=== PATIENT | female | born 1960 | race African-American/Black ===

== ENCOUNTER 2017-07-27 12:02 | Inpatient (IN) | payer MEDICAID ==
[~2017-07-27] VITALS: Ht 165.1 cm; Wt 48.1 kg
[2017-07-27] VITALS (29 sets, daily range): BP systolic 120–173; BP diastolic 67–125
[~2017-07-27 12:02] MED LIST: AMLO10TA80 PO; ASPI-1159 PO; BACL20TA PO; CLON0.2T PO; DIME240C2 PO; NITR100C11 PO; SERT25TA74 PO
[2017-07-27] MEDS ORDERED: SODIUM CHLORIDE 0.9% IV SCH (12:45)
[2017-07-27] MEDS ORDERED: SODIUM CHLORIDE 0.9% 1000ML BAG (SEPSIS BOLUS) IV ONE (12:45)
[2017-07-27 13:33] LABS: HEMATOCRIT. 50.5 % (36.0-48.0); HEMOGLOBIN. 16.2 g/dL (12.0-16.0); MEAN CORPUSCULAR HEMOGLOBIN 26.5 pg (28.0-32.0); MEAN CORPUSCULAR VOLUME 82.9 fL (81.0-99.0); PLATELET 229 x1000/uL (130-400); RED BLOOD CELL COUNT 6.09 mill/uL (4.2-5.4); RED CELL DISTRIBUTION WIDTH 15.5 % (11.6-14.6)
[2017-07-27 13:39] LABS: INR 1.1; PROTHROMBIN TIME 11.9 sec (9.4-11.6)
[2017-07-27 13:40] LABS: CHLORIDE 101 mEq/L (98-107)
[2017-07-27] MEDS ORDERED: CEFEPIME 1,000 MG in DEXTROSE 5% WATER 50 ML IV STA (13:51)
[2017-07-27] MEDS ORDERED: VANCOMYCIN 1 G PREMIX 200 ML IV STA (13:51)
[2017-07-27 13:57] LABS: NUCLEATED RED BLOOD CELLS 1 /100 WBC
[2017-07-27 13:58] LABS: PLATELET ESTIMATE NORMAL
[2017-07-27 14:13] LABS: CLARITY URINE CLOUDY (CLEAR); COLOR URINE YELLOW (YELLOW); KETONES URINE NEGATIVE (NEGATIVE); LEUKOCYTE ESTERASE URINE 1+ (NEGATIVE); NITRITE URINE NEGATIVE (NEGATIVE); OCCULT BLOOD URINE 2+ (NEGATIVE); PH URINE 6.5 (4.5-8.0); PROTEIN URINE 4+ (NEGATIVE); SPECIFIC GRAVITY URINE 1.031 (1.005-1.030); UROBILINOGEN URINE 0.2 E.U./dL (0.2-1.0)
[2017-07-27] MEDS ORDERED: AZTREONAM 2 GM in DEXT 5% WATER 100 ML IV STA (14:16)
[2017-07-27] MEDS ORDERED: ACETAMINOPHEN 325MG SUPP PR ONE (15:00)
[2017-07-27 16:18] LABS: BG BASE EXCESS -0.8 mmol/L (-2.0-2.0); BG CARBOXYHEMOGLOBIN 1.3 % (0.5-1.5); BG DEOXYHEMOGLOBIN 8.3 % (0.0-5.0); BG HCO3 ACT 22.5 mmol/L (22.0-26.0); BG METHEMOGLOBIN 0.3 % (0.0-1.5); BG OXYGEN SATURATION 91.6 % (92.0-98.5); BG OXYHEMOGLOBIN 90.1 % (94.0-97.0); BG PCO2 33.5 mmHg (35.0-45.0); BG PH 7.445 (7.350-7.450); BG SAMPLE SITE RIGHT RADIAL; BG TOTAL HEMOGLOBIN 15.1 g/dL (12.0-18.0); BG VENT MODE NASAL CANNULA
[2017-07-27] MEDS ORDERED: CLONIDINE 0.1MG TABLET PO PRN (17:00)
[2017-07-27] MEDS ORDERED: VANCOMYCIN 1 G PREMIX 200 ML IV SCH (17:00)
[2017-07-27] MEDS ORDERED: IPRATROPIUM/ALBUTEROL 0.5-3(2.5)MG/3ML NEB HHN PRN ×2 (17:00→17:30)
[2017-07-27] MEDS ORDERED: MAGNESIUM/ALUMINUM HYDROXIDE/SIMETHICONE 30ML UDC PO PRN (17:00)
[2017-07-27] MEDS ORDERED: GUAIFENESIN 200MG/10ML SUGAR FREE UDC PO PRN (17:00)
[2017-07-27] MEDS ORDERED: DIPHENHYDRAMINE 50MG/ML VIAL IV PRN (17:00)
[2017-07-27] MEDS ORDERED: ONDANSETRON HCL 4MG/2ML VIAL IV PRN (17:00)
[2017-07-27] MEDS ORDERED: LORAZEPAM 0.5MG TABLET PO PRN (17:00)
[2017-07-27] MEDS ORDERED: ACETAMINOPHEN 325MG TABLET PO PRN (17:00)
[2017-07-27] MEDS ORDERED: DOCUSATE SODIUM 100MG CAPSULE PO PRN (17:00)
[2017-07-27 17:44] LABS: BG BASE EXCESS 0.4 mmol/L (-2.0-2.0); BG DEOXYHEMOGLOBIN 6.4 % (0.0-5.0); BG HCO3 ACT 23.5 mmol/L (22.0-26.0); BG OXYGEN SATURATION 93.5 % (92.0-98.5); BG OXYHEMOGLOBIN 92.6 % (94.0-97.0); BG PCO2 33.6 mmHg (35.0-45.0); BG PH 7.462 (7.350-7.450); BG SAMPLE SITE RIGHT RADIAL; BG TOTAL HEMOGLOBIN 15.2 g/dL (12.0-18.0); BG VENT MODE NASAL CANNULA
[2017-07-27] MEDS ORDERED: MEROPENEM 500 MG in SODIUM CHLORIDE 0.9% 50 ML IV SCH (18:00)
[2017-07-27] MEDS: SODIUM CHLORIDE 0.9% 1,000 ML IV SCH (18:25)
[2017-07-27] MEDS: HYDRALAZINE 20MG/ML VIAL IV SCH (18:29)
[2017-07-27] MEDS ORDERED: DEXTROSE 50% WATER 50ML SYRINGE IV PRN (20:00)
[2017-07-27] MEDS ORDERED: IOHEXOL-350 100 ML BOTTLE ONE (20:59)
[2017-07-27] MEDS: INSULIN LISPRO 100 UNITS/ML SUBCUT SCH (21:00)
[2017-07-27] MEDS ORDERED: DIMETHYL FUMARATE 240 MG PO SCH (21:15)
[2017-07-27] MEDS: AZTREONAM 2GM in DEXTROSE 5% WATER 100ML IV SCH (21:35)
[2017-07-27] MEDS: METRONIDAZOLE 500 MG PREMIX 100 ML IV SCH (21:36)
[2017-07-27] MEDS: BLOOD SUGAR DIAGNOSTIC STRIP TEST SCH (21:40)
[2017-07-27] MEDS: ENALAPRIL 2.5MG/2ML VIAL 2ML IV SCH (21:44)
[2017-07-27] MEDS: ENOXAPARIN 40MG/0.4ML SYR SUBCUT SCH (21:45)
[2017-07-27] MEDS: IPRATROPIUM/ALBUTEROL 0.5-3(2.5)MG/3ML NEB INH SCH (21:48)
[2017-07-27] MEDS ORDERED: VERAPAMIL HCL 2.5 MG/1 ML 2ML VIAL IV NR (23:00)
[2017-07-28] VITALS (61 sets, daily range): BP systolic 95–138; BP diastolic 58–99
[2017-07-28] MEDS: ACETYLCYSTEINE 100MG/ML 10% VIAL 4ML INH SCH ×4 (00:26→21:02)
[2017-07-28] MEDS: IPRATROPIUM/ALBUTEROL 0.5-3(2.5)MG/3ML NEB INH SCH ×8 (00:26→21:02)
[2017-07-28 00:45] LABS: CREATINE KINASE MB FRACTION 1.3 ng/mL (0.5-3.6)
[2017-07-28] MEDS: HYDRALAZINE 20MG/ML VIAL IV SCH ×4 (01:04→17:27)
[2017-07-28] MEDS: ENALAPRIL 2.5MG/2ML VIAL 2ML IV SCH ×4 (02:00→20:00)
[2017-07-28] MEDS: METRONIDAZOLE 500 MG PREMIX 100 ML IV SCH ×3 (03:52→20:53)
[2017-07-28] MEDS: VANCOMYCIN 750 MG PREMIX 150 ML IV SCH ×2 (03:52→16:52)
[2017-07-28 05:30] LABS: BASOPHILS % 0.2 % (0.0-2.0); HEMATOCRIT. 42.4 % (36.0-48.0); HEMOGLOBIN. 13.7 g/dL (12.0-16.0); LYMPHOCYTES % 7.6 % (20.0-50.0); MEAN CORPUSCULAR HEMOGLOBIN 26.4 pg (28.0-32.0); MEAN CORPUSCULAR VOLUME 81.7 fL (81.0-99.0); MEAN PLATELET VOLUME 9.3 fl (7.4-10.4); MONOCYTES % 10.7 % (2.0-8.0); NEUTROPHILS % 81.5 % (40.0-76.0); PLATELET 191 x1000/uL (130-400); RED BLOOD CELL COUNT 5.19 mill/uL (4.2-5.4); RED CELL DISTRIBUTION WIDTH 15.4 % (11.6-14.6)
[2017-07-28] MEDS: SODIUM CHLORIDE 0.9% 1,000 ML IV SCH ×2 (05:49→22:48)
[2017-07-28] MEDS: BLOOD SUGAR DIAGNOSTIC STRIP TEST SCH ×4 (05:55→21:19)
[2017-07-28] MEDS: INSULIN LISPRO 100 UNITS/ML SUBCUT SCH ×4 (05:58→21:00)
[2017-07-28 06:09] LABS: CHLORIDE 110 mEq/L (98-107)
[2017-07-28 06:23] LABS: CREATINE KINASE 36 IU/L (26-192)
[2017-07-28] MEDS: AZTREONAM 2GM in DEXTROSE 5% WATER 100ML IV SCH ×2 (07:59→21:19)
[2017-07-28] MEDS ORDERED: KCL 20MEQ/100ML PREMIX 100 ML IV SCH (08:00)
[2017-07-28] MEDS ORDERED: DEXT 5%/0.45% NACL KCL 40MEQ/L 1,000 ML IV SCH (08:00)
[2017-07-28 08:38] LABS: BG BASE EXCESS -4.4 mmol/L (-2.0-2.0); BG CARBOXYHEMOGLOBIN 0.6 % (0.5-1.5); BG DEOXYHEMOGLOBIN 3.1 % (0.0-5.0); BG FRACTION INSPIRED OXYGEN 50; BG HCO3 ACT 17.9 mmol/L (22.0-26.0); BG METHEMOGLOBIN 0.3 % (0.0-1.5); BG OXYGEN SATURATION 96.9 % (92.0-98.5); BG PCO2 25.6 mmHg (35.0-45.0); BG PH 7.463 (7.350-7.450); BG PO2 84.5 mmHg (75.0-100.0); BG SAMPLE SITE RIGHT RADIAL; BG TOTAL HEMOGLOBIN 12.4 g/dL (12.0-18.0); BG VENT MODE MASK - VENTI
[2017-07-28] MEDS ORDERED: POTASSIUM CHLORIDE 20MEQ/PACKET PEG NR (08:45)
[2017-07-28] MEDS ORDERED: CLONIDINE 0.2MG TABLET PO SCH (09:00)
[2017-07-28] MEDS ORDERED: AMLODIPINE 10MG TABLET PO SCH (09:00)
[2017-07-28] MEDS: SERTRALINE HCL 50MG TABLET PO SCH (09:10)
[2017-07-28] MEDS: BACLOFEN 20MG TABLET PO SCH ×3 (09:10→17:39)
[2017-07-28] MEDS ORDERED: DILTIAZEM HCL 5MG/ML 5ML VIAL IV NR (10:17)
[2017-07-28] MEDS: ENOXAPARIN 40MG/0.4ML SYR SUBCUT SCH (20:55)
[2017-07-28] MEDS ORDERED: ASPIRIN 81MG EC TABLET PO SCH (21:00)
[2017-07-29] VITALS (43 sets, daily range): BP systolic 105–151; BP diastolic 69–102
[2017-07-29] MEDS: IPRATROPIUM/ALBUTEROL 0.5-3(2.5)MG/3ML NEB INH SCH ×4 (00:37→12:40)
[2017-07-29] MEDS: HYDRALAZINE 20MG/ML VIAL IV SCH ×3 (00:45→11:13)
[2017-07-29] MEDS: ENALAPRIL 2.5MG/2ML VIAL 2ML IV SCH ×3 (02:50→13:48)
[2017-07-29] MEDS: VANCOMYCIN 750 MG PREMIX 150 ML IV SCH (04:02)
[2017-07-29] MEDS: METRONIDAZOLE 500 MG PREMIX 100 ML IV SCH ×2 (04:02→11:14)
[2017-07-29 05:23] LABS: BASOPHILS % 0.3 % (0.0-2.0); EOSINOPHILS % 0.1 % (0.0-5.0); HEMATOCRIT. 36.1 % (36.0-48.0); HEMOGLOBIN. 11.7 g/dL (12.0-16.0); LYMPHOCYTES % 9.9 % (20.0-50.0); MEAN CORPUSCULAR HEMOGLOBIN 26.5 pg (28.0-32.0); MEAN CORPUSCULAR VOLUME 82.3 fL (81.0-99.0); MONOCYTES % 10.8 % (2.0-8.0); NEUTROPHILS % 78.9 % (40.0-76.0); PLATELET 185 x1000/uL (130-400); RED BLOOD CELL COUNT 4.39 mill/uL (4.2-5.4); RED CELL DISTRIBUTION WIDTH 14.9 % (11.6-14.6)
[2017-07-29 05:36] LABS: CHLORIDE 110 mEq/L (98-107)
[2017-07-29] MEDS: BLOOD SUGAR DIAGNOSTIC STRIP TEST SCH ×2 (06:58→11:07)
[2017-07-29] MEDS: INSULIN LISPRO 100 UNITS/ML SUBCUT SCH ×2 (06:58→11:14)
[2017-07-29] MEDS: SERTRALINE HCL 50MG TABLET PO SCH (08:32)
[2017-07-29] MEDS: BACLOFEN 20MG TABLET PO SCH ×2 (08:32→12:18)
[2017-07-29] MEDS: SODIUM CHLORIDE 0.9% 1,000 ML IV SCH (08:33)
[2017-07-29] MEDS ORDERED: POTASSIUM CHLORIDE 20MEQ TABLET SR PO NR (09:00)
[2017-07-29] MEDS: ACETYLCYSTEINE 100MG/ML 10% VIAL 4ML INH SCH (09:01)
[2017-07-29] MEDS: AZTREONAM 2GM in DEXTROSE 5% WATER 100ML IV SCH (09:02)
== END 2017-07-29 14:45 | disposition left against medical advice (07) | DRG 720 ==
LOC: ER 12:28 → 3WST 14:18 → EDBEDREQ 14:23 → CANRESERV 14:26 → ENRESERV 14:26 → CANRESERV 15:35 → ENRESERV 15:38 → MICUSO 20:51
PROVIDERS: ADMIT Internal Medicine; ATTEND Internal Medicine
DX: A41.9 Sepsis, unspecified organism (principal); J96.01 Acute respiratory failure with hypoxia; E43 Unspecified severe protein-calorie malnutrition; E87.4 Mixed disorder of acid-base balance; J18.9 Pneumonia, unspecified organism; R13.10 Dysphagia, unspecified; E44.0 Moderate protein-calorie malnutrition; E11.65 Type 2 diabetes mellitus with hyperglycemia; E87.6 Hypokalemia; F32.9 Major depressive disorder, single episode, unspecified; G35 Multiple sclerosis; I10 Essential (primary) hypertension; J45.909 Unspecified asthma, uncomplicated; N39.0 Urinary tract infection, site not specified; R65.20 Severe sepsis without septic shock; Z83.3 Family history of diabetes mellitus; Z86.718 Personal history of other venous thrombosis and embolism; Z87.01 Personal history of pneumonia (recurrent); Z91.19 Patient's noncompliance with other medical treatment and regimen; Z93.1 Gastrostomy status; M19.90 Unspecified osteoarthritis, unspecified site; Z68.1 Body mass index [BMI] 19.9 or less, adult
CPT/HCPCS: 36415; 36600; 71045; 71275; 80048; 80053; 81003; 82375; 82550; 82553; 82805; 82962; 83036; 83605; 83880; 84145; 84484; 85025; 85379; 85610; 87040; 87086; 87106; 92610; 93005; 93306; 93970; 94640; 94667; 96361; 96365; 96366; 97163; 99291; J0360; J1650; J1815; J3370; J3480; J3490; J7030; J7040; J7060; J7608; J7620; Q9967; A4315

== ENCOUNTER 2017-09-12 13:09 | Emergency (ER) | payer MEDICAID ==
[~2017-09-12] VITALS: Ht 165.1 cm; Wt 50.0 kg
[2017-09-12 15:30] VITALS: BP 148/105
== END 2017-09-12 17:57 | disposition home or self-care (01) ==
LOC: ER 13:09
DX: Z43.4 Encounter for attention to other artificial openings of digestive tract (principal); G35 Multiple sclerosis; I10 Essential (primary) hypertension; E11.9 Type 2 diabetes mellitus without complications; J45.909 Unspecified asthma, uncomplicated; Z88.0 Allergy status to penicillin
CPT/HCPCS: 43760; 99283; 99284

== ENCOUNTER 2018-02-21 16:13 | Inpatient (IN) | payer MEDICAID ==
[~2018-02-21] VITALS: Ht 167.6 cm; Wt 49.2 kg
[2018-02-21] MEDS ORDERED: SODIUM CHLORIDE 0.9% 1,000 ML IV ONE (16:19)
[2018-02-21 17:13] LABS: HEMATOCRIT. 46.9 % (36.0-48.0); HEMOGLOBIN. 15.3 g/dL (12.0-16.0); MEAN CORPUSCULAR HEMOGLOBIN 27.9 pg (28.0-32.0); MEAN CORPUSCULAR VOLUME 85.5 fL (81.0-99.0); MEAN PLATELET VOLUME 9.7 fl (7.4-10.4); PLATELET 252 x1000/uL (130-400); RED BLOOD CELL COUNT 5.49 mill/uL (4.2-5.4); RED CELL DISTRIBUTION WIDTH 14.3 % (11.6-14.6)
[2018-02-21 17:16] LABS: CLARITY URINE CLOUDY (CLEAR); COLOR URINE YELLOW (YELLOW); KETONES URINE NEGATIVE (NEGATIVE); LEUKOCYTE ESTERASE URINE TRACE (NEGATIVE); NITRITE URINE NEGATIVE (NEGATIVE); OCCULT BLOOD URINE 3+ (NEGATIVE); PH URINE 5.5 (4.5-8.0); PROTEIN URINE 4+ (NEGATIVE); SPECIFIC GRAVITY URINE 1.029 (1.005-1.030); UROBILINOGEN URINE 0.2 E.U./dL (0.2-1.0)
[2018-02-21 17:20] LABS: CHLORIDE 107 mEq/L (98-107)
[2018-02-21] MEDS ORDERED: ACETAMINOPHEN 650MG SUPP PR STA (17:28)
[2018-02-21] MEDS ORDERED: SODIUM CHLORIDE 0.9% 1000ML BAG (SEPSIS BOLUS) IV ONE (17:30)
[2018-02-21] MEDS ORDERED: MEROPENEM 1,000 MG in SODIUM CHLORIDE 0.9% 100 ML IV ONE (17:30)
[2018-02-21] MEDS ORDERED: VANCOMYCIN 1 G PREMIX 200 ML IV ONE (17:30)
[2018-02-21 17:40] LABS: PLATELET ESTIMATE NORMAL
[2018-02-21 19:44] LABS: BG CARBOXYHEMOGLOBIN 2.6 % (0.5-1.5); BG DEOXYHEMOGLOBIN 4.9 % (0.0-5.0); BG FRACTION INSPIRED OXYGEN 36; BG HCO3 ACT 24.4 mmol/L (22.0-26.0); BG METHEMOGLOBIN 0.1 % (0.0-1.5); BG OXYHEMOGLOBIN 92.4 % (94.0-97.0); BG PCO2 35.3 mmHg (35.0-45.0); BG PH 7.458 (7.350-7.450); BG PO2 74.3 mmHg (75.0-100.0); BG SAMPLE SITE RIGHT RADIAL; BG TOTAL HEMOGLOBIN 13.3 g/dL (12.0-18.0); BG VENT MODE NASAL CANNULA
[2018-02-21 22:00] VITALS: BP 99/54
[2018-02-22] VITALS (49 sets, daily range): BP systolic 83–182; BP diastolic 47–137
[2018-02-22] MEDS ORDERED: SODIUM CHLORIDE 0.9% 1,000 ML IV SCH ×2 (02:45→05:27)
[2018-02-22] MEDS ORDERED: CLONIDINE 0.1MG TABLET PO PRN (05:30)
[2018-02-22] MEDS ORDERED: IPRATROPIUM/ALBUTEROL 0.5-3(2.5)MG/3ML NEB INH PRN (05:30)
[2018-02-22] MEDS ORDERED: LEVOFLOXACIN 500MG PREMIX 100 ML IV SCH ×2 (06:00)
[2018-02-22] MEDS ORDERED: VANCOMYCIN 750 MG PREMIX 150 ML IV SCH ×2 (07:00→21:00)
[2018-02-22 08:21] LABS: BG BASE EXCESS 4.1 mmol/L (-2.0-2.0); BG CARBOXYHEMOGLOBIN 2.9 % (0.5-1.5); BG DEOXYHEMOGLOBIN 7.6 % (0.0-5.0); BG FRACTION INSPIRED OXYGEN 21; BG HCO3 ACT 27.2 mmol/L (22.0-26.0); BG METHEMOGLOBIN 0.1 % (0.0-1.5); BG OXYGEN SATURATION 92.2 % (92.0-98.5); BG OXYHEMOGLOBIN 89.4 % (94.0-97.0); BG PCO2 35.9 mmHg (35.0-45.0); BG PH 7.498 (7.350-7.450); BG PO2 58.4 mmHg (75.0-100.0); BG SAMPLE SITE RIGHT BRACHIAL; BG TOTAL HEMOGLOBIN 12.9 g/dL (12.0-18.0); BG VENT MODE ROOM AIR
[2018-02-22] MEDS ORDERED: SERTRALINE HCL 50MG TABLET PO SCH (09:00)
[2018-02-22] MEDS ORDERED: ENOXAPARIN 40MG/0.4ML SYR SUBCUT SCH (09:00)
[2018-02-22] MEDS ORDERED: CLONIDINE 0.2MG TABLET PO SCH (09:15)
[2018-02-22] MEDS ORDERED: AMLODIPINE 10MG TABLET PO SCH ×2 (09:15→11:15)
[2018-02-22 09:40] LABS: HEMATOCRIT. 39.5 % (36.0-48.0); MEAN CORPUSCULAR HEMOGLOBIN 28.5 pg (28.0-32.0); MEAN CORPUSCULAR VOLUME 86.6 fL (81.0-99.0); MEAN PLATELET VOLUME 9.6 fl (7.4-10.4); PLATELET 193 x1000/uL (130-400); RED BLOOD CELL COUNT 4.56 mill/uL (4.2-5.4); RED CELL DISTRIBUTION WIDTH 13.9 % (11.6-14.6)
[2018-02-22] MEDS: ASPIRIN 81MG TABLET PO SCH (10:05)
[2018-02-22 10:06] LABS: CHLORIDE 112 mEq/L (98-107)
[2018-02-22 10:09] LABS: *AMPHETAMINES SCREEN URINE NEGATIVE (NEGATIVE); *BARBITURATES SCREEN URINE NEGATIVE (NEGATIVE); *BENZODIAZEPINES SCREEN URINE NEGATIVE (NEGATIVE); *COCAINE SCREEN URINE NEGATIVE (NEGATIVE); METHADONE URINE SCREEN NEGATIVE (NEGATIVE); OPIATES URINE SCREEN NEGATIVE (NEGATIVE)
[2018-02-22 10:10] LABS: CANNABINOID URINE SCREEN NEGATIVE (NEGATIVE); PHENCYCLIDINE URINE SCREEN NEGATIVE (NEGATIVE)
[2018-02-22 10:19] LABS: CREATINE KINASE 17 IU/L (26-192)
[2018-02-22 10:20] LABS: CREATINE KINASE MB FRACTION < 1.0 ng/mL (0.5-3.6)
[2018-02-22] MEDS ORDERED: METOPROLOL TARTRATE 50MG TABLET PO SCH (11:15)
[2018-02-22] MEDS ORDERED: PHENYLEPHRINE 10 MG in DEXT 5% WATER 249 ML IV PRN (12:45)
[2018-02-22] MEDS ORDERED: METHYLPREDNISOLONE SOD SUCC 40 MG/ML VIAL IV ONE (12:45)
[2018-02-22 12:50] LABS: BG CARBOXYHEMOGLOBIN 3.1 % (0.5-1.5); BG DEOXYHEMOGLOBIN 8.9 % (0.0-5.0); BG HCO3 ACT 24.3 mmol/L (22.0-26.0); BG OXYGEN SATURATION 90.8 % (92.0-98.5); BG PCO2 27.8 mmHg (35.0-45.0); BG PH 7.559 (7.350-7.450); BG PO2 52.4 mmHg (75.0-100.0); BG SAMPLE SITE RIGHT BRACHIAL; BG TIDAL VOLUME(mL) 450 mL; BG TOTAL HEMOGLOBIN 13.1 g/dL (12.0-18.0); BG VENT MODE VENT - A/C; BG VENT RATE 16 set
[2018-02-22] MEDS: PANTOPRAZOLE SODIUM 40 MG/VIAL IV SCH (13:56)
[2018-02-22] MEDS ORDERED: METHYLPREDNISOLONE SOD SUCC 500 MG in SODIUM CHLORIDE 0.9% 50 ML IV SCH (14:00)
[2018-02-22] MEDS ORDERED: AMLODIPINE 2.5MG TABLET PO SCH (14:43)
[2018-02-22 14:45] LABS: PLATELET ESTIMATE NORMAL
[2018-02-22 15:16] LABS: BG BASE EXCESS 1.2 mmol/L (-2.0-2.0); BG CARBOXYHEMOGLOBIN 1.8 % (0.5-1.5); BG DEOXYHEMOGLOBIN 0.8 % (0.0-5.0); BG FRACTION INSPIRED OXYGEN 100; BG HCO3 ACT 24.5 mmol/L (22.0-26.0); BG METHEMOGLOBIN 0.1 % (0.0-1.5); BG OXYGEN SATURATION 99.2 % (92.0-98.5); BG OXYHEMOGLOBIN 97.3 % (94.0-97.0); BG PCO2 34.9 mmHg (35.0-45.0); BG PH 7.465 (7.350-7.450); BG PO2 271.8 mmHg (75.0-100.0); BG SAMPLE SITE RIGHT BRACHIAL; BG TIDAL VOLUME(mL) 450 mL; BG TOTAL HEMOGLOBIN 12.9 g/dL (12.0-18.0); BG VENT MODE VENT - A/C; BG VENT RATE 12 set
[2018-02-22] MEDS ORDERED: ETOMIDATE 2MG/ML 10ML VIAL IV ONE (15:39)
[2018-02-22] MEDS ORDERED: VECURONIUM BROMIDE 10 MG/VIAL IV ONE (15:39)
[2018-02-22] MEDS: DEXT 5%/0.45% NACL 1000ML 1,000 ML IV SCH (15:46)
[2018-02-22] MEDS: DILTIAZEM HCL 125 MG in DEXT 5% WATER 100 ML IV PRN (15:48)
[2018-02-22] MEDS: PROPOFOL 10MG/ML 100ML 100 ML IV PRN (16:24)
[2018-02-22] MEDS: FLUCONAZOLE 100MG TABLET NG SCH (16:26)
[2018-02-22] MEDS: MEROPENEM 1,000 MG in SODIUM CHLORIDE 0.9% 100 ML IV SCH (17:11)
[2018-02-22] MEDS: PHENYLEPHRINE 20 MG in DEXT 5% WATER 248 ML IV PRN ×3 (17:25→23:46)
[2018-02-22 19:28] LABS: T4 FREE 1.47 ng/dL (0.76-1.46)
[2018-02-22 19:48] LABS: FOLIC ACID (FOLATE) SERUM 6.4 ng/mL (>5.38)
[2018-02-22] MEDS: IPRATROPIUM/ALBUTEROL 0.5-3(2.5)MG/3ML NEB HHN SCH (21:15)
[2018-02-22 21:28] LABS: CREATINE KINASE 12 IU/L (26-192)
[2018-02-22 21:30] LABS: CREATINE KINASE MB FRACTION < 1.0 ng/mL (0.5-3.6)
[2018-02-22] MEDS: BACLOFEN 20MG TABLET PO SCH (22:00)
[2018-02-23] VITALS (72 sets, daily range): BP systolic 89–164; BP diastolic 51–116
[2018-02-23] MEDS: MEROPENEM 1,000 MG in SODIUM CHLORIDE 0.9% 100 ML IV SCH ×3 (00:35→17:34)
[2018-02-23] MEDS: IPRATROPIUM/ALBUTEROL 0.5-3(2.5)MG/3ML NEB HHN SCH ×6 (01:18→20:57)
[2018-02-23] MEDS: ACETYLCYSTEINE 100MG/ML 10% VIAL 4ML INH SCH ×3 (01:19→17:04)
[2018-02-23] MEDS: PHENYLEPHRINE 20 MG in DEXT 5% WATER 248 ML IV PRN ×3 (03:37→14:30)
[2018-02-23 05:40] LABS: BASOPHILS % 0.2 % (0.0-2.0); HEMATOCRIT. 37.5 % (36.0-48.0); LYMPHOCYTES % 7.6 % (20.0-50.0); MEAN CORPUSCULAR HEMOGLOBIN 27.8 pg (28.0-32.0); MEAN CORPUSCULAR VOLUME 86.7 fL (81.0-99.0); MEAN PLATELET VOLUME 10.4 fl (7.4-10.4); MONOCYTES % 5.2 % (2.0-8.0); PLATELET 188 x1000/uL (130-400); RED BLOOD CELL COUNT 4.33 mill/uL (4.2-5.4)
[2018-02-23 06:08] LABS: CHLORIDE 105 mEq/L (98-107)
[2018-02-23] MEDS: LEVOFLOXACIN 250MG PREMIX 50 ML IV SCH (06:29)
[2018-02-23] MEDS: PROPOFOL 10MG/ML 100ML 100 ML IV PRN (06:30)
[2018-02-23] MEDS: BACLOFEN 20MG TABLET PO SCH (06:56)
[2018-02-23 07:53] LABS: BG BASE EXCESS 0.2 mmol/L (-2.0-2.0); BG CARBOXYHEMOGLOBIN 2.1 % (0.5-1.5); BG DEOXYHEMOGLOBIN 7.9 % (0.0-5.0); BG FRACTION INSPIRED OXYGEN 100; BG HCO3 ACT 25.6 mmol/L (22.0-26.0); BG METHEMOGLOBIN 0.1 % (0.0-1.5); BG OXYGEN SATURATION 91.9 % (92.0-98.5); BG OXYHEMOGLOBIN 89.9 % (94.0-97.0); BG PCO2 44.3 mmHg (35.0-45.0); BG PH 7.379 (7.350-7.450); BG PO2 63.7 mmHg (75.0-100.0); BG SAMPLE SITE RIGHT RADIAL; BG TIDAL VOLUME(mL) 450 mL; BG TOTAL HEMOGLOBIN 11.4 g/dL (12.0-18.0); BG VENT MODE VENT - A/C; BG VENT RATE 12 set
[2018-02-23] MEDS: DEXT 5%/0.45% NACL 1000ML 1,000 ML IV SCH (07:55)
[2018-02-23] MEDS: PANTOPRAZOLE SODIUM 40 MG/VIAL IV SCH (08:46)
[2018-02-23] MEDS: METHYLPREDNISOLONE SOD SUCC 40 MG/ML VIAL IV SCH ×3 (08:46→21:24)
[2018-02-23] MEDS: FLUCONAZOLE 100MG TABLET NG SCH (08:47)
[2018-02-23] MEDS: ASPIRIN 81MG TABLET PO SCH (08:47)
[2018-02-23] MEDS: ENOXAPARIN 40MG/0.4ML SYR SUBCUT SCH ×2 (09:42→21:24)
[2018-02-23] MEDS: BLOOD SUGAR DIAGNOSTIC STRIP TEST SCH ×3 (11:30→21:27)
[2018-02-23] MEDS: INSULIN LISPRO 100 UNITS/ML SUBCUT SCH ×3 (12:00→21:26)
[2018-02-23] MEDS: VANCOMYCIN 1 G PREMIX 200 ML IV SCH (14:29)
[2018-02-23] MEDS: FENTANYL CITRATE/PF 500 MCG in SODIUM CHLORIDE 0.9% 40 ML IV PRN (15:35)
[2018-02-23] MEDS ORDERED: IOHEXOL-350 100 ML BOTTLE ONE (15:43)
[2018-02-24] VITALS (89 sets, daily range): BP systolic 88–159; BP diastolic 65–114
[2018-02-24] MEDS: MEROPENEM 1,000 MG in SODIUM CHLORIDE 0.9% 100 ML IV SCH ×3 (00:28→17:44)
[2018-02-24] MEDS: IPRATROPIUM/ALBUTEROL 0.5-3(2.5)MG/3ML NEB HHN SCH ×6 (01:03→20:59)
[2018-02-24] MEDS: ACETYLCYSTEINE 100MG/ML 10% VIAL 4ML INH SCH ×3 (01:03→16:39)
[2018-02-24] MEDS: VANCOMYCIN 1 G PREMIX 200 ML IV SCH ×2 (02:49→13:50)
[2018-02-24] MEDS: METHYLPREDNISOLONE SOD SUCC 40 MG/ML VIAL IV SCH ×4 (02:53→20:24)
[2018-02-24] MEDS: BACLOFEN 20MG TABLET PO SCH ×5 (06:00→22:06)
[2018-02-24] MEDS: LEVOFLOXACIN 250MG PREMIX 50 ML IV SCH (06:03)
[2018-02-24] MEDS: PHENYLEPHRINE 20 MG in DEXT 5% WATER 248 ML IV PRN (06:05)
[2018-02-24 06:12] LABS: HEMATOCRIT. 34.6 % (36.0-48.0); HEMOGLOBIN. 11.2 g/dL (12.0-16.0); MEAN CORPUSCULAR HEMOGLOBIN 27.3 pg (28.0-32.0); MEAN CORPUSCULAR VOLUME 83.9 fL (81.0-99.0); MEAN PLATELET VOLUME 10.3 fl (7.4-10.4); PLATELET 195 x1000/uL (130-400); RED BLOOD CELL COUNT 4.12 mill/uL (4.2-5.4); RED CELL DISTRIBUTION WIDTH 13.6 % (11.6-14.6)
[2018-02-24 06:17] LABS: CHLORIDE 102 mEq/L (98-107)
[2018-02-24] MEDS: FENTANYL CITRATE/PF 500 MCG in SODIUM CHLORIDE 0.9% 40 ML IV PRN ×2 (06:18→22:04)
[2018-02-24] MEDS: INSULIN LISPRO 100 UNITS/ML SUBCUT SCH ×4 (06:26→20:23)
[2018-02-24] MEDS: BLOOD SUGAR DIAGNOSTIC STRIP TEST SCH ×4 (06:30→20:27)
[2018-02-24 07:41] LABS: BG BASE EXCESS 1.9 mmol/L (-2.0-2.0); BG CARBOXYHEMOGLOBIN 1.3 % (0.5-1.5); BG DEOXYHEMOGLOBIN 0.7 % (0.0-5.0); BG HCO3 ACT 24.4 mmol/L (22.0-26.0); BG METHEMOGLOBIN 0.2 % (0.0-1.5); BG OXYGEN SATURATION 99.3 % (92.0-98.5); BG OXYHEMOGLOBIN 97.8 % (94.0-97.0); BG PCO2 31.1 mmHg (35.0-45.0); BG PH 7.513 (7.350-7.450); BG SAMPLE SITE RIGHT RADIAL; BG TIDAL VOLUME(mL) 450 mL; BG VENT MODE VENT - A/C; BG VENT RATE 12 set
[2018-02-24] MEDS: DEXT 5%/0.45% NACL 1000ML 1,000 ML IV SCH ×2 (08:09→17:55)
[2018-02-24] MEDS: ASPIRIN 81MG TABLET PO SCH (08:12)
[2018-02-24] MEDS: FLUCONAZOLE 100MG TABLET NG SCH (08:12)
[2018-02-24] MEDS: PANTOPRAZOLE SODIUM 40 MG/VIAL IV SCH (08:13)
[2018-02-24] MEDS: ENOXAPARIN 40MG/0.4ML SYR SUBCUT SCH ×2 (08:19→20:25)
[2018-02-24 08:32] LABS: PLATELET ESTIMATE NORMAL
[2018-02-24 12:47] LABS: BG BASE EXCESS -1.5 mmol/L (-2.0-2.0); BG CARBOXYHEMOGLOBIN 1.5 % (0.5-1.5); BG DEOXYHEMOGLOBIN 0.9 % (0.0-5.0); BG HCO3 ACT 21.3 mmol/L (22.0-26.0); BG METHEMOGLOBIN 0.2 % (0.0-1.5); BG OXYGEN SATURATION 99.1 % (92.0-98.5); BG OXYHEMOGLOBIN 97.4 % (94.0-97.0); BG PCO2 29.4 mmHg (35.0-45.0); BG PH 7.478 (7.350-7.450); BG PO2 170.8 mmHg (75.0-100.0); BG SAMPLE SITE RIGHT RADIAL; BG TIDAL VOLUME(mL) 450 mL; BG TOTAL HEMOGLOBIN 10.4 g/dL (12.0-18.0); BG VENT MODE VENT - A/C; BG VENT RATE 12 set
[2018-02-25] VITALS (60 sets, daily range): BP systolic 93–175; BP diastolic 68–120
[2018-02-25] MEDS: IPRATROPIUM/ALBUTEROL 0.5-3(2.5)MG/3ML NEB HHN SCH ×6 (00:34→21:00)
[2018-02-25] MEDS: ACETYLCYSTEINE 100MG/ML 10% VIAL 4ML INH SCH ×3 (00:34→16:20)
[2018-02-25] MEDS: MEROPENEM 1,000 MG in SODIUM CHLORIDE 0.9% 100 ML IV SCH ×3 (01:03→16:58)
[2018-02-25] MEDS: VANCOMYCIN 1 G PREMIX 200 ML IV SCH (02:46)
[2018-02-25] MEDS: INSULIN LISPRO 100 UNITS/ML SUBCUT SCH ×4 (06:48→21:00)
[2018-02-25] MEDS: BLOOD SUGAR DIAGNOSTIC STRIP TEST SCH ×4 (06:49→21:47)
[2018-02-25] MEDS: BACLOFEN 20MG TABLET PO SCH ×3 (06:49→22:02)
[2018-02-25 07:56] LABS: BG BASE EXCESS -0.9 mmol/L (-2.0-2.0); BG CARBOXYHEMOGLOBIN 1.5 % (0.5-1.5); BG FRACTION INSPIRED OXYGEN 50; BG METHEMOGLOBIN 0.2 % (0.0-1.5); BG OXYHEMOGLOBIN 97.3 % (94.0-97.0); BG PH 7.386 (7.350-7.450); BG PO2 181.9 mmHg (75.0-100.0); BG SAMPLE SITE RIGHT RADIAL; BG TIDAL VOLUME(mL) 450 mL; BG VENT MODE VENT - A/C; BG VENT RATE 12 set
[2018-02-25] MEDS: ASPIRIN 81MG TABLET PO SCH (08:34)
[2018-02-25] MEDS: FLUCONAZOLE 100MG TABLET NG SCH (08:34)
[2018-02-25] MEDS: PANTOPRAZOLE SODIUM 40 MG/VIAL IV SCH (08:34)
[2018-02-25] MEDS: FENTANYL CITRATE/PF 500 MCG in SODIUM CHLORIDE 0.9% 40 ML IV PRN (08:36)
[2018-02-25] MEDS: ENOXAPARIN 40MG/0.4ML SYR SUBCUT SCH ×2 (08:48→21:59)
[2018-02-25] MEDS: DEXT 5%/0.45% NACL 1000ML 1,000 ML IV SCH (08:49)
[2018-02-25 10:20] LABS: HEMATOCRIT. 32.8 % (36.0-48.0); HEMOGLOBIN. 10.8 g/dL (12.0-16.0); MEAN CORPUSCULAR HEMOGLOBIN 27.4 pg (28.0-32.0); MEAN CORPUSCULAR VOLUME 83.5 fL (81.0-99.0); PLATELET 207 x1000/uL (130-400); RED BLOOD CELL COUNT 3.92 mill/uL (4.2-5.4)
[2018-02-25 10:46] LABS: CHLORIDE 103 mEq/L (98-107)
[2018-02-25 10:51] LABS: PHOSPHORUS 2.1 mg/dL (2.5-4.9)
[2018-02-25 11:21] LABS: PLATELET ESTIMATE NORMAL
[2018-02-25 12:15] LABS: BG BASE EXCESS -1.5 mmol/L (-2.0-2.0); BG CARBOXYHEMOGLOBIN 1.6 % (0.5-1.5); BG FRACTION INSPIRED OXYGEN 50; BG HCO3 ACT 22.8 mmol/L (22.0-26.0); BG METHEMOGLOBIN 0.2 % (0.0-1.5); BG OXYHEMOGLOBIN 97.2 % (94.0-97.0); BG PCO2 36.7 mmHg (35.0-45.0); BG PH 7.411 (7.350-7.450); BG PO2 185.3 mmHg (75.0-100.0); BG PRESSURE SUPPORT 14; BG SAMPLE SITE RIGHT RADIAL; BG TIDAL VOLUME(mL) 450 mL; BG VENT MODE VENT - SIMV; BG VENT RATE 8 set
[2018-02-25] MEDS: LISINOPRIL 10MG TABLET PO SCH ×2 (16:58→22:02)
[2018-02-25] MEDS: VANCOMYCIN 750 MG PREMIX 150 ML IV SCH (22:03)
[2018-02-26] VITALS (57 sets, daily range): BP systolic 101–180; BP diastolic 75–123
[2018-02-26] MEDS: ACETYLCYSTEINE 100MG/ML 10% VIAL 4ML INH SCH ×2 (00:38→08:27)
[2018-02-26] MEDS: IPRATROPIUM/ALBUTEROL 0.5-3(2.5)MG/3ML NEB HHN SCH ×4 (00:38→11:40)
[2018-02-26] MEDS: DEXT 5%/0.45% NACL 1000ML 1,000 ML IV SCH (01:31)
[2018-02-26] MEDS: MEROPENEM 1,000 MG in SODIUM CHLORIDE 0.9% 100 ML IV SCH ×3 (01:59→17:51)
[2018-02-26 05:59] LABS: HEMATOCRIT. 31.9 % (36.0-48.0); HEMOGLOBIN. 10.5 g/dL (12.0-16.0); MEAN CORPUSCULAR HEMOGLOBIN 27.2 pg (28.0-32.0); MEAN CORPUSCULAR VOLUME 82.9 fL (81.0-99.0); MEAN PLATELET VOLUME 9.7 fl (7.4-10.4); PLATELET 206 x1000/uL (130-400); RED BLOOD CELL COUNT 3.85 mill/uL (4.2-5.4); RED CELL DISTRIBUTION WIDTH 13.6 % (11.6-14.6)
[2018-02-26] MEDS: BACLOFEN 20MG TABLET PO SCH ×3 (06:01→23:12)
[2018-02-26] MEDS: BLOOD SUGAR DIAGNOSTIC STRIP TEST SCH ×4 (06:01→21:00)
[2018-02-26] MEDS: INSULIN LISPRO 100 UNITS/ML SUBCUT SCH ×4 (06:03→21:00)
[2018-02-26 06:12] LABS: CHLORIDE 106 mEq/L (98-107)
[2018-02-26 07:41] LABS: BG BASE EXCESS 0.9 mmol/L (-2.0-2.0); BG CARBOXYHEMOGLOBIN 2.1 % (0.5-1.5); BG DEOXYHEMOGLOBIN 1.3 % (0.0-5.0); BG FRACTION INSPIRED OXYGEN 50; BG HCO3 ACT 25.2 mmol/L (22.0-26.0); BG METHEMOGLOBIN 0.2 % (0.0-1.5); BG OXYGEN SATURATION 98.7 % (92.0-98.5); BG OXYHEMOGLOBIN 96.4 % (94.0-97.0); BG PCO2 38.9 mmHg (35.0-45.0); BG PH 7.429 (7.350-7.450); BG PO2 147.8 mmHg (75.0-100.0); BG PRESSURE SUPPORT 14; BG SAMPLE SITE RIGHT RADIAL; BG TIDAL VOLUME(mL) 450 mL; BG TOTAL HEMOGLOBIN 8.9 g/dL (12.0-18.0); BG VENT MODE VENT - SIMV; BG VENT RATE 8 set
[2018-02-26 08:21] LABS: PLATELET ESTIMATE NORMAL
[2018-02-26] MEDS: PANTOPRAZOLE SODIUM 40 MG/VIAL IV SCH (08:33)
[2018-02-26] MEDS: ASPIRIN 81MG TABLET PO SCH (08:34)
[2018-02-26] MEDS: LISINOPRIL 10MG TABLET PO SCH (08:34)
[2018-02-26] MEDS: FLUCONAZOLE 100MG TABLET NG SCH (08:34)
[2018-02-26] MEDS: ENOXAPARIN 40MG/0.4ML SYR SUBCUT SCH ×2 (08:34→21:00)
[2018-02-26] MEDS: VANCOMYCIN 750 MG PREMIX 150 ML IV SCH ×2 (08:44→23:10)
[2018-02-26] MEDS ORDERED: FUROSEMIDE 40MG/4ML VIAL IVP NR (12:45)
[2018-02-26] MEDS: DILTIAZEM HCL 30MG TABLET PO SCH ×2 (13:09→22:00)
[2018-02-26] MEDS: DILTIAZEM HCL 125 MG in DEXT 5% WATER 100 ML IV PRN ×2 (13:35→22:40)
[2018-02-26] MEDS ORDERED: SODIUM CHLORIDE 3% FOR INH 4ML UD NEB INH SCH (14:00)
[2018-02-26 15:24] LABS: BG BASE EXCESS 4.2 mmol/L (-2.0-2.0); BG CARBOXYHEMOGLOBIN 2.9 % (0.5-1.5); BG DEOXYHEMOGLOBIN 11.9 % (0.0-5.0); BG FRACTION INSPIRED OXYGEN 50; BG HCO3 ACT 26.8 mmol/L (22.0-26.0); BG METHEMOGLOBIN 0.2 % (0.0-1.5); BG OXYGEN SATURATION 87.7 % (92.0-98.5); BG PCO2 33.4 mmHg (35.0-45.0); BG PH 7.522 (7.350-7.450); BG PO2 48.4 mmHg (75.0-100.0); BG PRESSURE SUPPORT 8; BG SAMPLE SITE LEFT RADIAL; BG TOTAL HEMOGLOBIN 12.9 g/dL (12.0-18.0); BG VENT MODE VENT - CPAP
[2018-02-26] MEDS: IPRATROPIUM BROMIDE (0.02%) 0.5MG/2.5ML NEB HHN SCH (20:39)
[2018-02-26] MEDS: LISINOPRIL 20MG TABLET PO SCH (21:00)
[2018-02-27] VITALS (80 sets, daily range): BP systolic 83–121; BP diastolic 56–88
[2018-02-27] MEDS: ACETYLCYSTEINE 100MG/ML 10% VIAL 4ML INH SCH ×2 (00:50→13:35)
[2018-02-27] MEDS: IPRATROPIUM BROMIDE (0.02%) 0.5MG/2.5ML NEB HHN SCH ×4 (00:50→19:58)
[2018-02-27] MEDS: MEROPENEM 1,000 MG in SODIUM CHLORIDE 0.9% 100 ML IV SCH ×2 (01:00→09:45)
[2018-02-27] MEDS: SODIUM CHLORIDE 3% FOR INH 4ML UD NEB INH SCH ×3 (01:37→19:58)
[2018-02-27 05:55] LABS: HEMATOCRIT. 35.6 % (36.0-48.0); HEMOGLOBIN. 11.7 g/dL (12.0-16.0); MEAN CORPUSCULAR HEMOGLOBIN 27.6 pg (28.0-32.0); MEAN CORPUSCULAR VOLUME 83.5 fL (81.0-99.0); MEAN PLATELET VOLUME 9.4 fl (7.4-10.4); PLATELET 193 x1000/uL (130-400); RED BLOOD CELL COUNT 4.26 mill/uL (4.2-5.4); RED CELL DISTRIBUTION WIDTH 13.4 % (11.6-14.6)
[2018-02-27 05:59] LABS: CHLORIDE 95 mEq/L (98-107)
[2018-02-27] MEDS: DILTIAZEM HCL 30MG TABLET PO SCH ×3 (06:00→22:00)
[2018-02-27] MEDS: DILTIAZEM HCL 125 MG in DEXT 5% WATER 100 ML IV PRN ×2 (07:04→14:08)
[2018-02-27] MEDS: BACLOFEN 20MG TABLET PO SCH ×3 (07:08→22:03)
[2018-02-27] MEDS: BLOOD SUGAR DIAGNOSTIC STRIP TEST SCH ×4 (07:09→21:00)
[2018-02-27] MEDS: INSULIN LISPRO 100 UNITS/ML SUBCUT SCH ×4 (07:11→21:00)
[2018-02-27 08:50] LABS: PLATELET ESTIMATE NORMAL
[2018-02-27] MEDS ORDERED: POTASSIUM CHLORIDE 20MEQ TABLET SR PO NR (09:00)
[2018-02-27] MEDS: ENOXAPARIN 40MG/0.4ML SYR SUBCUT SCH ×2 (09:00→22:07)
[2018-02-27] MEDS: ASPIRIN 81MG TABLET PO SCH (09:00)
[2018-02-27] MEDS: FLUCONAZOLE 100MG TABLET NG SCH (09:45)
[2018-02-27] MEDS: LISINOPRIL 20MG TABLET PO SCH ×2 (09:46→21:00)
[2018-02-27] MEDS: VANCOMYCIN 750 MG PREMIX 150 ML IV SCH (10:22)
[2018-02-27 10:45] LABS: BG BASE EXCESS 12.4 mmol/L (-2.0-2.0); BG CARBOXYHEMOGLOBIN 1.4 % (0.5-1.5); BG DEOXYHEMOGLOBIN 1.8 % (0.0-5.0); BG FRACTION INSPIRED OXYGEN 70; BG HCO3 ACT 36.2 mmol/L (22.0-26.0); BG METHEMOGLOBIN 0.2 % (0.0-1.5); BG OXYGEN SATURATION 98.2 % (92.0-98.5); BG OXYHEMOGLOBIN 96.6 % (94.0-97.0); BG PCO2 43.2 mmHg (35.0-45.0); BG PH 7.541 (7.350-7.450); BG PO2 115.8 mmHg (75.0-100.0); BG SAMPLE SITE RIGHT BRACHIAL; BG TIDAL VOLUME(mL) 450 mL; BG TOTAL HEMOGLOBIN 10.8 g/dL (12.0-18.0); BG VENT MODE VENT - A/C; BG VENT RATE 12 set
[2018-02-27] MEDS: PANTOPRAZOLE SODIUM 40 MG/VIAL IV SCH (12:06)
[2018-02-27] MEDS: CITRIC ACID/SODIUM CITRATE SOLN 15ML UDC PO SCH ×2 (14:07→18:28)
[2018-02-27] MEDS: METRONIDAZOLE 500 MG PREMIX 100 ML IV SCH ×2 (16:09→22:02)
[2018-02-27] MEDS ORDERED: VANCOMYCIN HCL 1 GM/VIAL PO SCH (18:00)
[2018-02-27] MEDS: VANCOMYCIN HCL 1000 MG/20 ML ORAL PO SCH (18:28)
[2018-02-28] VITALS (81 sets, daily range): BP systolic 77–158; BP diastolic 56–108
[2018-02-28] MEDS: VANCOMYCIN HCL 1000 MG/20 ML ORAL PO SCH ×4 (00:16→17:49)
[2018-02-28] MEDS: IPRATROPIUM BROMIDE (0.02%) 0.5MG/2.5ML NEB HHN SCH ×4 (01:47→20:32)
[2018-02-28] MEDS: ACETYLCYSTEINE 100MG/ML 10% VIAL 4ML INH SCH ×3 (01:47→13:34)
[2018-02-28] MEDS: DILTIAZEM HCL 125 MG in DEXT 5% WATER 100 ML IV PRN (03:38)
[2018-02-28 05:29] LABS: CHLORIDE 99 mEq/L (98-107)
[2018-02-28 05:32] LABS: HEMATOCRIT. 30.8 % (36.0-48.0); HEMOGLOBIN. 9.9 g/dL (12.0-16.0); MEAN CORPUSCULAR HEMOGLOBIN 27.2 pg (28.0-32.0); MEAN CORPUSCULAR VOLUME 84.6 fL (81.0-99.0); MEAN PLATELET VOLUME 10.2 fl (7.4-10.4); PLATELET 178 x1000/uL (130-400); RED BLOOD CELL COUNT 3.64 mill/uL (4.2-5.4); RED CELL DISTRIBUTION WIDTH 13.5 % (11.6-14.6)
[2018-02-28 05:51] LABS: PHOSPHORUS 0.8 mg/dL (2.5-4.9)
[2018-02-28] MEDS: BLOOD SUGAR DIAGNOSTIC STRIP TEST SCH ×3 (06:30→16:30)
[2018-02-28] MEDS: INSULIN LISPRO 100 UNITS/ML SUBCUT SCH ×3 (07:00→17:00)
[2018-02-28] MEDS: SODIUM CHLORIDE 3% FOR INH 4ML UD NEB INH SCH ×2 (07:44→16:55)
[2018-02-28] MEDS: METRONIDAZOLE 500 MG PREMIX 100 ML IV SCH ×3 (07:58→22:33)
[2018-02-28] MEDS: PANTOPRAZOLE SODIUM 40 MG/VIAL IV SCH (08:25)
[2018-02-28] MEDS: LISINOPRIL 20MG TABLET PO SCH ×2 (08:25→19:48)
[2018-02-28] MEDS: FLUCONAZOLE 100MG TABLET NG SCH (08:26)
[2018-02-28] MEDS: BACLOFEN 20MG TABLET PO SCH ×3 (08:26→22:33)
[2018-02-28] MEDS: CITRIC ACID/SODIUM CITRATE SOLN 15ML UDC PO SCH ×3 (08:27→17:48)
[2018-02-28] MEDS: DILTIAZEM HCL 30MG TABLET PO SCH ×3 (08:27→22:33)
[2018-02-28] MEDS: ASPIRIN 81MG TABLET PO SCH (08:31)
[2018-02-28] MEDS: ENOXAPARIN 40MG/0.4ML SYR SUBCUT SCH ×2 (08:32→22:32)
[2018-02-28] MEDS ORDERED: POTASSIUM PHOS,M-BASIC-D-BASIC 30 MMOL in DEXT 5% WATER 250 ML IV SCH (09:00)
[2018-02-28] MEDS ORDERED: FENTANYL CITRATE/PF 500 MCG in SODIUM CHLORIDE 0.9% 40 ML IV PRN (09:26)
[2018-02-28 09:32] LABS: PLATELET ESTIMATE NORMAL
[2018-02-28] MEDS: DEXTROSE 50% WATER 50ML SYRINGE IV PRN (17:36)
[2018-02-28 18:00] LABS: PHOSPHORUS 3.2 mg/dL (2.5-4.9)
[2018-02-28] MEDS: PHENYLEPHRINE 20 MG in DEXT 5% WATER 248 ML IV PRN (19:11)
[2018-03-01] VITALS (39 sets, daily range): BP systolic 87–185; BP diastolic 66–117
[2018-03-01] MEDS: BLOOD SUGAR DIAGNOSTIC STRIP TEST SCH ×3 (00:55→12:00)
[2018-03-01] MEDS: VANCOMYCIN HCL 1000 MG/20 ML ORAL PO SCH ×4 (00:59→17:38)
[2018-03-01] MEDS: INSULIN LISPRO 100 UNITS/ML SUBCUT SCH ×5 (01:08→17:39)
[2018-03-01] MEDS: IPRATROPIUM BROMIDE (0.02%) 0.5MG/2.5ML NEB HHN SCH ×4 (01:25→20:09)
[2018-03-01] MEDS: ACETYLCYSTEINE 100MG/ML 10% VIAL 4ML INH SCH ×3 (01:26→13:58)
[2018-03-01] MEDS: DILTIAZEM HCL 30MG TABLET PO SCH ×3 (06:25→21:32)
[2018-03-01] MEDS: BACLOFEN 20MG TABLET PO SCH ×3 (06:25→21:32)
[2018-03-01] MEDS: METRONIDAZOLE 500 MG PREMIX 100 ML IV SCH ×3 (06:26→21:32)
[2018-03-01 07:22] LABS: HEMATOCRIT. 29.3 % (36.0-48.0); HEMOGLOBIN. 9.6 g/dL (12.0-16.0); MEAN CORPUSCULAR HEMOGLOBIN 27.2 pg (28.0-32.0); MEAN CORPUSCULAR VOLUME 83.5 fL (81.0-99.0); MEAN PLATELET VOLUME 8.8 fl (7.4-10.4); PLATELET 224 x1000/uL (130-400); RED BLOOD CELL COUNT 3.51 mill/uL (4.2-5.4); RED CELL DISTRIBUTION WIDTH 13.7 % (11.6-14.6)
[2018-03-01 07:29] LABS: CHLORIDE 103 mEq/L (98-107)
[2018-03-01 08:32] LABS: BG BASE EXCESS 5.3 mmol/L (-2.0-2.0); BG CARBOXYHEMOGLOBIN 1.5 % (0.5-1.5); BG DEOXYHEMOGLOBIN 1.7 % (0.0-5.0); BG FRACTION INSPIRED OXYGEN 40; BG HCO3 ACT 28.9 mmol/L (22.0-26.0); BG METHEMOGLOBIN 0.2 % (0.0-1.5); BG OXYGEN SATURATION 98.3 % (92.0-98.5); BG OXYHEMOGLOBIN 96.6 % (94.0-97.0); BG PCO2 38.2 mmHg (35.0-45.0); BG PH 7.496 (7.350-7.450); BG SAMPLE SITE RIGHT RADIAL; BG TIDAL VOLUME(mL) 450 mL; BG VENT MODE VENT - A/C; BG VENT RATE 14 set
[2018-03-01] MEDS: ENOXAPARIN 40MG/0.4ML SYR SUBCUT SCH ×2 (09:00→21:32)
[2018-03-01] MEDS: FLUCONAZOLE 100MG TABLET NG SCH (09:14)
[2018-03-01] MEDS: ASPIRIN 81MG TABLET PO SCH (09:14)
[2018-03-01] MEDS: CITRIC ACID/SODIUM CITRATE SOLN 15ML UDC PO SCH ×3 (09:14→17:37)
[2018-03-01] MEDS: PANTOPRAZOLE SODIUM 40 MG/VIAL IV SCH (09:14)
[2018-03-01 09:21] LABS: PLATELET ESTIMATE NORMAL
[2018-03-01] MEDS: FENTANYL CITRATE/PF 500 MCG in SODIUM CHLORIDE 0.9% 40 ML IV PRN (12:45)
[2018-03-02] VITALS (52 sets, daily range): BP systolic 56–122; BP diastolic 24–90
[2018-03-02] MEDS: VANCOMYCIN HCL 1000 MG/20 ML ORAL PO SCH ×4 (00:05→17:59)
[2018-03-02] MEDS: INSULIN LISPRO 100 UNITS/ML SUBCUT SCH ×5 (00:08→21:31)
[2018-03-02] MEDS: BLOOD SUGAR DIAGNOSTIC STRIP TEST SCH ×5 (00:11→21:31)
[2018-03-02] MEDS: IPRATROPIUM BROMIDE (0.02%) 0.5MG/2.5ML NEB HHN SCH ×5 (02:01→20:53)
[2018-03-02] MEDS: SODIUM CHLORIDE 3% FOR INH 4ML UD NEB INH SCH ×2 (02:01→13:32)
[2018-03-02] MEDS: ACETYLCYSTEINE 100MG/ML 10% VIAL 4ML INH SCH ×3 (02:01→16:20)
[2018-03-02] MEDS: IPRATROPIUM/ALBUTEROL 0.5-3(2.5)MG/3ML NEB HHN PRN (02:01)
[2018-03-02] MEDS: PHENYLEPHRINE 20 MG in DEXT 5% WATER 248 ML IV PRN ×2 (03:11→21:58)
[2018-03-02 05:43] LABS: HEMATOCRIT. 29.5 % (36.0-48.0); HEMOGLOBIN. 9.5 g/dL (12.0-16.0); MEAN CORPUSCULAR HEMOGLOBIN 27.4 pg (28.0-32.0); MEAN CORPUSCULAR VOLUME 85.3 fL (81.0-99.0); MEAN PLATELET VOLUME 9.1 fl (7.4-10.4); PLATELET 255 x1000/uL (130-400); RED BLOOD CELL COUNT 3.46 mill/uL (4.2-5.4); RED CELL DISTRIBUTION WIDTH 14.2 % (11.6-14.6)
[2018-03-02 06:07] LABS: CHLORIDE 105 mEq/L (98-107)
[2018-03-02] MEDS: METRONIDAZOLE 500 MG PREMIX 100 ML IV SCH ×3 (06:58→21:22)
[2018-03-02] MEDS: DILTIAZEM HCL 30MG TABLET PO SCH ×3 (06:59→21:17)
[2018-03-02] MEDS: BACLOFEN 20MG TABLET PO SCH ×3 (06:59→21:17)
[2018-03-02 07:18] LABS: NUCLEATED RED BLOOD CELLS 2 /100 WBC
[2018-03-02 07:19] LABS: PLATELET ESTIMATE NORMAL
[2018-03-02 07:26] LABS: BG BASE EXCESS 6.1 mmol/L (-2.0-2.0); BG CARBOXYHEMOGLOBIN 2.1 % (0.5-1.5); BG DEOXYHEMOGLOBIN 3.4 % (0.0-5.0); BG HCO3 ACT 30.5 mmol/L (22.0-26.0); BG METHEMOGLOBIN 0.2 % (0.0-1.5); BG OXYGEN SATURATION 96.5 % (92.0-98.5); BG OXYHEMOGLOBIN 94.3 % (94.0-97.0); BG PCO2 43.9 mmHg (35.0-45.0); BG PO2 83.9 mmHg (75.0-100.0); BG SAMPLE SITE RIGHT BRACHIAL; BG TIDAL VOLUME(mL) 450 mL; BG TOTAL HEMOGLOBIN 9.7 g/dL (12.0-18.0); BG VENT MODE VENT - A/C; BG VENT RATE 12 set
[2018-03-02] MEDS: PANTOPRAZOLE SODIUM 40 MG/VIAL IV SCH (09:01)
[2018-03-02] MEDS: ASPIRIN 81MG TABLET PO SCH (09:01)
[2018-03-02] MEDS: FLUCONAZOLE 100MG TABLET NG SCH (09:01)
[2018-03-02] MEDS: CITRIC ACID/SODIUM CITRATE SOLN 15ML UDC PO SCH ×3 (09:01→17:59)
[2018-03-02] MEDS: ENOXAPARIN 60MG/0.6ML SYR SUBCUT SCH ×2 (09:17→21:16)
[2018-03-02] MEDS: FENTANYL CITRATE/PF 500 MCG in SODIUM CHLORIDE 0.9% 40 ML IV PRN (12:21)
[2018-03-02] MEDS: INSULIN GLARGINE UD 100 UNITS/ML SYR SUBCUT SCH (21:31)
[2018-03-03] VITALS (93 sets, daily range): BP systolic 74–161; BP diastolic 52–108
[2018-03-03] MEDS: VANCOMYCIN HCL 1000 MG/20 ML ORAL PO SCH ×4 (00:25→18:11)
[2018-03-03] MEDS: IPRATROPIUM BROMIDE (0.02%) 0.5MG/2.5ML NEB HHN SCH ×3 (00:40→13:42)
[2018-03-03] MEDS: ACETYLCYSTEINE 100MG/ML 10% VIAL 4ML INH SCH ×2 (00:41→13:44)
[2018-03-03 05:47] LABS: HEMATOCRIT. 31.8 % (36.0-48.0); HEMOGLOBIN. 10.3 g/dL (12.0-16.0); MEAN CORPUSCULAR HEMOGLOBIN 27.8 pg (28.0-32.0); MEAN CORPUSCULAR VOLUME 85.2 fL (81.0-99.0); MEAN PLATELET VOLUME 9.1 fl (7.4-10.4); PLATELET 340 x1000/uL (130-400); RED BLOOD CELL COUNT 3.73 mill/uL (4.2-5.4); RED CELL DISTRIBUTION WIDTH 14.2 % (11.6-14.6)
[2018-03-03 05:49] LABS: CHLORIDE 107 mEq/L (98-107)
[2018-03-03] MEDS: BLOOD SUGAR DIAGNOSTIC STRIP TEST SCH ×3 (06:00→18:07)
[2018-03-03] MEDS: BACLOFEN 20MG TABLET PO SCH ×3 (06:54→22:43)
[2018-03-03] MEDS: DILTIAZEM HCL 30MG TABLET PO SCH ×3 (06:54→22:00)
[2018-03-03] MEDS: METRONIDAZOLE 500 MG PREMIX 100 ML IV SCH ×3 (06:55→21:19)
[2018-03-03] MEDS: INSULIN LISPRO 100 UNITS/ML SUBCUT SCH ×3 (06:56→18:11)
[2018-03-03] MEDS: PHENYLEPHRINE 20 MG in DEXT 5% WATER 248 ML IV PRN (07:00)
[2018-03-03] MEDS: ACETAMINOPHEN 325MG TABLET PO PRN (08:26)
[2018-03-03] MEDS: SODIUM CHLORIDE 3% FOR INH 4ML UD NEB INH SCH ×2 (08:30→20:32)
[2018-03-03 09:07] LABS: BG BASE EXCESS 6.7 mmol/L (-2.0-2.0); BG CARBOXYHEMOGLOBIN 1.6 % (0.5-1.5); BG DEOXYHEMOGLOBIN 1.6 % (0.0-5.0); BG FRACTION INSPIRED OXYGEN 35; BG HCO3 ACT 31.2 mmol/L (22.0-26.0); BG METHEMOGLOBIN 0.3 % (0.0-1.5); BG OXYGEN SATURATION 98.4 % (92.0-98.5); BG OXYHEMOGLOBIN 96.5 % (94.0-97.0); BG PCO2 44.6 mmHg (35.0-45.0); BG PH 7.462 (7.350-7.450); BG PO2 131.3 mmHg (75.0-100.0); BG SAMPLE SITE RIGHT BRACHIAL; BG TIDAL VOLUME(mL) 450 mL; BG VENT MODE VENT - A/C; BG VENT RATE 12 set
[2018-03-03 10:52] LABS: PLATELET ESTIMATE NORMAL
[2018-03-03] MEDS: PANTOPRAZOLE SODIUM 40 MG/VIAL IV SCH (10:52)
[2018-03-03] MEDS: FLUCONAZOLE 100MG TABLET NG SCH (10:52)
[2018-03-03] MEDS: ASPIRIN 81MG TABLET PO SCH (10:52)
[2018-03-03] MEDS: CITRIC ACID/SODIUM CITRATE SOLN 15ML UDC PO SCH ×3 (10:52→18:10)
[2018-03-03] MEDS: ENOXAPARIN 60MG/0.6ML SYR SUBCUT SCH ×2 (10:54→21:20)
[2018-03-03] MEDS: INSULIN GLARGINE UD 100 UNITS/ML SYR SUBCUT SCH ×2 (10:55→22:42)
[2018-03-03] MEDS: IPRATROPIUM/ALBUTEROL 0.5-3(2.5)MG/3ML NEB HHN PRN (20:24)
[2018-03-03] MEDS: FENTANYL CITRATE/PF 500 MCG in SODIUM CHLORIDE 0.9% 40 ML IV PRN (21:15)
[2018-03-04] VITALS (94 sets, daily range): BP systolic 77–164; BP diastolic 54–111
[2018-03-04] MEDS: IPRATROPIUM/ALBUTEROL 0.5-3(2.5)MG/3ML NEB HHN PRN ×2 (00:03→03:09)
[2018-03-04] MEDS: ACETYLCYSTEINE 100MG/ML 10% VIAL 4ML INH SCH (00:03)
[2018-03-04] MEDS: INSULIN LISPRO 100 UNITS/ML SUBCUT SCH ×4 (00:48→18:00)
[2018-03-04] MEDS: BLOOD SUGAR DIAGNOSTIC STRIP TEST SCH ×4 (00:48→17:59)
[2018-03-04] MEDS: VANCOMYCIN HCL 1000 MG/20 ML ORAL PO SCH ×4 (00:50→18:02)
[2018-03-04] MEDS: SODIUM CHLORIDE 3% FOR INH 4ML UD NEB INH SCH (03:10)
[2018-03-04] MEDS: DILTIAZEM HCL 30MG TABLET PO SCH ×3 (05:21→22:03)
[2018-03-04] MEDS: METRONIDAZOLE 500 MG PREMIX 100 ML IV SCH ×3 (05:21→22:02)
[2018-03-04] MEDS: BACLOFEN 20MG TABLET PO SCH ×3 (05:21→22:02)
[2018-03-04 05:32] LABS: CHLORIDE 106 mEq/L (98-107)
[2018-03-04] MEDS: IPRATROPIUM BROMIDE (0.02%) 0.5MG/2.5ML NEB HHN SCH ×3 (08:09→19:58)
[2018-03-04 08:37] LABS: BG BASE EXCESS 4.5 mmol/L (-2.0-2.0); BG CARBOXYHEMOGLOBIN 1.7 % (0.5-1.5); BG DEOXYHEMOGLOBIN 2.6 % (0.0-5.0); BG FRACTION INSPIRED OXYGEN 30; BG HCO3 ACT 29.3 mmol/L (22.0-26.0); BG METHEMOGLOBIN 0.3 % (0.0-1.5); BG OXYGEN SATURATION 97.3 % (92.0-98.5); BG OXYHEMOGLOBIN 95.4 % (94.0-97.0); BG PCO2 45.6 mmHg (35.0-45.0); BG PH 7.426 (7.350-7.450); BG PO2 99.6 mmHg (75.0-100.0); BG SAMPLE SITE RIGHT BRACHIAL; BG TIDAL VOLUME(mL) 450 mL; BG VENT MODE VENT - A/C; BG VENT RATE 12 set
[2018-03-04] MEDS: FLUCONAZOLE 100MG TABLET NG SCH (09:27)
[2018-03-04] MEDS: ASPIRIN 81MG TABLET PO SCH (09:27)
[2018-03-04] MEDS: CITRIC ACID/SODIUM CITRATE SOLN 15ML UDC PO SCH ×3 (09:28→18:01)
[2018-03-04] MEDS: ENOXAPARIN 60MG/0.6ML SYR SUBCUT SCH ×2 (09:29→22:00)
[2018-03-04] MEDS: PANTOPRAZOLE SODIUM 40 MG/VIAL IV SCH (09:30)
[2018-03-04 10:06] LABS: HEMATOCRIT. 29.1 % (36.0-48.0); HEMOGLOBIN. 9.4 g/dL (12.0-16.0); MEAN CORPUSCULAR HEMOGLOBIN 27.4 pg (28.0-32.0); MEAN CORPUSCULAR VOLUME 84.9 fL (81.0-99.0); PLATELET 326 x1000/uL (130-400); RED BLOOD CELL COUNT 3.43 mill/uL (4.2-5.4); RED CELL DISTRIBUTION WIDTH 14.2 % (11.6-14.6)
[2018-03-04] MEDS: INSULIN GLARGINE UD 100 UNITS/ML SYR SUBCUT SCH ×2 (10:19→22:04)
[2018-03-04 10:45] LABS: PLATELET ESTIMATE NORMAL
[2018-03-04 18:56] LABS: BG BASE EXCESS 7.5 mmol/L (-2.0-2.0); BG CARBOXYHEMOGLOBIN 1.8 % (0.5-1.5); BG DEOXYHEMOGLOBIN 2.7 % (0.0-5.0); BG FRACTION INSPIRED OXYGEN 30; BG HCO3 ACT 32.1 mmol/L (22.0-26.0); BG METHEMOGLOBIN 0.3 % (0.0-1.5); BG OXYGEN SATURATION 97.2 % (92.0-98.5); BG OXYHEMOGLOBIN 95.2 % (94.0-97.0); BG PCO2 45.9 mmHg (35.0-45.0); BG PH 7.462 (7.350-7.450); BG PO2 92.2 mmHg (75.0-100.0); BG PRESSURE SUPPORT 15; BG SAMPLE SITE RIGHT RADIAL; BG TIDAL VOLUME(mL) 450 mL; BG VENT MODE VENT - SIMV; BG VENT RATE 10 set
[2018-03-04] MEDS: FENTANYL CITRATE/PF 500 MCG in SODIUM CHLORIDE 0.9% 40 ML IV PRN (20:25)
[2018-03-05] VITALS (99 sets, daily range): BP systolic 84–209; BP diastolic 63–143
[2018-03-05] MEDS: IPRATROPIUM BROMIDE (0.02%) 0.5MG/2.5ML NEB HHN SCH ×4 (01:28→20:07)
[2018-03-05] MEDS: INSULIN LISPRO 100 UNITS/ML SUBCUT SCH ×4 (06:00→17:24)
[2018-03-05 06:17] LABS: BASOPHILS % 0.8 % (0.0-2.0); EOSINOPHILS % 0.3 % (0.0-5.0); HEMATOCRIT. 26.2 % (36.0-48.0); HEMOGLOBIN. 8.8 g/dL (12.0-16.0); MEAN CORPUSCULAR HEMOGLOBIN 28.2 pg (28.0-32.0); MEAN CORPUSCULAR VOLUME 84.5 fL (81.0-99.0); MEAN PLATELET VOLUME 8.5 fl (7.4-10.4); MONOCYTES % 11.7 % (2.0-8.0); NEUTROPHILS % 77.2 % (40.0-76.0); PLATELET 350 x1000/uL (130-400); RED BLOOD CELL COUNT 3.11 mill/uL (4.2-5.4); RED CELL DISTRIBUTION WIDTH 14.2 % (11.6-14.6)
[2018-03-05] MEDS: METRONIDAZOLE 500 MG PREMIX 100 ML IV SCH ×3 (06:20→22:06)
[2018-03-05] MEDS: DILTIAZEM HCL 30MG TABLET PO SCH ×3 (06:21→22:00)
[2018-03-05] MEDS: BACLOFEN 20MG TABLET PO SCH ×3 (06:21→22:00)
[2018-03-05] MEDS: VANCOMYCIN HCL 1000 MG/20 ML ORAL PO SCH ×4 (06:22→17:24)
[2018-03-05] MEDS: BLOOD SUGAR DIAGNOSTIC STRIP TEST SCH ×5 (06:22→23:40)
[2018-03-05] MEDS: FENTANYL CITRATE/PF 500 MCG in SODIUM CHLORIDE 0.9% 40 ML IV PRN ×2 (06:29→16:50)
[2018-03-05 07:01] LABS: CHLORIDE 106 mEq/L (98-107)
[2018-03-05 08:25] LABS: BG BASE EXCESS 6.8 mmol/L (-2.0-2.0); BG CARBOXYHEMOGLOBIN 2.1 % (0.5-1.5); BG DEOXYHEMOGLOBIN 2.8 % (0.0-5.0); BG FRACTION INSPIRED OXYGEN 30; BG HCO3 ACT 31.8 mmol/L (22.0-26.0); BG METHEMOGLOBIN 0.3 % (0.0-1.5); BG OXYGEN SATURATION 97.1 % (92.0-98.5); BG OXYHEMOGLOBIN 94.8 % (94.0-97.0); BG PCO2 48.6 mmHg (35.0-45.0); BG PH 7.434 (7.350-7.450); BG PO2 92.2 mmHg (75.0-100.0); BG PRESSURE SUPPORT 15; BG SAMPLE SITE RIGHT BRACHIAL; BG TIDAL VOLUME(mL) 450 mL; BG VENT MODE VENT - SIMV; BG VENT RATE 10 set
[2018-03-05] MEDS: FLUCONAZOLE 100MG TABLET NG SCH (08:26)
[2018-03-05] MEDS: CITRIC ACID/SODIUM CITRATE SOLN 15ML UDC PO SCH ×3 (08:26→17:00)
[2018-03-05] MEDS: ASPIRIN 81MG TABLET PO SCH (08:26)
[2018-03-05] MEDS: PANTOPRAZOLE SODIUM 40 MG/VIAL IV SCH (08:26)
[2018-03-05] MEDS: ENOXAPARIN 60MG/0.6ML SYR SUBCUT SCH ×2 (08:27→22:07)
[2018-03-05] MEDS: INSULIN GLARGINE UD 100 UNITS/ML SYR SUBCUT SCH ×2 (09:23→22:00)
[2018-03-05 10:44] LABS: BG CARBOXYHEMOGLOBIN 1.5 % (0.5-1.5); BG DEOXYHEMOGLOBIN 2.3 % (0.0-5.0); BG FRACTION INSPIRED OXYGEN 30; BG METHEMOGLOBIN 0.3 % (0.0-1.5); BG OXYGEN SATURATION 97.7 % (92.0-98.5); BG OXYHEMOGLOBIN 95.9 % (94.0-97.0); BG PCO2 49.4 mmHg (35.0-45.0); BG PH 7.443 (7.350-7.450); BG PO2 99.5 mmHg (75.0-100.0); BG PRESSURE SUPPORT 8; BG SAMPLE SITE RIGHT RADIAL; BG TOTAL HEMOGLOBIN 9.1 g/dL (12.0-18.0); BG VENT MODE VENT - CPAP
[2018-03-05] MEDS ORDERED: ETOMIDATE 2MG/ML 10ML VIAL IV ONE (15:22)
[2018-03-05] MEDS ORDERED: SODIUM CHLORIDE 0.9% 10ML VIAL ONE (15:22)
[2018-03-05] MEDS ORDERED: SUCCINYLCHOLINE CHLORIDE 200MG/10ML IV ONE (15:22)
[2018-03-05 20:56] LABS: BG BASE EXCESS 7.8 mmol/L (-2.0-2.0); BG CARBOXYHEMOGLOBIN 1.5 % (0.5-1.5); BG FRACTION INSPIRED OXYGEN 80; BG HCO3 ACT 31.4 mmol/L (22.0-26.0); BG METHEMOGLOBIN 0.3 % (0.0-1.5); BG OXYHEMOGLOBIN 97.2 % (94.0-97.0); BG PCO2 40.4 mmHg (35.0-45.0); BG PH 7.509 (7.350-7.450); BG PO2 144.4 mmHg (75.0-100.0); BG SAMPLE SITE RIGHT RADIAL; BG TIDAL VOLUME(mL) 450 mL; BG TOTAL HEMOGLOBIN 9.8 g/dL (12.0-18.0); BG VENT MODE VENT - A/C; BG VENT RATE 14 set
[2018-03-05] MEDS: DEXTROSE 50% WATER 50ML SYRINGE IV PRN (23:44)
[2018-03-06] VITALS (102 sets, daily range): BP systolic 76–133; BP diastolic 53–105
[2018-03-06] MEDS: IPRATROPIUM BROMIDE (0.02%) 0.5MG/2.5ML NEB HHN SCH ×4 (01:55→13:42)
[2018-03-06] MEDS: FENTANYL CITRATE/PF 500 MCG in SODIUM CHLORIDE 0.9% 40 ML IV PRN (05:33)
[2018-03-06 05:42] LABS: CHLORIDE 108 mEq/L (98-107); HEMATOCRIT. 29.7 % (36.0-48.0); HEMOGLOBIN. 9.6 g/dL (12.0-16.0); MEAN CORPUSCULAR HEMOGLOBIN 27.5 pg (28.0-32.0); MEAN CORPUSCULAR VOLUME 84.9 fL (81.0-99.0); MEAN PLATELET VOLUME 8.4 fl (7.4-10.4); PLATELET 481 x1000/uL (130-400); RED CELL DISTRIBUTION WIDTH 14.1 % (11.6-14.6)
[2018-03-06] MEDS: DEXTROSE 50% WATER 50ML SYRINGE IV PRN (05:52)
[2018-03-06] MEDS: BLOOD SUGAR DIAGNOSTIC STRIP TEST SCH ×3 (06:00→17:39)
[2018-03-06] MEDS: DILTIAZEM HCL 30MG TABLET PO SCH ×3 (06:00→21:26)
[2018-03-06] MEDS: VANCOMYCIN HCL 1000 MG/20 ML ORAL PO SCH ×4 (06:00→17:39)
[2018-03-06] MEDS: INSULIN LISPRO 100 UNITS/ML SUBCUT SCH ×4 (06:00→17:39)
[2018-03-06] MEDS: BACLOFEN 20MG TABLET PO SCH ×3 (06:00→21:27)
[2018-03-06 08:13] LABS: PLATELET ESTIMATE SLIGHTLY INCREASED
[2018-03-06] MEDS: ASPIRIN 81MG TABLET PO SCH (09:23)
[2018-03-06] MEDS: CITRIC ACID/SODIUM CITRATE SOLN 15ML UDC PO SCH ×3 (09:23→17:38)
[2018-03-06] MEDS: FLUCONAZOLE 100MG TABLET NG SCH (09:23)
[2018-03-06] MEDS: METRONIDAZOLE 500 MG PREMIX 100 ML IV SCH ×3 (09:23→21:24)
[2018-03-06] MEDS: PANTOPRAZOLE SODIUM 40 MG/VIAL IV SCH (09:24)
[2018-03-06] MEDS: ENOXAPARIN 60MG/0.6ML SYR SUBCUT SCH (09:24)
[2018-03-06] MEDS: INSULIN GLARGINE UD 100 UNITS/ML SYR SUBCUT SCH ×2 (11:43→21:49)
[2018-03-06 12:17] LABS: BG BASE EXCESS 2.4 mmol/L (-2.0-2.0); BG CARBOXYHEMOGLOBIN 2.2 % (0.5-1.5); BG DEOXYHEMOGLOBIN 2.4 % (0.0-5.0); BG FRACTION INSPIRED OXYGEN 30; BG HCO3 ACT 26.7 mmol/L (22.0-26.0); BG METHEMOGLOBIN 0.3 % (0.0-1.5); BG OXYGEN SATURATION 97.5 % (92.0-98.5); BG OXYHEMOGLOBIN 95.1 % (94.0-97.0); BG PCO2 39.7 mmHg (35.0-45.0); BG PH 7.445 (7.350-7.450); BG PO2 97.9 mmHg (75.0-100.0); BG PRESSURE SUPPORT 12; BG SAMPLE SITE RIGHT RADIAL; BG TIDAL VOLUME(mL) 450 mL; BG TOTAL HEMOGLOBIN 8.9 g/dL (12.0-18.0); BG VENT MODE VENT - SIMV; BG VENT RATE 10 set
[2018-03-06] MEDS: ACETAMINOPHEN 325MG TABLET PO PRN (21:27)
[2018-03-07] VITALS (91 sets, daily range): BP systolic 78–167; BP diastolic 53–119
[2018-03-07] MEDS: IPRATROPIUM BROMIDE (0.02%) 0.5MG/2.5ML NEB HHN SCH ×4 (01:55→20:03)
[2018-03-07] MEDS: INSULIN LISPRO 100 UNITS/ML SUBCUT SCH ×4 (06:00→18:00)
[2018-03-07] MEDS: BLOOD SUGAR DIAGNOSTIC STRIP TEST SCH ×4 (06:00→18:00)
[2018-03-07] MEDS: BACLOFEN 20MG TABLET PO SCH ×3 (06:28→22:00)
[2018-03-07] MEDS: DILTIAZEM HCL 30MG TABLET PO SCH ×3 (06:28→22:00)
[2018-03-07 08:11] LABS: BASOPHILS % 1.1 % (0.0-2.0); EOSINOPHILS % 0.2 % (0.0-5.0); HEMATOCRIT. 25.2 % (36.0-48.0); HEMOGLOBIN. 8.2 g/dL (12.0-16.0); LYMPHOCYTES % 8.9 % (20.0-50.0); MEAN CORPUSCULAR HEMOGLOBIN 27.7 pg (28.0-32.0); MEAN CORPUSCULAR VOLUME 85.2 fL (81.0-99.0); MEAN PLATELET VOLUME 8.5 fl (7.4-10.4); MONOCYTES % 9.5 % (2.0-8.0); NEUTROPHILS % 80.3 % (40.0-76.0); PLATELET 391 x1000/uL (130-400); RED BLOOD CELL COUNT 2.95 mill/uL (4.2-5.4); RED CELL DISTRIBUTION WIDTH 14.4 % (11.6-14.6)
[2018-03-07 08:51] LABS: BG BASE EXCESS 9.4 mmol/L (-2.0-2.0); BG DEOXYHEMOGLOBIN 3.8 % (0.0-5.0); BG FRACTION INSPIRED OXYGEN 30; BG HCO3 ACT 33.7 mmol/L (22.0-26.0); BG METHEMOGLOBIN 0.3 % (0.0-1.5); BG OXYGEN SATURATION 96.1 % (92.0-98.5); BG OXYHEMOGLOBIN 93.9 % (94.0-97.0); BG PCO2 45.4 mmHg (35.0-45.0); BG PH 7.488 (7.350-7.450); BG PRESSURE SUPPORT 12; BG SAMPLE SITE RIGHT RADIAL; BG TIDAL VOLUME(mL) 450 mL; BG TOTAL HEMOGLOBIN 8.5 g/dL (12.0-18.0); BG VENT MODE VENT - SIMV; BG VENT RATE 10 set
[2018-03-07] MEDS: ASPIRIN 81MG TABLET PO SCH (09:00)
[2018-03-07] MEDS ORDERED: LORAZEPAM 2MG/ML CPJ IV PRN (09:30)
[2018-03-07 09:32] LABS: CHLORIDE 108 mEq/L (98-107)
[2018-03-07 09:39] LABS: GAMMA GLUTAMYL TRANSPEPTIDASE 9 IU/L (7-32)
[2018-03-07] MEDS: INSULIN GLARGINE UD 100 UNITS/ML SYR SUBCUT SCH ×2 (10:00→22:00)
[2018-03-07] MEDS: FENTANYL CITRATE/PF 500 MCG in SODIUM CHLORIDE 0.9% 40 ML IV PRN (11:08)
[2018-03-07] MEDS: CITRIC ACID/SODIUM CITRATE SOLN 15ML UDC PO SCH ×3 (11:08→15:57)
[2018-03-07] MEDS: PANTOPRAZOLE SODIUM 40 MG/VIAL IV SCH (11:09)
[2018-03-07 15:49] LABS: INR 1.1; PROTHROMBIN TIME 11.4 sec (9.1-11.1)
[2018-03-07] MEDS ORDERED: MIDAZOLAM HCL 2 MG/2 ML VIAL ONE (17:38)
[2018-03-07] MEDS ORDERED: FENTANYL CITRATE/PF 50MCG/ML 2ML VIAL ONE (17:38)
[2018-03-07] MEDS ORDERED: EPHEDRINE SULFATE 50MG/ML VIAL ONE (17:49)
[2018-03-07] MEDS ORDERED: SODIUM CHLORIDE 0.9% 10ML VIAL ONE (17:49)
[2018-03-07] MEDS ORDERED: CLINDAMYCIN 900 MG in DEXTROSE 5% WATER 50 ML IV SCH (18:00)
[2018-03-07] MEDS ORDERED: LABETALOL HCL 5MG/ML VIAL 20ML IV ONE (18:08)
[2018-03-07] MEDS: DEXTROSE 50% WATER 50ML SYRINGE IV PRN (20:49)
[2018-03-08] VITALS (44 sets, daily range): BP systolic 89–189; BP diastolic 74–140
[2018-03-08] MEDS: MORPHINE SULFATE 4 MG/ML CPJ (NOT FOR IM USE) IV PRN ×4 (01:23→16:38)
[2018-03-08] MEDS: IPRATROPIUM BROMIDE (0.02%) 0.5MG/2.5ML NEB HHN SCH ×4 (01:41→20:08)
[2018-03-08 05:44] LABS: HEMATOCRIT. 26.1 % (36.0-48.0); HEMOGLOBIN. 8.3 g/dL (12.0-16.0); MEAN CORPUSCULAR HEMOGLOBIN 27.3 pg (28.0-32.0); MEAN CORPUSCULAR VOLUME 85.7 fL (81.0-99.0); MEAN PLATELET VOLUME 8.2 fl (7.4-10.4); PLATELET 418 x1000/uL (130-400); RED BLOOD CELL COUNT 3.05 mill/uL (4.2-5.4); RED CELL DISTRIBUTION WIDTH 14.6 % (11.6-14.6)
[2018-03-08 05:50] LABS: CHLORIDE 109 mEq/L (98-107)
[2018-03-08] MEDS: INSULIN LISPRO 100 UNITS/ML SUBCUT SCH ×5 (06:00→23:23)
[2018-03-08] MEDS: BLOOD SUGAR DIAGNOSTIC STRIP TEST SCH ×5 (06:00→23:23)
[2018-03-08 07:25] LABS: PLATELET ESTIMATE NORMAL
[2018-03-08 08:32] LABS: BG BASE EXCESS 4.5 mmol/L (-2.0-2.0); BG CARBOXYHEMOGLOBIN 1.3 % (0.5-1.5); BG FRACTION INSPIRED OXYGEN 30; BG HCO3 ACT 28.1 mmol/L (22.0-26.0); BG METHEMOGLOBIN 0.2 % (0.0-1.5); BG OXYHEMOGLOBIN 96.5 % (94.0-97.0); BG PCO2 37.4 mmHg (35.0-45.0); BG PH 7.493 (7.350-7.450); BG PO2 89.7 mmHg (75.0-100.0); BG PRESSURE SUPPORT 12; BG SAMPLE SITE RIGHT BRACHIAL; BG TIDAL VOLUME(mL) 450 mL; BG TOTAL HEMOGLOBIN 8.5 g/dL (12.0-18.0); BG VENT MODE VENT - SIMV; BG VENT RATE 10 set
[2018-03-08] MEDS: CITRIC ACID/SODIUM CITRATE SOLN 15ML UDC PO SCH ×3 (09:00→17:00)
[2018-03-08] MEDS: ASPIRIN 81MG TABLET PO SCH (09:00)
[2018-03-08] MEDS: PANTOPRAZOLE SODIUM 40 MG/VIAL IV SCH (09:03)
[2018-03-08] MEDS: DEXT 5%/0.45% NACL 1000ML 1,000 ML IV SCH (09:18)
[2018-03-08] MEDS: INSULIN GLARGINE UD 100 UNITS/ML SYR SUBCUT SCH ×2 (09:59→22:00)
[2018-03-08] MEDS ORDERED: LEVOFLOXACIN 500MG PREMIX 100 ML IV SCH (10:00)
[2018-03-08] MEDS: BACLOFEN 20MG TABLET PO SCH ×2 (14:00→22:00)
[2018-03-08] MEDS: DILTIAZEM HCL 30MG TABLET PO SCH ×2 (14:00→22:00)
[2018-03-08] MEDS: ACETAMINOPHEN 650MG SUPP PR PRN (17:01)
[2018-03-08 19:29] LABS: BG BASE EXCESS 1.8 mmol/L (-2.0-2.0); BG CARBOXYHEMOGLOBIN 0.9 % (0.5-1.5); BG DEOXYHEMOGLOBIN 4.2 % (0.0-5.0); BG FRACTION INSPIRED OXYGEN 50; BG HCO3 ACT 25.2 mmol/L (22.0-26.0); BG METHEMOGLOBIN 0.3 % (0.0-1.5); BG OXYGEN SATURATION 95.7 % (92.0-98.5); BG OXYHEMOGLOBIN 94.6 % (94.0-97.0); BG PCO2 34.6 mmHg (35.0-45.0); BG PH 7.481 (7.350-7.450); BG PO2 81.8 mmHg (75.0-100.0); BG SAMPLE SITE RIGHT RADIAL; BG TIDAL VOLUME(mL) 450 mL; BG TOTAL HEMOGLOBIN 8.6 g/dL (12.0-18.0); BG VENT MODE VENT - A/C; BG VENT RATE 12 set
[2018-03-08] MEDS: HYDROMORPHONE HCL/PF 2MG/ML CPJ IV PRN (21:38)
[2018-03-09] VITALS (40 sets, daily range): BP systolic 97–191; BP diastolic 70–117
[2018-03-09] MEDS: IPRATROPIUM BROMIDE (0.02%) 0.5MG/2.5ML NEB HHN SCH ×4 (01:49→21:00)
[2018-03-09] MEDS: DEXT 5%/0.45% NACL 1000ML 1,000 ML IV SCH ×2 (04:17→20:18)
[2018-03-09 04:56] LABS: BASOPHILS % 0.9 % (0.0-2.0); EOSINOPHILS % 0.3 % (0.0-5.0); HEMOGLOBIN. 8.2 g/dL (12.0-16.0); LYMPHOCYTES % 8.4 % (20.0-50.0); MEAN CORPUSCULAR HEMOGLOBIN 27.8 pg (28.0-32.0); MEAN PLATELET VOLUME 7.9 fl (7.4-10.4); MONOCYTES % 8.4 % (2.0-8.0); PLATELET 366 x1000/uL (130-400); RED BLOOD CELL COUNT 2.94 mill/uL (4.2-5.4); RED CELL DISTRIBUTION WIDTH 14.2 % (11.6-14.6)
[2018-03-09 05:03] LABS: CHLORIDE 109 mEq/L (98-107)
[2018-03-09] MEDS: BACLOFEN 20MG TABLET PO SCH ×3 (06:00→21:19)
[2018-03-09] MEDS: INSULIN LISPRO 100 UNITS/ML SUBCUT SCH ×3 (06:00→23:58)
[2018-03-09] MEDS: DILTIAZEM HCL 30MG TABLET PO SCH ×3 (06:00→21:18)
[2018-03-09] MEDS: BLOOD SUGAR DIAGNOSTIC STRIP TEST SCH ×3 (06:11→17:57)
[2018-03-09] MEDS: ASPIRIN 81MG TABLET PO SCH (09:00)
[2018-03-09] MEDS: CITRIC ACID/SODIUM CITRATE SOLN 15ML UDC PO SCH ×3 (09:00→17:00)
[2018-03-09] MEDS: PANTOPRAZOLE SODIUM 40 MG/VIAL IV SCH (09:19)
[2018-03-09 10:08] LABS: BG BASE EXCESS 1.3 mmol/L (-2.0-2.0); BG CARBOXYHEMOGLOBIN 1.1 % (0.5-1.5); BG DEOXYHEMOGLOBIN 0.5 % (0.0-5.0); BG FRACTION INSPIRED OXYGEN 70; BG HCO3 ACT 25.2 mmol/L (22.0-26.0); BG METHEMOGLOBIN 0.3 % (0.0-1.5); BG OXYGEN SATURATION 99.5 % (92.0-98.5); BG OXYHEMOGLOBIN 98.1 % (94.0-97.0); BG PCO2 36.9 mmHg (35.0-45.0); BG PH 7.452 (7.350-7.450); BG PO2 235.6 mmHg (75.0-100.0); BG SAMPLE SITE RIGHT BRACHIAL; BG TIDAL VOLUME(mL) 450 mL; BG TOTAL HEMOGLOBIN 8.9 g/dL (12.0-18.0); BG VENT MODE VENT - A/C; BG VENT RATE 12 set
[2018-03-09] MEDS: HYDROMORPHONE HCL/PF 2MG/ML CPJ IV PRN ×2 (11:32→20:11)
[2018-03-09] MEDS: INSULIN GLARGINE UD 100 UNITS/ML SYR SUBCUT SCH ×2 (11:33→21:55)
[2018-03-09] MEDS ORDERED: LEVOFLOXACIN 500MG PREMIX 100 ML IV SCH (12:00)
[2018-03-09] MEDS ORDERED: SODIUM CHLORIDE 0.9% 10ML VIAL ONE (13:49)
[2018-03-09] MEDS: ACETAMINOPHEN 650MG SUPP PR PRN (17:12)
[2018-03-09] MEDS ORDERED: FENTANYL CITRATE/PF 50MCG/ML 2ML VIAL ONE (17:44)
[2018-03-09] MEDS ORDERED: MIDAZOLAM HCL 5 MG/5 ML VIAL ONE (17:44)
[2018-03-09] MEDS ORDERED: MIDAZOLAM HCL 5 MG/5 ML VIAL IV PRN (17:56)
[2018-03-09] MEDS: HYDRALAZINE 20MG/ML VIAL IV PRN (19:56)
[2018-03-09] MEDS: ACETAMINOPHEN 325MG TABLET PO PRN (21:19)
[2018-03-09] MEDS: ONDANSETRON HCL 4MG/2ML INJ IV PRN (21:54)
[2018-03-10] VITALS (20 sets, daily range): BP systolic 103–164; BP diastolic 75–105
[2018-03-10] MEDS: BLOOD SUGAR DIAGNOSTIC STRIP TEST SCH ×5 (00:52→23:29)
[2018-03-10] MEDS: ONDANSETRON HCL 4MG/2ML INJ IV PRN (04:38)
[2018-03-10] MEDS: MORPHINE SULFATE 4 MG/ML CPJ (NOT FOR IM USE) IV PRN (04:39)
[2018-03-10] MEDS: DILTIAZEM HCL 30MG TABLET PO SCH ×3 (05:26→21:11)
[2018-03-10] MEDS: BACLOFEN 20MG TABLET PO SCH ×3 (05:27→21:12)
[2018-03-10] MEDS: DEXTROSE 50% WATER 50ML SYRINGE IV PRN (05:53)
[2018-03-10] MEDS: INSULIN LISPRO 100 UNITS/ML SUBCUT SCH ×4 (06:00→23:35)
[2018-03-10 06:02] LABS: BASOPHILS % 0.5 % (0.0-2.0); EOSINOPHILS % 0.3 % (0.0-5.0); HEMOGLOBIN. 10.4 g/dL (12.0-16.0); LYMPHOCYTES % 9.2 % (20.0-50.0); MEAN CORPUSCULAR VOLUME 91.1 fL (81.0-99.0); MEAN PLATELET VOLUME 7.8 fl (7.4-10.4); MONOCYTES % 7.3 % (2.0-8.0); NEUTROPHILS % 82.7 % (40.0-76.0); PLATELET 313 x1000/uL (130-400); RED BLOOD CELL COUNT 3.73 mill/uL (4.2-5.4); RED CELL DISTRIBUTION WIDTH 15.1 % (11.6-14.6)
[2018-03-10 06:10] LABS: CHLORIDE 108 mEq/L (98-107)
[2018-03-10] MEDS: IPRATROPIUM BROMIDE (0.02%) 0.5MG/2.5ML NEB HHN SCH ×3 (08:23→19:54)
[2018-03-10] MEDS: ASPIRIN 81MG TABLET PO SCH (08:38)
[2018-03-10] MEDS: CITRIC ACID/SODIUM CITRATE SOLN 15ML UDC PO SCH ×3 (08:38→17:52)
[2018-03-10] MEDS: PANTOPRAZOLE SODIUM 40 MG/VIAL IV SCH (08:38)
[2018-03-10] MEDS: INSULIN GLARGINE UD 100 UNITS/ML SYR SUBCUT SCH ×2 (10:04→23:31)
[2018-03-10] MEDS: DEXT 5%/0.45% NACL 1000ML 1,000 ML IV SCH (12:42)
[2018-03-10] MEDS ORDERED: PNEUMOCOCCAL 23-VAL P-SAC VAC 0.5 ML IM ONE (18:30)
[2018-03-10] MEDS ORDERED: INFLUENZA VIRUS VACCINE(AFLURIA) 0.5ML SYR IM ONE (18:30)
[2018-03-10] MEDS: HYDROCODONE/ACETAMINOPHEN 5/325MG TABLET PO PRN (19:10)
[2018-03-10] MEDS ORDERED: ENOXAPARIN 60MG/0.6ML SYR SUBCUT SCH (21:00)
[2018-03-11] VITALS (18 sets, daily range): BP systolic 90–181; BP diastolic 63–121
[2018-03-11] MEDS: IPRATROPIUM BROMIDE (0.02%) 0.5MG/2.5ML NEB HHN SCH ×4 (02:34→20:51)
[2018-03-11] MEDS: BLOOD SUGAR DIAGNOSTIC STRIP TEST SCH ×4 (05:42→23:40)
[2018-03-11] MEDS: DILTIAZEM HCL 30MG TABLET PO SCH ×3 (05:42→20:58)
[2018-03-11] MEDS: BACLOFEN 20MG TABLET PO SCH ×3 (05:44→20:59)
[2018-03-11] MEDS: INSULIN LISPRO 100 UNITS/ML SUBCUT SCH ×4 (05:51→23:40)
[2018-03-11 06:57] LABS: BASOPHILS % 0.5 % (0.0-2.0); EOSINOPHILS % 0.7 % (0.0-5.0); HEMATOCRIT. 24.9 % (36.0-48.0); HEMOGLOBIN. 8.1 g/dL (12.0-16.0); LYMPHOCYTES % 10.5 % (20.0-50.0); MEAN CORPUSCULAR HEMOGLOBIN 27.8 pg (28.0-32.0); MEAN PLATELET VOLUME 8.3 fl (7.4-10.4); MONOCYTES % 8.7 % (2.0-8.0); NEUTROPHILS % 79.6 % (40.0-76.0); PLATELET 282 x1000/uL (130-400); RED BLOOD CELL COUNT 2.93 mill/uL (4.2-5.4); RED CELL DISTRIBUTION WIDTH 14.2 % (11.6-14.6)
[2018-03-11 08:01] LABS: CHLORIDE 106 mEq/L (98-107)
[2018-03-11] MEDS: DEXT 5%/0.45% NACL 1000ML 1,000 ML IV SCH ×2 (08:37→20:20)
[2018-03-11] MEDS: CITRIC ACID/SODIUM CITRATE SOLN 15ML UDC PO SCH ×3 (08:37→17:17)
[2018-03-11] MEDS: PANTOPRAZOLE SODIUM 40 MG/VIAL IV SCH (08:37)
[2018-03-11] MEDS: ASPIRIN 81MG TABLET PO SCH (08:39)
[2018-03-11] MEDS: HYDROCODONE/ACETAMINOPHEN 5/325MG TABLET PO PRN ×2 (09:46→17:16)
[2018-03-11] MEDS: INSULIN GLARGINE UD 100 UNITS/ML SYR SUBCUT SCH ×2 (11:15→22:00)
[2018-03-11] MEDS ORDERED: POTASSIUM CHLORIDE 20MEQ/PACKET GT NR (14:15)
[2018-03-11] MEDS ORDERED: POTASSIUM CHLORIDE 20MEQ TABLET SR PO NR (14:15)
[2018-03-11] MEDS: HYDRALAZINE 20MG/ML VIAL IV PRN ×2 (15:57→20:27)
[2018-03-12] VITALS (11 sets, daily range): BP systolic 90–188; BP diastolic 74–124
[2018-03-12] MEDS: IPRATROPIUM BROMIDE (0.02%) 0.5MG/2.5ML NEB HHN SCH ×4 (02:20→20:00)
[2018-03-12] MEDS: DILTIAZEM HCL 30MG TABLET PO SCH ×3 (05:52→21:08)
[2018-03-12] MEDS: BACLOFEN 20MG TABLET PO SCH ×3 (05:53→21:09)
[2018-03-12 05:58] LABS: BASOPHILS % 0.7 % (0.0-2.0); EOSINOPHILS % 1.4 % (0.0-5.0); HEMATOCRIT. 24.3 % (36.0-48.0); HEMOGLOBIN. 8.2 g/dL (12.0-16.0); LYMPHOCYTES % 11.8 % (20.0-50.0); MEAN CORPUSCULAR HEMOGLOBIN 28.3 pg (28.0-32.0); MEAN CORPUSCULAR VOLUME 84.3 fL (81.0-99.0); MEAN PLATELET VOLUME 8.4 fl (7.4-10.4); MONOCYTES % 11.1 % (2.0-8.0); PLATELET 301 x1000/uL (130-400); RED BLOOD CELL COUNT 2.89 mill/uL (4.2-5.4); RED CELL DISTRIBUTION WIDTH 14.2 % (11.6-14.6)
[2018-03-12] MEDS: BLOOD SUGAR DIAGNOSTIC STRIP TEST SCH ×3 (06:01→18:00)
[2018-03-12 06:28] LABS: CHLORIDE 108 mEq/L (98-107)
[2018-03-12] MEDS: INSULIN LISPRO 100 UNITS/ML SUBCUT SCH ×3 (06:29→18:00)
[2018-03-12] MEDS: ASPIRIN 81MG TABLET PO SCH (09:04)
[2018-03-12] MEDS: CITRIC ACID/SODIUM CITRATE SOLN 15ML UDC PO SCH ×3 (09:04→18:28)
[2018-03-12] MEDS: PANTOPRAZOLE SODIUM 40 MG/VIAL IV SCH (09:04)
[2018-03-12] MEDS: INSULIN GLARGINE UD 100 UNITS/ML SYR SUBCUT SCH ×2 (12:14→21:13)
[2018-03-12] MEDS: ACETAMINOPHEN 325MG TABLET PO PRN (19:56)
[2018-03-12] MEDS: HYDRALAZINE 20MG/ML VIAL IV PRN (20:10)
[2018-03-12] MEDS: HYDROMORPHONE HCL/PF 2MG/ML CPJ IV PRN (21:10)
[2018-03-12] MEDS: DEXT 5%/0.45% NACL 1000ML 1,000 ML IV SCH (21:18)
[2018-03-13] VITALS (12 sets, daily range): BP systolic 108–177; BP diastolic 77–132
[2018-03-13] MEDS: BLOOD SUGAR DIAGNOSTIC STRIP TEST SCH ×4 (00:06→17:15)
[2018-03-13] MEDS: IPRATROPIUM BROMIDE (0.02%) 0.5MG/2.5ML NEB HHN SCH ×4 (01:48→19:40)
[2018-03-13] MEDS: HYDROMORPHONE HCL/PF 2MG/ML CPJ IV PRN ×2 (04:46→10:42)
[2018-03-13] MEDS: HYDRALAZINE 20MG/ML VIAL IV PRN (04:47)
[2018-03-13] MEDS: INSULIN LISPRO 100 UNITS/ML SUBCUT SCH ×4 (05:37→17:22)
[2018-03-13] MEDS: DILTIAZEM HCL 30MG TABLET PO SCH ×3 (05:43→21:05)
[2018-03-13] MEDS: BACLOFEN 20MG TABLET PO SCH ×3 (05:44→21:03)
[2018-03-13] MEDS: DEXT 5%/0.45% NACL 1000ML 1,000 ML IV SCH ×3 (05:45→21:25)
[2018-03-13 05:56] LABS: BASOPHILS % 0.8 % (0.0-2.0); EOSINOPHILS % 2.2 % (0.0-5.0); HEMATOCRIT. 27.3 % (36.0-48.0); LYMPHOCYTES % 10.7 % (20.0-50.0); MEAN CORPUSCULAR HEMOGLOBIN 27.8 pg (28.0-32.0); MEAN CORPUSCULAR VOLUME 84.1 fL (81.0-99.0); MEAN PLATELET VOLUME 8.5 fl (7.4-10.4); MONOCYTES % 14.6 % (2.0-8.0); NEUTROPHILS % 71.7 % (40.0-76.0); PLATELET 352 x1000/uL (130-400); RED BLOOD CELL COUNT 3.25 mill/uL (4.2-5.4); RED CELL DISTRIBUTION WIDTH 14.3 % (11.6-14.6)
[2018-03-13 06:13] LABS: CHLORIDE 107 mEq/L (98-107)
[2018-03-13] MEDS: CITRIC ACID/SODIUM CITRATE SOLN 15ML UDC PO SCH ×3 (08:41→17:23)
[2018-03-13] MEDS: PANTOPRAZOLE SODIUM 40 MG/VIAL IV SCH (08:42)
[2018-03-13] MEDS: ASPIRIN 81MG TABLET PO SCH (08:42)
[2018-03-13] MEDS ORDERED: LORAZEPAM 2MG/ML CPJ IV SCH (09:00)
[2018-03-13] MEDS: INSULIN GLARGINE UD 100 UNITS/ML SYR SUBCUT SCH ×2 (10:12→21:01)
[2018-03-13] MEDS ORDERED: KCL 20MEQ/100ML PREMIX 100 ML IV NR (15:00)
[2018-03-13] MEDS: LORAZEPAM 2MG/ML CPJ IV PRN (15:27)
[2018-03-14] VITALS (12 sets, daily range): BP systolic 112–165; BP diastolic 71–129
[2018-03-14] MEDS: BLOOD SUGAR DIAGNOSTIC STRIP TEST SCH ×5 (00:18→22:51)
[2018-03-14] MEDS: IPRATROPIUM BROMIDE (0.02%) 0.5MG/2.5ML NEB HHN SCH ×4 (01:54→20:52)
[2018-03-14] MEDS: INSULIN LISPRO 100 UNITS/ML SUBCUT SCH ×5 (06:00→23:07)
[2018-03-14] MEDS: BACLOFEN 20MG TABLET PO SCH ×3 (06:40→22:08)
[2018-03-14] MEDS: HYDRALAZINE 20MG/ML VIAL IV PRN (06:41)
[2018-03-14] MEDS: DILTIAZEM HCL 30MG TABLET PO SCH (06:41)
[2018-03-14 07:17] LABS: HEMATOCRIT. 24.4 % (36.0-48.0); MEAN CORPUSCULAR HEMOGLOBIN 27.4 pg (28.0-32.0); MEAN CORPUSCULAR VOLUME 83.9 fL (81.0-99.0); MEAN PLATELET VOLUME 8.9 fl (7.4-10.4); PLATELET 330 x1000/uL (130-400); RED BLOOD CELL COUNT 2.91 mill/uL (4.2-5.4); RED CELL DISTRIBUTION WIDTH 14.4 % (11.6-14.6)
[2018-03-14 07:22] LABS: CHLORIDE 107 mEq/L (98-107)
[2018-03-14] MEDS: LORAZEPAM 2MG/ML CPJ IV PRN (07:23)
[2018-03-14] MEDS: PANTOPRAZOLE SODIUM 40 MG/VIAL IV SCH (09:27)
[2018-03-14] MEDS: CITRIC ACID/SODIUM CITRATE SOLN 15ML UDC PO SCH ×3 (09:27→17:32)
[2018-03-14] MEDS: INSULIN GLARGINE UD 100 UNITS/ML SYR SUBCUT SCH ×2 (09:39→22:09)
[2018-03-14] MEDS: DILTIAZEM HCL 5MG/ML 5ML VIAL IV PRN ×3 (10:27→20:47)
[2018-03-14] MEDS: ASPIRIN 81MG TABLET PO SCH (10:31)
[2018-03-14 11:38] LABS: PLATELET ESTIMATE NORMAL
[2018-03-14] MEDS: DILTIAZEM HCL 60MG TABLET PO SCH ×3 (12:29→22:49)
[2018-03-14] MEDS: ACETAMINOPHEN 325MG TABLET PO PRN ×2 (14:19→20:46)
[2018-03-14] MEDS: DEXT 5%/0.45% NACL 1000ML 1,000 ML IV SCH (14:20)
[2018-03-15] VITALS (16 sets, daily range): BP systolic 95–163; BP diastolic 69–110
[2018-03-15] MEDS: IPRATROPIUM BROMIDE (0.02%) 0.5MG/2.5ML NEB HHN SCH ×4 (01:39→23:00)
[2018-03-15] MEDS: DILTIAZEM HCL 60MG TABLET PO SCH ×3 (05:08→17:12)
[2018-03-15] MEDS: BACLOFEN 20MG TABLET PO SCH ×3 (05:08→22:50)
[2018-03-15] MEDS: DEXT 5%/0.45% NACL 1000ML 1,000 ML IV SCH (05:12)
[2018-03-15] MEDS: BLOOD SUGAR DIAGNOSTIC STRIP TEST SCH ×3 (05:21→17:10)
[2018-03-15] MEDS: INSULIN LISPRO 100 UNITS/ML SUBCUT SCH ×3 (05:28→17:11)
[2018-03-15] MEDS: CITRIC ACID/SODIUM CITRATE SOLN 15ML UDC PO SCH ×3 (08:34→17:11)
[2018-03-15] MEDS: ASPIRIN 81MG TABLET PO SCH (08:34)
[2018-03-15] MEDS: PANTOPRAZOLE SODIUM 40 MG/VIAL IV SCH (08:41)
[2018-03-15 09:05] LABS: CLARITY URINE TURBID (CLEAR); COLOR URINE YELLOW (YELLOW); KETONES URINE NEGATIVE (NEGATIVE); LEUKOCYTE ESTERASE URINE 3+ (NEGATIVE); NITRITE URINE POSITIVE (NEGATIVE); OCCULT BLOOD URINE NEGATIVE (NEGATIVE); PROTEIN URINE TRACE (NEGATIVE); SPECIFIC GRAVITY URINE 1.014 (1.005-1.030); UROBILINOGEN URINE 0.2 E.U./dL (0.2-1.0)
[2018-03-15] MEDS ORDERED: DILT60TA35 PO (09:10)
[2018-03-15] MEDS ORDERED: CITR473S PO (09:10)
[2018-03-15] MEDS ORDERED: LOV40 SQ (09:10)
[2018-03-15] MEDS ORDERED: PANT40VI IV (09:10)
[2018-03-15] MEDS ORDERED: LANTUSUD SUBCUT (09:10)
[2018-03-15] MEDS: INSULIN GLARGINE UD 100 UNITS/ML SYR SUBCUT SCH ×2 (10:19→22:32)
[2018-03-15 11:09] LABS: HEMATOCRIT. 29.3 % (36.0-48.0); HEMOGLOBIN. 9.6 g/dL (12.0-16.0); MEAN CORPUSCULAR HEMOGLOBIN 27.8 pg (28.0-32.0); MEAN CORPUSCULAR VOLUME 84.9 fL (81.0-99.0); MEAN PLATELET VOLUME 8.8 fl (7.4-10.4); PLATELET 325 x1000/uL (130-400); RED BLOOD CELL COUNT 3.45 mill/uL (4.2-5.4); RED CELL DISTRIBUTION WIDTH 14.3 % (11.6-14.6)
[2018-03-15 11:24] LABS: CHLORIDE 105 mEq/L (98-107)
[2018-03-15] MEDS ORDERED: HYDROCODONE/ACETAMINOPHEN 5/325MG TABLET PEG PRN (13:45)
[2018-03-15 13:57] LABS: PLATELET ESTIMATE NORMAL
[2018-03-15] MEDS ORDERED: LORAZEPAM 2MG/ML CPJ IV PRN (17:15)
[2018-03-15] MEDS: HYDRALAZINE 20MG/ML VIAL IV PRN (20:24)
[2018-03-15] MEDS: DILTIAZEM HCL 5MG/ML 5ML VIAL IV PRN (21:11)
[2018-03-15] MEDS: ONDANSETRON HCL 4MG/2ML INJ IV PRN (22:23)
[2018-03-15] MEDS: ENOXAPARIN 60MG/0.6ML SYR SUBCUT SCH (22:24)
[2018-03-16] VITALS (11 sets, daily range): BP systolic 94–145; BP diastolic 61–99
[2018-03-16] MEDS: IPRATROPIUM BROMIDE (0.02%) 0.5MG/2.5ML NEB HHN SCH ×2 (04:50→08:29)
[2018-03-16] MEDS: BACLOFEN 20MG TABLET PO SCH ×3 (05:51→20:56)
[2018-03-16] MEDS: DILTIAZEM HCL 60MG TABLET PO SCH ×5 (05:52→18:13)
[2018-03-16] MEDS: DEXT 5%/0.45% NACL 1000ML 1,000 ML IV SCH ×2 (08:25→18:13)
[2018-03-16] MEDS: PANTOPRAZOLE SODIUM 40 MG/VIAL IV SCH (08:25)
[2018-03-16] MEDS: CITRIC ACID/SODIUM CITRATE SOLN 15ML UDC PO SCH ×3 (08:25→18:13)
[2018-03-16] MEDS: ASPIRIN 81MG TABLET PO SCH (08:25)
[2018-03-16] MEDS: ENOXAPARIN 60MG/0.6ML SYR SUBCUT SCH ×2 (08:25→20:56)
[2018-03-16] MEDS ORDERED: POTASSIUM CHLORIDE 20MEQ/PACKET GT NR (09:15)
[2018-03-16 10:50] LABS: BG BASE EXCESS 5.2 mmol/L (-2.0-2.0); BG CARBOXYHEMOGLOBIN 1.6 % (0.5-1.5); BG DEOXYHEMOGLOBIN 25.3 % (0.0-5.0); BG HCO3 ACT 29.7 mmol/L (22.0-26.0); BG METHEMOGLOBIN 0.3 % (0.0-1.5); BG OXYGEN SATURATION 74.2 % (92.0-98.5); BG OXYHEMOGLOBIN 72.8 % (94.0-97.0); BG PCO2 43.7 mmHg (35.0-45.0); BG PO2 41.4 mmHg (75.0-100.0); BG SAMPLE SITE RIGHT RADIAL; BG TIDAL VOLUME(mL) 450 mL; BG TOTAL HEMOGLOBIN 8.8 g/dL (12.0-18.0); BG VENT MODE VENT - A/C; BG VENT RATE 12 set
[2018-03-16] MEDS: BLOOD SUGAR DIAGNOSTIC STRIP TEST SCH ×3 (11:22→17:08)
[2018-03-16] MEDS: INSULIN GLARGINE UD 100 UNITS/ML SYR SUBCUT SCH ×2 (11:50→20:57)
[2018-03-16] MEDS: INSULIN LISPRO 100 UNITS/ML SUBCUT SCH ×3 (11:51→17:13)
[2018-03-16 12:24] LABS: BG BASE EXCESS 7.4 mmol/L (-2.0-2.0); BG CARBOXYHEMOGLOBIN 0.8 % (0.5-1.5); BG DEOXYHEMOGLOBIN 0.2 % (0.0-5.0); BG FRACTION INSPIRED OXYGEN 100; BG HCO3 ACT 31.2 mmol/L (22.0-26.0); BG METHEMOGLOBIN 0.3 % (0.0-1.5); BG OXYGEN SATURATION 99.8 % (92.0-98.5); BG OXYHEMOGLOBIN 98.7 % (94.0-97.0); BG PCO2 40.5 mmHg (35.0-45.0); BG PH 7.504 (7.350-7.450); BG PO2 433.1 mmHg (75.0-100.0); BG SAMPLE SITE RIGHT RADIAL; BG TIDAL VOLUME(mL) 450 mL; BG TOTAL HEMOGLOBIN 8.5 g/dL (12.0-18.0); BG VENT MODE VENT - A/C; BG VENT RATE 12 set
[2018-03-16] MEDS ORDERED: ACETYLCYSTEINE 100MG/ML 10% VIAL 4ML INH SCH (14:00)
[2018-03-16] MEDS ORDERED: IPRATROPIUM BROMIDE (0.02%) 0.5MG/2.5ML NEB HHN SCH (14:00)
[2018-03-16 14:44] LABS: BG BASE EXCESS 5.6 mmol/L (-2.0-2.0); BG DEOXYHEMOGLOBIN 1.8 % (0.0-5.0); BG FRACTION INSPIRED OXYGEN 35; BG HCO3 ACT 29.9 mmol/L (22.0-26.0); BG METHEMOGLOBIN 0.3 % (0.0-1.5); BG OXYGEN SATURATION 98.2 % (92.0-98.5); BG OXYHEMOGLOBIN 96.9 % (94.0-97.0); BG PCO2 42.8 mmHg (35.0-45.0); BG PH 7.462 (7.350-7.450); BG PO2 116.4 mmHg (75.0-100.0); BG SAMPLE SITE RIGHT RADIAL; BG TIDAL VOLUME(mL) 450 mL; BG VENT MODE VENT - A/C; BG VENT RATE 12 set
== END 2018-03-16 23:48 | disposition short-term general hospital (02) | DRG 4 ==
LOC: ER 16:13 → 5EST 18:28 → EDBEDREQ 18:37 → EDBEDREQTM 18:37 → ENRESERV 20:45 → MICUSO 02-22 12:35 → 5EST 03-10 11:52
PROVIDERS: ADMIT Internal Medicine; ATTEND Internal Medicine
PROC: 5A1955Z Respiratory Ventilation, Greater than 96 Consecutive Hours (ICD-10-PCS; principal; 2018-02-22)
PROC: 0BH17EZ Insertion of Endotracheal Airway into Trachea, Via Natural or Artificial Opening (ICD-10-PCS; 2018-02-22)
PROC: 06HY33Z Insertion of Infusion Device into Lower Vein, Percutaneous Approach (ICD-10-PCS; 2018-02-22)
PROC: 4A00X4Z Measurement of Central Nervous Electrical Activity, External Approach (ICD-10-PCS; 2018-02-23)
PROC: 5A1955Z Respiratory Ventilation, Greater than 96 Consecutive Hours (ICD-10-PCS; 2018-03-05)
PROC: 0BH17EZ Insertion of Endotracheal Airway into Trachea, Via Natural or Artificial Opening (ICD-10-PCS; 2018-03-05)
PROC: 0B110F4 Bypass Trachea to Cutaneous with Tracheostomy Device, Open Approach (ICD-10-PCS; 2018-03-07)
PROC: 0GBJ0ZZ Excision of Thyroid Gland Isthmus, Open Approach (ICD-10-PCS; 2018-03-07)
PROC: 0DH68UZ Insertion of Feeding Device into Stomach, Via Natural or Artificial Opening Endoscopic (ICD-10-PCS; 2018-03-09)
PROC: 05HY33Z Insertion of Infusion Device into Upper Vein, Percutaneous Approach (ICD-10-PCS; 2018-03-10)
PROC: B54MZZA Ultrasonography of Right Upper Extremity Veins, Guidance (ICD-10-PCS; 2018-03-10)
DX: A41.9 Sepsis, unspecified organism (principal); R65.21 Severe sepsis with septic shock; J69.0 Pneumonitis due to inhalation of food and vomit; G92 Toxic encephalopathy; E43 Unspecified severe protein-calorie malnutrition; J96.22 Acute and chronic respiratory failure with hypercapnia; I82.412 Acute embolism and thrombosis of left femoral vein; R13.12 Dysphagia, oropharyngeal phase; I11.0 Hypertensive heart disease with heart failure; T17.990A Other foreign object in respiratory tract, part unspecified in causing asphyxiation, initial encounter; I50.22 Chronic systolic (congestive) heart failure; G70.00 Myasthenia gravis without (acute) exacerbation; E11.649 Type 2 diabetes mellitus with hypoglycemia without coma; Z99.11 Dependence on respirator [ventilator] status; I27.20 Pulmonary hypertension, unspecified; B37.49 Other urogenital candidiasis; E11.65 Type 2 diabetes mellitus with hyperglycemia; E87.5 Hyperkalemia; G35 Multiple sclerosis; Y84.8 Other medical procedures as the cause of abnormal reaction of the patient, or of later complication, without mention of misadventure at the time of the procedure; K82.4 Cholesterolosis of gallbladder; N20.0 Calculus of kidney; J44.9 Chronic obstructive pulmonary disease, unspecified; E05.90 Thyrotoxicosis, unspecified without thyrotoxic crisis or storm; R50.82 Postprocedural fever; I47.1 Supraventricular tachycardia; B96.20 Unspecified Escherichia coli [E. coli] as the cause of diseases classified elsewhere; Z16.12 Extended spectrum beta lactamase (ESBL) resistance; Z86.19 Personal history of other infectious and parasitic diseases; Z82.0 Family history of epilepsy and other diseases of the nervous system; Z93.1 Gastrostomy status; Z88.0 Allergy status to penicillin; Z86.718 Personal history of other venous thrombosis and embolism; Z86.73 Personal history of transient ischemic attack (TIA), and cerebral infarction without residual deficits; Z74.01 Bed confinement status; Z79.899 Other long term (current) drug therapy; Z68.1 Body mass index [BMI] 19.9 or less, adult
CPT/HCPCS: 31500; 36415; 36569; 36600; 70551; 71045; 71275; 76700; 76937; 80048; 80202; 80305; 82140; 82375; 82550; 82553; 82607; 82746; 82805; 82962; 82977; 83036; 83605; 83735; 83880; 84100; 84134; 84145; 84439; 84443; 84478; 84481; 84484; 85007; 85027; 85379; 87070; 87077; 87106; 87186; 87804; 90686; 90732; 93005; 93306; 93970; 94002; 94003; 94640; 96365; 97162; 97167; 99291; A4216; A6261; C1725; C1769; C9113; J0330; J0360; J1170; J1650; J1815; J1940; J1956; J2060; J2185; J2250; J2270; J2370; J2405; J2704; J2920; J2930; J3010; J3370; J3480; J3490; J7030; J7040; J7050; J7060; J7608; J7620; Q9967; A4315

== ENCOUNTER 2018-06-12 11:46 | Inpatient (IN) | payer MEDICAID ==
[2018-06-12] VITALS (17 sets, daily range): BP systolic 92–119; BP diastolic 73–92
[~2018-06-12] VITALS: Ht 165.1 cm; Wt 46.7 kg
[~2018-06-12 11:46] MED LIST changes: -AMLO10TA80 PO; +CITR473S PO; -CLON0.2T PO; +DILT60TA35 PO; +LANTUSUD SUBCUT; +LOV40 SQ; -NITR100C11 PO; +PANT40VI IV
[2018-06-12] MEDS ORDERED: SODIUM CHLORIDE 0.9% 1,000 ML IV ONE (11:56)
[2018-06-12] MEDS ORDERED: ONDANSETRON HCL 4MG/2ML INJ IV STA (11:56)
[2018-06-12] MEDS ORDERED: VANCOMYCIN 1 G PREMIX 200 ML IV ONE (12:00)
[2018-06-12] MEDS ORDERED: LEVOFLOXACIN 750MG PREMIX 150 ML IV ONE (12:00)
[2018-06-12] MEDS ORDERED: HYDROCORTISONE SOD SUCCINATE 100 MG/2 ML VIAL IV ONE (12:00)
[2018-06-12] MEDS ORDERED: SODIUM CHLORIDE 0.9% 1000ML BAG (SEPSIS BOLUS) IV ONE (12:00)
[2018-06-12 12:36] LABS: HEMATOCRIT. 47.4 % (36.0-48.0); HEMOGLOBIN. 14.9 g/dL (12.0-16.0); MEAN CORPUSCULAR HEMOGLOBIN 24.4 pg (28.0-32.0); MEAN CORPUSCULAR VOLUME 77.4 fL (81.0-99.0); MEAN PLATELET VOLUME 8.6 fl (7.4-10.4); PLATELET 316 x1000/uL (130-400); RED BLOOD CELL COUNT 6.12 mill/uL (4.2-5.4)
[2018-06-12 12:38] LABS: CHLORIDE 105 mEq/L (98-107)
[2018-06-12 12:39] LABS: INR 1.1; PROTHROMBIN TIME 11.1 sec (9.1-11.1)
[2018-06-12 13:20] LABS: CLARITY URINE TURBID (CLEAR); COLOR URINE YELLOW (YELLOW); KETONES URINE NEGATIVE (NEGATIVE); LEUKOCYTE ESTERASE URINE 2+ (NEGATIVE); NITRITE URINE NEGATIVE (NEGATIVE); OCCULT BLOOD URINE 3+ (NEGATIVE); PH URINE 5.5 (4.5-8.0); PROTEIN URINE 3+ (NEGATIVE); SPECIFIC GRAVITY URINE 1.022 (1.005-1.030)
[2018-06-12 13:31] LABS: PLATELET ESTIMATE NORMAL
[2018-06-12 13:39] LABS: BG BASE EXCESS 0.7 mmol/L (-2.0-2.0); BG DEOXYHEMOGLOBIN 0.8 % (0.0-5.0); BG FRACTION INSPIRED OXYGEN 100; BG HCO3 ACT 28.8 mmol/L (22.0-26.0); BG METHEMOGLOBIN 0.4 % (0.0-1.5); BG OXYGEN SATURATION 99.2 % (92.0-98.5); BG OXYHEMOGLOBIN 97.8 % (94.0-97.0); BG PCO2 61.9 mmHg (35.0-45.0); BG PH 7.286 (7.350-7.450); BG PO2 194.4 mmHg (75.0-100.0); BG PRESSURE SUPPORT 7; BG SAMPLE SITE RIGHT BRACHIAL; BG TOTAL HEMOGLOBIN 14.2 g/dL (12.0-18.0); BG VENT MODE MASK - BIPAP; BG VENT RATE 16 set
[2018-06-12] MEDS ORDERED: LIDOCAINE HCL 1% 20ML VIAL (Pyxis) INJ ONE (13:41)
[2018-06-12] MEDS ORDERED: SODIUM BICARBONATE 4% (2.4MEQ) 5ML VIAL IV ONE (13:41)
[2018-06-12] MEDS ORDERED: IPRATROPIUM/ALBUTEROL 0.5-3(2.5)MG/3ML NEB HHN PRN (16:00)
[2018-06-12] MEDS: IPRATROPIUM/ALBUTEROL 0.5-3(2.5)MG/3ML NEB HHN SCH ×2 (16:55→20:56)
[2018-06-12] MEDS: ACETYLCYSTEINE 100MG/ML 10% VIAL 4ML INH SCH ×2 (16:55→20:56)
[2018-06-12] MEDS ORDERED: DEXTROSE 50% WATER 50ML SYRINGE IV PRN (17:45)
[2018-06-12] MEDS: BLOOD SUGAR DIAGNOSTIC STRIP TEST SCH ×2 (18:15→21:00)
[2018-06-12] MEDS: INSULIN LISPRO 100 UNITS/ML SUBCUT SCH ×2 (18:15→22:20)
[2018-06-12] MEDS ORDERED: ACETYLCYSTEINE 100MG/ML 10% VIAL 4ML INH SCH (22:00)
[2018-06-12] MEDS: METRONIDAZOLE 500 MG PREMIX 100 ML IV SCH (22:19)
[2018-06-12] MEDS: VANCOMYCIN 1 G PREMIX 200 ML IV SCH (22:20)
[2018-06-12] MEDS: DEXT 5%/0.45% NACL 1000ML 1,000 ML IV SCH (22:24)
[2018-06-13] VITALS (45 sets, daily range): BP systolic 55–159; BP diastolic 26–108
[2018-06-13] MEDS: IPRATROPIUM/ALBUTEROL 0.5-3(2.5)MG/3ML NEB HHN SCH ×6 (00:20→22:20)
[2018-06-13] MEDS: METRONIDAZOLE 500 MG PREMIX 100 ML IV SCH ×3 (06:06→22:12)
[2018-06-13] MEDS: BLOOD SUGAR DIAGNOSTIC STRIP TEST SCH ×4 (07:43→21:00)
[2018-06-13] MEDS: ACETYLCYSTEINE 100MG/ML 10% VIAL 4ML INH SCH ×2 (07:56→16:47)
[2018-06-13] MEDS: PANTOPRAZOLE SODIUM 40 MG/VIAL IV SCH (08:20)
[2018-06-13] MEDS: INSULIN LISPRO 100 UNITS/ML SUBCUT SCH ×4 (08:21→23:14)
[2018-06-13] MEDS: DILTIAZEM HCL 120MG CAPSULE CD 24HR PO SCH (08:39)
[2018-06-13] MEDS: AZTREONAM 2 GM in DEXT 5% WATER 100 ML IV SCH ×2 (08:40→20:57)
[2018-06-13 09:07] LABS: BG BASE EXCESS 2.6 mmol/L (-2.0-2.0); BG CARBOXYHEMOGLOBIN 0.6 % (0.5-1.5); BG DEOXYHEMOGLOBIN 1.6 % (0.0-5.0); BG FRACTION INSPIRED OXYGEN 60; BG HCO3 ACT 27.5 mmol/L (22.0-26.0); BG METHEMOGLOBIN 0.2 % (0.0-1.5); BG OXYGEN SATURATION 98.4 % (92.0-98.5); BG OXYHEMOGLOBIN 97.6 % (94.0-97.0); BG PCO2 43.2 mmHg (35.0-45.0); BG PH 7.421 (7.350-7.450); BG PO2 111.6 mmHg (75.0-100.0); BG SAMPLE SITE RIGHT RADIAL; BG TOTAL HEMOGLOBIN 12.5 g/dL (12.0-18.0); BG VENT MODE MASK - BIPAP; BG VENT RATE 16 set
[2018-06-13 09:08] LABS: HEMATOCRIT. 34.9 % (36.0-48.0); HEMOGLOBIN. 10.9 g/dL (12.0-16.0); MEAN CORPUSCULAR HEMOGLOBIN 24.2 pg (28.0-32.0); MEAN CORPUSCULAR VOLUME 77.3 fL (81.0-99.0); MEAN PLATELET VOLUME 8.6 fl (7.4-10.4); PLATELET 237 x1000/uL (130-400); RED BLOOD CELL COUNT 4.51 mill/uL (4.2-5.4); RED CELL DISTRIBUTION WIDTH 18.7 % (11.6-14.6)
[2018-06-13 09:17] LABS: CHLORIDE 108 mEq/L (98-107)
[2018-06-13] MEDS: VANCOMYCIN 1 G PREMIX 200 ML IV SCH ×2 (09:19→22:13)
[2018-06-13 10:16] LABS: PHOSPHORUS 0.9 mg/dL (2.5-4.9)
[2018-06-13 10:24] LABS: PLATELET ESTIMATE NORMAL
[2018-06-13] MEDS: SERTRALINE HCL 50MG TABLET PO SCH (10:43)
[2018-06-13] MEDS: LEVOFLOXACIN 500MG PREMIX 100 ML IV SCH (10:43)
[2018-06-13] MEDS: CITRIC ACID/SODIUM CITRATE SOLN 15ML UDC PO SCH ×4 (10:43→16:32)
[2018-06-13] MEDS: ASPIRIN 81MG TABLET PO SCH (10:43)
[2018-06-13] MEDS ORDERED: POTASSIUM PHOS,M-BASIC-D-BASIC 20 MMOL in DEXT 5% WATER 243.3333 ML IV NR (12:00)
[2018-06-13] MEDS ORDERED: MAGNESIUM 2 G PREMIX 50 ML IV NR (12:00)
[2018-06-13] MEDS: THIAMINE HCL 100MG TABLET GT SCH ×2 (14:12→17:42)
[2018-06-13] MEDS: BACLOFEN 20MG TABLET PO SCH ×2 (14:12→21:30)
[2018-06-13 16:39] LABS: TOTAL IRON BINDING CAPACITY 243 ug/dL (250-450)
[2018-06-13 20:45] LABS: CHLORIDE 103 mEq/L (98-107)
[2018-06-13 20:52] LABS: PHOSPHORUS 1.3 mg/dL (2.5-4.9)
[2018-06-13] MEDS: DEXT 5%/0.45% NACL 1000ML 1,000 ML IV SCH (20:57)
[2018-06-13] MEDS: GUAIFENESIN 600MG ER TABLET PO SCH (20:57)
[2018-06-14] VITALS (47 sets, daily range): BP systolic 102–146; BP diastolic 70–106
[2018-06-14] MEDS: ACETYLCYSTEINE 100MG/ML 10% VIAL 4ML INH SCH ×2 (01:42→10:01)
[2018-06-14] MEDS: IPRATROPIUM/ALBUTEROL 0.5-3(2.5)MG/3ML NEB HHN SCH ×5 (01:43→20:12)
[2018-06-14] MEDS: METRONIDAZOLE 500 MG PREMIX 100 ML IV SCH ×2 (06:42→14:47)
[2018-06-14] MEDS: BACLOFEN 20MG TABLET PO SCH ×3 (06:42→20:15)
[2018-06-14 07:22] LABS: BASOPHILS % 0.2 % (0.0-2.0); EOSINOPHILS % 0.1 % (0.0-5.0); HEMOGLOBIN. 10.8 g/dL (12.0-16.0); LYMPHOCYTES % 7.4 % (20.0-50.0); MEAN CORPUSCULAR HEMOGLOBIN 24.3 pg (28.0-32.0); MEAN CORPUSCULAR VOLUME 76.9 fL (81.0-99.0); MEAN PLATELET VOLUME 8.7 fl (7.4-10.4); MONOCYTES % 8.7 % (2.0-8.0); NEUTROPHILS % 83.6 % (40.0-76.0); PLATELET 254 x1000/uL (130-400); RED BLOOD CELL COUNT 4.43 mill/uL (4.2-5.4); RED CELL DISTRIBUTION WIDTH 18.9 % (11.6-14.6)
[2018-06-14 07:36] LABS: CHLORIDE 104 mEq/L (98-107)
[2018-06-14] MEDS: BLOOD SUGAR DIAGNOSTIC STRIP TEST SCH ×4 (08:39→20:09)
[2018-06-14] MEDS ORDERED: POTASSIUM CHLORIDE 20MEQ/PACKET PO SCH (09:00)
[2018-06-14] MEDS: PANTOPRAZOLE SODIUM 40 MG/VIAL IV SCH (09:00)
[2018-06-14] MEDS: CITRIC ACID/SODIUM CITRATE SOLN 15ML UDC PO SCH ×3 (09:00→18:01)
[2018-06-14] MEDS: DILTIAZEM HCL 120MG CAPSULE CD 24HR PO SCH (09:01)
[2018-06-14] MEDS: GUAIFENESIN 600MG ER TABLET PO SCH ×2 (09:02→20:15)
[2018-06-14] MEDS: ASPIRIN 81MG TABLET PO SCH (09:02)
[2018-06-14] MEDS: AZTREONAM 2 GM in DEXT 5% WATER 100 ML IV SCH (09:02)
[2018-06-14] MEDS: THIAMINE HCL 100MG TABLET GT SCH ×2 (09:02→18:02)
[2018-06-14] MEDS: SERTRALINE HCL 50MG TABLET PO SCH (09:02)
[2018-06-14] MEDS: INSULIN LISPRO 100 UNITS/ML SUBCUT SCH ×4 (09:04→20:15)
[2018-06-14 09:56] LABS: PHOSPHORUS 1.5 mg/dL (2.5-4.9)
[2018-06-14] MEDS: VANCOMYCIN 1 G PREMIX 200 ML IV SCH (10:41)
[2018-06-14] MEDS: LEVOFLOXACIN 500MG PREMIX 100 ML IV SCH (12:31)
[2018-06-14] MEDS ORDERED: POTASSIUM PHOS,M-BASIC-D-BASIC 20 MMOL in DEXT 5% WATER 243.3333 ML IV NR (15:00)
[2018-06-14] MEDS ORDERED: MEROPENEM 500 MG in SODIUM CHLORIDE 0.9% 50 ML IV SCH (18:00)
[2018-06-14] MEDS: DEXT 5%/0.45% NACL 1000ML 1,000 ML IV SCH (18:02)
[2018-06-14] MEDS: MEROPENEM 500 MG in SODIUM CHLORIDE 0.9% 50 ML IV SCH (18:04)
[2018-06-15] VITALS (15 sets, daily range): BP systolic 115–148; BP diastolic 82–106
[2018-06-15] MEDS: IPRATROPIUM/ALBUTEROL 0.5-3(2.5)MG/3ML NEB HHN SCH ×6 (00:03→20:18)
[2018-06-15] MEDS: ACETYLCYSTEINE 100MG/ML 10% VIAL 4ML INH SCH ×3 (00:04→16:09)
[2018-06-15] MEDS: MEROPENEM 500 MG in SODIUM CHLORIDE 0.9% 50 ML IV SCH ×3 (00:58→17:41)
[2018-06-15] MEDS: VANCOMYCIN 750 MG PREMIX 150 ML IV SCH ×3 (00:59→13:16)
[2018-06-15] MEDS: BACLOFEN 20MG TABLET PO SCH ×3 (05:57→21:09)
[2018-06-15] MEDS: BLOOD SUGAR DIAGNOSTIC STRIP TEST SCH ×4 (06:56→21:05)
[2018-06-15] MEDS: INSULIN LISPRO 100 UNITS/ML SUBCUT SCH ×4 (07:20→21:07)
[2018-06-15] MEDS: PANTOPRAZOLE SODIUM 40 MG/VIAL IV SCH (08:31)
[2018-06-15] MEDS: GUAIFENESIN 600MG ER TABLET PO SCH ×2 (08:31→21:09)
[2018-06-15] MEDS: CITRIC ACID/SODIUM CITRATE SOLN 15ML UDC PO SCH ×3 (08:31→17:41)
[2018-06-15] MEDS: SERTRALINE HCL 50MG TABLET PO SCH (08:31)
[2018-06-15] MEDS: THIAMINE HCL 100MG TABLET GT SCH ×2 (08:31→17:41)
[2018-06-15] MEDS: ASPIRIN 81MG TABLET PO SCH (08:31)
[2018-06-15] MEDS: DILTIAZEM HCL 120MG CAPSULE CD 24HR PO SCH (08:32)
[2018-06-15 15:24] LABS: HEMATOCRIT. 35.5 % (36.0-48.0); HEMOGLOBIN. 11.1 g/dL (12.0-16.0); MEAN CORPUSCULAR HEMOGLOBIN 24.3 pg (28.0-32.0); MEAN CORPUSCULAR VOLUME 77.4 fL (81.0-99.0); MEAN PLATELET VOLUME 8.1 fl (7.4-10.4); PLATELET 301 x1000/uL (130-400); RED BLOOD CELL COUNT 4.58 mill/uL (4.2-5.4); RED CELL DISTRIBUTION WIDTH 18.9 % (11.6-14.6)
[2018-06-15 15:27] LABS: CHLORIDE 103 mEq/L (98-107)
[2018-06-15 17:38] LABS: PLATELET ESTIMATE NORMAL
[2018-06-15] MEDS: DEXT 5%/0.45% NACL 1000ML 1,000 ML IV SCH (19:00)
[2018-06-16] VITALS (9 sets, daily range): BP systolic 129–147; BP diastolic 95–114
[2018-06-16] MEDS: ACETYLCYSTEINE 100MG/ML 10% VIAL 4ML INH SCH ×4 (00:48→16:19)
[2018-06-16] MEDS: MEROPENEM 500 MG in SODIUM CHLORIDE 0.9% 50 ML IV SCH ×3 (02:20→19:46)
[2018-06-16] MEDS: IPRATROPIUM/ALBUTEROL 0.5-3(2.5)MG/3ML NEB HHN SCH ×6 (04:00→22:10)
[2018-06-16] MEDS: BACLOFEN 20MG TABLET PO SCH ×3 (05:52→21:27)
[2018-06-16 06:29] LABS: BASOPHILS % 0.3 % (0.0-2.0); EOSINOPHILS % 0.4 % (0.0-5.0); HEMATOCRIT. 33.4 % (36.0-48.0); HEMOGLOBIN. 10.7 g/dL (12.0-16.0); LYMPHOCYTES % 9.8 % (20.0-50.0); MEAN CORPUSCULAR HEMOGLOBIN 24.9 pg (28.0-32.0); MEAN CORPUSCULAR VOLUME 77.7 fL (81.0-99.0); MEAN PLATELET VOLUME 8.4 fl (7.4-10.4); NEUTROPHILS % 78.5 % (40.0-76.0); PLATELET 305 x1000/uL (130-400); RED CELL DISTRIBUTION WIDTH 19.2 % (11.6-14.6)
[2018-06-16 06:36] LABS: CHLORIDE 103 mEq/L (98-107)
[2018-06-16 06:59] LABS: VANCOMYCIN TROUGH 11.9 ug/mL (5.0-10.0)
[2018-06-16] MEDS: BLOOD SUGAR DIAGNOSTIC STRIP TEST SCH ×4 (07:09→21:16)
[2018-06-16] MEDS: INSULIN LISPRO 100 UNITS/ML SUBCUT SCH ×5 (07:20→21:00)
[2018-06-16] MEDS: SERTRALINE HCL 50MG TABLET PO SCH (08:27)
[2018-06-16] MEDS: FAMOTIDINE 20MG/2ML VIAL IV SCH (08:27)
[2018-06-16] MEDS: ASPIRIN 81MG TABLET PO SCH (08:27)
[2018-06-16] MEDS: GUAIFENESIN 600MG ER TABLET PO SCH ×2 (08:27→21:22)
[2018-06-16] MEDS: DILTIAZEM HCL 120MG CAPSULE CD 24HR PO SCH (08:28)
[2018-06-16] MEDS: CITRIC ACID/SODIUM CITRATE SOLN 15ML UDC PO SCH ×3 (08:29→17:00)
[2018-06-16] MEDS: DEXT 5%/0.45% NACL 1000ML 1,000 ML IV SCH (16:45)
[2018-06-17] VITALS (7 sets, daily range): BP systolic 102–156; BP diastolic 72–118
[2018-06-17] MEDS: IPRATROPIUM/ALBUTEROL 0.5-3(2.5)MG/3ML NEB HHN SCH ×5 (01:47→21:46)
[2018-06-17] MEDS: MEROPENEM 500 MG in SODIUM CHLORIDE 0.9% 50 ML IV SCH ×3 (02:29→19:01)
[2018-06-17] MEDS: BACLOFEN 20MG TABLET PO SCH ×3 (05:38→20:35)
[2018-06-17] MEDS: GUAIFENESIN 600MG ER TABLET PO SCH ×2 (05:38→20:38)
[2018-06-17] MEDS: BLOOD SUGAR DIAGNOSTIC STRIP TEST SCH ×4 (05:48→20:34)
[2018-06-17 06:30] LABS: BASOPHILS % 0.5 % (0.0-2.0); EOSINOPHILS % 0.5 % (0.0-5.0); HEMATOCRIT. 34.3 % (36.0-48.0); HEMOGLOBIN. 11.2 g/dL (12.0-16.0); LYMPHOCYTES % 9.5 % (20.0-50.0); MEAN CORPUSCULAR HEMOGLOBIN 25.2 pg (28.0-32.0); MEAN CORPUSCULAR VOLUME 77.3 fL (81.0-99.0); MEAN PLATELET VOLUME 8.1 fl (7.4-10.4); MONOCYTES % 12.4 % (2.0-8.0); NEUTROPHILS % 77.1 % (40.0-76.0); PLATELET 314 x1000/uL (130-400); RED BLOOD CELL COUNT 4.43 mill/uL (4.2-5.4); RED CELL DISTRIBUTION WIDTH 19.5 % (11.6-14.6)
[2018-06-17 06:48] LABS: CHLORIDE 102 mEq/L (98-107)
[2018-06-17] MEDS ORDERED: POTASSIUM CHLORIDE 20MEQ/PACKET PO SCH (08:45)
[2018-06-17] MEDS: ACETYLCYSTEINE 100MG/ML 10% VIAL 4ML INH SCH ×2 (08:59→16:02)
[2018-06-17] MEDS: CITRIC ACID/SODIUM CITRATE SOLN 15ML UDC PO SCH ×3 (09:59→17:00)
[2018-06-17] MEDS: DILTIAZEM HCL 120MG CAPSULE CD 24HR PO SCH (09:59)
[2018-06-17] MEDS: ASPIRIN 81MG TABLET PO SCH (09:59)
[2018-06-17] MEDS: SERTRALINE HCL 50MG TABLET PO SCH (10:09)
[2018-06-17] MEDS: FAMOTIDINE 20MG/2ML VIAL IV SCH (10:10)
[2018-06-17] MEDS: INSULIN LISPRO 100 UNITS/ML SUBCUT SCH ×2 (14:34→20:40)
[2018-06-17] MEDS ORDERED: NITR-87 MT (16:26)
[2018-06-17] MEDS: DEXT 5%/0.45% NACL 1000ML 1,000 ML IV SCH (19:01)
[2018-06-18] VITALS: BP_SYST 170; BP_SYST 196; BP_DIAS 125; BP_DIAS 81
[2018-06-18] MEDS: DEXT 5%/0.45% NACL 1000ML 1,000 ML IV SCH (00:49)
[2018-06-18] MEDS: IPRATROPIUM/ALBUTEROL 0.5-3(2.5)MG/3ML NEB HHN SCH ×2 (01:10→04:50)
[2018-06-18 02:00] VITALS: BP 144/95
[2018-06-18] MEDS: MEROPENEM 500 MG in SODIUM CHLORIDE 0.9% 50 ML IV SCH (02:00)
[2018-06-18 04:00] VITALS: BP 148/111
[2018-06-18] MEDS: BACLOFEN 20MG TABLET PO SCH (06:11)
== END 2018-06-18 09:00 | disposition home or self-care (01) | DRG 720 ==
LOC: ER 11:46 → CVICU 13:47 → EDBEDREQ 13:50 → EDBEDREQTM 13:50 → EDBEDREQSVC 13:50 → ENRESERV 14:16 → 3WST 06-15 02:29 → 7WST 06-16 12:40
PROVIDERS: ADMIT Internal Medicine; ATTEND Internal Medicine
PROC: 5A09357 Assistance with Respiratory Ventilation, Less than 24 Consecutive Hours, Continuous Positive Airway Pressure (ICD-10-PCS; principal; 2018-06-12)
PROC: 05HY33Z Insertion of Infusion Device into Upper Vein, Percutaneous Approach (ICD-10-PCS; 2018-06-12)
PROC: B54MZZA Ultrasonography of Right Upper Extremity Veins, Guidance (ICD-10-PCS; 2018-06-12)
PROC: 5A09357 Assistance with Respiratory Ventilation, Less than 24 Consecutive Hours, Continuous Positive Airway Pressure (ICD-10-PCS; 2018-06-13)
DX: A41.9 Sepsis, unspecified organism (principal); J69.0 Pneumonitis due to inhalation of food and vomit; J96.01 Acute respiratory failure with hypoxia; E43 Unspecified severe protein-calorie malnutrition; J96.02 Acute respiratory failure with hypercapnia; E87.2 Acidosis; R64 Cachexia; E83.39 Other disorders of phosphorus metabolism; E83.42 Hypomagnesemia; I07.1 Rheumatic tricuspid insufficiency; R13.10 Dysphagia, unspecified; G35 Multiple sclerosis; R65.20 Severe sepsis without septic shock; N39.0 Urinary tract infection, site not specified; E11.9 Type 2 diabetes mellitus without complications; D50.9 Iron deficiency anemia, unspecified; E87.6 Hypokalemia; I10 Essential (primary) hypertension; I27.20 Pulmonary hypertension, unspecified; J45.909 Unspecified asthma, uncomplicated; J98.11 Atelectasis; Z16.12 Extended spectrum beta lactamase (ESBL) resistance; T14.8XXA Other injury of unspecified body region, initial encounter; X58.XXXA Exposure to other specified factors, initial encounter; Y93.89 Activity, other specified; Z88.0 Allergy status to penicillin; Z86.19 Personal history of other infectious and parasitic diseases; Z86.718 Personal history of other venous thrombosis and embolism; Z87.01 Personal history of pneumonia (recurrent); Z68.1 Body mass index [BMI] 19.9 or less, adult; Z79.899 Other long term (current) drug therapy; Z79.82 Long term (current) use of aspirin; Y92.89 Other specified places as the place of occurrence of the external cause; Y99.8 Other external cause status
CPT/HCPCS: 36415; 36569; 36600; 71045; 76937; 80048; 80202; 82375; 82728; 82805; 82962; 83540; 83550; 83605; 83735; 83880; 84100; 84145; 84484; 86850; 86900; 87077; 87186; 87804; 92610; 93005; 94640; 94660; 96365; 96366; 96375; 97162; 99291; A6261; C1725; C9113; J1720; J1815; J1956; J2185; J2405; J3370; J3475; J3490; J7030; J7040; J7050; J7060; J7608; J7620; A4315

== ENCOUNTER 2018-09-28 16:43 | Inpatient (IN) | payer MEDICAID ==
[~2018-09-28] VITALS: Ht 154.9 cm; Wt 36.7 kg
[~2018-09-28 16:43] MED LIST changes: -ASPI-1159 PO; +ASPI-1393 PO; +NITR-87 MT
[2018-09-28] MEDS ORDERED: VANCOMYCIN 1 G PREMIX 200 ML IV ONE (17:00)
[2018-09-28] MEDS ORDERED: ACETAMINOPHEN 650MG SUPP PR ONE (17:00)
[2018-09-28] MEDS ORDERED: SODIUM CHLORIDE 0.9% 1000ML BAG (SEPSIS BOLUS) IV ONE (17:00)
[2018-09-28] MEDS ORDERED: LEVOFLOXACIN 750MG PREMIX 150 ML IV ONE (17:00)
[2018-09-28 17:23] LABS: HEMATOCRIT. 43.7 % (36.0-48.0); HEMOGLOBIN. 14.3 g/dL (12.0-16.0); MEAN CORPUSCULAR VOLUME 82.7 fL (81.0-99.0); MEAN PLATELET VOLUME 8.6 fl (7.4-10.4); PLATELET 293 x1000/uL (130-400); RED BLOOD CELL COUNT 5.29 mill/uL (4.2-5.4)
[2018-09-28 17:31] LABS: CHLORIDE 105 mEq/L (98-107); PARTIAL THROMBOPLASTIN TIME 28.1 sec (23.4-31.0); PROTHROMBIN TIME 10.7 sec (9.6-11.0)
[2018-09-28 17:46] LABS: CLARITY URINE CLOUDY (CLEAR); COLOR URINE YELLOW (YELLOW); KETONES URINE TRACE (NEGATIVE); LEUKOCYTE ESTERASE URINE 1+ (NEGATIVE); NITRITE URINE NEGATIVE (NEGATIVE); OCCULT BLOOD URINE 2+ (NEGATIVE); PROTEIN URINE 2+ (NEGATIVE); UROBILINOGEN URINE 0.2 E.U./dL (0.2-1.0)
[2018-09-28 17:52] LABS: BG BASE EXCESS 0.3 mmol/L (-2.0-2.0); BG CARBOXYHEMOGLOBIN 1.3 % (0.5-1.5); BG DEOXYHEMOGLOBIN 1.2 % (0.0-5.0); BG FRACTION INSPIRED OXYGEN 100; BG HCO3 ACT 25.4 mmol/L (22.0-26.0); BG METHEMOGLOBIN 0.1 % (0.0-1.5); BG OXYGEN SATURATION 98.8 % (92.0-98.5); BG OXYHEMOGLOBIN 97.4 % (94.0-97.0); BG PCO2 42.9 mmHg (35.0-45.0); BG PO2 138.1 mmHg (75.0-100.0); BG SAMPLE SITE LEFT RADIAL; BG TOTAL HEMOGLOBIN 13.8 g/dL (12.0-18.0); BG VENT MODE MASK - NRB
[2018-09-28 18:06] LABS: PLATELET ESTIMATE NORMAL
[2018-09-28] MEDS ORDERED: DILTIAZEM HCL 5MG/ML 5ML VIAL IV ONE (18:30)
[2018-09-28] MEDS ORDERED: FLUCONAZOLE 100MG TABLET PO ONE (18:30)
[2018-09-28] MEDS ORDERED: FLUCONAZOLE 150MG TABLET PO SCH (20:00)
[2018-09-28] MEDS ORDERED: CLONIDINE 0.1MG TABLET PO PRN (22:15)
[2018-09-28] MEDS ORDERED: ACETAMINOPHEN 325MG TABLET PO PRN (22:15)
[2018-09-28] MEDS ORDERED: DOCUSATE SODIUM 100MG CAPSULE PO PRN (22:15)
[2018-09-28] MEDS ORDERED: IPRATROPIUM/ALBUTEROL 0.5-3(2.5)MG/3ML NEB INH PRN (22:15)
[2018-09-28] MEDS ORDERED: ONDANSETRON HCL 4MG/2ML INJ IV PRN (22:15)
[2018-09-28] MEDS ORDERED: HYDROCODONE/ACETAMINOPHEN 5/325MG TABLET PO PRN (22:15)
[2018-09-28] MEDS ORDERED: LORAZEPAM 0.5MG TABLET PO PRN (22:15)
[2018-09-28] MEDS ORDERED: DILTIAZEM HCL 60MG TABLET PO NR (23:06)
[2018-09-29] VITALS (13 sets, daily range): BP systolic 117–143; BP diastolic 65–103
[2018-09-29] MEDS ORDERED: SODIUM CHLORIDE 0.9% 1,000 ML IV SCH (00:38)
[2018-09-29] MEDS ORDERED: DILTIAZEM HCL 60MG TABLET PO SCH (00:45)
[2018-09-29] MEDS ORDERED: DEXTROSE 50% WATER 50ML SYRINGE IV PRN (01:15)
[2018-09-29] MEDS: VANCOMYCIN 750 MG PREMIX 150 ML IV SCH ×2 (05:00→17:59)
[2018-09-29] MEDS: DILTIAZEM HCL 60MG TABLET PO SCH ×3 (05:01→18:00)
[2018-09-29] MEDS: BLOOD SUGAR DIAGNOSTIC STRIP TEST SCH ×2 (08:00→12:30)
[2018-09-29] MEDS: INSULIN LISPRO 100 UNITS/ML SUBCUT SCH ×3 (08:00→18:00)
[2018-09-29 08:10] LABS: HEMOGLOBIN. 12.1 g/dL (12.0-16.0); MEAN CORPUSCULAR HEMOGLOBIN 26.7 pg (28.0-32.0); MEAN CORPUSCULAR VOLUME 83.7 fL (81.0-99.0); MEAN PLATELET VOLUME 9.3 fl (7.4-10.4); PLATELET 236 x1000/uL (130-400); RED BLOOD CELL COUNT 4.54 mill/uL (4.2-5.4)
[2018-09-29 08:31] LABS: CHLORIDE 106 mEq/L (98-107)
[2018-09-29 08:41] LABS: LDL CHOLESTEROL 55 mg/dL (5-100)
[2018-09-29 08:43] LABS: HDL CHOLESTEROL 40 mg/dL (40-59)
[2018-09-29] MEDS ORDERED: GUAIFENESIN-DM 200MG-20MG/10ML UDC PO PRN (11:00)
[2018-09-29] MEDS ORDERED: NON FORMULARY PATIENT HOME MED XX SCH (11:00)
[2018-09-29] MEDS ORDERED: POTASSIUM CHLORIDE 20MEQ TABLET SR PO NR (11:15)
[2018-09-29 13:09] LABS: PLATELET ESTIMATE NORMAL
[2018-09-29] MEDS: ENOXAPARIN 40MG/0.4ML SYR SUBCUT SCH ×2 (13:25→21:55)
[2018-09-29] MEDS ORDERED: LEVOFLOXACIN 500MG PREMIX 100 ML IV SCH (18:00)
[2018-09-30] VITALS (11 sets, daily range): BP systolic 122–145; BP diastolic 31–107
[2018-09-30] MEDS: DILTIAZEM HCL 60MG TABLET PO SCH ×5 (01:00→23:46)
[2018-09-30] MEDS: IPRATROPIUM/ALBUTEROL 0.5-3(2.5)MG/3ML NEB HHN SCH ×4 (01:32→20:40)
[2018-09-30] MEDS: VANCOMYCIN 750 MG PREMIX 150 ML IV SCH ×2 (07:00→19:05)
[2018-09-30] MEDS: INSULIN LISPRO 100 UNITS/ML SUBCUT SCH ×4 (08:00→21:21)
[2018-09-30] MEDS ORDERED: IPRATROPIUM BROMIDE (0.02%) 0.5MG/2.5ML NEB ONE (08:03)
[2018-09-30] MEDS ORDERED: ALBUTEROL (0.083%) 2.5MG/3ML NEB ONE (08:03)
[2018-09-30] MEDS ORDERED: LIDOCAINE HCL/PF 1% 2ML VIAL ONE (08:08)
[2018-09-30] MEDS: BLOOD SUGAR DIAGNOSTIC STRIP TEST SCH ×4 (08:17→21:00)
[2018-09-30 08:50] LABS: HEMATOCRIT. 34.9 % (36.0-48.0); HEMOGLOBIN. 11.3 g/dL (12.0-16.0); MEAN CORPUSCULAR HEMOGLOBIN 26.9 pg (28.0-32.0); MEAN CORPUSCULAR VOLUME 83.3 fL (81.0-99.0); MEAN PLATELET VOLUME 9.8 fl (7.4-10.4); PLATELET 226 x1000/uL (130-400); RED CELL DISTRIBUTION WIDTH 15.1 % (11.6-14.6)
[2018-09-30 09:11] LABS: CHLORIDE 107 mEq/L (98-107)
[2018-09-30 09:45] LABS: BG BASE EXCESS 0.3 mmol/L (-2.0-2.0); BG CARBOXYHEMOGLOBIN 1.1 % (0.5-1.5); BG DEOXYHEMOGLOBIN 5.6 % (0.0-5.0); BG FRACTION INSPIRED OXYGEN 28; BG HCO3 ACT 23.8 mmol/L (22.0-26.0); BG METHEMOGLOBIN 0.3 % (0.0-1.5); BG OXYGEN SATURATION 94.3 % (92.0-98.5); BG PCO2 34.8 mmHg (35.0-45.0); BG PH 7.453 (7.350-7.450); BG PO2 69.7 mmHg (75.0-100.0); BG SAMPLE SITE RIGHT RADIAL; BG TOTAL HEMOGLOBIN 12.2 g/dL (12.0-18.0); BG VENT MODE NASAL CANNULA
[2018-09-30 09:46] LABS: PLATELET ESTIMATE NORMAL
[2018-09-30] MEDS: SERTRALINE HCL 50MG TABLET PO SCH (09:51)
[2018-09-30] MEDS: ENOXAPARIN 40MG/0.4ML SYR SUBCUT SCH ×2 (09:51→21:16)
[2018-09-30] MEDS ORDERED: POTASSIUM CHLORIDE 20MEQ TABLET SR PO NR (10:15)
[2018-09-30] MEDS: LEVOFLOXACIN 750MG PREMIX 150 ML IV SCH (17:43)
[2018-10-01] VITALS (10 sets, daily range): BP systolic 111–160; BP diastolic 81–109
[2018-10-01] MEDS: IPRATROPIUM/ALBUTEROL 0.5-3(2.5)MG/3ML NEB HHN SCH ×5 (01:42→23:36)
[2018-10-01] MEDS: VANCOMYCIN 750 MG PREMIX 150 ML IV SCH ×2 (04:19→04:33)
[2018-10-01] MEDS: DILTIAZEM HCL 60MG TABLET PO SCH ×3 (06:00→18:29)
[2018-10-01] MEDS: INSULIN LISPRO 100 UNITS/ML SUBCUT SCH ×4 (08:00→21:00)
[2018-10-01] MEDS: BLOOD SUGAR DIAGNOSTIC STRIP TEST SCH ×4 (08:13→22:37)
[2018-10-01] MEDS: ENOXAPARIN 40MG/0.4ML SYR SUBCUT SCH ×2 (08:44→22:38)
[2018-10-01] MEDS: SERTRALINE HCL 50MG TABLET PO SCH (08:44)
[2018-10-01 12:22] LABS: BASOPHILS % 0.2 % (0.0-2.0); EOSINOPHILS % 0.1 % (0.0-5.0); HEMATOCRIT. 32.2 % (36.0-48.0); HEMOGLOBIN. 10.5 g/dL (12.0-16.0); LYMPHOCYTES % 8.3 % (20.0-50.0); MEAN CORPUSCULAR HEMOGLOBIN 27.1 pg (28.0-32.0); MEAN CORPUSCULAR VOLUME 82.9 fL (81.0-99.0); MONOCYTES % 8.1 % (2.0-8.0); NEUTROPHILS % 83.3 % (40.0-76.0); PLATELET 209 x1000/uL (130-400); RED BLOOD CELL COUNT 3.88 mill/uL (4.2-5.4); RED CELL DISTRIBUTION WIDTH 14.6 % (11.6-14.6)
[2018-10-01 13:16] LABS: CHLORIDE 105 mEq/L (98-107)
[2018-10-01 14:19] LABS: HEPATITIS B SURFACE ANTIGEN NEGATIVE
[2018-10-01 14:47] LABS: HEPATITIS A AB IGM NEGATIVE (NEGATIVE)
[2018-10-01] MEDS ORDERED: GADOBENATE DIMEGLUMINE 529 MG/ML 10ML IV ONE (17:31)
[2018-10-01] MEDS: VANCOMYCIN 500 MG PREMIX 100 ML IV SCH ×2 (18:26→22:37)
[2018-10-01] MEDS ORDERED: GUAIFENESIN 200MG/10ML SUGAR FREE UDC PO PRN (18:45)
[2018-10-02] VITALS (7 sets, daily range): BP systolic 122–184; BP diastolic 74–121
[2018-10-02] MEDS: DILTIAZEM HCL 60MG TABLET PO SCH ×3 (00:43→13:17)
[2018-10-02] MEDS: IPRATROPIUM/ALBUTEROL 0.5-3(2.5)MG/3ML NEB HHN SCH ×4 (01:31→20:40)
[2018-10-02 05:13] LABS: HIV SCREEN 4G Non Reactive (Non Reactive)
[2018-10-02] MEDS: VANCOMYCIN 500 MG PREMIX 100 ML IV SCH ×2 (05:33→13:17)
[2018-10-02] MEDS: BLOOD SUGAR DIAGNOSTIC STRIP TEST SCH ×3 (06:04→17:09)
[2018-10-02] MEDS: INSULIN LISPRO 100 UNITS/ML SUBCUT SCH ×2 (08:10→13:10)
[2018-10-02] MEDS: ENOXAPARIN 40MG/0.4ML SYR SUBCUT SCH (11:30)
[2018-10-02] MEDS: SERTRALINE HCL 50MG TABLET PO SCH (11:31)
[2018-10-02] MEDS ORDERED: TERI14TA MT (15:36)
[2018-10-02 16:19] LABS: BASOPHILS % 0.5 % (0.0-2.0); EOSINOPHILS % 0.1 % (0.0-5.0); HEMATOCRIT. 34.5 % (36.0-48.0); HEMOGLOBIN. 11.3 g/dL (12.0-16.0); LYMPHOCYTES % 16.3 % (20.0-50.0); MEAN CORPUSCULAR HEMOGLOBIN 27.7 pg (28.0-32.0); MEAN CORPUSCULAR VOLUME 84.5 fL (81.0-99.0); MEAN PLATELET VOLUME 8.9 fl (7.4-10.4); MONOCYTES % 8.6 % (2.0-8.0); NEUTROPHILS % 74.5 % (40.0-76.0); PLATELET 283 x1000/uL (130-400); RED BLOOD CELL COUNT 4.08 mill/uL (4.2-5.4); RED CELL DISTRIBUTION WIDTH 14.7 % (11.6-14.6)
[2018-10-02 16:20] LABS: CHLORIDE 102 mEq/L (98-107)
[2018-10-02] MEDS: LEVOFLOXACIN 750MG PREMIX 150 ML IV SCH (17:08)
== END 2018-10-02 20:55 | disposition home or self-care (01) | DRG 720 ==
LOC: ER 16:43 → 5EST 20:48 → EDBEDREQTM 20:54 → EDBEDREQ 20:54 → ENRESERV 22:34 → 7WST 10-01 15:27
PROVIDERS: ADMIT Internal Medicine; ATTEND Internal Medicine
DX: A41.9 Sepsis, unspecified organism (principal); J96.01 Acute respiratory failure with hypoxia; J69.0 Pneumonitis due to inhalation of food and vomit; G92 Toxic encephalopathy; G95.89 Other specified diseases of spinal cord; G35 Multiple sclerosis; M48.02 Spinal stenosis, cervical region; E87.70 Fluid overload, unspecified; N39.0 Urinary tract infection, site not specified; E11.9 Type 2 diabetes mellitus without complications; B96.20 Unspecified Escherichia coli [E. coli] as the cause of diseases classified elsewhere; I11.0 Hypertensive heart disease with heart failure; I50.22 Chronic systolic (congestive) heart failure; E87.6 Hypokalemia; I16.0 Hypertensive urgency; B19.20 Unspecified viral hepatitis C without hepatic coma; I27.29 Other secondary pulmonary hypertension; J45.909 Unspecified asthma, uncomplicated; R47.02 Dysphasia; I07.1 Rheumatic tricuspid insufficiency; R80.9 Proteinuria, unspecified; R81 Glycosuria; I27.21 Secondary pulmonary arterial hypertension; M47.9 Spondylosis, unspecified; R65.20 Severe sepsis without septic shock; Z79.01 Long term (current) use of anticoagulants; Z86.19 Personal history of other infectious and parasitic diseases; Z99.81 Dependence on supplemental oxygen; Z93.1 Gastrostomy status; Z86.718 Personal history of other venous thrombosis and embolism; Z88.0 Allergy status to penicillin; Z79.82 Long term (current) use of aspirin; Z79.899 Other long term (current) drug therapy
CPT/HCPCS: 36415; 36600; 70553; 71045; 72156; 76700; 80048; 80061; 80202; 82375; 82805; 82962; 83036; 83605; 83880; 84134; 84145; 84443; 84484; 86705; 86709; 86803; 87106; 87340; 87389; 92610; 93005; 94640; 96365; 97163; 97166; 99285; A9577; J1650; J1815; J1956; J3370; J3490; J7030; J7050; J7611; J7620

== ENCOUNTER 2018-10-21 10:42 | Inpatient (IN) | payer MEDICAID ==
[~2018-10-21] VITALS: Ht 162.6 cm; Wt 437.3 kg
[~2018-10-21 10:42] MED LIST changes: -DIME240C2 PO; -LANTUSUD SUBCUT; -NITR-87 MT; +TERI14TA MT
[2018-10-21 11:30] LABS: HEMATOCRIT. 40.9 % (36.0-48.0); HEMOGLOBIN. 13.4 g/dL (12.0-16.0); MEAN CORPUSCULAR VOLUME 82.7 fL (81.0-99.0); MEAN PLATELET VOLUME 10.4 fl (7.4-10.4); PLATELET 274 x1000/uL (130-400); RED BLOOD CELL COUNT 4.94 mill/uL (4.2-5.4)
[2018-10-21] MEDS ORDERED: MEROPENEM 1,000 MG in SODIUM CHLORIDE 0.9% 100 ML IV SCH ×2 (11:30→12:45)
[2018-10-21] MEDS ORDERED: SODIUM CHLORIDE 0.9% 1000ML BAG (SEPSIS BOLUS) IV ONE (11:30)
[2018-10-21] MEDS ORDERED: VANCOMYCIN 1 G PREMIX 200 ML IV ONE (11:30)
[2018-10-21 11:36] LABS: CHLORIDE 109 mEq/L (98-107)
[2018-10-21 11:57] LABS: INR 1.1; PROTHROMBIN TIME 11.4 sec (9.6-11.0)
[2018-10-21 11:58] LABS: CLARITY URINE TURBID (CLEAR); COLOR URINE DARK YELLOW (YELLOW); KETONES URINE NEGATIVE (NEGATIVE); LEUKOCYTE ESTERASE URINE 1+ (NEGATIVE); NITRITE URINE NEGATIVE (NEGATIVE); OCCULT BLOOD URINE 3+ (NEGATIVE); PH URINE 5.5 (4.5-8.0); PROTEIN URINE 3+ (NEGATIVE)
[2018-10-21 12:50] LABS: PLATELET ESTIMATE NORMAL
[2018-10-21] MEDS ORDERED: ACETAMINOPHEN 325MG TABLET PO ONE (14:15)
[2018-10-21 15:15] VITALS: BP 130/92
[2018-10-21] MEDS ORDERED: DEXTROSE 50% WATER 50ML SYRINGE IV PRN (15:15)
[2018-10-21] MEDS ORDERED: ONDANSETRON HCL 4MG/2ML INJ IV PRN (15:15)
[2018-10-21 15:30] VITALS: BP 130/92
[2018-10-21 16:21] LABS: BG BASE EXCESS -2.6 mmol/L (-2.0-2.0); BG CARBOXYHEMOGLOBIN 0.1 % (0.5-1.5); BG FRACTION INSPIRED OXYGEN 99.8; BG HCO3 ACT 21.9 mmol/L (22.0-26.0); BG OXYHEMOGLOBIN 98.9 % (94.0-97.0); BG PCO2 37.1 mmHg (35.0-45.0); BG PH 7.389 (7.350-7.450); BG PO2 192.2 mmHg (75.0-100.0); BG SAMPLE SITE RIGHT BRACHIAL; BG VENT MODE MASK - NRB
[2018-10-21] MEDS: SODIUM CHLORIDE 0.45% 1,000 ML IV SCH (16:47)
[2018-10-21] MEDS: CEFEPIME 1,000 MG in DEXTROSE 5% WATER 50 ML IV SCH (17:00)
[2018-10-21] MEDS: BLOOD SUGAR DIAGNOSTIC STRIP TEST SCH ×2 (17:01→20:54)
[2018-10-21] MEDS: INSULIN LISPRO 100 UNITS/ML SUBCUT SCH ×2 (17:15→21:00)
[2018-10-21 20:00] VITALS: BP 131/100
[2018-10-21] MEDS: IPRATROPIUM BROMIDE (0.02%) 0.5MG/2.5ML NEB HHN SCH (21:45)
[2018-10-21 22:00] VITALS: BP 110/72
[2018-10-22] VITALS (12 sets, daily range): BP systolic 107–144; BP diastolic 77–96
[2018-10-22] MEDS ORDERED: VANCOMYCIN 750 MG PREMIX 150 ML IV SCH
[2018-10-22] MEDS: SODIUM CHLORIDE 0.45% 1,000 ML IV SCH ×2 (00:22→10:39)
[2018-10-22] MEDS: IPRATROPIUM BROMIDE (0.02%) 0.5MG/2.5ML NEB HHN SCH ×5 (05:46→21:00)
[2018-10-22 06:05] LABS: CHLORIDE 117 mEq/L (98-107)
[2018-10-22 06:16] LABS: BASOPHILS % 0.3 % (0.0-2.0); HEMATOCRIT. 35.9 % (36.0-48.0); HEMOGLOBIN. 11.4 g/dL (12.0-16.0); LYMPHOCYTES % 7.1 % (20.0-50.0); MEAN CORPUSCULAR VOLUME 84.9 fL (81.0-99.0); MEAN PLATELET VOLUME 10.3 fl (7.4-10.4); MONOCYTES % 9.7 % (2.0-8.0); NEUTROPHILS % 82.9 % (40.0-76.0); PLATELET 203 x1000/uL (130-400); RED BLOOD CELL COUNT 4.23 mill/uL (4.2-5.4); RED CELL DISTRIBUTION WIDTH 16.1 % (11.6-14.6)
[2018-10-22] MEDS: INSULIN LISPRO 100 UNITS/ML SUBCUT SCH ×4 (07:01→20:52)
[2018-10-22] MEDS: BLOOD SUGAR DIAGNOSTIC STRIP TEST SCH ×4 (07:01→20:48)
[2018-10-22] MEDS ORDERED: POTASSIUM CHLORIDE 20MEQ TABLET SR PO NR (08:15)
[2018-10-22] MEDS ORDERED: LIDOCAINE HCL 1% 20ML VIAL (Pyxis) INJ ONE (08:20)
[2018-10-22 08:27] LABS: BG BASE EXCESS 2.3 mmol/L (-2.0-2.0); BG CARBOXYHEMOGLOBIN 0.5 % (0.5-1.5); BG DEOXYHEMOGLOBIN 5.6 % (0.0-5.0); BG FRACTION INSPIRED OXYGEN 100; BG HCO3 ACT 26.5 mmol/L (22.0-26.0); BG METHEMOGLOBIN 0.1 % (0.0-1.5); BG OXYGEN SATURATION 94.4 % (92.0-98.5); BG OXYHEMOGLOBIN 93.8 % (94.0-97.0); BG PCO2 39.7 mmHg (35.0-45.0); BG PH 7.443 (7.350-7.450); BG PO2 70.3 mmHg (75.0-100.0); BG SAMPLE SITE RIGHT BRACHIAL; BG TOTAL HEMOGLOBIN 12.1 g/dL (12.0-18.0); BG VENT MODE MASK - NRB
[2018-10-22] MEDS ORDERED: KCL 20MEQ/100ML PREMIX 100 ML IV NR (09:00)
[2018-10-22] MEDS: ENOXAPARIN 40MG/0.4ML SYR SUBCUT SCH (10:39)
[2018-10-22] MEDS ORDERED: IPRATROPIUM/ALBUTEROL 0.5-3(2.5)MG/3ML NEB HHN PRN (10:45)
[2018-10-22] MEDS ORDERED: SODIUM CHLORIDE 10% FOR INH 15ML VIAL NEB INH SCH (11:30)
[2018-10-22] MEDS: VANCOMYCIN 500 MG PREMIX 100 ML IV SCH ×2 (13:12→21:15)
[2018-10-22] MEDS: ACETYLCYSTEINE 100MG/ML 10% VIAL 4ML INH SCH (13:19)
[2018-10-22] MEDS: CEFEPIME 1,000 MG in DEXTROSE 5% WATER 50 ML IV SCH (17:00)
[2018-10-23] VITALS (46 sets, daily range): BP systolic 67–175; BP diastolic 52–122
[2018-10-23] MEDS: IPRATROPIUM BROMIDE (0.02%) 0.5MG/2.5ML NEB HHN SCH ×5 (00:39→20:22)
[2018-10-23] MEDS: ACETYLCYSTEINE 100MG/ML 10% VIAL 4ML INH SCH ×3 (00:39→14:18)
[2018-10-23] MEDS: SODIUM CHLORIDE 0.45% 1,000 ML IV SCH ×2 (01:32→17:21)
[2018-10-23 04:38] LABS: BASOPHILS % 0.8 % (0.0-2.0); EOSINOPHILS % 0.1 % (0.0-5.0); HEMATOCRIT. 30.4 % (36.0-48.0); HEMOGLOBIN. 9.6 g/dL (12.0-16.0); LYMPHOCYTES % 7.3 % (20.0-50.0); MEAN CORPUSCULAR HEMOGLOBIN 26.7 pg (28.0-32.0); MEAN CORPUSCULAR VOLUME 84.8 fL (81.0-99.0); MEAN PLATELET VOLUME 10.6 fl (7.4-10.4); NEUTROPHILS % 83.8 % (40.0-76.0); PLATELET 189 x1000/uL (130-400); RED BLOOD CELL COUNT 3.59 mill/uL (4.2-5.4); RED CELL DISTRIBUTION WIDTH 15.4 % (11.6-14.6)
[2018-10-23 04:40] LABS: CHLORIDE 113 mEq/L (98-107)
[2018-10-23 04:49] LABS: VANCOMYCIN TROUGH 14.2 ug/mL (5.0-10.0)
[2018-10-23] MEDS: VANCOMYCIN 500 MG PREMIX 100 ML IV SCH (05:40)
[2018-10-23] MEDS: BLOOD SUGAR DIAGNOSTIC STRIP TEST SCH ×4 (06:37→23:40)
[2018-10-23] MEDS: INSULIN LISPRO 100 UNITS/ML SUBCUT SCH ×4 (07:20→23:49)
[2018-10-23] MEDS ORDERED: POTASSIUM CHLORIDE 20MEQ/PACKET PO NR (09:15)
[2018-10-23] MEDS: ENOXAPARIN 40MG/0.4ML SYR SUBCUT SCH (09:32)
[2018-10-23] MEDS ORDERED: DILTIAZEM HCL 30MG TABLET PO SCH (12:00)
[2018-10-23] MEDS ORDERED: FUROSEMIDE 40MG/4ML VIAL IVP NR (13:30)
[2018-10-23 14:36] LABS: *AMPHETAMINES SCREEN URINE NEGATIVE (NEGATIVE); *BARBITURATES SCREEN URINE NEGATIVE (NEGATIVE); *BENZODIAZEPINES SCREEN URINE NEGATIVE (NEGATIVE); *COCAINE SCREEN URINE NEGATIVE (NEGATIVE); METHADONE URINE SCREEN NEGATIVE (NEGATIVE); OPIATES URINE SCREEN NEGATIVE (NEGATIVE)
[2018-10-23 14:37] LABS: CANNABINOID URINE SCREEN NEGATIVE (NEGATIVE); PHENCYCLIDINE URINE SCREEN NEGATIVE (NEGATIVE)
[2018-10-23 15:37] LABS: BG BASE EXCESS 0.4 mmol/L (-2.0-2.0); BG BILEVEL POS AIRWAY PRESSURE 20/5; BG CARBOXYHEMOGLOBIN 0.7 % (0.5-1.5); BG DEOXYHEMOGLOBIN 2.2 % (0.0-5.0); BG HCO3 ACT 25.2 mmol/L (22.0-26.0); BG METHEMOGLOBIN 0.1 % (0.0-1.5); BG OXYGEN SATURATION 97.8 % (92.0-98.5); BG PCO2 41.3 mmHg (35.0-45.0); BG PH 7.404 (7.350-7.450); BG PO2 101.1 mmHg (75.0-100.0); BG SAMPLE SITE RIGHT BRACHIAL; BG TOTAL HEMOGLOBIN 13.3 g/dL (12.0-18.0); BG VENT MODE MASK - BIPAP; BG VENT RATE 16 set
[2018-10-23] MEDS ORDERED: VECURONIUM BROMIDE 10 MG/VIAL IV ONE (16:00)
[2018-10-23] MEDS: PROPOFOL 10MG/ML 100ML 100 ML IV PRN (16:11)
[2018-10-23 16:30] LABS: BG BASE EXCESS 4.5 mmol/L (-2.0-2.0); BG CARBOXYHEMOGLOBIN 0.5 % (0.5-1.5); BG DEOXYHEMOGLOBIN 7.6 % (0.0-5.0); BG HCO3 ACT 27.7 mmol/L (22.0-26.0); BG METHEMOGLOBIN 0.3 % (0.0-1.5); BG OXYGEN SATURATION 92.3 % (92.0-98.5); BG OXYHEMOGLOBIN 91.6 % (94.0-97.0); BG PCO2 36.3 mmHg (35.0-45.0); BG PO2 57.1 mmHg (75.0-100.0); BG SAMPLE SITE RIGHT BRACHIAL; BG TIDAL VOLUME(mL) 450 mL; BG TOTAL HEMOGLOBIN 12.6 g/dL (12.0-18.0); BG VENT MODE VENT - A/C; BG VENT RATE 16 set
[2018-10-23] MEDS: METHYLPREDNISOLONE SOD SUCC 125 MG/2 ML VIAL IV SCH ×2 (17:35→23:48)
[2018-10-23] MEDS ORDERED: SODIUM CHLORIDE 0.9% 200 ML IV ONE (18:00)
[2018-10-23] MEDS: PHENYLEPHRINE 10 MG in DEXT 5% WATER 249 ML IV PRN ×2 (18:15→21:07)
[2018-10-23] MEDS: DILTIAZEM HCL 125 MG in DEXT 5% WATER 100 ML IV PRN (18:32)
[2018-10-23] MEDS: CEFEPIME 1,000 MG in DEXTROSE 5% WATER 50 ML IV SCH (18:40)
[2018-10-23] MEDS: VANCOMYCIN 1 G PREMIX 200 ML IV SCH (19:00)
[2018-10-23] MEDS: ACETAMINOPHEN 325MG TABLET PO PRN (21:30)
[2018-10-24] VITALS (86 sets, daily range): BP systolic 63–210; BP diastolic 40–143
[2018-10-24] MEDS ORDERED: PHENYLEPHRINE 40 MG in DEXT 5% WATER 246 ML IV PRN ×2
[2018-10-24] MEDS: IPRATROPIUM BROMIDE (0.02%) 0.5MG/2.5ML NEB HHN SCH ×6 (00:20→21:07)
[2018-10-24] MEDS: ACETYLCYSTEINE 100MG/ML 10% VIAL 4ML INH SCH ×3 (00:21→16:53)
[2018-10-24] MEDS: PROPOFOL 10MG/ML 100ML 100 ML IV PRN (02:39)
[2018-10-24] MEDS: METHYLPREDNISOLONE SOD SUCC 125 MG/2 ML VIAL IV SCH ×3 (05:36→17:11)
[2018-10-24] MEDS: VANCOMYCIN 1 G PREMIX 200 ML IV SCH ×2 (05:36→17:11)
[2018-10-24] MEDS: BLOOD SUGAR DIAGNOSTIC STRIP TEST SCH ×3 (05:37→18:28)
[2018-10-24] MEDS: INSULIN LISPRO 100 UNITS/ML SUBCUT SCH ×3 (05:37→18:28)
[2018-10-24 05:42] LABS: HEMATOCRIT. 31.2 % (36.0-48.0); MEAN CORPUSCULAR HEMOGLOBIN 26.6 pg (28.0-32.0); MEAN CORPUSCULAR VOLUME 82.9 fL (81.0-99.0); MEAN PLATELET VOLUME 9.8 fl (7.4-10.4); PLATELET 211 x1000/uL (130-400); RED BLOOD CELL COUNT 3.76 mill/uL (4.2-5.4); RED CELL DISTRIBUTION WIDTH 15.4 % (11.6-14.6)
[2018-10-24 05:49] LABS: CHLORIDE 106 mEq/L (98-107)
[2018-10-24 07:10] LABS: PLATELET ESTIMATE NORMAL
[2018-10-24] MEDS ORDERED: SODIUM BICARBONATE 8.4% 1 MEQ/ML 50ML SYR IV ONE (07:30)
[2018-10-24 08:29] LABS: BG BASE EXCESS 2.3 mmol/L (-2.0-2.0); BG CARBOXYHEMOGLOBIN 0.4 % (0.5-1.5); BG DEOXYHEMOGLOBIN 0.6 % (0.0-5.0); BG FRACTION INSPIRED OXYGEN 85; BG HCO3 ACT 25.4 mmol/L (22.0-26.0); BG METHEMOGLOBIN 0.3 % (0.0-1.5); BG OXYGEN SATURATION 99.4 % (92.0-98.5); BG OXYHEMOGLOBIN 98.7 % (94.0-97.0); BG PCO2 34.2 mmHg (35.0-45.0); BG PH 7.488 (7.350-7.450); BG PO2 194.7 mmHg (75.0-100.0); BG SAMPLE SITE RIGHT BRACHIAL; BG TIDAL VOLUME(mL) 450 mL; BG TOTAL HEMOGLOBIN 12.6 g/dL (12.0-18.0); BG VENT MODE VENT - A/C; BG VENT RATE 14 set
[2018-10-24] MEDS: SODIUM CHLORIDE 0.45% 1,000 ML IV SCH (08:56)
[2018-10-24] MEDS: FUROSEMIDE 20MG/2ML VIAL IVP SCH (08:56)
[2018-10-24] MEDS: ENOXAPARIN 40MG/0.4ML SYR SUBCUT SCH (08:57)
[2018-10-24] MEDS ORDERED: MAGNESIUM 2 G PREMIX 50 ML IV NR (10:00)
[2018-10-24] MEDS: MIDAZOLAM HCL 50 MG in DEXTROSE 5% WATER 40 ML IV PRN (10:22)
[2018-10-24] MEDS: FENTANYL CITRATE/PF 500 MCG in SODIUM CHLORIDE 0.9% 40 ML IV PRN (10:23)
[2018-10-24] MEDS: MULTIVITAMINS,THER W-MINERALS TABLET PO SCH (12:27)
[2018-10-24] MEDS: CEFEPIME 1,000 MG in DEXTROSE 5% WATER 50 ML IV SCH (16:11)
[2018-10-25] VITALS (99 sets, daily range): BP systolic 102–182; BP diastolic 60–117
[2018-10-25] MEDS: METHYLPREDNISOLONE SOD SUCC 125 MG/2 ML VIAL IV SCH ×4 (00:12→18:01)
[2018-10-25] MEDS: INSULIN LISPRO 100 UNITS/ML SUBCUT SCH ×4 (00:13→18:02)
[2018-10-25] MEDS: BLOOD SUGAR DIAGNOSTIC STRIP TEST SCH ×4 (00:25→18:35)
[2018-10-25] MEDS: IPRATROPIUM BROMIDE (0.02%) 0.5MG/2.5ML NEB HHN SCH ×6 (00:30→20:59)
[2018-10-25] MEDS: ACETYLCYSTEINE 100MG/ML 10% VIAL 4ML INH SCH ×3 (00:31→16:06)
[2018-10-25] MEDS: SODIUM CHLORIDE 0.45% 1,000 ML IV SCH ×2 (01:22→18:01)
[2018-10-25 04:40] LABS: HEMATOCRIT. 31.7 % (36.0-48.0); HEMOGLOBIN. 10.4 g/dL (12.0-16.0); MEAN CORPUSCULAR HEMOGLOBIN 26.6 pg (28.0-32.0); MEAN CORPUSCULAR VOLUME 81.5 fL (81.0-99.0); MEAN PLATELET VOLUME 10.4 fl (7.4-10.4); PLATELET 227 x1000/uL (130-400); RED BLOOD CELL COUNT 3.89 mill/uL (4.2-5.4); RED CELL DISTRIBUTION WIDTH 15.3 % (11.6-14.6)
[2018-10-25 04:46] LABS: CHLORIDE 102 mEq/L (98-107)
[2018-10-25 04:55] LABS: VANCOMYCIN TROUGH 30.8 ug/mL (5.0-10.0)
[2018-10-25] MEDS: VANCOMYCIN 1 G PREMIX 200 ML IV SCH (05:45)
[2018-10-25] MEDS: FUROSEMIDE 20MG/2ML VIAL IVP SCH (09:03)
[2018-10-25] MEDS: FAMOTIDINE 20MG/2ML VIAL IV SCH (09:03)
[2018-10-25] MEDS: ENOXAPARIN 40MG/0.4ML SYR SUBCUT SCH (09:04)
[2018-10-25] MEDS: MULTIVITAMINS,THER W-MINERALS TABLET PO SCH (09:04)
[2018-10-25 09:06] LABS: BG BASE EXCESS 4.6 mmol/L (-2.0-2.0); BG DEOXYHEMOGLOBIN 1.5 % (0.0-5.0); BG FRACTION INSPIRED OXYGEN 4; BG HCO3 ACT 27.2 mmol/L (22.0-26.0); BG METHEMOGLOBIN 0.3 % (0.0-1.5); BG OXYGEN SATURATION 98.5 % (92.0-98.5); BG OXYHEMOGLOBIN 98.2 % (94.0-97.0); BG PCO2 33.4 mmHg (35.0-45.0); BG PH 7.529 (7.350-7.450); BG PO2 120.5 mmHg (75.0-100.0); BG SAMPLE SITE RIGHT BRACHIAL; BG TIDAL VOLUME(mL) 450 mL; BG TOTAL HEMOGLOBIN 10.4 g/dL (12.0-18.0); BG VENT MODE VENT - A/C; BG VENT RATE 12 set
[2018-10-25] MEDS: MIDAZOLAM HCL 50 MG in DEXTROSE 5% WATER 40 ML IV PRN (10:56)
[2018-10-25] MEDS: FENTANYL CITRATE/PF 500 MCG in SODIUM CHLORIDE 0.9% 40 ML IV PRN (11:01)
[2018-10-25 12:14] LABS: NUCLEATED RED BLOOD CELLS 1 /100 WBC; PLATELET ESTIMATE NORMAL
[2018-10-25] MEDS ORDERED: POTASSIUM CHLORIDE 20MEQ/PACKET PO SCH (13:15)
[2018-10-25] MEDS: CEFEPIME 1,000 MG in DEXTROSE 5% WATER 50 ML IV SCH (16:49)
[2018-10-26] VITALS (97 sets, daily range): BP systolic 110–176; BP diastolic 41–124
[2018-10-26] MEDS: INSULIN LISPRO 100 UNITS/ML SUBCUT SCH ×4 (00:18→18:16)
[2018-10-26] MEDS: METHYLPREDNISOLONE SOD SUCC 125 MG/2 ML VIAL IV SCH ×4 (00:18→18:14)
[2018-10-26] MEDS: VANCOMYCIN 1 G PREMIX 200 ML IV SCH ×2 (00:19→18:15)
[2018-10-26] MEDS: BLOOD SUGAR DIAGNOSTIC STRIP TEST SCH ×4 (00:19→18:48)
[2018-10-26] MEDS: ACETYLCYSTEINE 100MG/ML 10% VIAL 4ML INH SCH ×3 (00:27→16:55)
[2018-10-26] MEDS: IPRATROPIUM BROMIDE (0.02%) 0.5MG/2.5ML NEB HHN SCH ×6 (00:27→20:44)
[2018-10-26 05:03] LABS: CHLORIDE 100 mEq/L (98-107)
[2018-10-26 05:07] LABS: HEMOGLOBIN. 9.9 g/dL (12.0-16.0); MEAN CORPUSCULAR VOLUME 81.8 fL (81.0-99.0); MEAN PLATELET VOLUME 10.8 fl (7.4-10.4); PLATELET 203 x1000/uL (130-400); RED BLOOD CELL COUNT 3.67 mill/uL (4.2-5.4); RED CELL DISTRIBUTION WIDTH 15.4 % (11.6-14.6)
[2018-10-26 07:26] LABS: PLATELET ESTIMATE NORMAL
[2018-10-26] MEDS: MULTIVITAMINS,THER W-MINERALS TABLET PO SCH (08:46)
[2018-10-26] MEDS: FUROSEMIDE 20MG/2ML VIAL IVP SCH (08:46)
[2018-10-26] MEDS: FAMOTIDINE 20MG/2ML VIAL IV SCH (08:46)
[2018-10-26] MEDS: ENOXAPARIN 30MG/0.3ML SYR SUBCUT SCH (08:47)
[2018-10-26 09:31] LABS: BG BASE EXCESS 2.7 mmol/L (-2.0-2.0); BG CARBOXYHEMOGLOBIN 0.3 % (0.5-1.5); BG DEOXYHEMOGLOBIN 1.8 % (0.0-5.0); BG FRACTION INSPIRED OXYGEN 40; BG HCO3 ACT 26.1 mmol/L (22.0-26.0); BG METHEMOGLOBIN 0.3 % (0.0-1.5); BG OXYGEN SATURATION 98.2 % (92.0-98.5); BG OXYHEMOGLOBIN 97.6 % (94.0-97.0); BG PCO2 35.6 mmHg (35.0-45.0); BG PH 7.483 (7.350-7.450); BG PO2 116.3 mmHg (75.0-100.0); BG SAMPLE SITE RIGHT RADIAL; BG TIDAL VOLUME(mL) 450 mL; BG TOTAL HEMOGLOBIN 10.6 g/dL (12.0-18.0); BG VENT MODE VENT - A/C; BG VENT RATE 10 set
[2018-10-26] MEDS: SODIUM CHLORIDE 0.45% 1,000 ML IV SCH (10:04)
[2018-10-26] MEDS ORDERED: BISACODYL 10MG SUPP PR PRN (12:30)
[2018-10-26] MEDS ORDERED: LACTULOSE 20G/30ML UDC PO NR (12:30)
[2018-10-26] MEDS: DOCUSATE SODIUM SUGAR FREE 100MG/10ML UDC NG SCH (13:11)
[2018-10-26 16:21] LABS: T4 FREE 1.33 ng/dL (0.76-1.46)
[2018-10-26 16:28] LABS: FOLIC ACID (FOLATE) SERUM 14.4 ng/mL (>5.38)
[2018-10-26] MEDS: CEFEPIME 1,000 MG in DEXTROSE 5% WATER 50 ML IV SCH (17:07)
[2018-10-26] MEDS: FENTANYL CITRATE/PF 500 MCG in SODIUM CHLORIDE 0.9% 40 ML IV PRN (23:26)
[2018-10-27] VITALS (49 sets, daily range): BP systolic 91–173; BP diastolic 65–115
[2018-10-27] MEDS: IPRATROPIUM BROMIDE (0.02%) 0.5MG/2.5ML NEB HHN SCH ×6 (00:33→20:20)
[2018-10-27] MEDS: ACETYLCYSTEINE 100MG/ML 10% VIAL 4ML INH SCH ×3 (00:33→16:27)
[2018-10-27] MEDS: SODIUM CHLORIDE 0.45% 1,000 ML IV SCH (03:17)
[2018-10-27 06:03] LABS: HEMATOCRIT. 34.7 % (36.0-48.0); HEMOGLOBIN. 11.4 g/dL (12.0-16.0); MEAN CORPUSCULAR HEMOGLOBIN 26.9 pg (28.0-32.0); MEAN CORPUSCULAR VOLUME 81.6 fL (81.0-99.0); MEAN PLATELET VOLUME 9.4 fl (7.4-10.4); PLATELET 208 x1000/uL (130-400); RED BLOOD CELL COUNT 4.25 mill/uL (4.2-5.4); RED CELL DISTRIBUTION WIDTH 15.5 % (11.6-14.6)
[2018-10-27] MEDS: METHYLPREDNISOLONE SOD SUCC 125 MG/2 ML VIAL IV SCH ×2 (06:05)
[2018-10-27] MEDS: BLOOD SUGAR DIAGNOSTIC STRIP TEST SCH ×4 (06:05→17:39)
[2018-10-27] MEDS: INSULIN LISPRO 100 UNITS/ML SUBCUT SCH ×4 (06:06→17:38)
[2018-10-27 06:09] LABS: CHLORIDE 99 mEq/L (98-107)
[2018-10-27] MEDS: ENOXAPARIN 30MG/0.3ML SYR SUBCUT SCH (08:18)
[2018-10-27] MEDS: MULTIVITAMINS,THER W-MINERALS TABLET PO SCH (08:18)
[2018-10-27] MEDS: DOCUSATE SODIUM SUGAR FREE 100MG/10ML UDC NG SCH (08:18)
[2018-10-27] MEDS: FAMOTIDINE 20MG/2ML VIAL IV SCH (08:18)
[2018-10-27] MEDS: FUROSEMIDE 20MG/2ML VIAL IVP SCH (08:18)
[2018-10-27 08:19] LABS: PLATELET ESTIMATE NORMAL
[2018-10-27] MEDS: MIDAZOLAM HCL 50 MG in DEXTROSE 5% WATER 40 ML IV PRN (08:19)
[2018-10-27 09:13] LABS: BG BASE EXCESS 4.6 mmol/L (-2.0-2.0); BG CARBOXYHEMOGLOBIN 0.2 % (0.5-1.5); BG DEOXYHEMOGLOBIN 2.1 % (0.0-5.0); BG FRACTION INSPIRED OXYGEN 40; BG HCO3 ACT 28.5 mmol/L (22.0-26.0); BG METHEMOGLOBIN 0.3 % (0.0-1.5); BG OXYGEN SATURATION 97.9 % (92.0-98.5); BG OXYHEMOGLOBIN 97.4 % (94.0-97.0); BG PCO2 39.3 mmHg (35.0-45.0); BG PH 7.478 (7.350-7.450); BG PO2 108.4 mmHg (75.0-100.0); BG SAMPLE SITE RIGHT RADIAL; BG TIDAL VOLUME(mL) 450 mL; BG TOTAL HEMOGLOBIN 10.1 g/dL (12.0-18.0); BG VENT MODE VENT - A/C; BG VENT RATE 10 set
[2018-10-27] MEDS: VANCOMYCIN 1 G PREMIX 200 ML IV SCH (12:09)
[2018-10-27] MEDS ORDERED: ACETYLCYSTEINE 100MG/ML 10% VIAL 4ML INH SCH (14:00)
[2018-10-27] MEDS: METHYLPREDNISOLONE SOD SUCC 40 MG/ML VIAL IV SCH ×2 (14:23→22:56)
[2018-10-27] MEDS: CEFEPIME 1,000 MG in DEXTROSE 5% WATER 50 ML IV SCH (17:38)
[2018-10-28] VITALS (56 sets, daily range): BP systolic 81–165; BP diastolic 64–112
[2018-10-28] MEDS: IPRATROPIUM BROMIDE (0.02%) 0.5MG/2.5ML NEB HHN SCH ×6 (00:20→20:18)
[2018-10-28] MEDS: ACETYLCYSTEINE 100MG/ML 10% VIAL 4ML INH SCH ×3 (00:21→16:47)
[2018-10-28] MEDS: FENTANYL CITRATE/PF 500 MCG in SODIUM CHLORIDE 0.9% 40 ML IV PRN (01:27)
[2018-10-28] MEDS: MIDAZOLAM HCL 50 MG in DEXTROSE 5% WATER 40 ML IV PRN (01:28)
[2018-10-28] MEDS: INSULIN LISPRO 100 UNITS/ML SUBCUT SCH ×4 (02:05→18:18)
[2018-10-28] MEDS: BLOOD SUGAR DIAGNOSTIC STRIP TEST SCH ×4 (05:16→17:19)
[2018-10-28] MEDS: METHYLPREDNISOLONE SOD SUCC 40 MG/ML VIAL IV SCH ×3 (05:47→22:10)
[2018-10-28] MEDS: VANCOMYCIN 1 G PREMIX 200 ML IV SCH (05:47)
[2018-10-28 05:53] LABS: HEMATOCRIT. 36.9 % (36.0-48.0); HEMOGLOBIN. 12.3 g/dL (12.0-16.0); MEAN CORPUSCULAR HEMOGLOBIN 27.1 pg (28.0-32.0); MEAN CORPUSCULAR VOLUME 81.6 fL (81.0-99.0); PLATELET 185 x1000/uL (130-400); RED BLOOD CELL COUNT 4.52 mill/uL (4.2-5.4); RED CELL DISTRIBUTION WIDTH 15.3 % (11.6-14.6)
[2018-10-28 06:05] LABS: CHLORIDE 98 mEq/L (98-107)
[2018-10-28 07:30] LABS: PLATELET ESTIMATE NORMAL
[2018-10-28] MEDS: DOCUSATE SODIUM SUGAR FREE 100MG/10ML UDC NG SCH (09:00)
[2018-10-28 09:14] LABS: BG BASE EXCESS 4.4 mmol/L (-2.0-2.0); BG CARBOXYHEMOGLOBIN 0.2 % (0.5-1.5); BG DEOXYHEMOGLOBIN 1.3 % (0.0-5.0); BG FRACTION INSPIRED OXYGEN 40; BG HCO3 ACT 27.7 mmol/L (22.0-26.0); BG OXYGEN SATURATION 98.7 % (92.0-98.5); BG OXYHEMOGLOBIN 98.5 % (94.0-97.0); BG PCO2 36.6 mmHg (35.0-45.0); BG PH 7.497 (7.350-7.450); BG PRESSURE SUPPORT 12; BG SAMPLE SITE RIGHT RADIAL; BG TIDAL VOLUME(mL) 450 mL; BG TOTAL HEMOGLOBIN 10.5 g/dL (12.0-18.0); BG VENT MODE VENT - SIMV; BG VENT RATE 8 set
[2018-10-28] MEDS: ENOXAPARIN 30MG/0.3ML SYR SUBCUT SCH (09:33)
[2018-10-28] MEDS: MULTIVITAMINS,THER W-MINERALS TABLET PO SCH (09:33)
[2018-10-28] MEDS: FAMOTIDINE 20MG/2ML VIAL IV SCH (09:33)
[2018-10-28] MEDS: HYDRALAZINE 20MG/ML VIAL IV PRN (10:43)
[2018-10-28] MEDS: ACETAMINOPHEN 325MG TABLET PO PRN (11:32)
[2018-10-28 11:39] LABS: BG BASE EXCESS 4.3 mmol/L (-2.0-2.0); BG CARBOXYHEMOGLOBIN 0.3 % (0.5-1.5); BG DEOXYHEMOGLOBIN 2.3 % (0.0-5.0); BG FRACTION INSPIRED OXYGEN 40; BG HCO3 ACT 27.8 mmol/L (22.0-26.0); BG METHEMOGLOBIN 0.3 % (0.0-1.5); BG OXYGEN SATURATION 97.7 % (92.0-98.5); BG OXYHEMOGLOBIN 97.1 % (94.0-97.0); BG PCO2 37.9 mmHg (35.0-45.0); BG PH 7.484 (7.350-7.450); BG PO2 99.7 mmHg (75.0-100.0); BG SAMPLE SITE RIGHT RADIAL; BG TOTAL HEMOGLOBIN 12.1 g/dL (12.0-18.0); BG VENT MODE VENT - CPAP
[2018-10-28] MEDS ORDERED: LORAZEPAM 2MG/ML CPJ IV PRN (12:00)
[2018-10-28] MEDS: DILTIAZEM HCL 125 MG in DEXT 5% WATER 100 ML IV PRN (12:44)
[2018-10-28] MEDS: CEFEPIME 1,000 MG in DEXTROSE 5% WATER 50 ML IV SCH (17:19)
[2018-10-29] VITALS (30 sets, daily range): BP systolic 113–173; BP diastolic 79–112
[2018-10-29] MEDS: IPRATROPIUM BROMIDE (0.02%) 0.5MG/2.5ML NEB HHN SCH ×6 (00:17→21:01)
[2018-10-29] MEDS: ACETYLCYSTEINE 100MG/ML 10% VIAL 4ML INH SCH ×3 (00:19→14:16)
[2018-10-29] MEDS: BLOOD SUGAR DIAGNOSTIC STRIP TEST SCH ×4 (00:30→18:24)
[2018-10-29] MEDS: INSULIN LISPRO 100 UNITS/ML SUBCUT SCH ×5 (00:38→22:17)
[2018-10-29 05:43] LABS: HEMATOCRIT. 30.8 % (36.0-48.0); HEMOGLOBIN. 10.1 g/dL (12.0-16.0); MEAN CORPUSCULAR HEMOGLOBIN 26.7 pg (28.0-32.0); MEAN CORPUSCULAR VOLUME 81.8 fL (81.0-99.0); MEAN PLATELET VOLUME 9.7 fl (7.4-10.4); PLATELET 231 x1000/uL (130-400); RED BLOOD CELL COUNT 3.76 mill/uL (4.2-5.4); RED CELL DISTRIBUTION WIDTH 15.4 % (11.6-14.6)
[2018-10-29 06:04] LABS: CHLORIDE 100 mEq/L (98-107)
[2018-10-29] MEDS: METHYLPREDNISOLONE SOD SUCC 40 MG/ML VIAL IV SCH (06:13)
[2018-10-29] MEDS: VANCOMYCIN 1 G PREMIX 200 ML IV SCH (08:58)
[2018-10-29] MEDS: ENOXAPARIN 30MG/0.3ML SYR SUBCUT SCH (08:59)
[2018-10-29] MEDS: MULTIVITAMINS,THER W-MINERALS TABLET PO SCH (08:59)
[2018-10-29] MEDS: FAMOTIDINE 20MG/2ML VIAL IV SCH (08:59)
[2018-10-29] MEDS: DOCUSATE SODIUM SUGAR FREE 100MG/10ML UDC NG SCH (08:59)
[2018-10-29 09:11] LABS: PLATELET ESTIMATE NORMAL
[2018-10-29 09:50] LABS: BG BASE EXCESS 9.4 mmol/L (-2.0-2.0); BG CARBOXYHEMOGLOBIN 0.3 % (0.5-1.5); BG DEOXYHEMOGLOBIN 3.6 % (0.0-5.0); BG FRACTION INSPIRED OXYGEN 28; BG HCO3 ACT 33.8 mmol/L (22.0-26.0); BG METHEMOGLOBIN 0.3 % (0.0-1.5); BG OXYGEN SATURATION 96.4 % (92.0-98.5); BG OXYHEMOGLOBIN 95.8 % (94.0-97.0); BG PCO2 45.6 mmHg (35.0-45.0); BG PH 7.488 (7.350-7.450); BG SAMPLE SITE LEFT BRACHIAL; BG VENT MODE NASAL CANNULA
[2018-10-29] MEDS: HYDRALAZINE 20MG/ML VIAL IV PRN (13:19)
[2018-10-29] MEDS: METOPROLOL TARTRATE 25MG TABLET PO SCH ×2 (15:07→21:52)
[2018-10-29] MEDS: CEFEPIME 1,000 MG in DEXTROSE 5% WATER 50 ML IV SCH (18:28)
[2018-10-30] VITALS (12 sets, daily range): BP systolic 121–161; BP diastolic 67–115
[2018-10-30] MEDS: IPRATROPIUM BROMIDE (0.02%) 0.5MG/2.5ML NEB HHN SCH ×5 (04:49→20:43)
[2018-10-30 05:59] LABS: CHLORIDE 103 mEq/L (98-107)
[2018-10-30 06:18] LABS: HEMATOCRIT. 33.9 % (36.0-48.0); HEMOGLOBIN. 10.9 g/dL (12.0-16.0); MEAN CORPUSCULAR HEMOGLOBIN 26.5 pg (28.0-32.0); MEAN CORPUSCULAR VOLUME 82.4 fL (81.0-99.0); MEAN PLATELET VOLUME 9.6 fl (7.4-10.4); PLATELET 280 x1000/uL (130-400); RED BLOOD CELL COUNT 4.11 mill/uL (4.2-5.4); RED CELL DISTRIBUTION WIDTH 15.4 % (11.6-14.6)
[2018-10-30] MEDS: INSULIN LISPRO 100 UNITS/ML SUBCUT SCH ×4 (07:30→21:20)
[2018-10-30] MEDS: BLOOD SUGAR DIAGNOSTIC STRIP TEST SCH ×4 (07:30→21:20)
[2018-10-30] MEDS: ACETYLCYSTEINE 100MG/ML 10% VIAL 4ML INH SCH ×2 (08:25→17:30)
[2018-10-30] MEDS ORDERED: METHYLPREDNISOLONE SOD SUCC 40 MG/ML VIAL IV SCH (09:00)
[2018-10-30] MEDS: MULTIVITAMINS,THER W-MINERALS TABLET PO SCH (10:24)
[2018-10-30] MEDS: VANCOMYCIN 1 G PREMIX 200 ML IV SCH (10:24)
[2018-10-30] MEDS: FAMOTIDINE 20MG/2ML VIAL IV SCH (10:25)
[2018-10-30] MEDS: ENOXAPARIN 30MG/0.3ML SYR SUBCUT SCH (10:25)
[2018-10-30] MEDS: METOPROLOL TARTRATE 25MG TABLET PO SCH (10:25)
[2018-10-30] MEDS: DOCUSATE SODIUM SUGAR FREE 100MG/10ML UDC NG SCH (10:26)
[2018-10-30 11:32] LABS: PLATELET ESTIMATE NORMAL
[2018-10-30] MEDS: HYDRALAZINE 20MG/ML VIAL IV PRN (11:51)
[2018-10-30] MEDS ORDERED: POTASSIUM CHLORIDE 20MEQ TABLET SR PO NR (13:15)
[2018-10-30] MEDS: DILTIAZEM HCL 60MG TABLET PO SCH ×2 (16:25→21:21)
[2018-10-30] MEDS: CEFEPIME 1,000 MG in DEXTROSE 5% WATER 50 ML IV SCH (16:46)
[2018-10-31] VITALS (12 sets, daily range): BP systolic 122–166; BP diastolic 83–110
[2018-10-31] MEDS: IPRATROPIUM BROMIDE (0.02%) 0.5MG/2.5ML NEB HHN SCH ×7 (00:16→23:33)
[2018-10-31] MEDS: ACETYLCYSTEINE 100MG/ML 10% VIAL 4ML INH SCH ×4 (00:17→20:09)
[2018-10-31] MEDS: DILTIAZEM HCL 60MG TABLET PO SCH ×3 (06:02→22:05)
[2018-10-31] MEDS: INSULIN LISPRO 100 UNITS/ML SUBCUT SCH ×4 (07:30→21:00)
[2018-10-31 07:56] LABS: BASOPHILS % 0.3 % (0.0-2.0); EOSINOPHILS % 0.4 % (0.0-5.0); HEMOGLOBIN. 10.1 g/dL (12.0-16.0); LYMPHOCYTES % 10.3 % (20.0-50.0); MEAN CORPUSCULAR HEMOGLOBIN 26.9 pg (28.0-32.0); MEAN CORPUSCULAR VOLUME 82.4 fL (81.0-99.0); MEAN PLATELET VOLUME 9.6 fl (7.4-10.4); PLATELET 273 x1000/uL (130-400); RED BLOOD CELL COUNT 3.77 mill/uL (4.2-5.4); RED CELL DISTRIBUTION WIDTH 15.5 % (11.6-14.6)
[2018-10-31] MEDS: BLOOD SUGAR DIAGNOSTIC STRIP TEST SCH ×4 (08:29→21:00)
[2018-10-31 08:55] LABS: CHLORIDE 104 mEq/L (98-107)
[2018-10-31] MEDS: DOCUSATE SODIUM SUGAR FREE 100MG/10ML UDC NG SCH (09:00)
[2018-10-31] MEDS: MULTIVITAMINS,THER W-MINERALS TABLET PO SCH (09:22)
[2018-10-31] MEDS: ENOXAPARIN 30MG/0.3ML SYR SUBCUT SCH (09:22)
[2018-10-31] MEDS: PREDNISONE 20MG TABLET PO SCH (09:22)
[2018-10-31] MEDS: VANCOMYCIN 1 G PREMIX 200 ML IV SCH (09:22)
[2018-10-31] MEDS: FAMOTIDINE 20MG/2ML VIAL IV SCH (09:23)
[2018-10-31] MEDS: CEFEPIME 1,000 MG in DEXTROSE 5% WATER 50 ML IV SCH (17:02)
[2018-10-31] MEDS: ACETAMINOPHEN 325MG TABLET PO PRN (22:05)
[2018-11-01] VITALS (11 sets, daily range): BP systolic 127–151; BP diastolic 85–97
[2018-11-01] MEDS: ACETYLCYSTEINE 100MG/ML 10% VIAL 4ML INH SCH ×3 (03:12→15:54)
[2018-11-01] MEDS: IPRATROPIUM BROMIDE (0.02%) 0.5MG/2.5ML NEB HHN SCH ×4 (03:13→15:53)
[2018-11-01] MEDS: DILTIAZEM HCL 60MG TABLET PO SCH ×2 (07:00→14:35)
[2018-11-01] MEDS: BLOOD SUGAR DIAGNOSTIC STRIP TEST SCH ×3 (08:07→17:22)
[2018-11-01] MEDS: ENOXAPARIN 30MG/0.3ML SYR SUBCUT SCH (08:46)
[2018-11-01] MEDS: VANCOMYCIN 1 G PREMIX 200 ML IV SCH (08:46)
[2018-11-01] MEDS: INSULIN LISPRO 100 UNITS/ML SUBCUT SCH ×3 (08:48→18:24)
[2018-11-01] MEDS: DOCUSATE SODIUM SUGAR FREE 100MG/10ML UDC NG SCH (08:49)
[2018-11-01] MEDS: PREDNISONE 20MG TABLET PO SCH (08:49)
[2018-11-01] MEDS: FAMOTIDINE 20MG/2ML VIAL IV SCH (08:49)
[2018-11-01] MEDS: MULTIVITAMINS,THER W-MINERALS TABLET PO SCH (08:49)
[2018-11-01 11:02] LABS: BASOPHILS % 0.4 % (0.0-2.0); EOSINOPHILS % 0.4 % (0.0-5.0); HEMOGLOBIN. 9.3 g/dL (12.0-16.0); LYMPHOCYTES % 7.7 % (20.0-50.0); MEAN CORPUSCULAR HEMOGLOBIN 26.9 pg (28.0-32.0); MEAN CORPUSCULAR VOLUME 83.7 fL (81.0-99.0); MONOCYTES % 7.2 % (2.0-8.0); NEUTROPHILS % 84.3 % (40.0-76.0); PLATELET 271 x1000/uL (130-400); RED BLOOD CELL COUNT 3.46 mill/uL (4.2-5.4); RED CELL DISTRIBUTION WIDTH 15.7 % (11.6-14.6)
[2018-11-01 16:17] LABS: CHLORIDE 100 mEq/L (98-107)
[2018-11-02] MEDS ORDERED: FAMOTIDINE 20MG TABLET PO SCH (09:00)
== END 2018-11-01 22:47 | disposition home or self-care (01) | DRG 720 ==
LOC: ER 10:42 → 5WST 12:40 → EDBEDREQ 12:47 → EDBEDREQSVC 12:47 → ENRESERV 13:42 → 3WST 17:48 → 5WST 10-23 10:43 → CVICU 10-23 14:40 → 5EST 10-29 16:50
PROVIDERS: ADMIT Internal Medicine; ATTEND Internal Medicine
PROC: 5A1955Z Respiratory Ventilation, Greater than 96 Consecutive Hours (ICD-10-PCS; principal; 2018-10-23)
PROC: 0BH17EZ Insertion of Endotracheal Airway into Trachea, Via Natural or Artificial Opening (ICD-10-PCS; 2018-10-23)
DX: A41.9 Sepsis, unspecified organism (principal); J69.0 Pneumonitis due to inhalation of food and vomit; J96.00 Acute respiratory failure, unspecified whether with hypoxia or hypercapnia; E43 Unspecified severe protein-calorie malnutrition; R65.21 Severe sepsis with septic shock; G93.41 Metabolic encephalopathy; I50.23 Acute on chronic systolic (congestive) heart failure; I11.0 Hypertensive heart disease with heart failure; E87.8 Other disorders of electrolyte and fluid balance, not elsewhere classified; N39.0 Urinary tract infection, site not specified; G35 Multiple sclerosis; E11.9 Type 2 diabetes mellitus without complications; I42.9 Cardiomyopathy, unspecified
CPT/HCPCS: 36415; 36573; 36600; 71045; 80048; 80202; 80305; 82140; 82375; 82607; 82746; 82805; 82962; 83036; 83605; 83735; 83880; 84145; 84439; 84443; 84478; 84481; 84484; 85044; 87070; 87077; 87186; 92610; 93005; 94002; 94003; 94640; 94660; 94667; 96365; 96368; 97162; 99291; C1725; J0360; J0692; J1642; J1650; J1815; J1940; J2060; J2185; J2250; J2370; J2704; J2920; J2930; J3010; J3370; J3475; J3480; J3490; J7030; J7040; J7050; J7060; J7131; J7512; J7608

== ENCOUNTER 2019-01-06 14:25 | Inpatient (IN) | payer MEDICAID ==
[~2019-01-06] VITALS: Ht 162.6 cm; Wt 40.9 kg
[2019-01-06] MEDS ORDERED: LEVOFLOXACIN 750MG PREMIX 150 ML IV ONE (15:30)
[2019-01-06] MEDS ORDERED: SODIUM CHLORIDE 0.9% 1000ML BAG (SEPSIS BOLUS) IV ONE (15:30)
[2019-01-06 17:37] LABS: BASOPHILS % 0.3 % (0.0-2.0); HEMATOCRIT. 36.6 % (36.0-48.0); HEMOGLOBIN. 11.8 g/dL (12.0-16.0); LYMPHOCYTES % 7.1 % (20.0-50.0); MEAN CORPUSCULAR HEMOGLOBIN 26.7 pg (28.0-32.0); MEAN CORPUSCULAR VOLUME 82.9 fL (81.0-99.0); MEAN PLATELET VOLUME 8.7 fl (7.4-10.4); MONOCYTES % 7.1 % (2.0-8.0); NEUTROPHILS % 85.5 % (40.0-76.0); PLATELET 218 x1000/uL (130-400); RED BLOOD CELL COUNT 4.41 mill/uL (4.2-5.4); RED CELL DISTRIBUTION WIDTH 15.5 % (11.6-14.6)
[2019-01-06 17:45] LABS: INR 1.1; PARTIAL THROMBOPLASTIN TIME 30.5 sec (23.4-31.0); PROTHROMBIN TIME 11.4 sec (9.6-11.0)
[2019-01-06] MEDS ORDERED: IPRATROPIUM BROMIDE (0.02%) 0.5MG/2.5ML NEB HHN STA (17:50)
[2019-01-06] MEDS ORDERED: METHYLPREDNISOLONE SOD SUCC 125 MG/2 ML VIAL IV STA (17:50)
[2019-01-06] MEDS ORDERED: ALBUTEROL (0.083%) 2.5MG/3ML NEB HHN STA (17:50)
[2019-01-06 17:54] LABS: CHLORIDE 107 mEq/L (98-107)
[2019-01-06] MEDS ORDERED: ASPIRIN 81MG TABLET PO ONE (18:00)
[2019-01-06 18:01] LABS: CLARITY URINE CLOUDY (CLEAR); COLOR URINE YELLOW (YELLOW); KETONES URINE NEGATIVE (NEGATIVE); LEUKOCYTE ESTERASE URINE TRACE (NEGATIVE); NITRITE URINE NEGATIVE (NEGATIVE); OCCULT BLOOD URINE 3+ (NEGATIVE); PROTEIN URINE 4+ (NEGATIVE); SPECIFIC GRAVITY URINE 1.022 (1.005-1.030)
[2019-01-06] MEDS ORDERED: FLUCONAZOLE 50MG TABLET PO ONE (19:00)
[2019-01-06] MEDS ORDERED: FLUCONAZOLE 150MG TABLET PO NR (20:00)
[2019-01-06] MEDS ORDERED: DOCUSATE SODIUM 100MG CAPSULE PO PRN (20:45)
[2019-01-06] MEDS ORDERED: ONDANSETRON HCL 4MG/2ML INJ IV PRN (20:45)
[2019-01-06] MEDS ORDERED: IPRATROPIUM/ALBUTEROL 0.5-3(2.5)MG/3ML NEB HHN PRN (20:45)
[2019-01-06] MEDS ORDERED: ACETAMINOPHEN 325MG TABLET PO PRN (20:45)
[2019-01-06] MEDS ORDERED: LORAZEPAM 0.5MG TABLET PO PRN (20:45)
[2019-01-06 21:00] VITALS: BP 137/100
[2019-01-06] MEDS: CLONIDINE 0.1MG TABLET PO PRN (23:25)
[2019-01-07] VITALS (7 sets, daily range): BP systolic 108–142; BP diastolic 78–100
[2019-01-07] MEDS ORDERED: DEXTROSE 50% WATER 50ML SYRINGE IV PRN (02:30)
[2019-01-07 06:13] LABS: CHLORIDE 107 mEq/L (98-107)
[2019-01-07 06:37] LABS: BASOPHILS % 0.2 % (0.0-2.0); HEMATOCRIT. 38.6 % (36.0-48.0); HEMOGLOBIN. 11.9 g/dL (12.0-16.0); LYMPHOCYTES % 7.3 % (20.0-50.0); MEAN CORPUSCULAR HEMOGLOBIN 25.8 pg (28.0-32.0); MEAN CORPUSCULAR VOLUME 83.9 fL (81.0-99.0); MEAN PLATELET VOLUME 8.7 fl (7.4-10.4); MONOCYTES % 3.6 % (2.0-8.0); NEUTROPHILS % 88.9 % (40.0-76.0); PLATELET 206 x1000/uL (130-400); RED BLOOD CELL COUNT 4.61 mill/uL (4.2-5.4); RED CELL DISTRIBUTION WIDTH 15.8 % (11.6-14.6)
[2019-01-07] MEDS: BLOOD SUGAR DIAGNOSTIC STRIP TEST SCH ×4 (07:58→20:58)
[2019-01-07] MEDS: INSULIN LISPRO 100 UNITS/ML SUBCUT SCH ×4 (07:59→20:58)
[2019-01-07] MEDS ORDERED: NON FORMULARY PATIENT HOME MED XX SCH (09:15)
[2019-01-07] MEDS ORDERED: BACLOFEN 20MG TABLET PO SCH (13:00)
[2019-01-07] MEDS: SODIUM CHLORIDE 0.45% 1,000 ML IV SCH ×2 (13:23→21:19)
[2019-01-07] MEDS: SERTRALINE HCL 50MG TABLET PO SCH (14:04)
[2019-01-07] MEDS: METRONIDAZOLE 500MG TABLET PO SCH ×2 (14:04→21:19)
[2019-01-07] MEDS: DILTIAZEM HCL 120MG CAPSULE CD 24HR PO SCH (14:05)
[2019-01-07] MEDS: FLUCONAZOLE 150MG TABLET PO SCH (14:05)
[2019-01-07] MEDS: IPRATROPIUM/ALBUTEROL 0.5-3(2.5)MG/3ML NEB HHN SCH ×2 (14:25→21:00)
[2019-01-07 15:49] LABS: BG BASE EXCESS 0.2 mmol/L (-2.0-2.0); BG DEOXYHEMOGLOBIN 14.9 % (0.0-5.0); BG FRACTION INSPIRED OXYGEN 28; BG HCO3 ACT 24.3 mmol/L (22.0-26.0); BG METHEMOGLOBIN 0.3 % (0.0-1.5); BG OXYGEN SATURATION 84.9 % (92.0-98.5); BG OXYHEMOGLOBIN 83.8 % (94.0-97.0); BG PCO2 37.5 mmHg (35.0-45.0); BG PO2 48.9 mmHg (75.0-100.0); BG SAMPLE SITE RIGHT BRACHIAL; BG TOTAL HEMOGLOBIN 11.2 g/dL (12.0-18.0); BG VENT MODE NASAL CANNULA
[2019-01-07] MEDS: LEVOFLOXACIN 500MG PREMIX 100 ML IV SCH (17:25)
[2019-01-07] MEDS: ASPIRIN 81MG EC TABLET PO SCH (21:19)
[2019-01-07] MEDS: BACLOFEN 20MG TABLET PO SCH (21:19)
[2019-01-08] VITALS: BP 115/81
[2019-01-08] MEDS: IPRATROPIUM/ALBUTEROL 0.5-3(2.5)MG/3ML NEB HHN SCH ×4 (02:10→20:47)
[2019-01-08 04:00] VITALS: BP 121/83
[2019-01-08 06:36] LABS: CHLORIDE 103 mEq/L (98-107)
[2019-01-08 06:46] LABS: PHOSPHORUS 2.1 mg/dL (2.5-4.9)
[2019-01-08 06:48] LABS: BASOPHILS % 0.6 % (0.0-2.0); HEMATOCRIT. 33.2 % (36.0-48.0); HEMOGLOBIN. 10.8 g/dL (12.0-16.0); LYMPHOCYTES % 8.2 % (20.0-50.0); MEAN CORPUSCULAR HEMOGLOBIN 27.1 pg (28.0-32.0); MEAN CORPUSCULAR VOLUME 83.4 fL (81.0-99.0); MEAN PLATELET VOLUME 9.3 fl (7.4-10.4); MONOCYTES % 8.1 % (2.0-8.0); NEUTROPHILS % 83.1 % (40.0-76.0); PLATELET 214 x1000/uL (130-400); RED BLOOD CELL COUNT 3.98 mill/uL (4.2-5.4); RED CELL DISTRIBUTION WIDTH 15.2 % (11.6-14.6)
[2019-01-08] MEDS: BLOOD SUGAR DIAGNOSTIC STRIP TEST SCH ×4 (06:57→20:35)
[2019-01-08] MEDS: SODIUM CHLORIDE 0.45% 1,000 ML IV SCH ×2 (07:03→16:15)
[2019-01-08] MEDS: METRONIDAZOLE 500MG TABLET PO SCH ×3 (07:03→20:35)
[2019-01-08 08:00] VITALS: BP 143/90
[2019-01-08] MEDS: INSULIN LISPRO 100 UNITS/ML SUBCUT SCH ×4 (08:10→20:43)
[2019-01-08] MEDS: SERTRALINE HCL 50MG TABLET PO SCH (09:31)
[2019-01-08] MEDS: BACLOFEN 20MG TABLET PO SCH ×3 (09:31→17:08)
[2019-01-08] MEDS: DILTIAZEM HCL 120MG CAPSULE CD 24HR PO SCH (09:31)
[2019-01-08] MEDS: FLUCONAZOLE 150MG TABLET PO SCH (09:31)
[2019-01-08] MEDS ORDERED: POTASSIUM PHOS,M-BASIC-D-BASIC 15 MMOL in DEXT 5% WATER 245 ML IV NR (11:00)
[2019-01-08 12:00] VITALS: BP 127/88
[2019-01-08 16:00] VITALS: BP 120/98
[2019-01-08 20:08] VITALS: BP 126/94
[2019-01-08] MEDS: ASPIRIN 81MG EC TABLET PO SCH (20:35)
[2019-01-08] MEDS: LEVOFLOXACIN 500MG PREMIX 100 ML IV SCH (20:37)
[2019-01-08] MEDS: HEPARIN 5000 UNITS/ML VIAL SUBCUT SCH (20:44)
[2019-01-09 00:05] VITALS: BP 148/86
[2019-01-09] MEDS: SODIUM CHLORIDE 0.45% 1,000 ML IV SCH ×3 (01:12→22:01)
[2019-01-09] MEDS: IPRATROPIUM/ALBUTEROL 0.5-3(2.5)MG/3ML NEB HHN SCH ×4 (01:55→21:15)
[2019-01-09 04:00] VITALS: BP 145/91
[2019-01-09] MEDS: METRONIDAZOLE 500MG TABLET PO SCH ×3 (05:28→21:18)
[2019-01-09 06:58] LABS: BASOPHILS % 0.4 % (0.0-2.0); EOSINOPHILS % 0.1 % (0.0-5.0); HEMATOCRIT. 33.8 % (36.0-48.0); HEMOGLOBIN. 10.9 g/dL (12.0-16.0); LYMPHOCYTES % 9.9 % (20.0-50.0); MEAN CORPUSCULAR HEMOGLOBIN 26.9 pg (28.0-32.0); MEAN CORPUSCULAR VOLUME 83.4 fL (81.0-99.0); MEAN PLATELET VOLUME 9.2 fl (7.4-10.4); NEUTROPHILS % 80.6 % (40.0-76.0); PLATELET 231 x1000/uL (130-400); RED BLOOD CELL COUNT 4.05 mill/uL (4.2-5.4); RED CELL DISTRIBUTION WIDTH 15.6 % (11.6-14.6)
[2019-01-09] MEDS: BLOOD SUGAR DIAGNOSTIC STRIP TEST SCH ×3 (07:40→21:15)
[2019-01-09] MEDS: BACLOFEN 20MG TABLET PO SCH ×3 (08:29→17:00)
[2019-01-09] MEDS: DILTIAZEM HCL 120MG CAPSULE CD 24HR PO SCH (08:29)
[2019-01-09] MEDS: SERTRALINE HCL 50MG TABLET PO SCH (08:29)
[2019-01-09] MEDS: CLONIDINE 0.1MG TABLET PO PRN (08:29)
[2019-01-09] MEDS: FLUCONAZOLE 150MG TABLET PO SCH (08:30)
[2019-01-09] MEDS: INSULIN LISPRO 100 UNITS/ML SUBCUT SCH ×3 (08:32→21:00)
[2019-01-09 08:33] VITALS: BP 159/109
[2019-01-09] MEDS: HEPARIN 5000 UNITS/ML VIAL SUBCUT SCH ×2 (08:33→21:21)
[2019-01-09 09:06] LABS: CHLORIDE 106 mEq/L (98-107)
[2019-01-09 09:11] LABS: PHOSPHORUS 2.1 mg/dL (2.5-4.9)
[2019-01-09 10:11] LABS: COMPLEMENT C3 121 mg/dL (82-167)
[2019-01-09 10:11] LABS: A/G RATIO 0.9 (0.7-1.7); ALPHA-1-GLOBULIN 0.4 g/dL (0.0-0.4); ALPHA-2-GLOBULIN 0.9 g/dL (0.4-1.0); BETA GLOBULIN 1.3 g/dL (0.7-1.3); GAMMA GLOBULINS 0.8 g/dL (0.4-1.8); GLOBULIN TOTAL 3.5 g/dL (2.2-3.9); M-SPIKE Not Observed g/dL (Not Observed); TOTAL PROTEIN SERUM 6.5 g/dL (6.0-8.5)
[2019-01-09] MEDS ORDERED: SODIUM PHOS,M-BASIC-D-BASIC 20 MM in DEXT 5% WATER 243.3333 ML IV NR (10:45)
[2019-01-09 13:00] VITALS: BP 132/94
[2019-01-09 15:10] LABS: ANTI-NUCLEAR ANTIBODIES DIRECT Negative (Negative)
[2019-01-09 16:18] VITALS: BP 100/71
[2019-01-09] MEDS: LEVOFLOXACIN 500MG TABLET PO SCH (17:33)
[2019-01-09 20:43] VITALS: BP 110/76
[2019-01-09] MEDS: HYDRALAZINE HCL 50MG TABLET PO SCH (21:17)
[2019-01-09] MEDS: ASPIRIN 81MG EC TABLET PO SCH (21:18)
[2019-01-09] MEDS: HYDROCODONE/ACETAMINOPHEN 5/325MG TABLET PO PRN (21:20)
[2019-01-10 00:15] VITALS: BP 118/85
[2019-01-10] MEDS: IPRATROPIUM/ALBUTEROL 0.5-3(2.5)MG/3ML NEB HHN SCH ×5 (02:38→21:38)
[2019-01-10 04:00] VITALS: BP 137/98
[2019-01-10 07:05] LABS: BASOPHILS % 0.5 % (0.0-2.0); HEMOGLOBIN. 10.7 g/dL (12.0-16.0); LYMPHOCYTES % 8.9 % (20.0-50.0); MEAN CORPUSCULAR HEMOGLOBIN 27.4 pg (28.0-32.0); MEAN CORPUSCULAR VOLUME 82.3 fL (81.0-99.0); MEAN PLATELET VOLUME 9.1 fl (7.4-10.4); MONOCYTES % 9.2 % (2.0-8.0); NEUTROPHILS % 81.4 % (40.0-76.0); PLATELET 261 x1000/uL (130-400); RED BLOOD CELL COUNT 3.89 mill/uL (4.2-5.4); RED CELL DISTRIBUTION WIDTH 15.5 % (11.6-14.6)
[2019-01-10 07:12] LABS: CHLORIDE 103 mEq/L (98-107)
[2019-01-10] MEDS: METRONIDAZOLE 500MG TABLET PO SCH ×3 (07:37→21:21)
[2019-01-10] MEDS: BLOOD SUGAR DIAGNOSTIC STRIP TEST SCH ×4 (07:40→21:22)
[2019-01-10 08:00] VITALS: BP 155/107
[2019-01-10] MEDS: INSULIN LISPRO 100 UNITS/ML SUBCUT SCH ×4 (08:10→21:00)
[2019-01-10] MEDS: DILTIAZEM HCL 120MG CAPSULE CD 24HR PO SCH (09:34)
[2019-01-10] MEDS: SERTRALINE HCL 50MG TABLET PO SCH (09:34)
[2019-01-10] MEDS: HYDRALAZINE HCL 50MG TABLET PO SCH ×2 (09:34→21:00)
[2019-01-10] MEDS: BACLOFEN 20MG TABLET PO SCH (09:34)
[2019-01-10] MEDS: HEPARIN 5000 UNITS/ML VIAL SUBCUT SCH ×2 (09:35→21:21)
[2019-01-10] MEDS: SODIUM CHLORIDE 0.45% 1,000 ML IV SCH ×2 (09:36→18:50)
[2019-01-10] MEDS: FLUCONAZOLE 150MG TABLET PO SCH (09:51)
[2019-01-10 12:00] VITALS: BP 184/81
[2019-01-10 13:06] LABS: ANTI-MYELOPEROXIDASE AB < 9.0 U/mL (0.0-9.0); ANTI-PROTEINASE 3 ABS < 3.5 U/mL (0.0-3.5); ATYPICAL P-ANCA <1:20 titer (Neg:<1:20); CYTOPLASMIC C-ANCA <1:20 titer (Neg:<1:20); PERINUCLEAR P-ANCA <1:20 titer (Neg:<1:20)
[2019-01-10] MEDS: HYDROCODONE/ACETAMINOPHEN 5/325MG TABLET PO PRN ×2 (13:09→18:48)
[2019-01-10] MEDS: BACLOFEN 10MG TABLET PO SCH (16:03)
[2019-01-10] MEDS: CLONIDINE 0.2MG TABLET PO SCH ×2 (16:03→22:00)
[2019-01-10 16:08] VITALS: BP 96/60
[2019-01-10] MEDS: LEVOFLOXACIN 500MG TABLET PO SCH (18:46)
[2019-01-10 20:00] VITALS: BP 94/67
[2019-01-10] MEDS: ASPIRIN 81MG EC TABLET PO SCH (21:20)
[2019-01-11] VITALS: BP 132/71
[2019-01-11] MEDS: IPRATROPIUM/ALBUTEROL 0.5-3(2.5)MG/3ML NEB HHN SCH ×4 (03:16→20:33)
[2019-01-11 04:00] VITALS: BP 130/84
[2019-01-11] MEDS: CLONIDINE 0.2MG TABLET PO SCH ×2 (05:10→14:00)
[2019-01-11] MEDS: SODIUM CHLORIDE 0.45% 1,000 ML IV SCH ×3 (05:10→23:45)
[2019-01-11] MEDS: METRONIDAZOLE 500MG TABLET PO SCH ×3 (05:12→23:44)
[2019-01-11 07:31] LABS: BASOPHILS % 0.8 % (0.0-2.0); EOSINOPHILS % 0.4 % (0.0-5.0); HEMATOCRIT. 30.9 % (36.0-48.0); HEMOGLOBIN. 9.9 g/dL (12.0-16.0); LYMPHOCYTES % 18.7 % (20.0-50.0); MEAN CORPUSCULAR VOLUME 83.9 fL (81.0-99.0); MONOCYTES % 13.8 % (2.0-8.0); NEUTROPHILS % 66.3 % (40.0-76.0); PLATELET 224 x1000/uL (130-400); RED BLOOD CELL COUNT 3.68 mill/uL (4.2-5.4); RED CELL DISTRIBUTION WIDTH 15.3 % (11.6-14.6)
[2019-01-11 07:45] LABS: CHLORIDE 105 mEq/L (98-107)
[2019-01-11 08:00] VITALS: BP 169/88
[2019-01-11] MEDS: INSULIN LISPRO 100 UNITS/ML SUBCUT SCH ×4 (08:10→21:00)
[2019-01-11] MEDS: BLOOD SUGAR DIAGNOSTIC STRIP TEST SCH ×4 (08:23→21:07)
[2019-01-11] MEDS: SERTRALINE HCL 50MG TABLET PO SCH (09:32)
[2019-01-11] MEDS: BACLOFEN 10MG TABLET PO SCH ×3 (09:33→18:30)
[2019-01-11] MEDS: DILTIAZEM HCL 120MG CAPSULE CD 24HR PO SCH (09:33)
[2019-01-11] MEDS: HYDRALAZINE HCL 50MG TABLET PO SCH ×2 (09:34→21:10)
[2019-01-11] MEDS: HEPARIN 5000 UNITS/ML VIAL SUBCUT SCH ×2 (09:34→21:10)
[2019-01-11 11:50] VITALS: BP 108/76
[2019-01-11 12:37] LABS: CREATININE URINE RANDOM < 10.0 mg/dL
[2019-01-11] MEDS: FLUCONAZOLE 150MG TABLET PO SCH (14:38)
[2019-01-11 16:00] VITALS: BP 136/92
[2019-01-11] MEDS: LEVOFLOXACIN 500MG TABLET PO SCH (16:42)
[2019-01-11 20:45] VITALS: BP 123/123
[2019-01-11] MEDS: ASPIRIN 81MG EC TABLET PO SCH (21:10)
[2019-01-11] MEDS: CLONIDINE 0.1MG TABLET PO PRN (23:45)
[2019-01-12] VITALS (18 sets, daily range): BP systolic 80–140; BP diastolic 55–108
[2019-01-12] MEDS: IPRATROPIUM/ALBUTEROL 0.5-3(2.5)MG/3ML NEB HHN SCH ×4 (02:47→22:13)
[2019-01-12] MEDS: CLONIDINE 0.1MG TABLET PO PRN (06:07)
[2019-01-12] MEDS: METRONIDAZOLE 500MG TABLET PO SCH ×3 (06:08→22:15)
[2019-01-12] MEDS: INSULIN LISPRO 100 UNITS/ML SUBCUT SCH ×3 (07:40→22:00)
[2019-01-12] MEDS: BLOOD SUGAR DIAGNOSTIC STRIP TEST SCH ×4 (07:40→21:55)
[2019-01-12] MEDS: BACLOFEN 10MG TABLET PO SCH ×3 (09:52→16:45)
[2019-01-12] MEDS: SERTRALINE HCL 50MG TABLET PO SCH (09:52)
[2019-01-12] MEDS: DILTIAZEM HCL 120MG CAPSULE CD 24HR PO SCH (09:53)
[2019-01-12] MEDS: HYDRALAZINE HCL 50MG TABLET PO SCH ×2 (09:53→21:00)
[2019-01-12] MEDS: FLUCONAZOLE 150MG TABLET PO SCH (09:53)
[2019-01-12] MEDS: HEPARIN 5000 UNITS/ML VIAL SUBCUT SCH ×2 (10:01→22:14)
[2019-01-12] MEDS: SODIUM CHLORIDE 0.45% 1,000 ML IV SCH ×2 (10:18→22:14)
[2019-01-12 13:14] LABS: CHLORIDE 105 mEq/L (98-107)
[2019-01-12 13:23] LABS: HEMATOCRIT. 31.9 % (36.0-48.0); HEMOGLOBIN. 10.4 g/dL (12.0-16.0); MEAN CORPUSCULAR HEMOGLOBIN 27.8 pg (28.0-32.0); MEAN PLATELET VOLUME 8.3 fl (7.4-10.4); PLATELET 264 x1000/uL (130-400); RED BLOOD CELL COUNT 3.75 mill/uL (4.2-5.4); RED CELL DISTRIBUTION WIDTH 15.8 % (11.6-14.6)
[2019-01-12] MEDS: CLONIDINE 0.2MG TABLET PO SCH ×2 (14:29→21:48)
[2019-01-12] MEDS: LEVOFLOXACIN 500MG TABLET PO SCH (16:40)
[2019-01-12] MEDS ORDERED: BACL20TA PO (17:22)
[2019-01-12] MEDS ORDERED: ASPI-1393 PO (17:22)
[2019-01-12] MEDS ORDERED: LEVO500T2 PO (17:22)
[2019-01-12] MEDS ORDERED: METR-167 PO (17:24)
[2019-01-12] MEDS ORDERED: DIF15 PO (17:24)
[2019-01-12 18:30] LABS: PLATELET ESTIMATE NORMAL
[2019-01-12] MEDS: ASPIRIN 81MG EC TABLET PO SCH (22:15)
[2019-01-12] MEDS ORDERED: SODIUM CHLORIDE 0.9% 250 ML IV NR (22:15)
[2019-01-12] MEDS ORDERED: NOREPINEPHRINE 16 MG in DEXT 5% WATER 234 ML IV PRN (23:30)
[2019-01-12] MEDS ORDERED: POTASSIUM CHLORIDE 20MEQ TABLET SR PO NR (23:30)
[2019-01-13] VITALS (95 sets, daily range): BP systolic 78–152; BP diastolic 57–103
[2019-01-13] MEDS: IPRATROPIUM/ALBUTEROL 0.5-3(2.5)MG/3ML NEB HHN SCH ×4 (02:38→19:44)
[2019-01-13] MEDS: CLONIDINE 0.2MG TABLET PO SCH ×3 (06:00→22:57)
[2019-01-13] MEDS: METRONIDAZOLE 500MG TABLET PO SCH ×3 (06:13→21:05)
[2019-01-13] MEDS: INSULIN LISPRO 100 UNITS/ML SUBCUT SCH ×4 (06:14→21:00)
[2019-01-13] MEDS: BLOOD SUGAR DIAGNOSTIC STRIP TEST SCH ×4 (06:14→21:05)
[2019-01-13] MEDS ORDERED: DEXT 5%/0.45% NACL 1000ML 1,000 ML IV SCH (07:30)
[2019-01-13] MEDS: HYDRALAZINE HCL 50MG TABLET PO SCH ×2 (09:00→21:05)
[2019-01-13] MEDS: DILTIAZEM HCL 120MG CAPSULE CD 24HR PO SCH (09:00)
[2019-01-13] MEDS: SERTRALINE HCL 50MG TABLET PO SCH (09:04)
[2019-01-13] MEDS: MIDODRINE HCL 5MG TABLET PO SCH ×3 (09:05→17:41)
[2019-01-13 09:31] LABS: HEMATOCRIT. 30.7 % (36.0-48.0); HEMOGLOBIN. 9.9 g/dL (12.0-16.0); MEAN CORPUSCULAR HEMOGLOBIN 26.8 pg (28.0-32.0); MEAN CORPUSCULAR VOLUME 83.1 fL (81.0-99.0); MEAN PLATELET VOLUME 7.6 fl (7.4-10.4); PLATELET 268 x1000/uL (130-400); RED BLOOD CELL COUNT 3.69 mill/uL (4.2-5.4); RED CELL DISTRIBUTION WIDTH 15.5 % (11.6-14.6)
[2019-01-13 09:40] LABS: CHLORIDE 107 mEq/L (98-107)
[2019-01-13 10:00] LABS: PLATELET ESTIMATE NORMAL
[2019-01-13] MEDS: BACLOFEN 10MG TABLET PO SCH ×3 (10:19→17:41)
[2019-01-13] MEDS: FLUCONAZOLE 150MG TABLET PO SCH (10:19)
[2019-01-13] MEDS: HEPARIN 5000 UNITS/ML VIAL SUBCUT SCH ×2 (12:23→21:05)
[2019-01-13] MEDS: LEVOFLOXACIN 500MG TABLET PO SCH (15:47)
[2019-01-13] MEDS: ASPIRIN 81MG EC TABLET PO SCH (21:05)
[2019-01-13] MEDS: CLONIDINE 0.1MG TABLET PO PRN ×2 (22:53→22:54)
[2019-01-14] VITALS (25 sets, daily range): BP systolic 86–169; BP diastolic 59–113
[2019-01-14] MEDS: IPRATROPIUM/ALBUTEROL 0.5-3(2.5)MG/3ML NEB HHN SCH ×3 (02:12→13:50)
[2019-01-14] MEDS: METRONIDAZOLE 500MG TABLET PO SCH (06:25)
[2019-01-14] MEDS: BLOOD SUGAR DIAGNOSTIC STRIP TEST SCH ×4 (06:26→21:19)
[2019-01-14] MEDS: CLONIDINE 0.2MG TABLET PO SCH (06:30)
[2019-01-14] MEDS: INSULIN LISPRO 100 UNITS/ML SUBCUT SCH ×4 (07:20→21:00)
[2019-01-14] MEDS: DILTIAZEM HCL 120MG CAPSULE CD 24HR PO SCH (09:16)
[2019-01-14] MEDS: SERTRALINE HCL 50MG TABLET PO SCH (09:16)
[2019-01-14] MEDS: HEPARIN 5000 UNITS/ML VIAL SUBCUT SCH ×2 (09:16→21:15)
[2019-01-14] MEDS: MIDODRINE HCL 5MG TABLET PO SCH ×3 (09:17→17:08)
[2019-01-14] MEDS: HYDRALAZINE HCL 50MG TABLET PO SCH (09:17)
[2019-01-14] MEDS: BACLOFEN 10MG TABLET PO SCH ×3 (09:17→17:08)
[2019-01-14] MEDS: FLUCONAZOLE 150MG TABLET PO SCH (09:18)
[2019-01-14 10:34] LABS: BASOPHILS % 0.5 % (0.0-2.0); EOSINOPHILS % 0.3 % (0.0-5.0); HEMATOCRIT. 30.5 % (36.0-48.0); HEMOGLOBIN. 9.9 g/dL (12.0-16.0); LYMPHOCYTES % 11.2 % (20.0-50.0); MEAN CORPUSCULAR VOLUME 83.1 fL (81.0-99.0); MEAN PLATELET VOLUME 7.9 fl (7.4-10.4); MONOCYTES % 9.9 % (2.0-8.0); NEUTROPHILS % 78.1 % (40.0-76.0); PLATELET 260 x1000/uL (130-400); RED BLOOD CELL COUNT 3.67 mill/uL (4.2-5.4); RED CELL DISTRIBUTION WIDTH 15.2 % (11.6-14.6)
[2019-01-14 10:43] LABS: CHLORIDE 106 mEq/L (98-107)
[2019-01-14 10:49] LABS: PHOSPHORUS 1.8 mg/dL (2.5-4.9)
[2019-01-14 14:24] LABS: T4 FREE 1.67 ng/dL (0.76-1.46)
[2019-01-14] MEDS ORDERED: MIDO5TAB PO (16:53)
[2019-01-14] MEDS ORDERED: DILT30TA38 PO ×2 (16:53→16:55)
[2019-01-14] MEDS ORDERED: MAGNESIUM 4 G PREMIX 100 ML IV NR (18:00)
[2019-01-14] MEDS: ASPIRIN 81MG EC TABLET PO SCH (21:15)
[2019-01-15] MEDS ORDERED: DILTIAZEM HCL 30MG TABLET PO SCH (09:00)
== END 2019-01-14 21:40 | disposition home health service (06) | DRG 720 ==
LOC: ER 14:58 → 7WST 17:53 → ENRESERV 19:18 → MICUNO 01-12 20:45 → 3WST 01-14 03:45
PROVIDERS: ADMIT Internal Medicine; ATTEND Internal Medicine
DX: A41.9 Sepsis, unspecified organism (principal); J96.01 Acute respiratory failure with hypoxia; J69.0 Pneumonitis due to inhalation of food and vomit; G82.50 Quadriplegia, unspecified; R65.21 Severe sepsis with septic shock; E43 Unspecified severe protein-calorie malnutrition; R57.0 Cardiogenic shock; E87.2 Acidosis; R64 Cachexia; L89.310 Pressure ulcer of right buttock, unstageable; I13.0 Hypertensive heart and chronic kidney disease with heart failure and stage 1 through stage 4 chronic kidney disease, or unspecified chronic kidney disease; E83.42 Hypomagnesemia; I07.1 Rheumatic tricuspid insufficiency; I27.29 Other secondary pulmonary hypertension; E87.0 Hyperosmolality and hypernatremia; E83.52 Hypercalcemia; E86.9 Volume depletion, unspecified; B37.49 Other urogenital candidiasis; D64.9 Anemia, unspecified; B19.20 Unspecified viral hepatitis C without hepatic coma; E87.6 Hypokalemia; G35 Multiple sclerosis; I50.22 Chronic systolic (congestive) heart failure; J45.901 Unspecified asthma with (acute) exacerbation; N13.30 Unspecified hydronephrosis; R47.02 Dysphasia; E11.22 Type 2 diabetes mellitus with diabetic chronic kidney disease; R80.9 Proteinuria, unspecified; R81 Glycosuria; L89.520 Pressure ulcer of left ankle, unstageable; I42.9 Cardiomyopathy, unspecified; N18.9 Chronic kidney disease, unspecified; Z74.01 Bed confinement status; Z93.1 Gastrostomy status; Z86.718 Personal history of other venous thrombosis and embolism; Z87.442 Personal history of urinary calculi; Z86.19 Personal history of other infectious and parasitic diseases; Z86.711 Personal history of pulmonary embolism; Z79.899 Other long term (current) drug therapy; Z88.0 Allergy status to penicillin; Z93.0 Tracheostomy status
CPT/HCPCS: 36415; 36600; 71045; 74018; 76770; 78582; 80048; 80061; 81003; 82375; 82570; 82805; 82962; 83036; 83520; 83605; 83735; 83880; 83970; 84100; 84134; 84145; 84155; 84156; 84165; 84439; 84443; 84481; 84484; 85379; 86038; 86160; 86256; 92610; 93005; 93306; 93880; 93970; 94640; 97161; 97167; 99291; A6261; A9558; J1644; J1815; J1956; J2930; J3475; J3490; J7030; J7040; J7060; J7611; J7620; A4315

== ENCOUNTER 2019-01-14 23:44 | Emergency (ER) | payer MEDICAID ==
[~2019-01-14] VITALS: Ht 154.9 cm; Wt 45.0 kg
[~2019-01-14 23:44] MED LIST changes: +DIF15 PO; +DILT30TA38 PO; +LEVO500T2 PO; +METR-167 PO; +MIDO5TAB PO
[2019-01-14 23:49] VITALS: BP 150/99
== END 2019-01-15 10:44 | disposition home or self-care (01) ==
LOC: ER 23:56 → CANBEDREQ 01-15 20:04
DX: J69.0 Pneumonitis due to inhalation of food and vomit (principal); R09.02 Hypoxemia; E11.9 Type 2 diabetes mellitus without complications; I10 Essential (primary) hypertension; J45.909 Unspecified asthma, uncomplicated; Z88.0 Allergy status to penicillin; Z79.899 Other long term (current) drug therapy; Z93.0 Tracheostomy status
CPT/HCPCS: 93005; 99283

== ENCOUNTER 2019-02-18 14:54 | Inpatient (IN) | payer MEDICAID ==
[~2019-02-18] VITALS: Ht 167.6 cm; Wt 60.3 kg
[~2019-02-18 14:54] MED LIST changes: -DIF15 PO; -DILT60TA35 PO; -LEVO500T2 PO; -LOV40 SQ; -METR-167 PO; -PANT40VI IV
[2019-02-18 16:35] LABS: BASOPHILS % 0.9 % (0.0-2.0); EOSINOPHILS % 1.6 % (0.0-5.0); HEMATOCRIT. 38.5 % (36.0-48.0); HEMOGLOBIN. 12.3 g/dL (12.0-16.0); LYMPHOCYTES % 30.3 % (20.0-50.0); MEAN CORPUSCULAR VOLUME 84.5 fL (81.0-99.0); MEAN PLATELET VOLUME 9.5 fl (7.4-10.4); MONOCYTES % 11.8 % (2.0-8.0); NEUTROPHILS % 55.4 % (40.0-76.0); PLATELET 214 x1000/uL (130-400); RED BLOOD CELL COUNT 4.56 mill/uL (4.2-5.4); RED CELL DISTRIBUTION WIDTH 15.6 % (11.6-14.6)
[2019-02-18 16:42] LABS: CHLORIDE 113 mEq/L (98-107)
[2019-02-18 16:48] LABS: ETHANOL BLOOD < 10 mg/dL
[2019-02-18 17:18] LABS: CLARITY URINE TURBID (CLEAR); COLOR URINE RED (YELLOW); KETONES URINE NEGATIVE (NEGATIVE); LEUKOCYTE ESTERASE URINE 3+ (NEGATIVE); NITRITE URINE POSITIVE (NEGATIVE); OCCULT BLOOD URINE 2+ (NEGATIVE); PROTEIN URINE 2+ (NEGATIVE)
[2019-02-18 17:35] LABS: *AMPHETAMINES SCREEN URINE NEGATIVE (NEGATIVE); *BARBITURATES SCREEN URINE NEGATIVE (NEGATIVE); *COCAINE SCREEN URINE NEGATIVE (NEGATIVE)
[2019-02-18 17:36] LABS: *BENZODIAZEPINES SCREEN URINE NEGATIVE (NEGATIVE); CANNABINOID URINE SCREEN NEGATIVE (NEGATIVE); METHADONE URINE SCREEN NEGATIVE (NEGATIVE); OPIATES URINE SCREEN NEGATIVE (NEGATIVE); PHENCYCLIDINE URINE SCREEN NEGATIVE (NEGATIVE)
[2019-02-18] MEDS ORDERED: SULFAMETHOXAZOLE/TRIMETHOPRIM 800/160MG TABLET PO ONE (20:15)
[2019-02-18] MEDS ORDERED: DOCUSATE SODIUM 100MG CAPSULE PO PRN (22:00)
[2019-02-18] MEDS ORDERED: CLONIDINE 0.1MG TABLET PO PRN (22:00)
[2019-02-18] MEDS ORDERED: MAGNESIUM/ALUMINUM HYDROXIDE/SIMETHICONE 30ML UDC PO PRN (22:00)
[2019-02-18] MEDS ORDERED: ONDANSETRON HCL 4MG/2ML INJ IV PRN (22:00)
[2019-02-18] MEDS ORDERED: LORAZEPAM 2MG/ML CPJ IV PRN (22:00)
[2019-02-18] MEDS ORDERED: ACETAMINOPHEN 325MG TABLET PO PRN (22:00)
[2019-02-19] MEDS ORDERED: LEVOFLOXACIN 500MG PREMIX 100 ML IV SCH (01:00)
[2019-02-19 12:00] VITALS: BP 148/104
[2019-02-19 12:24] VITALS: BP 148/104
[2019-02-19 13:34] LABS: CHLORIDE 113 mEq/L (98-107)
[2019-02-19 13:48] LABS: BASOPHILS % 0.9 % (0.0-2.0); EOSINOPHILS % 0.9 % (0.0-5.0); HEMOGLOBIN. 11.6 g/dL (12.0-16.0); LYMPHOCYTES % 29.9 % (20.0-50.0); MEAN CORPUSCULAR VOLUME 83.8 fL (81.0-99.0); MONOCYTES % 13.8 % (2.0-8.0); NEUTROPHILS % 54.5 % (40.0-76.0); RED BLOOD CELL COUNT 4.29 mill/uL (4.2-5.4); RED CELL DISTRIBUTION WIDTH 15.3 % (11.6-14.6)
[2019-02-19 14:08] LABS: PLATELET 188 x1000/uL (130-400)
[2019-02-19] MEDS: AMLODIPINE 10MG TABLET PO SCH (15:10)
[2019-02-19] MEDS: ASPIRIN 81MG EC TABLET PO SCH (15:10)
[2019-02-19 16:00] VITALS: BP 162/117
[2019-02-19 20:00] VITALS: BP 161/107
[2019-02-20] VITALS: BP 114/90
[2019-02-20] MEDS ORDERED: LEVOFLOXACIN 500MG PREMIX 100 ML IV SCH (01:00)
[2019-02-20 04:00] VITALS: BP 128/90
[2019-02-20 08:00] VITALS: BP 112/88
[2019-02-20] MEDS: AMLODIPINE 10MG TABLET PO SCH (10:17)
[2019-02-20] MEDS: ASPIRIN 81MG EC TABLET PO SCH (10:17)
[2019-02-20 12:00] VITALS: BP 116/67
[2019-02-20 13:23] VITALS: BP 122/88
[2019-02-20 16:00] VITALS: BP_SYST 116; BP_SYST 136; BP_DIAS 67; BP_DIAS 86
== END 2019-02-20 19:36 | disposition home or self-care (01) | DRG 463 ==
LOC: ER 14:54 → 8WST 21:38 → EDBEDREQTM 21:52 → EDBEDREQ 21:52 → ENRESERV 02-19 08:07
PROVIDERS: ADMIT Hospitalist; ATTEND Hospitalist
DX: N39.0 Urinary tract infection, site not specified (principal); G35 Multiple sclerosis; I10 Essential (primary) hypertension; F91.9 Conduct disorder, unspecified; J45.909 Unspecified asthma, uncomplicated; E11.9 Type 2 diabetes mellitus without complications; Z88.0 Allergy status to penicillin
CPT/HCPCS: 36415; 71045; 80305; 80307; 80320; 80329; 81003; 82962; 93005; 93970; 99285; C1893; J1956; J7040; G0480

== ENCOUNTER 2019-03-08 10:43 | Inpatient (IN) | payer MEDICAID ==
[2019-03-08] VITALS (38 sets, daily range): BP systolic 70–121; BP diastolic 48–88
[~2019-03-08] VITALS: Ht 154.9 cm; Wt 49.9 kg
[~2019-03-08 10:43] MED LIST changes: -ASPI-1393 PO; +ASPI-1497 PO; -MIDO5TAB PO; +MIDO5TAB4 PO
[2019-03-08 11:09] LABS: HEMATOCRIT. 41.1 % (36.0-48.0); HEMOGLOBIN. 13.3 g/dL (12.0-16.0); MEAN CORPUSCULAR HEMOGLOBIN 26.9 pg (28.0-32.0); MEAN CORPUSCULAR VOLUME 82.9 fL (81.0-99.0); MEAN PLATELET VOLUME 8.6 fl (7.4-10.4); PLATELET 283 x1000/uL (130-400); RED BLOOD CELL COUNT 4.96 mill/uL (4.2-5.4); RED CELL DISTRIBUTION WIDTH 15.1 % (11.6-14.6)
[2019-03-08 11:16] LABS: PROTHROMBIN TIME 10.8 sec (9.6-11.0)
[2019-03-08 11:26] LABS: CHLORIDE 103 mEq/L (98-107)
[2019-03-08 11:31] LABS: ETHANOL BLOOD < 10 mg/dL
[2019-03-08 11:33] LABS: LDL CHOLESTEROL 90 mg/dL (5-100)
[2019-03-08 11:34] LABS: PLATELET ESTIMATE NORMAL
[2019-03-08 11:36] LABS: CREATINE KINASE 47 IU/L (26-192)
[2019-03-08] MEDS ORDERED: IOHEXOL-350 100 ML BOTTLE ONE (11:54)
[2019-03-08 11:55] LABS: BG BASE EXCESS 0.6 mmol/L (-2.0-2.0); BG CARBOXYHEMOGLOBIN 1.1 % (0.5-1.5); BG DEOXYHEMOGLOBIN 0.9 % (0.0-5.0); BG FRACTION INSPIRED OXYGEN 100; BG HCO3 ACT 23.9 mmol/L (22.0-26.0); BG METHEMOGLOBIN 0.3 % (0.0-1.5); BG OXYGEN SATURATION 99.1 % (92.0-98.5); BG OXYHEMOGLOBIN 97.7 % (94.0-97.0); BG PCO2 34.1 mmHg (35.0-45.0); BG PH 7.463 (7.350-7.450); BG PO2 337.4 mmHg (75.0-100.0); BG SAMPLE SITE LEFT BRACHIAL; BG TIDAL VOLUME(mL) 450 mL; BG TOTAL HEMOGLOBIN 12.6 g/dL (12.0-18.0); BG VENT MODE VENT - A/C; BG VENT RATE 14 set
[2019-03-08] MEDS ORDERED: LEVOFLOXACIN 500MG PREMIX 100 ML IV ONE (12:00)
[2019-03-08] MEDS ORDERED: CLINDAMYCIN 300 MG in DEXTROSE 5% WATER 50 ML IV ONE (12:00)
[2019-03-08] MEDS ORDERED: SODIUM CHLORIDE 0.9% 1000ML BAG (SEPSIS BOLUS) IV ONE (12:00)
[2019-03-08 12:13] LABS: CLARITY URINE CLOUDY (CLEAR); COLOR URINE ORANGE (YELLOW); KETONES URINE NEGATIVE (NEGATIVE); LEUKOCYTE ESTERASE URINE 1+ (NEGATIVE); NITRITE URINE NEGATIVE (NEGATIVE); OCCULT BLOOD URINE 3+ (NEGATIVE); PH URINE 7.5 (4.5-8.0); PROTEIN URINE 3+ (NEGATIVE); SPECIFIC GRAVITY URINE 1.023 (1.005-1.030); UROBILINOGEN URINE 0.2 E.U./dL (0.2-1.0)
[2019-03-08 12:55] LABS: *COCAINE SCREEN URINE NEGATIVE (NEGATIVE)
[2019-03-08 12:56] LABS: *AMPHETAMINES SCREEN URINE NEGATIVE (NEGATIVE); *BARBITURATES SCREEN URINE NEGATIVE (NEGATIVE); *BENZODIAZEPINES SCREEN URINE NEGATIVE (NEGATIVE); CANNABINOID URINE SCREEN NEGATIVE (NEGATIVE); METHADONE URINE SCREEN NEGATIVE (NEGATIVE); OPIATES URINE SCREEN NEGATIVE (NEGATIVE); PHENCYCLIDINE URINE SCREEN NEGATIVE (NEGATIVE)
[2019-03-08] MEDS ORDERED: SUCCINYLCHOLINE CHLORIDE 200MG/10ML IV ONE (13:00)
[2019-03-08] MEDS ORDERED: MIDAZOLAM HCL 50 MG in DEXTROSE 5% WATER 40 ML IV ONE (13:00)
[2019-03-08] MEDS ORDERED: ETOMIDATE 2MG/ML 10ML VIAL IV ONE (13:00)
[2019-03-08] MEDS ORDERED: LORAZEPAM 2MG/ML CPJ IV ONE (13:00)
[2019-03-08] MEDS ORDERED: ONDANSETRON HCL 4MG/2ML INJ IV PRN (13:30)
[2019-03-08] MEDS ORDERED: PROPOFOL 10MG/ML 100ML 100 ML IV PRN (14:30)
[2019-03-08] MEDS: DEXT 5%/0.45% NACL 1000ML 1,000 ML IV SCH (16:46)
[2019-03-08] MEDS: PANTOPRAZOLE SODIUM 40 MG/VIAL IV SCH (16:56)
[2019-03-08] MEDS: ENOXAPARIN 30MG/0.3ML SYR SUBCUT SCH (16:57)
[2019-03-08] MEDS: METRONIDAZOLE 500 MG PREMIX 100 ML IV SCH (16:58)
[2019-03-08] MEDS: VANCOMYCIN 750 MG PREMIX 150 ML IV SCH (18:39)
[2019-03-08] MEDS ORDERED: DEXTROSE 50% WATER 50ML SYRINGE IV PRN (20:00)
[2019-03-08] MEDS: NOREPINEPHRINE 8 MG in DEXT 5% WATER 242 ML IV PRN (20:14)
[2019-03-08] MEDS: IPRATROPIUM/ALBUTEROL 0.5-3(2.5)MG/3ML NEB HHN SCH (20:50)
[2019-03-09] VITALS (68 sets, daily range): BP systolic 84–170; BP diastolic 53–122
[2019-03-09] MEDS: BLOOD SUGAR DIAGNOSTIC STRIP TEST SCH ×5 (00:17→23:55)
[2019-03-09] MEDS: INSULIN LISPRO 100 UNITS/ML SUBCUT SCH ×5 (00:30→23:55)
[2019-03-09] MEDS: IPRATROPIUM/ALBUTEROL 0.5-3(2.5)MG/3ML NEB HHN SCH ×7 (00:45→20:00)
[2019-03-09 01:02] LABS: CREATINE KINASE 56 IU/L (26-192)
[2019-03-09 01:04] LABS: CREATINE KINASE MB FRACTION < 1.0 ng/mL (0.5-3.6)
[2019-03-09] MEDS: METRONIDAZOLE 500 MG PREMIX 100 ML IV SCH ×4 (01:31→21:19)
[2019-03-09 05:50] LABS: BASOPHILS % 0.5 % (0.0-2.0); EOSINOPHILS % 0.1 % (0.0-5.0); HEMATOCRIT. 35.1 % (36.0-48.0); HEMOGLOBIN. 11.3 g/dL (12.0-16.0); LYMPHOCYTES % 15.9 % (20.0-50.0); MEAN CORPUSCULAR HEMOGLOBIN 26.7 pg (28.0-32.0); MEAN CORPUSCULAR VOLUME 83.4 fL (81.0-99.0); MEAN PLATELET VOLUME 9.7 fl (7.4-10.4); MONOCYTES % 14.6 % (2.0-8.0); NEUTROPHILS % 68.9 % (40.0-76.0); PLATELET 244 x1000/uL (130-400); RED BLOOD CELL COUNT 4.22 mill/uL (4.2-5.4); RED CELL DISTRIBUTION WIDTH 14.8 % (11.6-14.6)
[2019-03-09 05:52] LABS: CHLORIDE 104 mEq/L (98-107)
[2019-03-09] MEDS: VANCOMYCIN 750 MG PREMIX 150 ML IV SCH ×2 (06:29→19:09)
[2019-03-09 08:07] LABS: BG BASE EXCESS -1.4 mmol/L (-2.0-2.0); BG CARBOXYHEMOGLOBIN 0.5 % (0.5-1.5); BG DEOXYHEMOGLOBIN 1.5 % (0.0-5.0); BG HCO3 ACT 21.9 mmol/L (22.0-26.0); BG METHEMOGLOBIN 0.3 % (0.0-1.5); BG OXYGEN SATURATION 98.5 % (92.0-98.5); BG OXYHEMOGLOBIN 97.7 % (94.0-97.0); BG PCO2 31.9 mmHg (35.0-45.0); BG PH 7.454 (7.350-7.450); BG PO2 151.9 mmHg (75.0-100.0); BG SAMPLE SITE RIGHT RADIAL; BG TIDAL VOLUME(mL) 450 mL; BG TOTAL HEMOGLOBIN 11.3 g/dL (12.0-18.0); BG VENT MODE VENT - A/C; BG VENT RATE 14 set
[2019-03-09] MEDS: PANTOPRAZOLE SODIUM 40 MG/VIAL IV SCH (09:09)
[2019-03-09] MEDS ORDERED: LEVOFLOXACIN 500MG PREMIX 100 ML IV SCH (12:00)
[2019-03-09] MEDS: ENOXAPARIN 30MG/0.3ML SYR SUBCUT SCH (17:00)
[2019-03-09] MEDS: DILTIAZEM HCL 5MG/ML 5ML VIAL IV PRN (18:49)
[2019-03-09] MEDS: ACETAMINOPHEN 650MG/20.3ML UDC GT PRN (19:47)
[2019-03-09] MEDS: PROPOFOL 10MG/ML 100ML 100 ML IV PRN (20:57)
[2019-03-09] MEDS: DEXT 5%/0.45% NACL 1000ML 1,000 ML IV SCH (21:19)
[2019-03-10] VITALS (96 sets, daily range): BP systolic 63–154; BP diastolic 40–99
[2019-03-10] MEDS: IPRATROPIUM/ALBUTEROL 0.5-3(2.5)MG/3ML NEB HHN SCH ×7 (04:30→23:59)
[2019-03-10] MEDS: METRONIDAZOLE 500 MG PREMIX 100 ML IV SCH ×3 (05:01→21:26)
[2019-03-10] MEDS: BLOOD SUGAR DIAGNOSTIC STRIP TEST SCH ×4 (05:16→23:17)
[2019-03-10] MEDS: INSULIN LISPRO 100 UNITS/ML SUBCUT SCH ×4 (05:16→23:17)
[2019-03-10] MEDS: VANCOMYCIN 750 MG PREMIX 150 ML IV SCH (06:08)
[2019-03-10] MEDS: PROPOFOL 10MG/ML 100ML 100 ML IV PRN ×2 (06:31→18:00)
[2019-03-10 07:41] LABS: BG BASE EXCESS -2.1 mmol/L (-2.0-2.0); BG DEOXYHEMOGLOBIN 1.7 % (0.0-5.0); BG HCO3 ACT 21.3 mmol/L (22.0-26.0); BG METHEMOGLOBIN 0.3 % (0.0-1.5); BG OXYGEN SATURATION 98.3 % (92.0-98.5); BG PCO2 31.5 mmHg (35.0-45.0); BG PH 7.447 (7.350-7.450); BG PO2 130.2 mmHg (75.0-100.0); BG SAMPLE SITE RIGHT BRACHIAL; BG TIDAL VOLUME(mL) 450 mL; BG VENT MODE VENT - A/C; BG VENT RATE 14 set
[2019-03-10 09:33] LABS: VANCOMYCIN TROUGH 29.6 ug/mL (5.0-10.0)
[2019-03-10] MEDS: PANTOPRAZOLE SODIUM 40 MG/VIAL IV SCH (09:54)
[2019-03-10] MEDS: LEVOFLOXACIN 500MG PREMIX 100 ML IV SCH (11:39)
[2019-03-10 13:44] LABS: BG BASE EXCESS -0.4 mmol/L (-2.0-2.0); BG CARBOXYHEMOGLOBIN 1.2 % (0.5-1.5); BG DEOXYHEMOGLOBIN 3.1 % (0.0-5.0); BG FRACTION INSPIRED OXYGEN 40; BG HCO3 ACT 23.7 mmol/L (22.0-26.0); BG METHEMOGLOBIN 0.2 % (0.0-1.5); BG OXYGEN SATURATION 96.9 % (92.0-98.5); BG OXYHEMOGLOBIN 95.5 % (94.0-97.0); BG PCO2 36.7 mmHg (35.0-45.0); BG PH 7.428 (7.350-7.450); BG PRESSURE SUPPORT 12; BG SAMPLE SITE RIGHT RADIAL; BG TIDAL VOLUME(mL) 450 mL; BG TOTAL HEMOGLOBIN 10.8 g/dL (12.0-18.0); BG VENT MODE VENT - SIMV; BG VENT RATE 10 set
[2019-03-10] MEDS ORDERED: MORPHINE SULFATE 2 MG/ML CPJ (NOT FOR IM USE) IV SCH (14:15)
[2019-03-10] MEDS: DEXT 5%/0.45% NACL 1000ML 1,000 ML IV SCH (16:19)
[2019-03-10] MEDS: DILTIAZEM HCL 5MG/ML 5ML VIAL IV PRN (16:20)
[2019-03-10] MEDS: ACETAMINOPHEN 650MG/20.3ML UDC GT PRN (16:20)
[2019-03-10] MEDS: ENOXAPARIN 30MG/0.3ML SYR SUBCUT SCH (17:59)
[2019-03-10] MEDS ORDERED: PROPOFOL 10MG/ML 100ML 100 ML IV PRN (19:15)
[2019-03-10] MEDS: MORPHINE SULFATE 4 MG/ML CPJ (NOT FOR IM USE) IV PRN (20:44)
[2019-03-11] VITALS (98 sets, daily range): BP systolic 72–188; BP diastolic 45–120
[2019-03-11] MEDS: IPRATROPIUM/ALBUTEROL 0.5-3(2.5)MG/3ML NEB HHN SCH ×3 (03:58→20:10)
[2019-03-11] MEDS: INSULIN LISPRO 100 UNITS/ML SUBCUT SCH ×4 (05:16→23:28)
[2019-03-11] MEDS: BLOOD SUGAR DIAGNOSTIC STRIP TEST SCH ×4 (05:16→23:28)
[2019-03-11] MEDS: DEXT 5%/0.45% NACL 1000ML 1,000 ML IV SCH ×3 (05:32→23:28)
[2019-03-11] MEDS: METRONIDAZOLE 500 MG PREMIX 100 ML IV SCH ×3 (05:32→21:47)
[2019-03-11 08:07] LABS: BG BASE EXCESS -0.3 mmol/L (-2.0-2.0); BG CARBOXYHEMOGLOBIN 1.2 % (0.5-1.5); BG DEOXYHEMOGLOBIN 2.1 % (0.0-5.0); BG FRACTION INSPIRED OXYGEN 40; BG HCO3 ACT 23.5 mmol/L (22.0-26.0); BG METHEMOGLOBIN 0.3 % (0.0-1.5); BG OXYGEN SATURATION 97.9 % (92.0-98.5); BG OXYHEMOGLOBIN 96.4 % (94.0-97.0); BG PH 7.444 (7.350-7.450); BG PO2 106.6 mmHg (75.0-100.0); BG SAMPLE SITE RIGHT BRACHIAL; BG TIDAL VOLUME(mL) 450 mL; BG TOTAL HEMOGLOBIN 10.3 g/dL (12.0-18.0); BG VENT MODE VENT - A/C; BG VENT RATE 14 set
[2019-03-11] MEDS: PANTOPRAZOLE SODIUM 40 MG/VIAL IV SCH (08:12)
[2019-03-11] MEDS: DILTIAZEM HCL 5MG/ML 5ML VIAL IV PRN ×3 (08:12→14:17)
[2019-03-11 10:19] LABS: CHLORIDE 107 mEq/L (98-107)
[2019-03-11] MEDS: LEVOFLOXACIN 500MG PREMIX 100 ML IV SCH (10:33)
[2019-03-11] MEDS: MORPHINE SULFATE 4 MG/ML CPJ (NOT FOR IM USE) IV PRN ×2 (10:49→14:19)
[2019-03-11 12:17] LABS: BG BASE EXCESS 1.4 mmol/L (-2.0-2.0); BG DEOXYHEMOGLOBIN 3.6 % (0.0-5.0); BG FRACTION INSPIRED OXYGEN 40; BG HCO3 ACT 25.6 mmol/L (22.0-26.0); BG METHEMOGLOBIN 0.3 % (0.0-1.5); BG OXYGEN SATURATION 96.4 % (92.0-98.5); BG OXYHEMOGLOBIN 95.1 % (94.0-97.0); BG PCO2 38.8 mmHg (35.0-45.0); BG PH 7.438 (7.350-7.450); BG PO2 84.7 mmHg (75.0-100.0); BG PRESSURE SUPPORT 8; BG SAMPLE SITE RIGHT RADIAL; BG TOTAL HEMOGLOBIN 10.1 g/dL (12.0-18.0); BG VENT MODE VENT - CPAP
[2019-03-11] MEDS: VANCOMYCIN 750 MG PREMIX 150 ML IV SCH (13:00)
[2019-03-11] MEDS: METOCLOPRAMIDE HCL 10MG/2ML VIAL IV SCH ×3 (14:04→23:28)
[2019-03-11] MEDS ORDERED: LORAZEPAM 2MG/ML CPJ IV PRN (14:15)
[2019-03-11] MEDS ORDERED: LABETALOL 5MG/ML SYR 20 MG/4 ML SYRINGE IV NR (15:00)
[2019-03-11] MEDS: LABETALOL 5MG/ML SYR 20 MG/4 ML SYRINGE IV PRN (17:45)
[2019-03-11] MEDS: ENOXAPARIN 30MG/0.3ML SYR SUBCUT SCH (17:45)
[2019-03-11 18:49] LABS: BG BASE EXCESS -2.4 mmol/L (-2.0-2.0); BG CARBOXYHEMOGLOBIN 1.2 % (0.5-1.5); BG DEOXYHEMOGLOBIN 0.7 % (0.0-5.0); BG FRACTION INSPIRED OXYGEN 100; BG HCO3 ACT 27.2 mmol/L (22.0-26.0); BG METHEMOGLOBIN 0.3 % (0.0-1.5); BG OXYGEN SATURATION 99.3 % (92.0-98.5); BG OXYHEMOGLOBIN 97.8 % (94.0-97.0); BG PCO2 74.6 mmHg (35.0-45.0); BG PO2 299.5 mmHg (75.0-100.0); BG SAMPLE SITE LEFT RADIAL; BG TOTAL HEMOGLOBIN 11.5 g/dL (12.0-18.0); BG VENT MODE MASK - NRB
[2019-03-11] MEDS ORDERED: PROPOFOL 10MG/ML 100ML 100 ML IV PRN (19:00)
[2019-03-11] MEDS: ACETAMINOPHEN 650MG/20.3ML UDC GT PRN (20:35)
[2019-03-11 21:20] LABS: BG BASE EXCESS -0.1 mmol/L (-2.0-2.0); BG CARBOXYHEMOGLOBIN 1.2 % (0.5-1.5); BG DEOXYHEMOGLOBIN 0.9 % (0.0-5.0); BG FRACTION INSPIRED OXYGEN 60; BG HCO3 ACT 23.5 mmol/L (22.0-26.0); BG METHEMOGLOBIN 0.3 % (0.0-1.5); BG OXYGEN SATURATION 99.1 % (92.0-98.5); BG OXYHEMOGLOBIN 97.6 % (94.0-97.0); BG PCO2 34.8 mmHg (35.0-45.0); BG PH 7.448 (7.350-7.450); BG SAMPLE SITE RIGHT RADIAL; BG TIDAL VOLUME(mL) 450 mL; BG TOTAL HEMOGLOBIN 10.7 g/dL (12.0-18.0); BG VENT MODE VENT - A/C; BG VENT RATE 16 set
[2019-03-11] MEDS: NOREPINEPHRINE 8 MG in DEXT 5% WATER 242 ML IV PRN (21:42)
[2019-03-12] VITALS (97 sets, daily range): BP systolic 81–149; BP diastolic 60–99
[2019-03-12] MEDS: IPRATROPIUM/ALBUTEROL 0.5-3(2.5)MG/3ML NEB HHN SCH ×5 (00:59→21:00)
[2019-03-12] MEDS: INSULIN LISPRO 100 UNITS/ML SUBCUT SCH ×3 (06:00→18:59)
[2019-03-12] MEDS: BLOOD SUGAR DIAGNOSTIC STRIP TEST SCH ×3 (06:00→18:56)
[2019-03-12] MEDS: METRONIDAZOLE 500 MG PREMIX 100 ML IV SCH ×3 (06:00→21:40)
[2019-03-12] MEDS: METOCLOPRAMIDE HCL 10MG/2ML VIAL IV SCH ×3 (06:00→18:21)
[2019-03-12] MEDS: VANCOMYCIN 750 MG PREMIX 150 ML IV SCH (07:00)
[2019-03-12 09:00] LABS: CHLORIDE 106 mEq/L (98-107)
[2019-03-12] MEDS: PANTOPRAZOLE SODIUM 40 MG/VIAL IV SCH (09:00)
[2019-03-12 09:06] LABS: BASOPHILS % 0.8 % (0.0-2.0); HEMATOCRIT. 34.5 % (36.0-48.0); LYMPHOCYTES % 12.8 % (20.0-50.0); MEAN CORPUSCULAR VOLUME 84.4 fL (81.0-99.0); MEAN PLATELET VOLUME 10.5 fl (7.4-10.4); MONOCYTES % 7.9 % (2.0-8.0); NEUTROPHILS % 78.5 % (40.0-76.0); PLATELET 176 x1000/uL (130-400); RED BLOOD CELL COUNT 4.09 mill/uL (4.2-5.4); RED CELL DISTRIBUTION WIDTH 14.9 % (11.6-14.6)
[2019-03-12] MEDS ORDERED: POTASSIUM CHLORIDE 20MEQ/PACKET PO ONE (12:15)
[2019-03-12] MEDS: LEVOFLOXACIN 500MG PREMIX 100 ML IV SCH (12:38)
[2019-03-12] MEDS: DEXT 5%/0.45% NACL 1000ML 1,000 ML IV SCH (13:13)
[2019-03-12] MEDS: MORPHINE SULFATE 4 MG/ML CPJ (NOT FOR IM USE) IV PRN (15:48)
[2019-03-12] MEDS: DILTIAZEM HCL 5MG/ML 5ML VIAL IV PRN (15:49)
[2019-03-12] MEDS: ACETAMINOPHEN 650MG/20.3ML UDC GT PRN (15:49)
[2019-03-12] MEDS: ENOXAPARIN 30MG/0.3ML SYR SUBCUT SCH (18:21)
[2019-03-12] MEDS ORDERED: PROPOFOL 10MG/ML 100ML 100 ML IV PRN (20:30)
[2019-03-13] VITALS (55 sets, daily range): BP systolic 91–173; BP diastolic 68–120
[2019-03-13] MEDS: VANCOMYCIN 750 MG PREMIX 150 ML IV SCH ×2 (00:34→17:23)
[2019-03-13] MEDS: METOCLOPRAMIDE HCL 10MG/2ML VIAL IV SCH ×5 (00:34→23:32)
[2019-03-13] MEDS: BLOOD SUGAR DIAGNOSTIC STRIP TEST SCH ×5 (00:35→23:32)
[2019-03-13] MEDS: INSULIN LISPRO 100 UNITS/ML SUBCUT SCH ×5 (00:36→23:32)
[2019-03-13] MEDS: IPRATROPIUM/ALBUTEROL 0.5-3(2.5)MG/3ML NEB HHN SCH ×6 (00:44→20:48)
[2019-03-13] MEDS: METRONIDAZOLE 500 MG PREMIX 100 ML IV SCH ×3 (05:20→21:07)
[2019-03-13] MEDS: DEXT 5%/0.45% NACL 1000ML 1,000 ML IV SCH ×2 (05:20→09:03)
[2019-03-13 08:24] LABS: BG BASE EXCESS 2.7 mmol/L (-2.0-2.0); BG CARBOXYHEMOGLOBIN 1.1 % (0.5-1.5); BG DEOXYHEMOGLOBIN 1.1 % (0.0-5.0); BG FRACTION INSPIRED OXYGEN 45; BG HCO3 ACT 26.6 mmol/L (22.0-26.0); BG METHEMOGLOBIN 0.3 % (0.0-1.5); BG OXYGEN SATURATION 98.9 % (92.0-98.5); BG OXYHEMOGLOBIN 97.5 % (94.0-97.0); BG PCO2 37.7 mmHg (35.0-45.0); BG PH 7.466 (7.350-7.450); BG SAMPLE SITE LEFT RADIAL; BG TIDAL VOLUME(mL) 450 mL; BG TOTAL HEMOGLOBIN 9.1 g/dL (12.0-18.0); BG VENT MODE VENT - A/C; BG VENT RATE 14 set
[2019-03-13] MEDS: PANTOPRAZOLE SODIUM 40 MG/VIAL IV SCH (09:03)
[2019-03-13] MEDS: ACETYLCYSTEINE 100MG/ML 10% VIAL 4ML INH SCH ×2 (12:04→16:18)
[2019-03-13] MEDS: LEVOFLOXACIN 500MG PREMIX 100 ML IV SCH (12:50)
[2019-03-13] MEDS: ENOXAPARIN 30MG/0.3ML SYR SUBCUT SCH (17:05)
[2019-03-13] MEDS: DILTIAZEM HCL 5MG/ML 5ML VIAL IV PRN ×2 (17:05→23:11)
[2019-03-13] MEDS: LABETALOL 5MG/ML SYR 20 MG/4 ML SYRINGE IV PRN ×2 (20:47→21:48)
[2019-03-13] MEDS: MORPHINE SULFATE 4 MG/ML CPJ (NOT FOR IM USE) IV PRN (21:24)
[2019-03-13] MEDS: ACETAMINOPHEN 650MG/20.3ML UDC GT PRN (23:39)
[2019-03-14] VITALS (87 sets, daily range): BP systolic 82–158; BP diastolic 60–121
[2019-03-14] MEDS: IPRATROPIUM/ALBUTEROL 0.5-3(2.5)MG/3ML NEB HHN SCH ×6 (00:17→20:16)
[2019-03-14] MEDS: ACETYLCYSTEINE 100MG/ML 10% VIAL 4ML INH SCH ×3 (00:18→15:59)
[2019-03-14] MEDS: DEXT 5%/0.9% NACL 1,000 ML IV SCH ×2 (01:59→16:07)
[2019-03-14 05:09] LABS: EOSINOPHILS % 0.1 % (0.0-5.0); HEMOGLOBIN. 9.8 g/dL (12.0-16.0); LYMPHOCYTES % 10.3 % (20.0-50.0); MEAN CORPUSCULAR HEMOGLOBIN 27.2 pg (28.0-32.0); MEAN PLATELET VOLUME 9.4 fl (7.4-10.4); MONOCYTES % 8.4 % (2.0-8.0); NEUTROPHILS % 80.2 % (40.0-76.0); PLATELET 210 x1000/uL (130-400); RED BLOOD CELL COUNT 3.62 mill/uL (4.2-5.4); RED CELL DISTRIBUTION WIDTH 14.3 % (11.6-14.6)
[2019-03-14 05:29] LABS: CHLORIDE 106 mEq/L (98-107)
[2019-03-14] MEDS: METOCLOPRAMIDE HCL 10MG/2ML VIAL IV SCH ×3 (06:19→17:54)
[2019-03-14] MEDS: INSULIN LISPRO 100 UNITS/ML SUBCUT SCH ×3 (06:19→17:51)
[2019-03-14] MEDS: METRONIDAZOLE 500 MG PREMIX 100 ML IV SCH ×3 (06:19→21:45)
[2019-03-14] MEDS: BLOOD SUGAR DIAGNOSTIC STRIP TEST SCH ×3 (06:21→17:51)
[2019-03-14 08:03] LABS: BG BASE EXCESS 3.6 mmol/L (-2.0-2.0); BG CARBOXYHEMOGLOBIN 0.9 % (0.5-1.5); BG FRACTION INSPIRED OXYGEN 65; BG HCO3 ACT 26.7 mmol/L (22.0-26.0); BG METHEMOGLOBIN 0.2 % (0.0-1.5); BG OXYHEMOGLOBIN 97.9 % (94.0-97.0); BG PCO2 34.8 mmHg (35.0-45.0); BG PH 7.503 (7.350-7.450); BG PO2 176.3 mmHg (75.0-100.0); BG SAMPLE SITE RIGHT RADIAL; BG TIDAL VOLUME(mL) 450 mL; BG TOTAL HEMOGLOBIN 9.6 g/dL (12.0-18.0); BG VENT MODE VENT - A/C; BG VENT RATE 14 set
[2019-03-14] MEDS: PANTOPRAZOLE SODIUM 40 MG/VIAL IV SCH (08:55)
[2019-03-14] MEDS: LEVOFLOXACIN 500MG PREMIX 100 ML IV SCH (10:26)
[2019-03-14] MEDS: VANCOMYCIN 750 MG PREMIX 150 ML IV SCH ×2 (11:50→22:52)
[2019-03-14] MEDS: ENOXAPARIN 30MG/0.3ML SYR SUBCUT SCH (17:55)
[2019-03-14] MEDS: LABETALOL 5MG/ML SYR 20 MG/4 ML SYRINGE IV PRN (19:54)
[2019-03-14] MEDS: DILTIAZEM HCL 5MG/ML 5ML VIAL IV PRN (22:52)
[2019-03-15] VITALS (43 sets, daily range): BP systolic 102–167; BP diastolic 80–122
[2019-03-15] MEDS: IPRATROPIUM/ALBUTEROL 0.5-3(2.5)MG/3ML NEB HHN SCH ×6 (00:06→20:30)
[2019-03-15] MEDS: ACETYLCYSTEINE 100MG/ML 10% VIAL 4ML INH SCH ×3 (00:06→16:02)
[2019-03-15] MEDS: BLOOD SUGAR DIAGNOSTIC STRIP TEST SCH ×5 (00:08→23:38)
[2019-03-15] MEDS: METOCLOPRAMIDE HCL 10MG/2ML VIAL IV SCH ×5 (00:09→23:38)
[2019-03-15] MEDS: INSULIN LISPRO 100 UNITS/ML SUBCUT SCH ×5 (00:15→23:45)
[2019-03-15] MEDS: LABETALOL 5MG/ML SYR 20 MG/4 ML SYRINGE IV PRN ×2 (03:34→20:39)
[2019-03-15] MEDS: DEXT 5%/0.9% NACL 1,000 ML IV SCH ×2 (04:23→17:19)
[2019-03-15] MEDS: METRONIDAZOLE 500 MG PREMIX 100 ML IV SCH ×3 (05:35→21:56)
[2019-03-15] MEDS: DILTIAZEM HCL 5MG/ML 5ML VIAL IV PRN (06:37)
[2019-03-15] MEDS: PANTOPRAZOLE SODIUM 40 MG/VIAL IV SCH (08:17)
[2019-03-15 08:50] LABS: BG CARBOXYHEMOGLOBIN 1.2 % (0.5-1.5); BG DEOXYHEMOGLOBIN 1.5 % (0.0-5.0); BG FRACTION INSPIRED OXYGEN 40; BG HCO3 ACT 29.9 mmol/L (22.0-26.0); BG METHEMOGLOBIN 0.3 % (0.0-1.5); BG OXYGEN SATURATION 98.5 % (92.0-98.5); BG PCO2 45.8 mmHg (35.0-45.0); BG PH 7.432 (7.350-7.450); BG PO2 130.5 mmHg (75.0-100.0); BG PRESSURE SUPPORT 12; BG SAMPLE SITE RIGHT RADIAL; BG TIDAL VOLUME(mL) 450 mL; BG VENT MODE VENT - SIMV; BG VENT RATE 8 set
[2019-03-15] MEDS: LEVOFLOXACIN 500MG PREMIX 100 ML IV SCH (10:00)
[2019-03-15] MEDS: VANCOMYCIN 750 MG PREMIX 150 ML IV SCH ×2 (10:52→23:38)
[2019-03-15] MEDS: MORPHINE SULFATE 4 MG/ML CPJ (NOT FOR IM USE) IV PRN (11:37)
[2019-03-15] MEDS: ENOXAPARIN 30MG/0.3ML SYR SUBCUT SCH (16:22)
[2019-03-16] VITALS (43 sets, daily range): BP systolic 103–168; BP diastolic 77–125
[2019-03-16] MEDS: IPRATROPIUM/ALBUTEROL 0.5-3(2.5)MG/3ML NEB HHN SCH ×6 (00:38→19:59)
[2019-03-16] MEDS: ACETYLCYSTEINE 100MG/ML 10% VIAL 4ML INH SCH ×3 (00:39→16:02)
[2019-03-16] MEDS: DILTIAZEM HCL 5MG/ML 5ML VIAL IV PRN ×2 (01:06→20:03)
[2019-03-16] MEDS: LABETALOL 5MG/ML SYR 20 MG/4 ML SYRINGE IV PRN (02:12)
[2019-03-16] MEDS: BLOOD SUGAR DIAGNOSTIC STRIP TEST SCH ×3 (05:44→17:28)
[2019-03-16] MEDS: METOCLOPRAMIDE HCL 10MG/2ML VIAL IV SCH ×3 (05:51→17:30)
[2019-03-16] MEDS: INSULIN LISPRO 100 UNITS/ML SUBCUT SCH ×3 (05:52→17:28)
[2019-03-16 07:34] LABS: BG BASE EXCESS 3.4 mmol/L (-2.0-2.0); BG CARBOXYHEMOGLOBIN 1.5 % (0.5-1.5); BG DEOXYHEMOGLOBIN 1.3 % (0.0-5.0); BG FRACTION INSPIRED OXYGEN 40; BG HCO3 ACT 28.1 mmol/L (22.0-26.0); BG METHEMOGLOBIN 0.3 % (0.0-1.5); BG OXYGEN SATURATION 98.7 % (92.0-98.5); BG OXYHEMOGLOBIN 96.9 % (94.0-97.0); BG PCO2 43.4 mmHg (35.0-45.0); BG PH 7.429 (7.350-7.450); BG PO2 142.6 mmHg (75.0-100.0); BG PRESSURE SUPPORT 10; BG SAMPLE SITE RIGHT RADIAL; BG TIDAL VOLUME(mL) 450 mL; BG TOTAL HEMOGLOBIN 9.2 g/dL (12.0-18.0); BG VENT MODE VENT - SIMV; BG VENT RATE 10 set
[2019-03-16] MEDS: ACETAMINOPHEN 650MG/20.3ML UDC GT PRN ×2 (07:59→20:01)
[2019-03-16] MEDS: PANTOPRAZOLE SODIUM 40 MG/VIAL IV SCH (09:18)
[2019-03-16] MEDS: DEXT 5%/0.9% NACL 1,000 ML IV SCH (09:20)
[2019-03-16] MEDS: VANCOMYCIN 750 MG PREMIX 150 ML IV SCH (10:44)
[2019-03-16] MEDS: LEVOFLOXACIN 500MG PREMIX 100 ML IV SCH ×2 (14:19→16:17)
[2019-03-16] MEDS: ENOXAPARIN 30MG/0.3ML SYR SUBCUT SCH (17:30)
[2019-03-16] MEDS: CARVEDILOL 3.125 MG TABLET PO SCH (20:03)
[2019-03-17] VITALS (54 sets, daily range): BP systolic 90–178; BP diastolic 71–126
[2019-03-17] MEDS: METOCLOPRAMIDE HCL 10MG/2ML VIAL IV SCH ×5 (00:05→23:28)
[2019-03-17] MEDS: ACETYLCYSTEINE 100MG/ML 10% VIAL 4ML INH SCH ×3 (00:11→16:54)
[2019-03-17] MEDS: IPRATROPIUM/ALBUTEROL 0.5-3(2.5)MG/3ML NEB HHN SCH ×6 (00:11→20:17)
[2019-03-17] MEDS: BLOOD SUGAR DIAGNOSTIC STRIP TEST SCH ×4 (00:13→23:59)
[2019-03-17] MEDS: INSULIN LISPRO 100 UNITS/ML SUBCUT SCH ×4 (00:21→23:58)
[2019-03-17] MEDS: VANCOMYCIN 750 MG PREMIX 150 ML IV SCH ×3 (00:22→23:28)
[2019-03-17] MEDS: DILTIAZEM HCL 5MG/ML 5ML VIAL IV PRN ×3 (06:46→19:49)
[2019-03-17] MEDS: DEXT 5%/0.9% NACL 1,000 ML IV SCH ×3 (06:46→23:32)
[2019-03-17 08:33] LABS: BG BASE EXCESS 2.9 mmol/L (-2.0-2.0); BG CARBOXYHEMOGLOBIN 1.6 % (0.5-1.5); BG DEOXYHEMOGLOBIN 5.1 % (0.0-5.0); BG FRACTION INSPIRED OXYGEN 35; BG HCO3 ACT 26.9 mmol/L (22.0-26.0); BG METHEMOGLOBIN 0.3 % (0.0-1.5); BG OXYGEN SATURATION 94.8 % (92.0-98.5); BG PCO2 38.4 mmHg (35.0-45.0); BG PH 7.463 (7.350-7.450); BG SAMPLE SITE RIGHT RADIAL; BG TIDAL VOLUME(mL) 450 mL; BG TOTAL HEMOGLOBIN 8.7 g/dL (12.0-18.0); BG VENT MODE VENT - A/C; BG VENT RATE 8 set
[2019-03-17] MEDS: CARVEDILOL 3.125 MG TABLET PO SCH (09:00)
[2019-03-17] MEDS: PANTOPRAZOLE SODIUM 40 MG/VIAL IV SCH (09:00)
[2019-03-17] MEDS: LABETALOL 5MG/ML SYR 20 MG/4 ML SYRINGE IV PRN (14:23)
[2019-03-17] MEDS: ENOXAPARIN 40MG/0.4ML SYR SUBCUT SCH (17:24)
[2019-03-17] MEDS: CARVEDILOL 6.25 MG TABLET PO SCH (20:54)
[2019-03-17] MEDS: ACETAMINOPHEN 650MG/20.3ML UDC GT PRN (20:55)
[2019-03-18] VITALS (81 sets, daily range): BP systolic 95–188; BP diastolic 73–135
[2019-03-18] MEDS: IPRATROPIUM/ALBUTEROL 0.5-3(2.5)MG/3ML NEB HHN SCH ×6 (00:12→20:13)
[2019-03-18] MEDS: ACETYLCYSTEINE 100MG/ML 10% VIAL 4ML INH SCH ×2 (00:12→07:55)
[2019-03-18] MEDS: DILTIAZEM HCL 5MG/ML 5ML VIAL IV PRN ×2 (03:12→15:19)
[2019-03-18] MEDS: METOCLOPRAMIDE HCL 10MG/2ML VIAL IV SCH ×4 (05:32→23:19)
[2019-03-18] MEDS: LABETALOL 5MG/ML SYR 20 MG/4 ML SYRINGE IV PRN ×3 (05:32→23:06)
[2019-03-18] MEDS: ACETAMINOPHEN 650MG/20.3ML UDC GT PRN (05:32)
[2019-03-18] MEDS: INSULIN LISPRO 100 UNITS/ML SUBCUT SCH ×3 (05:45→17:46)
[2019-03-18] MEDS: BLOOD SUGAR DIAGNOSTIC STRIP TEST SCH ×4 (05:45→23:53)
[2019-03-18] MEDS: CARVEDILOL 6.25 MG TABLET PO SCH (08:22)
[2019-03-18] MEDS: PANTOPRAZOLE SODIUM 40 MG/VIAL IV SCH (08:22)
[2019-03-18 09:03] LABS: BASOPHILS % 0.7 % (0.0-2.0); EOSINOPHILS % 0.3 % (0.0-5.0); HEMATOCRIT. 29.4 % (36.0-48.0); HEMOGLOBIN. 9.5 g/dL (12.0-16.0); LYMPHOCYTES % 11.3 % (20.0-50.0); MEAN CORPUSCULAR HEMOGLOBIN 27.3 pg (28.0-32.0); MEAN CORPUSCULAR VOLUME 84.1 fL (81.0-99.0); MEAN PLATELET VOLUME 9.1 fl (7.4-10.4); MONOCYTES % 10.2 % (2.0-8.0); NEUTROPHILS % 77.5 % (40.0-76.0); PLATELET 318 x1000/uL (130-400); RED BLOOD CELL COUNT 3.49 mill/uL (4.2-5.4); RED CELL DISTRIBUTION WIDTH 14.3 % (11.6-14.6)
[2019-03-18 09:27] LABS: CHLORIDE 106 mEq/L (98-107)
[2019-03-18 10:14] LABS: BG BASE EXCESS 4.9 mmol/L (-2.0-2.0); BG CARBOXYHEMOGLOBIN 1.2 % (0.5-1.5); BG DEOXYHEMOGLOBIN 3.3 % (0.0-5.0); BG FRACTION INSPIRED OXYGEN 35; BG HCO3 ACT 29.4 mmol/L (22.0-26.0); BG METHEMOGLOBIN 0.3 % (0.0-1.5); BG OXYGEN SATURATION 96.6 % (92.0-98.5); BG OXYHEMOGLOBIN 95.2 % (94.0-97.0); BG PCO2 43.3 mmHg (35.0-45.0); BG PO2 90.1 mmHg (75.0-100.0); BG SAMPLE SITE RIGHT RADIAL; BG TIDAL VOLUME(mL) 450 mL; BG TOTAL HEMOGLOBIN 9.8 g/dL (12.0-18.0); BG VENT MODE VENT - A/C; BG VENT RATE 8 set
[2019-03-18] MEDS: VANCOMYCIN 750 MG PREMIX 150 ML IV SCH ×2 (10:37→23:14)
[2019-03-18] MEDS: LEVOFLOXACIN 500MG PREMIX 100 ML IV SCH (10:37)
[2019-03-18] MEDS: DEXT 5%/0.9% NACL 1,000 ML IV SCH (12:01)
[2019-03-18] MEDS: ENOXAPARIN 40MG/0.4ML SYR SUBCUT SCH (17:31)
[2019-03-18] MEDS: METOPROLOL TARTRATE 25MG TABLET PO SCH (20:45)
[2019-03-19] VITALS (81 sets, daily range): BP systolic 110–182; BP diastolic 80–131
[2019-03-19] MEDS: IPRATROPIUM/ALBUTEROL 0.5-3(2.5)MG/3ML NEB HHN SCH ×6 (00:13→20:01)
[2019-03-19] MEDS: INSULIN LISPRO 100 UNITS/ML SUBCUT SCH ×5 (01:45→23:26)
[2019-03-19] MEDS: BLOOD SUGAR DIAGNOSTIC STRIP TEST SCH ×4 (07:00→23:27)
[2019-03-19] MEDS: METOCLOPRAMIDE HCL 10MG/2ML VIAL IV SCH ×4 (07:34→23:26)
[2019-03-19] MEDS: DEXT 5%/0.9% NACL 1,000 ML IV SCH ×2 (07:34→15:20)
[2019-03-19] MEDS: METOPROLOL TARTRATE 25MG TABLET PO SCH ×2 (11:16→21:56)
[2019-03-19] MEDS: PANTOPRAZOLE SODIUM 40 MG/VIAL IV SCH (11:16)
[2019-03-19] MEDS: VANCOMYCIN 750 MG PREMIX 150 ML IV SCH ×2 (11:20→22:01)
[2019-03-19] MEDS: DILTIAZEM HCL 5MG/ML 5ML VIAL IV PRN ×2 (16:54→22:03)
[2019-03-19] MEDS: ENOXAPARIN 40MG/0.4ML SYR SUBCUT SCH (18:12)
[2019-03-19] MEDS: LABETALOL 5MG/ML SYR 20 MG/4 ML SYRINGE IV PRN (22:13)
[2019-03-20] VITALS (32 sets, daily range): BP systolic 116–183; BP diastolic 71–133
[2019-03-20] MEDS: IPRATROPIUM/ALBUTEROL 0.5-3(2.5)MG/3ML NEB HHN SCH ×7 (01:17→23:56)
[2019-03-20] MEDS: LABETALOL 5MG/ML SYR 20 MG/4 ML SYRINGE IV PRN ×2 (02:45→17:18)
[2019-03-20] MEDS: INSULIN LISPRO 100 UNITS/ML SUBCUT SCH ×3 (06:02→17:16)
[2019-03-20] MEDS: METOCLOPRAMIDE HCL 10MG/2ML VIAL IV SCH ×3 (06:06→17:14)
[2019-03-20] MEDS: BLOOD SUGAR DIAGNOSTIC STRIP TEST SCH ×3 (06:06→17:15)
[2019-03-20] MEDS: DEXT 5%/0.9% NACL 1,000 ML IV SCH ×2 (06:07→17:15)
[2019-03-20] MEDS: PANTOPRAZOLE SODIUM 40 MG/VIAL IV SCH (08:51)
[2019-03-20] MEDS: METOPROLOL TARTRATE 25MG TABLET PO SCH ×2 (08:51→22:02)
[2019-03-20 10:59] LABS: CHLORIDE 116 mEq/L (98-107)
[2019-03-20 11:14] LABS: HEMATOCRIT. 26.8 % (36.0-48.0); HEMOGLOBIN. 8.8 g/dL (12.0-16.0); MEAN CORPUSCULAR HEMOGLOBIN 28.2 pg (28.0-32.0); MEAN CORPUSCULAR VOLUME 85.7 fL (81.0-99.0); MEAN PLATELET VOLUME 8.3 fl (7.4-10.4); PLATELET 348 x1000/uL (130-400); RED BLOOD CELL COUNT 3.12 mill/uL (4.2-5.4); RED CELL DISTRIBUTION WIDTH 14.1 % (11.6-14.6)
[2019-03-20 14:16] LABS: BG BASE EXCESS 4.1 mmol/L (-2.0-2.0); BG CARBOXYHEMOGLOBIN 1.3 % (0.5-1.5); BG DEOXYHEMOGLOBIN 2.6 % (0.0-5.0); BG HCO3 ACT 28.9 mmol/L (22.0-26.0); BG METHEMOGLOBIN 0.3 % (0.0-1.5); BG OXYGEN SATURATION 97.4 % (92.0-98.5); BG OXYHEMOGLOBIN 95.8 % (94.0-97.0); BG PCO2 44.1 mmHg (35.0-45.0); BG PH 7.434 (7.350-7.450); BG PO2 101.3 mmHg (75.0-100.0); BG SAMPLE SITE LEFT BRACHIAL; BG TOTAL HEMOGLOBIN 10.4 g/dL (12.0-18.0); BG VENT MODE T-TUBE
[2019-03-20] MEDS ORDERED: POTASSIUM CHLORIDE 20MEQ/PACKET PEG NR (16:30)
[2019-03-20] MEDS: ENOXAPARIN 40MG/0.4ML SYR SUBCUT SCH (17:14)
[2019-03-21] VITALS (65 sets, daily range): BP systolic 115–186; BP diastolic 77–130
[2019-03-21] MEDS: METOCLOPRAMIDE HCL 10MG/2ML VIAL IV SCH ×5 (01:57→23:16)
[2019-03-21] MEDS: IPRATROPIUM/ALBUTEROL 0.5-3(2.5)MG/3ML NEB HHN SCH ×5 (03:21→20:25)
[2019-03-21] MEDS: LABETALOL 5MG/ML SYR 20 MG/4 ML SYRINGE IV PRN ×4 (04:09→21:02)
[2019-03-21] MEDS: ACETAMINOPHEN 650MG/20.3ML UDC GT PRN ×2 (04:09→21:09)
[2019-03-21] MEDS: BLOOD SUGAR DIAGNOSTIC STRIP TEST SCH ×5 (06:00→23:16)
[2019-03-21] MEDS: INSULIN LISPRO 100 UNITS/ML SUBCUT SCH ×5 (06:05→23:27)
[2019-03-21 07:25] LABS: PLATELET ESTIMATE NORMAL
[2019-03-21] MEDS: DEXT 5%/0.9% NACL 1,000 ML IV SCH ×2 (07:32→20:29)
[2019-03-21] MEDS: PANTOPRAZOLE SODIUM 40 MG/VIAL IV SCH (08:49)
[2019-03-21] MEDS: METOPROLOL TARTRATE 25MG TABLET PO SCH ×2 (08:50→20:04)
[2019-03-21 10:01] LABS: BG BASE EXCESS 5.4 mmol/L (-2.0-2.0); BG CARBOXYHEMOGLOBIN 1.2 % (0.5-1.5); BG DEOXYHEMOGLOBIN 1.6 % (0.0-5.0); BG FRACTION INSPIRED OXYGEN 35; BG HCO3 ACT 30.2 mmol/L (22.0-26.0); BG METHEMOGLOBIN 0.3 % (0.0-1.5); BG OXYGEN SATURATION 98.4 % (92.0-98.5); BG OXYHEMOGLOBIN 96.9 % (94.0-97.0); BG PCO2 46.3 mmHg (35.0-45.0); BG PH 7.433 (7.350-7.450); BG PO2 131.7 mmHg (75.0-100.0); BG SAMPLE SITE RIGHT RADIAL; BG TOTAL HEMOGLOBIN 8.8 g/dL (12.0-18.0); BG VENT MODE T-TUBE
[2019-03-21] MEDS: ENOXAPARIN 40MG/0.4ML SYR SUBCUT SCH (17:32)
[2019-03-22] VITALS (59 sets, daily range): BP systolic 132–191; BP diastolic 94–127
[2019-03-22] MEDS: IPRATROPIUM/ALBUTEROL 0.5-3(2.5)MG/3ML NEB HHN SCH ×6 (00:36→20:35)
[2019-03-22] MEDS: LABETALOL 5MG/ML SYR 20 MG/4 ML SYRINGE IV PRN ×2 (00:59→06:14)
[2019-03-22] MEDS: BLOOD SUGAR DIAGNOSTIC STRIP TEST SCH ×4 (05:55→23:43)
[2019-03-22] MEDS: INSULIN LISPRO 100 UNITS/ML SUBCUT SCH ×4 (05:55→23:42)
[2019-03-22] MEDS: METOCLOPRAMIDE HCL 10MG/2ML VIAL IV SCH ×2 (06:14→12:13)
[2019-03-22] MEDS ORDERED: CLONIDINE 0.1MG TABLET PO PRN (07:00)
[2019-03-22] MEDS ORDERED: HYDRALAZINE HCL 25MG TABLET PO SCH (07:00)
[2019-03-22] MEDS ORDERED: LOSARTAN POTASSIUM 50 MG TABLET PO SCH (09:00)
[2019-03-22] MEDS: PANTOPRAZOLE SODIUM 40 MG/VIAL IV SCH (09:02)
[2019-03-22] MEDS: AMLODIPINE 10MG TABLET PO SCH (09:03)
[2019-03-22] MEDS: METOPROLOL TARTRATE 25MG TABLET PO SCH (09:03)
[2019-03-22] MEDS: DEXT 5%/0.9% NACL 1,000 ML IV SCH (11:19)
[2019-03-22] MEDS: HYDRALAZINE HCL 50MG TABLET PO SCH ×2 (13:40→21:49)
[2019-03-22] MEDS: ENOXAPARIN 40MG/0.4ML SYR SUBCUT SCH (17:47)
[2019-03-22] MEDS: LOSARTAN POTASSIUM 50 MG TABLET PO SCH (20:37)
[2019-03-22] MEDS: METOPROLOL TARTRATE 50MG TABLET PO SCH (20:38)
[2019-03-23] VITALS (12 sets, daily range): BP systolic 117–148; BP diastolic 85–106
[2019-03-23] MEDS: IPRATROPIUM/ALBUTEROL 0.5-3(2.5)MG/3ML NEB HHN SCH ×6 (00:16→20:52)
[2019-03-23] MEDS: BLOOD SUGAR DIAGNOSTIC STRIP TEST SCH ×4 (05:37→23:09)
[2019-03-23] MEDS: INSULIN LISPRO 100 UNITS/ML SUBCUT SCH ×4 (05:37→23:54)
[2019-03-23] MEDS: HYDRALAZINE HCL 50MG TABLET PO SCH ×3 (05:37→21:30)
[2019-03-23] MEDS: DILTIAZEM HCL 5MG/ML 5ML VIAL IV PRN ×2 (06:03→17:39)
[2019-03-23 08:20] LABS: HEMATOCRIT. 31.2 % (36.0-48.0); HEMOGLOBIN. 10.1 g/dL (12.0-16.0); MEAN CORPUSCULAR HEMOGLOBIN 26.8 pg (28.0-32.0); MEAN PLATELET VOLUME 8.2 fl (7.4-10.4); PLATELET 446 x1000/uL (130-400); RED BLOOD CELL COUNT 3.76 mill/uL (4.2-5.4); RED CELL DISTRIBUTION WIDTH 14.7 % (11.6-14.6)
[2019-03-23 08:29] LABS: CHLORIDE 108 mEq/L (98-107)
[2019-03-23] MEDS: AMLODIPINE 10MG TABLET PO SCH (09:21)
[2019-03-23] MEDS: LOSARTAN POTASSIUM 50 MG TABLET PO SCH ×2 (09:22→21:30)
[2019-03-23] MEDS: METOPROLOL TARTRATE 50MG TABLET PO SCH ×2 (09:22→21:30)
[2019-03-23] MEDS: PANTOPRAZOLE SODIUM 40 MG/VIAL IV SCH (09:22)
[2019-03-23] MEDS: DEXT 5%/0.9% NACL 1,000 ML IV SCH (12:26)
[2019-03-23] MEDS: ACETYLCYSTEINE 100MG/ML 10% VIAL 4ML INH SCH (16:28)
[2019-03-23] MEDS ORDERED: CLONIDINE 0.1MG TABLET PO PRN ×2 (16:30→17:00)
[2019-03-23] MEDS ORDERED: CLONIDINE 0.2MG TABLET PO PRN (16:30)
[2019-03-23] MEDS: ENOXAPARIN 40MG/0.4ML SYR SUBCUT SCH (17:30)
[2019-03-24] VITALS: BP 126/88
[2019-03-24] MEDS: ACETYLCYSTEINE 100MG/ML 10% VIAL 4ML INH SCH ×3 (00:50→16:25)
[2019-03-24] MEDS: IPRATROPIUM/ALBUTEROL 0.5-3(2.5)MG/3ML NEB HHN SCH ×6 (00:50→21:35)
[2019-03-24 02:00] VITALS: BP 126/88
[2019-03-24] MEDS: HYDRALAZINE HCL 50MG TABLET PO SCH ×3 (05:39→21:13)
[2019-03-24] MEDS: BLOOD SUGAR DIAGNOSTIC STRIP TEST SCH ×4 (05:40→23:19)
[2019-03-24] MEDS: INSULIN LISPRO 100 UNITS/ML SUBCUT SCH ×3 (05:42→17:35)
[2019-03-24 06:00] VITALS: BP 160/106
[2019-03-24] MEDS: DEXT 5%/0.9% NACL 1,000 ML IV SCH ×2 (06:42→16:04)
[2019-03-24 08:00] VITALS: BP 118/81
[2019-03-24 08:27] LABS: PLATELET ESTIMATE SLIGHTLY INCREASED
[2019-03-24] MEDS: AMLODIPINE 10MG TABLET PO SCH (08:46)
[2019-03-24] MEDS: PANTOPRAZOLE SODIUM 40 MG/VIAL IV SCH (08:46)
[2019-03-24] MEDS: METOPROLOL TARTRATE 50MG TABLET PO SCH (08:47)
[2019-03-24] MEDS: LOSARTAN POTASSIUM 50 MG TABLET PO SCH ×2 (08:47→21:12)
[2019-03-24] MEDS: DILTIAZEM HCL 5MG/ML 5ML VIAL IV PRN ×3 (08:48→22:45)
[2019-03-24 11:27] LABS: HEMATOCRIT. 29.5 % (36.0-48.0); HEMOGLOBIN. 9.6 g/dL (12.0-16.0); MEAN CORPUSCULAR HEMOGLOBIN 27.5 pg (28.0-32.0); MEAN CORPUSCULAR VOLUME 84.2 fL (81.0-99.0); PLATELET 449 x1000/uL (130-400); RED CELL DISTRIBUTION WIDTH 14.7 % (11.6-14.6)
[2019-03-24 11:32] LABS: CHLORIDE 106 mEq/L (98-107)
[2019-03-24 12:00] VITALS: BP 122/87
[2019-03-24 12:26] LABS: PLATELET ESTIMATE INCREASED
[2019-03-24 16:00] VITALS: BP 136/96
[2019-03-24] MEDS: ENOXAPARIN 40MG/0.4ML SYR SUBCUT SCH (17:41)
[2019-03-24] MEDS: DILTIAZEM HCL 60MG TABLET PO SCH ×2 (17:41→23:27)
[2019-03-24] MEDS: METOPROLOL TARTRATE 25MG TABLET PO SCH (21:13)
[2019-03-25] MEDS: IPRATROPIUM/ALBUTEROL 0.5-3(2.5)MG/3ML NEB HHN SCH ×3 (01:17→09:32)
[2019-03-25] MEDS: ACETYLCYSTEINE 100MG/ML 10% VIAL 4ML INH SCH ×3 (01:17→16:58)
[2019-03-25] MEDS: INSULIN LISPRO 100 UNITS/ML SUBCUT SCH ×4 (01:27→17:37)
[2019-03-25] MEDS: DILTIAZEM HCL 5MG/ML 5ML VIAL IV PRN ×2 (04:16→17:27)
[2019-03-25] MEDS: BLOOD SUGAR DIAGNOSTIC STRIP TEST SCH ×3 (06:00→17:46)
[2019-03-25] MEDS: DILTIAZEM HCL 60MG TABLET PO SCH ×3 (06:22→17:26)
[2019-03-25] MEDS: HYDRALAZINE HCL 50MG TABLET PO SCH ×3 (06:22→22:29)
[2019-03-25] MEDS: DEXT 5%/0.9% NACL 1,000 ML IV SCH ×2 (06:31→18:00)
[2019-03-25 08:00] VITALS: BP 136/84
[2019-03-25] MEDS: LOSARTAN POTASSIUM 50 MG TABLET PO SCH ×2 (08:47→21:10)
[2019-03-25] MEDS: METOPROLOL TARTRATE 25MG TABLET PO SCH (08:47)
[2019-03-25] MEDS: PANTOPRAZOLE SODIUM 40 MG/VIAL IV SCH (08:48)
[2019-03-25 09:15] LABS: CHLORIDE 106 mEq/L (98-107)
[2019-03-25 12:00] VITALS: BP 108/76
[2019-03-25] MEDS ORDERED: DILT60TA35 PO (13:02)
[2019-03-25] MEDS ORDERED: HYDR-4135 PO (13:02)
[2019-03-25] MEDS ORDERED: LOSA50TA3 PO (13:02)
[2019-03-25 13:39] LABS: HEMATOCRIT. 31.3 % (36.0-48.0); HEMOGLOBIN. 10.1 g/dL (12.0-16.0); MEAN CORPUSCULAR HEMOGLOBIN 27.3 pg (28.0-32.0); MEAN CORPUSCULAR VOLUME 84.8 fL (81.0-99.0); MEAN PLATELET VOLUME 8.7 fl (7.4-10.4); PLATELET 410 x1000/uL (130-400); RED CELL DISTRIBUTION WIDTH 14.5 % (11.6-14.6)
[2019-03-25 16:00] VITALS: BP 133/88
[2019-03-25] MEDS: ENOXAPARIN 40MG/0.4ML SYR SUBCUT SCH (17:26)
[2019-03-25 20:00] VITALS: BP 147/91
[2019-03-25] MEDS: METOPROLOL TARTRATE 50MG TABLET PO SCH (21:10)
[2019-03-26] VITALS: BP 137/94
[2019-03-26] MEDS: DILTIAZEM HCL 60MG TABLET PO SCH ×3 (00:33→12:37)
[2019-03-26] MEDS: ACETYLCYSTEINE 100MG/ML 10% VIAL 4ML INH SCH ×3 (00:53→16:55)
[2019-03-26] MEDS: IPRATROPIUM/ALBUTEROL 0.5-3(2.5)MG/3ML NEB HHN PRN ×3 (00:54→16:55)
[2019-03-26 04:01] VITALS: BP 139/93
[2019-03-26] MEDS: HYDRALAZINE HCL 50MG TABLET PO SCH ×3 (05:55→21:07)
[2019-03-26] MEDS: BLOOD SUGAR DIAGNOSTIC STRIP TEST SCH ×5 (06:02→23:40)
[2019-03-26] MEDS: INSULIN LISPRO 100 UNITS/ML SUBCUT SCH ×4 (06:20→18:26)
[2019-03-26 07:13] LABS: HEMATOCRIT. 31.1 % (36.0-48.0); HEMOGLOBIN. 10.1 g/dL (12.0-16.0); MEAN CORPUSCULAR HEMOGLOBIN 27.6 pg (28.0-32.0); MEAN PLATELET VOLUME 8.7 fl (7.4-10.4); PLATELET 383 x1000/uL (130-400); RED BLOOD CELL COUNT 3.66 mill/uL (4.2-5.4)
[2019-03-26 07:23] LABS: CHLORIDE 107 mEq/L (98-107)
[2019-03-26 07:44] LABS: T4 FREE 1.31 ng/dL (0.76-1.46)
[2019-03-26 08:00] VITALS: BP 116/78
[2019-03-26] MEDS: PANTOPRAZOLE SODIUM 40 MG/VIAL IV SCH (08:51)
[2019-03-26] MEDS: LOSARTAN POTASSIUM 50 MG TABLET PO SCH ×2 (08:51→21:07)
[2019-03-26] MEDS: DEXT 5%/0.9% NACL 1,000 ML IV SCH ×2 (08:52→21:06)
[2019-03-26] MEDS: METOPROLOL TARTRATE 50MG TABLET PO SCH (08:52)
[2019-03-26 10:00] VITALS: BP 120/84
[2019-03-26 12:00] VITALS: BP 130/90
[2019-03-26 14:04] LABS: PLATELET ESTIMATE NORMAL
[2019-03-26 16:00] VITALS: BP 116/74
[2019-03-26] MEDS ORDERED: DILTIAZEM HCL 30MG TABLET PO NR (17:45)
[2019-03-26] MEDS: ENOXAPARIN 40MG/0.4ML SYR SUBCUT SCH (18:25)
[2019-03-26] MEDS: METOPROLOL TARTRATE 25MG TABLET PO SCH (21:07)
[2019-03-26] MEDS: DILTIAZEM HCL 90MG TABLET PO SCH (23:40)
[2019-03-27] VITALS (7 sets, daily range): BP systolic 101–139; BP diastolic 70–89
[2019-03-27] MEDS: ACETYLCYSTEINE 100MG/ML 10% VIAL 4ML INH SCH (00:18)
[2019-03-27] MEDS: IPRATROPIUM/ALBUTEROL 0.5-3(2.5)MG/3ML NEB HHN PRN ×3 (00:18→16:05)
[2019-03-27] MEDS: INSULIN LISPRO 100 UNITS/ML SUBCUT SCH ×5 (05:49→23:27)
[2019-03-27] MEDS: HYDRALAZINE HCL 50MG TABLET PO SCH ×3 (05:50→20:55)
[2019-03-27] MEDS: BLOOD SUGAR DIAGNOSTIC STRIP TEST SCH ×4 (05:52→23:27)
[2019-03-27] MEDS: DILTIAZEM HCL 90MG TABLET PO SCH ×4 (05:52→23:27)
[2019-03-27 06:57] LABS: CHLORIDE 113 mEq/L (98-107)
[2019-03-27] MEDS: PANTOPRAZOLE SODIUM 40 MG/VIAL IV SCH (08:17)
[2019-03-27] MEDS: METOPROLOL TARTRATE 25MG TABLET PO SCH ×2 (08:17→20:56)
[2019-03-27] MEDS: LOSARTAN POTASSIUM 50 MG TABLET PO SCH ×2 (08:17→20:56)
[2019-03-27] MEDS ORDERED: POTASSIUM CHLORIDE INJ 40 MEQ in DEXT 5% WATER 250 ML IV SCH (09:15)
[2019-03-27] MEDS ORDERED: POTASSIUM CHLORIDE 20MEQ/PACKET PO SCH (09:30)
[2019-03-27 09:59] LABS: BASOPHILS % 0.6 % (0.0-2.0); EOSINOPHILS % 0.3 % (0.0-5.0); HEMATOCRIT. 27.9 % (36.0-48.0); LYMPHOCYTES % 8.8 % (20.0-50.0); MEAN CORPUSCULAR HEMOGLOBIN 27.1 pg (28.0-32.0); MEAN CORPUSCULAR VOLUME 83.5 fL (81.0-99.0); MEAN PLATELET VOLUME 8.7 fl (7.4-10.4); MONOCYTES % 14.9 % (2.0-8.0); NEUTROPHILS % 75.4 % (40.0-76.0); PLATELET 323 x1000/uL (130-400); RED BLOOD CELL COUNT 3.34 mill/uL (4.2-5.4); RED CELL DISTRIBUTION WIDTH 14.7 % (11.6-14.6)
[2019-03-27] MEDS ORDERED: MAGNESIUM 2 G PREMIX 50 ML IV SCH (12:30)
[2019-03-27] MEDS: ENOXAPARIN 40MG/0.4ML SYR SUBCUT SCH (16:16)
[2019-03-27] MEDS: DEXT 5%/0.9% NACL 1,000 ML IV SCH ×2 (20:55→23:20)
[2019-03-27] MEDS: DILTIAZEM HCL 5MG/ML 5ML VIAL IV PRN (21:28)
[2019-03-28] VITALS (7 sets, daily range): BP systolic 111–138; BP diastolic 77–97
[2019-03-28] MEDS: IPRATROPIUM/ALBUTEROL 0.5-3(2.5)MG/3ML NEB HHN PRN (01:43)
[2019-03-28] MEDS: ACETYLCYSTEINE 100MG/ML 10% VIAL 4ML INH SCH ×2 (01:44→08:19)
[2019-03-28] MEDS: DILTIAZEM HCL 90MG TABLET PO SCH ×3 (05:38→17:49)
[2019-03-28] MEDS: HYDRALAZINE HCL 50MG TABLET PO SCH ×3 (05:38→21:38)
[2019-03-28] MEDS: BLOOD SUGAR DIAGNOSTIC STRIP TEST SCH ×3 (05:38→17:48)
[2019-03-28] MEDS: INSULIN LISPRO 100 UNITS/ML SUBCUT SCH ×3 (06:33→17:49)
[2019-03-28 06:36] LABS: CHLORIDE 108 mEq/L (98-107); HEMATOCRIT. 24.6 % (36.0-48.0); HEMOGLOBIN. 8.4 g/dL (12.0-16.0); MEAN CORPUSCULAR HEMOGLOBIN 28.5 pg (28.0-32.0); MEAN CORPUSCULAR VOLUME 83.1 fL (81.0-99.0); MEAN PLATELET VOLUME 9.1 fl (7.4-10.4); PLATELET 359 x1000/uL (130-400); RED BLOOD CELL COUNT 2.96 mill/uL (4.2-5.4); RED CELL DISTRIBUTION WIDTH 14.4 % (11.6-14.6)
[2019-03-28] MEDS: PANTOPRAZOLE SODIUM 40 MG/VIAL IV SCH (09:52)
[2019-03-28] MEDS: METOPROLOL TARTRATE 25MG TABLET PO SCH (09:53)
[2019-03-28] MEDS: LOSARTAN POTASSIUM 50 MG TABLET PO SCH ×2 (09:53→20:47)
[2019-03-28 10:54] LABS: PLATELET ESTIMATE NORMAL
[2019-03-28] MEDS: DEXT 5%/0.9% NACL 1,000 ML IV SCH (12:51)
[2019-03-28] MEDS: ENOXAPARIN 40MG/0.4ML SYR SUBCUT SCH (17:40)
[2019-03-28] MEDS: METOPROLOL TARTRATE 50MG TABLET PO SCH (20:47)
[2019-03-29] VITALS (8 sets, daily range): BP systolic 113–157; BP diastolic 80–118
[2019-03-29] MEDS: DILTIAZEM HCL 90MG TABLET PO SCH ×2 (00:49→05:08)
[2019-03-29] MEDS: BLOOD SUGAR DIAGNOSTIC STRIP TEST SCH ×5 (00:49→23:15)
[2019-03-29] MEDS: DEXT 5%/0.9% NACL 1,000 ML IV SCH ×2 (03:23→14:52)
[2019-03-29] MEDS: HYDRALAZINE HCL 50MG TABLET PO SCH ×3 (05:08→21:09)
[2019-03-29] MEDS: INSULIN LISPRO 100 UNITS/ML SUBCUT SCH ×5 (05:17→23:21)
[2019-03-29] MEDS: LOSARTAN POTASSIUM 50 MG TABLET PO SCH ×2 (08:49→20:45)
[2019-03-29] MEDS: PANTOPRAZOLE SODIUM 40 MG/VIAL IV SCH (08:49)
[2019-03-29] MEDS: METOPROLOL TARTRATE 50MG TABLET PO SCH (08:50)
[2019-03-29] MEDS: DILTIAZEM HCL 5MG/ML 5ML VIAL IV PRN (08:57)
[2019-03-29] MEDS: DILTIAZEM HCL 60MG TABLET PO SCH ×2 (13:48→21:10)
[2019-03-29] MEDS ORDERED: IOHEXOL-350 100 ML BOTTLE ONE (17:08)
[2019-03-29] MEDS: ENOXAPARIN 40MG/0.4ML SYR SUBCUT SCH (18:30)
[2019-03-29] MEDS: METOPROLOL TARTRATE 100MG TABLET PO SCH (20:46)
[2019-03-30] VITALS (7 sets, daily range): BP systolic 111–134; BP diastolic 76–93
[2019-03-30] MEDS: HYDRALAZINE HCL 50MG TABLET PO SCH ×3 (05:30→21:02)
[2019-03-30] MEDS: DILTIAZEM HCL 60MG TABLET PO SCH ×3 (05:31→21:05)
[2019-03-30] MEDS: BLOOD SUGAR DIAGNOSTIC STRIP TEST SCH ×4 (05:31→23:05)
[2019-03-30] MEDS: INSULIN LISPRO 100 UNITS/ML SUBCUT SCH ×4 (05:31→23:11)
[2019-03-30] MEDS: DEXT 5%/0.9% NACL 1,000 ML IV SCH ×2 (06:47→17:20)
[2019-03-30 09:13] LABS: HEMATOCRIT. 29.9 % (36.0-48.0); HEMOGLOBIN. 9.6 g/dL (12.0-16.0); MEAN CORPUSCULAR HEMOGLOBIN 26.7 pg (28.0-32.0); MEAN CORPUSCULAR VOLUME 83.3 fL (81.0-99.0); PLATELET 413 x1000/uL (130-400); RED BLOOD CELL COUNT 3.59 mill/uL (4.2-5.4); RED CELL DISTRIBUTION WIDTH 14.6 % (11.6-14.6)
[2019-03-30] MEDS: PANTOPRAZOLE SODIUM 40 MG/VIAL IV SCH (09:21)
[2019-03-30] MEDS: LOSARTAN POTASSIUM 50 MG TABLET PO SCH ×2 (09:21→21:02)
[2019-03-30] MEDS: METOPROLOL TARTRATE 100MG TABLET PO SCH ×2 (09:21→21:02)
[2019-03-30 09:24] LABS: CHLORIDE 106 mEq/L (98-107)
[2019-03-30 14:02] LABS: PLATELET ESTIMATE SLIGHTLY INCREASED
[2019-03-30] MEDS: ENOXAPARIN 40MG/0.4ML SYR SUBCUT SCH (17:19)
[2019-03-31] VITALS (7 sets, daily range): BP systolic 124–151; BP diastolic 77–106
[2019-03-31] MEDS: DILTIAZEM HCL 60MG TABLET PO SCH ×3 (05:37→21:52)
[2019-03-31] MEDS: BLOOD SUGAR DIAGNOSTIC STRIP TEST SCH ×3 (05:38→17:15)
[2019-03-31] MEDS: HYDRALAZINE HCL 50MG TABLET PO SCH ×3 (05:38→21:53)
[2019-03-31] MEDS: INSULIN LISPRO 100 UNITS/ML SUBCUT SCH ×3 (05:48→17:18)
[2019-03-31] MEDS: PANTOPRAZOLE SODIUM 40 MG/VIAL IV SCH (09:31)
[2019-03-31] MEDS: LOSARTAN POTASSIUM 50 MG TABLET PO SCH ×2 (09:32→21:53)
[2019-03-31] MEDS: DEXT 5%/0.9% NACL 1,000 ML IV SCH ×2 (09:32→21:54)
[2019-03-31] MEDS: METOPROLOL TARTRATE 100MG TABLET PO SCH ×2 (09:32→21:52)
[2019-03-31] MEDS: ENOXAPARIN 40MG/0.4ML SYR SUBCUT SCH (17:16)
[2019-04-01] VITALS (13 sets, daily range): BP systolic 114–163; BP diastolic 81–117
[2019-04-01] MEDS: INSULIN LISPRO 100 UNITS/ML SUBCUT SCH ×4 (00:52→17:57)
[2019-04-01] MEDS: HYDRALAZINE HCL 50MG TABLET PO SCH ×3 (05:39→21:21)
[2019-04-01] MEDS: DILTIAZEM HCL 60MG TABLET PO SCH ×3 (05:40→21:23)
[2019-04-01] MEDS: BLOOD SUGAR DIAGNOSTIC STRIP TEST SCH ×4 (05:40→17:57)
[2019-04-01] MEDS: PANTOPRAZOLE SODIUM 40 MG/VIAL IV SCH (09:54)
[2019-04-01] MEDS: LOSARTAN POTASSIUM 50 MG TABLET PO SCH ×2 (09:55→21:21)
[2019-04-01] MEDS: METOPROLOL TARTRATE 100MG TABLET PO SCH ×2 (09:55→21:22)
[2019-04-01] MEDS: DEXT 5%/0.9% NACL 1,000 ML IV SCH ×2 (09:56→23:20)
[2019-04-01] MEDS: ENOXAPARIN 40MG/0.4ML SYR SUBCUT SCH (18:46)
[2019-04-01] MEDS: ACETAMINOPHEN 650MG/20.3ML UDC GT PRN (21:23)
[2019-04-02] VITALS (13 sets, daily range): BP systolic 99–133; BP diastolic 75–94
[2019-04-02] MEDS: BLOOD SUGAR DIAGNOSTIC STRIP TEST SCH ×4 (00:06→18:49)
[2019-04-02] MEDS: INSULIN LISPRO 100 UNITS/ML SUBCUT SCH ×4 (00:11→18:48)
[2019-04-02] MEDS: IPRATROPIUM/ALBUTEROL 0.5-3(2.5)MG/3ML NEB HHN PRN (01:14)
[2019-04-02] MEDS: HYDRALAZINE HCL 50MG TABLET PO SCH ×3 (07:07→22:58)
[2019-04-02] MEDS: DILTIAZEM HCL 60MG TABLET PO SCH ×3 (07:07→22:56)
[2019-04-02] MEDS: PANTOPRAZOLE SODIUM 40 MG/VIAL IV SCH (07:54)
[2019-04-02] MEDS: METOPROLOL TARTRATE 100MG TABLET PO SCH ×2 (07:55→22:57)
[2019-04-02] MEDS: LOSARTAN POTASSIUM 50 MG TABLET PO SCH ×2 (07:55→22:57)
[2019-04-02] MEDS: DEXT 5%/0.9% NACL 1,000 ML IV SCH (13:08)
[2019-04-02] MEDS: DILTIAZEM HCL 5MG/ML 5ML VIAL IV PRN (14:02)
[2019-04-02] MEDS ORDERED: ENOXAPARIN 30MG/0.3ML SYR SUBCUT SCH (17:00)
[2019-04-03] MEDS: BLOOD SUGAR DIAGNOSTIC STRIP TEST SCH ×3 (00:56→12:56)
[2019-04-03] MEDS: INSULIN LISPRO 100 UNITS/ML SUBCUT SCH ×3 (00:56→13:04)
[2019-04-03] MEDS: DILTIAZEM HCL 60MG TABLET PO SCH ×2 (06:27→13:07)
[2019-04-03] MEDS: HYDRALAZINE HCL 50MG TABLET PO SCH ×2 (06:28→13:04)
[2019-04-03 08:00] VITALS: BP 108/73
[2019-04-03] MEDS: METOPROLOL TARTRATE 100MG TABLET PO SCH (08:25)
[2019-04-03] MEDS: LOSARTAN POTASSIUM 50 MG TABLET PO SCH (08:25)
[2019-04-03] MEDS: PANTOPRAZOLE SODIUM 40 MG/VIAL IV SCH (08:25)
[2019-04-03] MEDS: DEXT 5%/0.9% NACL 1,000 ML IV SCH (08:25)
[2019-04-03 11:42] VITALS: BP 102/73
[2019-04-03 12:00] VITALS: BP 122/90
== END 2019-04-03 14:25 | disposition home or self-care (01) | DRG 720 ==
LOC: ER 10:43 → MICUSO 12:25 → ENRESERV 14:29 → 6EST 03-12 01:02 → MICUSO 03-12 01:12 → 5EST 03-22 14:33
PROVIDERS: ADMIT Hospitalist; ATTEND Hospitalist
PROC: 5A1955Z Respiratory Ventilation, Greater than 96 Consecutive Hours (ICD-10-PCS; principal; 2019-03-08)
PROC: 02H633Z Insertion of Infusion Device into Right Atrium, Percutaneous Approach (ICD-10-PCS; 2019-03-17)
PROC: B548ZZA Ultrasonography of Superior Vena Cava, Guidance (ICD-10-PCS; 2019-03-17)
DX: A41.9 Sepsis, unspecified organism (principal); J96.00 Acute respiratory failure, unspecified whether with hypoxia or hypercapnia; J69.0 Pneumonitis due to inhalation of food and vomit; G93.40 Encephalopathy, unspecified; E43 Unspecified severe protein-calorie malnutrition; G35 Multiple sclerosis; R64 Cachexia; Z93.0 Tracheostomy status; I50.22 Chronic systolic (congestive) heart failure; I11.0 Hypertensive heart disease with heart failure; I07.1 Rheumatic tricuspid insufficiency; B19.20 Unspecified viral hepatitis C without hepatic coma; E11.9 Type 2 diabetes mellitus without complications; E83.42 Hypomagnesemia; E87.6 Hypokalemia; I42.9 Cardiomyopathy, unspecified; R00.0 Tachycardia, unspecified; I27.20 Pulmonary hypertension, unspecified; R47.02 Dysphasia; I27.29 Other secondary pulmonary hypertension; J44.9 Chronic obstructive pulmonary disease, unspecified; N39.0 Urinary tract infection, site not specified; R13.10 Dysphagia, unspecified; Z93.1 Gastrostomy status; Z86.19 Personal history of other infectious and parasitic diseases; Z86.718 Personal history of other venous thrombosis and embolism; Z88.0 Allergy status to penicillin; Z74.01 Bed confinement status; Z79.899 Other long term (current) drug therapy; Z68.20 Body mass index [BMI] 20.0-20.9, adult; X58.XXXA Exposure to other specified factors, initial encounter; Y93.89 Activity, other specified; Y92.89 Other specified places as the place of occurrence of the external cause; Y99.8 Other external cause status; S30.820A Blister (nonthermal) of lower back and pelvis, initial encounter
CPT/HCPCS: 36415; 36600; 70496; 70498; 71045; 71275; 76937; 80048; 80053; 80202; 80305; 80320; 81003; 82375; 82550; 82553; 82805; 82962; 83605; 83721; 83735; 83880; 84134; 84439; 84443; 84478; 84480; 84484; 85025; 87070; 87804; 93005; 93970; 94003; 94640; 94667; 96365; 97161; 97164; 97530; 99291; A6261; C1725; C9113; J1650; J1815; J1956; J2060; J2250; J2270; J2405; J2704; J2765; J3370; J3475; J3480; J3490; J7030; J7042; J7060; J7608; Q9967; A4315; G0480

== ENCOUNTER 2019-05-29 10:41 | Inpatient (IN) | payer MEDICAID ==
[~2019-05-29] VITALS: Ht 154.9 cm; Wt 51.0 kg
[2019-05-29] MEDS: BLOOD SUGAR DIAGNOSTIC STRIP TEST SCH ×2 (01:40→17:42)
[2019-05-29] MEDS: INSULIN LISPRO 100 UNITS/ML SUBCUT SCH ×2 (01:40→17:42)
[~2019-05-29 10:41] MED LIST changes: -DILT30TA38 PO; +DILT60TA35 PO; +HYDR-4135 PO; +LOSA50TA3 PO
[2019-05-29] MEDS ORDERED: SODIUM CHLORIDE 0.9% 1000ML BAG (SEPSIS BOLUS) IV ONE (11:15)
[2019-05-29 11:49] LABS: HEMATOCRIT. 38.3 % (36.0-48.0); HEMOGLOBIN. 12.6 g/dL (12.0-16.0); MEAN CORPUSCULAR HEMOGLOBIN 27.8 pg (28.0-32.0); MEAN CORPUSCULAR VOLUME 84.4 fL (81.0-99.0); MEAN PLATELET VOLUME 9.3 fl (7.4-10.4); PLATELET 196 x1000/uL (130-400); RED BLOOD CELL COUNT 4.54 mill/uL (4.2-5.4); RED CELL DISTRIBUTION WIDTH 15.3 % (11.6-14.6)
[2019-05-29 11:53] LABS: CHLORIDE 107 mEq/L (98-107)
[2019-05-29 11:54] LABS: INR 1.1; PROTHROMBIN TIME 11.4 sec (9.6-11.0)
[2019-05-29] MEDS ORDERED: ACETAMINOPHEN 325MG TABLET PO ONE (12:15)
[2019-05-29 12:25] LABS: PLATELET ESTIMATE NORMAL
[2019-05-29 14:02] LABS: CLARITY URINE CLOUDY (CLEAR); COLOR URINE YELLOW (YELLOW); KETONES URINE NEGATIVE (NEGATIVE); LEUKOCYTE ESTERASE URINE 2+ (NEGATIVE); NITRITE URINE NEGATIVE (NEGATIVE); OCCULT BLOOD URINE TRACE (NEGATIVE); PROTEIN URINE 2+ (NEGATIVE); SPECIFIC GRAVITY URINE 1.012 (1.005-1.030); UROBILINOGEN URINE 0.2 E.U./dL (0.2-1.0)
[2019-05-29] MEDS ORDERED: LEVOFLOXACIN 750MG PREMIX 150 ML IV ONE (14:15)
[2019-05-29] MEDS: SODIUM CHLORIDE 0.9% 1,000 ML IV SCH (15:17)
[2019-05-29] MEDS ORDERED: DOCUSATE SODIUM 100MG CAPSULE PO PRN (15:30)
[2019-05-29] MEDS ORDERED: KETOROLAC 15MG/ML VIAL IV PRN (15:30)
[2019-05-29] MEDS ORDERED: DEXTROSE 50% WATER 50ML SYRINGE IV PRN (15:30)
[2019-05-29] MEDS ORDERED: TRAMADOL 50MG TABLET PO PRN (15:30)
[2019-05-29] MEDS ORDERED: ACETAMINOPHEN 325MG TABLET PO PRN (15:30)
[2019-05-29] MEDS ORDERED: ONDANSETRON HCL 4MG/2ML INJ IV PRN (15:30)
[2019-05-29] MEDS ORDERED: NITROGLYCERIN 0.4MG TABLET SL SL PRN (15:30)
[2019-05-29] MEDS ORDERED: LEVOFLOXACIN 500MG PREMIX 100 ML IV SCH (15:30)
[2019-05-29] MEDS ORDERED: MAGNESIUM/ALUMINUM HYDROXIDE/SIMETHICONE 30ML UDC PO PRN (15:30)
[2019-05-29] MEDS ORDERED: ZOLPIDEM TARTRATE 5MG TABLET PO PRN (15:30)
[2019-05-29] MEDS ORDERED: DILTIAZEM HCL 60MG TABLET PO NR (17:45)
[2019-05-29] MEDS ORDERED: FAMOTIDINE 20MG TABLET PO SCH (21:00)
[2019-05-29] MEDS ORDERED: ASCORBIC ACID 500 MG TABLET PO SCH (21:00)
[2019-05-29] MEDS: ACETAMINOPHEN 325MG TABLET PO PRN (22:33)
[2019-05-29 23:40] LABS: CREATINE KINASE 70 IU/L (26-192)
[2019-05-29 23:41] LABS: CREATINE KINASE MB FRACTION < 1.0 ng/mL (0.5-3.6)
[2019-05-29 23:50] VITALS: BP 108/85
[2019-05-30] MEDS: SODIUM CHLORIDE 0.9% 1,000 ML IV SCH ×3 (02:07→21:06)
[2019-05-30 04:00] VITALS: BP 109/87
[2019-05-30 06:00] VITALS: BP 113/84
[2019-05-30] MEDS: BLOOD SUGAR DIAGNOSTIC STRIP TEST SCH ×4 (06:27→20:41)
[2019-05-30] MEDS: DILTIAZEM HCL 60MG TABLET PO SCH ×5 (06:27→23:51)
[2019-05-30 07:41] LABS: CREATINE KINASE MB FRACTION 1.8 ng/mL (0.5-3.6)
[2019-05-30] MEDS: INSULIN LISPRO 100 UNITS/ML SUBCUT SCH ×4 (07:50→20:41)
[2019-05-30] MEDS ORDERED: CEFTRIAXONE 1 G PREMIX 50 ML IV SCH (09:00)
[2019-05-30] MEDS ORDERED: METOCLOPRAMIDE HCL 10MG/2ML VIAL IV PRN (09:30)
[2019-05-30] MEDS: GUAIFENESIN 200MG/10ML SUGAR FREE UDC PO PRN ×2 (09:33→17:47)
[2019-05-30] MEDS: ZINC SULFATE 220 MG ( 50 ) CAPSULE PO SCH (09:34)
[2019-05-30] MEDS: FAMOTIDINE 20MG TABLET PO SCH ×2 (09:34→21:06)
[2019-05-30] MEDS: ASCORBIC ACID 500 MG TABLET PO SCH ×2 (09:34→21:06)
[2019-05-30] MEDS: ASPIRIN 325MG EC TABLET PO SCH (09:34)
[2019-05-30] MEDS: ENOXAPARIN 30MG/0.3ML SYR SUBCUT SCH (09:42)
[2019-05-30 12:21] VITALS: BP 174/91
[2019-05-30] MEDS: CLONIDINE 0.1MG TABLET PO PRN (12:36)
[2019-05-30] MEDS: LEVOFLOXACIN 500MG PREMIX 100 ML IV SCH (14:09)
[2019-05-30] MEDS: VANCOMYCIN 500 MG PREMIX 100 ML IV SCH ×2 (15:58→23:51)
[2019-05-30 16:18] VITALS: BP 128/88
[2019-05-30 20:00] VITALS: BP 126/94
[2019-05-31] VITALS: BP 143/101
[2019-05-31 04:30] VITALS: BP 125/96
[2019-05-31] MEDS: DILTIAZEM HCL 60MG TABLET PO SCH ×2 (05:52→12:00)
[2019-05-31] MEDS: BLOOD SUGAR DIAGNOSTIC STRIP TEST SCH ×4 (06:44→20:54)
[2019-05-31] MEDS: SODIUM CHLORIDE 0.9% 1,000 ML IV SCH ×2 (06:48→16:58)
[2019-05-31] MEDS: INSULIN LISPRO 100 UNITS/ML SUBCUT SCH ×4 (07:50→20:54)
[2019-05-31 08:19] VITALS: BP 116/78
[2019-05-31] MEDS: ASPIRIN 325MG EC TABLET PO SCH (08:55)
[2019-05-31] MEDS: FAMOTIDINE 20MG TABLET PO SCH ×2 (08:55→20:53)
[2019-05-31] MEDS: ENOXAPARIN 30MG/0.3ML SYR SUBCUT SCH (08:55)
[2019-05-31] MEDS: ZINC SULFATE 220 MG ( 50 ) CAPSULE PO SCH (08:55)
[2019-05-31] MEDS: ASCORBIC ACID 500 MG TABLET PO SCH ×2 (08:55→20:53)
[2019-05-31] MEDS: VANCOMYCIN 500 MG PREMIX 100 ML IV SCH ×2 (08:57→16:42)
[2019-05-31 11:52] VITALS: BP 101/66
[2019-05-31] MEDS: LEVOFLOXACIN 500MG PREMIX 100 ML IV SCH (14:06)
[2019-05-31 16:04] VITALS: BP 136/102
[2019-05-31] MEDS ORDERED: DILTIAZEM HCL 30MG TABLET PO SCH (16:45)
[2019-05-31] MEDS: CLONIDINE 0.1MG TABLET PO PRN (16:52)
[2019-05-31] MEDS ORDERED: DILTIAZEM HCL 60MG TABLET PO NR (17:15)
[2019-05-31] MEDS ORDERED: SODIUM CHLORIDE 0.9% 500 ML IV ONE (17:15)
[2019-05-31] MEDS ORDERED: ALBUMIN HUMAN 25GM/100ML (25%) IV SCH (17:30)
[2019-05-31 18:32] LABS: *AMPHETAMINES SCREEN URINE NEGATIVE (NEGATIVE); *BARBITURATES SCREEN URINE NEGATIVE (NEGATIVE); *BENZODIAZEPINES SCREEN URINE NEGATIVE (NEGATIVE); *COCAINE SCREEN URINE NEGATIVE (NEGATIVE); CANNABINOID URINE SCREEN NEGATIVE (NEGATIVE); PHENCYCLIDINE URINE SCREEN NEGATIVE (NEGATIVE)
[2019-05-31 18:33] LABS: METHADONE URINE SCREEN NEGATIVE (NEGATIVE)
[2019-05-31 20:00] VITALS: BP 139/76
[2019-05-31] MEDS: CEFTRIAXONE 1 G PREMIX 50 ML IV SCH (20:54)
[2019-05-31] MEDS: DILTIAZEM HCL 90MG TABLET PO SCH (23:30)
[2019-06-01] VITALS (7 sets, daily range): BP systolic 119–150; BP diastolic 82–108
[2019-06-01] MEDS: ACETAMINOPHEN 325MG TABLET PO PRN (00:04)
[2019-06-01] MEDS: IPRATROPIUM/ALBUTEROL 0.5-3(2.5)MG/3ML NEB NEB PRN (00:08)
[2019-06-01] MEDS: SODIUM CHLORIDE 0.9% 1,000 ML IV SCH ×2 (03:17→12:36)
[2019-06-01] MEDS: DILTIAZEM HCL 90MG TABLET PO SCH ×3 (05:08→17:28)
[2019-06-01] MEDS: BLOOD SUGAR DIAGNOSTIC STRIP TEST SCH ×4 (06:24→21:00)
[2019-06-01 08:03] LABS: CHLORIDE 106 mEq/L (98-107)
[2019-06-01] MEDS: ASCORBIC ACID 500 MG TABLET PO SCH ×2 (08:59→21:36)
[2019-06-01] MEDS: FAMOTIDINE 20MG TABLET PO SCH ×2 (09:00→21:36)
[2019-06-01] MEDS: ASPIRIN 325MG EC TABLET PO SCH (09:00)
[2019-06-01] MEDS: ZINC SULFATE 220 MG ( 50 ) CAPSULE PO SCH (09:00)
[2019-06-01] MEDS: ENOXAPARIN 30MG/0.3ML SYR SUBCUT SCH (09:00)
[2019-06-01] MEDS: INSULIN LISPRO 100 UNITS/ML SUBCUT SCH ×4 (09:01→22:28)
[2019-06-01] MEDS: CEFTRIAXONE 1 G PREMIX 50 ML IV SCH (21:35)
[2019-06-01] MEDS ORDERED: DILTIAZEM HCL 5MG/ML 5ML VIAL IV NR (21:45)
[2019-06-01] MEDS ORDERED: DILTIAZEM HCL 125 MG in DEXT 5% WATER 100 ML IV PRN (21:45)
[2019-06-02] VITALS (13 sets, daily range): BP systolic 93–157; BP diastolic 65–107
[2019-06-02] MEDS: IPRATROPIUM/ALBUTEROL 0.5-3(2.5)MG/3ML NEB NEB PRN ×4 (00:10→16:41)
[2019-06-02] MEDS: DILTIAZEM HCL 90MG TABLET PO SCH (00:14)
[2019-06-02 01:34] LABS: BG BASE EXCESS 4.5 mmol/L (-2.0-2.0); BG CARBOXYHEMOGLOBIN 0.4 % (0.5-1.5); BG DEOXYHEMOGLOBIN 1.2 % (0.0-5.0); BG FRACTION INSPIRED OXYGEN 100; BG HCO3 ACT 29.5 mmol/L (22.0-26.0); BG METHEMOGLOBIN 0.3 % (0.0-1.5); BG OXYGEN SATURATION 98.8 % (92.0-98.5); BG OXYHEMOGLOBIN 98.1 % (94.0-97.0); BG PCO2 45.4 mmHg (35.0-45.0); BG PO2 148.9 mmHg (75.0-100.0); BG SAMPLE SITE RIGHT BRACHIAL; BG TOTAL HEMOGLOBIN 12.2 g/dL (12.0-18.0); BG VENT MODE MASK - NRB
[2019-06-02] MEDS: SODIUM CHLORIDE 0.9% 1,000 ML IV SCH ×3 (01:38→20:19)
[2019-06-02] MEDS: ACETAMINOPHEN 650MG/20.3ML UDC PO PRN (01:49)
[2019-06-02] MEDS: DILTIAZEM HCL 125 MG in DEXT 5% WATER 100 ML IV SCH (05:12)
[2019-06-02] MEDS: BLOOD SUGAR DIAGNOSTIC STRIP TEST SCH ×4 (06:06→20:13)
[2019-06-02 06:28] LABS: BASOPHILS % 0.1 % (0.0-2.0); HEMATOCRIT. 35.6 % (36.0-48.0); HEMOGLOBIN. 11.7 g/dL (12.0-16.0); LYMPHOCYTES % 7.2 % (20.0-50.0); MEAN CORPUSCULAR HEMOGLOBIN 27.8 pg (28.0-32.0); MEAN CORPUSCULAR VOLUME 84.2 fL (81.0-99.0); MONOCYTES % 9.4 % (2.0-8.0); NEUTROPHILS % 83.3 % (40.0-76.0); PLATELET 123 x1000/uL (130-400); RED BLOOD CELL COUNT 4.23 mill/uL (4.2-5.4); RED CELL DISTRIBUTION WIDTH 15.1 % (11.6-14.6)
[2019-06-02] MEDS: INSULIN LISPRO 100 UNITS/ML SUBCUT SCH ×4 (06:57→20:12)
[2019-06-02 07:25] LABS: CHLORIDE 107 mEq/L (98-107)
[2019-06-02] MEDS: ZINC SULFATE 220 MG ( 50 ) CAPSULE PO SCH (08:37)
[2019-06-02] MEDS: ASPIRIN 325MG EC TABLET PO SCH (08:37)
[2019-06-02] MEDS: ENOXAPARIN 30MG/0.3ML SYR SUBCUT SCH (08:37)
[2019-06-02] MEDS: ASCORBIC ACID 500 MG TABLET PO SCH ×2 (08:37→20:12)
[2019-06-02] MEDS: FAMOTIDINE 20MG TABLET PO SCH ×2 (08:38→20:12)
[2019-06-02] MEDS: DILTIAZEM HCL 30MG TABLET GT SCH ×2 (10:00→17:52)
[2019-06-02] MEDS: CEFTRIAXONE 1 G PREMIX 50 ML IV SCH (20:12)
[2019-06-02] MEDS: CLONIDINE 0.1MG TABLET PO PRN (23:34)
[2019-06-03] VITALS (16 sets, daily range): BP systolic 111–165; BP diastolic 66–109
[2019-06-03] MEDS: DILTIAZEM HCL 30MG TABLET GT SCH ×3 (01:34→17:26)
[2019-06-03] MEDS: DILTIAZEM HCL 125 MG in DEXT 5% WATER 100 ML IV SCH ×2 (01:35→19:49)
[2019-06-03] MEDS: ACETAMINOPHEN 650MG/20.3ML UDC PO PRN (05:43)
[2019-06-03 06:51] LABS: HEMATOCRIT. 36.3 % (36.0-48.0); MEAN CORPUSCULAR HEMOGLOBIN 28.1 pg (28.0-32.0); MEAN CORPUSCULAR VOLUME 85.2 fL (81.0-99.0); MEAN PLATELET VOLUME 10.3 fl (7.4-10.4); PLATELET 126 x1000/uL (130-400); RED BLOOD CELL COUNT 4.27 mill/uL (4.2-5.4); RED CELL DISTRIBUTION WIDTH 15.5 % (11.6-14.6)
[2019-06-03] MEDS: BLOOD SUGAR DIAGNOSTIC STRIP TEST SCH ×4 (06:58→21:01)
[2019-06-03] MEDS: INSULIN LISPRO 100 UNITS/ML SUBCUT SCH ×4 (06:59→21:00)
[2019-06-03 07:03] LABS: CHLORIDE 104 mEq/L (98-107)
[2019-06-03] MEDS: ASPIRIN 325MG EC TABLET PO SCH (09:01)
[2019-06-03] MEDS: ZINC SULFATE 220 MG ( 50 ) CAPSULE PO SCH (09:01)
[2019-06-03] MEDS: FAMOTIDINE 20MG TABLET PO SCH ×2 (09:01→21:01)
[2019-06-03] MEDS: ASCORBIC ACID 500 MG TABLET PO SCH ×2 (09:01→21:01)
[2019-06-03] MEDS: ENOXAPARIN 30MG/0.3ML SYR SUBCUT SCH (09:03)
[2019-06-03] MEDS: SODIUM CHLORIDE 0.9% 1,000 ML IV SCH ×2 (09:11→19:41)
[2019-06-03 09:37] LABS: PLATELET ESTIMATE SLIGHTLY DECREASED
[2019-06-03] MEDS: IPRATROPIUM BROMIDE (0.02%) 0.5MG/2.5ML NEB HHN PRN ×2 (11:48→15:50)
[2019-06-03] MEDS: CEFEPIME 1,000 MG in DEXTROSE 5% WATER 50 ML IV SCH (16:45)
[2019-06-03 16:48] LABS: OPIATES URINE SCREEN PRESUMTIVE POSITIVE (NEGATIVE)
[2019-06-04] VITALS (11 sets, daily range): BP systolic 111–145; BP diastolic 79–107
[2019-06-04] MEDS: SODIUM CHLORIDE 0.9% 1,000 ML IV SCH ×4 (01:17→21:27)
[2019-06-04] MEDS: DILTIAZEM HCL 30MG TABLET GT SCH ×2 (01:54→08:51)
[2019-06-04] MEDS: CEFEPIME 1,000 MG in DEXTROSE 5% WATER 50 ML IV SCH ×2 (04:13→17:03)
[2019-06-04 06:26] LABS: BASOPHILS % 0.2 % (0.0-2.0); HEMATOCRIT. 33.6 % (36.0-48.0); LYMPHOCYTES % 8.7 % (20.0-50.0); MEAN CORPUSCULAR HEMOGLOBIN 28.2 pg (28.0-32.0); MEAN CORPUSCULAR VOLUME 86.1 fL (81.0-99.0); MEAN PLATELET VOLUME 9.9 fl (7.4-10.4); MONOCYTES % 11.3 % (2.0-8.0); NEUTROPHILS % 79.8 % (40.0-76.0); PLATELET 147 x1000/uL (130-400); RED CELL DISTRIBUTION WIDTH 15.6 % (11.6-14.6)
[2019-06-04 06:28] LABS: CHLORIDE 108 mEq/L (98-107)
[2019-06-04] MEDS: INSULIN LISPRO 100 UNITS/ML SUBCUT SCH ×4 (06:32→21:27)
[2019-06-04] MEDS: BLOOD SUGAR DIAGNOSTIC STRIP TEST SCH ×4 (06:58→21:27)
[2019-06-04] MEDS: IPRATROPIUM BROMIDE (0.02%) 0.5MG/2.5ML NEB HHN PRN ×2 (08:01→11:30)
[2019-06-04] MEDS: ASPIRIN 325MG EC TABLET PO SCH (08:44)
[2019-06-04] MEDS: FAMOTIDINE 20MG TABLET PO SCH ×2 (08:44→21:26)
[2019-06-04] MEDS: ASCORBIC ACID 500 MG TABLET PO SCH ×2 (08:44→21:25)
[2019-06-04] MEDS: ZINC SULFATE 220 MG ( 50 ) CAPSULE PO SCH (08:44)
[2019-06-04] MEDS: ENOXAPARIN 30MG/0.3ML SYR SUBCUT SCH (08:45)
[2019-06-04] MEDS ORDERED: LIDOCAINE HCL/PF 1% 2ML VIAL ONE (13:13)
[2019-06-04 15:21] LABS: BG BASE EXCESS 10.2 mmol/L (-2.0-2.0); BG CARBOXYHEMOGLOBIN 0.4 % (0.5-1.5); BG DEOXYHEMOGLOBIN 5.8 % (0.0-5.0); BG FRACTION INSPIRED OXYGEN 32; BG HCO3 ACT 35.9 mmol/L (22.0-26.0); BG METHEMOGLOBIN 0.3 % (0.0-1.5); BG OXYGEN SATURATION 94.2 % (92.0-98.5); BG OXYHEMOGLOBIN 93.5 % (94.0-97.0); BG PCO2 53.9 mmHg (35.0-45.0); BG PH 7.441 (7.350-7.450); BG PO2 66.1 mmHg (75.0-100.0); BG SAMPLE SITE RIGHT BRACHIAL; BG TOTAL HEMOGLOBIN 10.4 g/dL (12.0-18.0); BG VENT MODE NASAL CANNULA
[2019-06-04] MEDS: IPRATROPIUM BROMIDE (0.02%) 0.5MG/2.5ML NEB HHN SCH ×3 (15:27→23:27)
[2019-06-04] MEDS: ACETYLCYSTEINE 100MG/ML 10% VIAL 4ML INH SCH ×2 (15:28→23:26)
[2019-06-04] MEDS ORDERED: DILTIAZEM HCL 30MG TABLET GT SCH (18:00)
[2019-06-04] MEDS: CLONIDINE 0.1MG TABLET PO PRN (21:26)
[2019-06-05] VITALS (10 sets, daily range): BP systolic 124–154; BP diastolic 87–125
[2019-06-05] MEDS ORDERED: DILTIAZEM HCL 5MG/ML 5ML VIAL IV NR (00:30)
[2019-06-05] MEDS: DILTIAZEM HCL 125 MG in DEXT 5% WATER 100 ML IV SCH (02:05)
[2019-06-05] MEDS: IPRATROPIUM BROMIDE (0.02%) 0.5MG/2.5ML NEB HHN SCH ×5 (03:42→20:49)
[2019-06-05] MEDS: CEFEPIME 1,000 MG in DEXTROSE 5% WATER 50 ML IV SCH ×2 (04:06→16:29)
[2019-06-05 06:25] LABS: BASOPHILS % 0.3 % (0.0-2.0); EOSINOPHILS % 0.1 % (0.0-5.0); HEMATOCRIT. 33.8 % (36.0-48.0); HEMOGLOBIN. 11.1 g/dL (12.0-16.0); LYMPHOCYTES % 8.8 % (20.0-50.0); MEAN CORPUSCULAR HEMOGLOBIN 27.8 pg (28.0-32.0); MEAN CORPUSCULAR VOLUME 84.6 fL (81.0-99.0); MEAN PLATELET VOLUME 9.2 fl (7.4-10.4); MONOCYTES % 10.1 % (2.0-8.0); NEUTROPHILS % 80.7 % (40.0-76.0); PLATELET 188 x1000/uL (130-400); RED CELL DISTRIBUTION WIDTH 15.3 % (11.6-14.6)
[2019-06-05] MEDS: CLONIDINE 0.1MG TABLET PO PRN ×2 (06:31→20:58)
[2019-06-05] MEDS: INSULIN LISPRO 100 UNITS/ML SUBCUT SCH ×4 (06:32→21:00)
[2019-06-05] MEDS: BLOOD SUGAR DIAGNOSTIC STRIP TEST SCH ×4 (06:32→21:00)
[2019-06-05] MEDS: SODIUM CHLORIDE 0.9% 1,000 ML IV SCH (06:38)
[2019-06-05 07:07] LABS: CHLORIDE 103 mEq/L (98-107)
[2019-06-05] MEDS: ACETYLCYSTEINE 100MG/ML 10% VIAL 4ML INH SCH ×2 (07:48→16:02)
[2019-06-05] MEDS: ZINC SULFATE 220 MG ( 50 ) CAPSULE PO SCH (08:04)
[2019-06-05] MEDS: FAMOTIDINE 20MG TABLET PO SCH ×2 (08:04→20:59)
[2019-06-05] MEDS: ASPIRIN 81MG TABLET GT SCH (08:04)
[2019-06-05] MEDS: ASCORBIC ACID 500 MG TABLET PO SCH ×2 (08:04→21:00)
[2019-06-05] MEDS: ENOXAPARIN 30MG/0.3ML SYR SUBCUT SCH (08:05)
[2019-06-05] MEDS ORDERED: MAGNESIUM 1 G PREMIX 100 ML IV SCH (10:00)
[2019-06-05] MEDS ORDERED: METOPROLOL TARTRATE 25MG TABLET PO SCH (11:00)
[2019-06-05] MEDS ORDERED: METOPROLOL TARTRATE 25MG TABLET PO NR ×2 (11:15→15:49)
[2019-06-05] MEDS ORDERED: FUROSEMIDE 40MG/4ML VIAL IVP NR (12:45)
[2019-06-05] MEDS: METOPROLOL TARTRATE 50MG TABLET PO SCH (20:59)
[2019-06-05 21:59] LABS: BG BASE EXCESS 16.6 mmol/L (-2.0-2.0); BG CARBOXYHEMOGLOBIN 1.2 % (0.5-1.5); BG DEOXYHEMOGLOBIN 21.6 % (0.0-5.0); BG FRACTION INSPIRED OXYGEN 50; BG HCO3 ACT 45.5 mmol/L (22.0-26.0); BG METHEMOGLOBIN 0.3 % (0.0-1.5); BG OXYGEN SATURATION 78.1 % (92.0-98.5); BG OXYHEMOGLOBIN 76.9 % (94.0-97.0); BG PCO2 78.9 mmHg (35.0-45.0); BG PH 7.379 (7.350-7.450); BG PO2 44.9 mmHg (75.0-100.0); BG SAMPLE SITE RIGHT RADIAL; BG TOTAL HEMOGLOBIN 12.6 g/dL (12.0-18.0); BG VENT MODE MASK - VENTI
[2019-06-05] MEDS ORDERED: CLONIDINE 0.2MG TABLET PO PRN (23:45)
[2019-06-06] VITALS (8 sets, daily range): BP systolic 95–130; BP diastolic 69–95
[2019-06-06] MEDS: IPRATROPIUM BROMIDE (0.02%) 0.5MG/2.5ML NEB HHN SCH ×6 (00:52→20:21)
[2019-06-06] MEDS: ACETYLCYSTEINE 100MG/ML 10% VIAL 4ML INH SCH ×3 (00:53→17:04)
[2019-06-06] MEDS ORDERED: FUROSEMIDE 40MG/4ML VIAL IVP SCH (02:33)
[2019-06-06] MEDS: CEFEPIME 1,000 MG in DEXTROSE 5% WATER 50 ML IV SCH ×2 (04:30→16:47)
[2019-06-06] MEDS: BLOOD SUGAR DIAGNOSTIC STRIP TEST SCH ×4 (04:37→21:36)
[2019-06-06] MEDS: INSULIN LISPRO 100 UNITS/ML SUBCUT SCH ×4 (06:05→21:00)
[2019-06-06] MEDS: ZINC SULFATE 220 MG ( 50 ) CAPSULE PO SCH (08:09)
[2019-06-06] MEDS: ASCORBIC ACID 500 MG TABLET PO SCH ×2 (08:09→21:36)
[2019-06-06] MEDS: ASPIRIN 81MG TABLET GT SCH (08:09)
[2019-06-06] MEDS: FAMOTIDINE 20MG TABLET PO SCH ×2 (08:09→21:36)
[2019-06-06] MEDS: ENOXAPARIN 30MG/0.3ML SYR SUBCUT SCH (08:10)
[2019-06-06] MEDS: METOPROLOL TARTRATE 50MG TABLET PO SCH ×2 (08:11→21:00)
[2019-06-06 08:41] LABS: BG BASE EXCESS 15.8 mmol/L (-2.0-2.0); BG BILEVEL POS AIRWAY PRESSURE 15/5; BG CARBOXYHEMOGLOBIN 0.9 % (0.5-1.5); BG DEOXYHEMOGLOBIN 0.9 % (0.0-5.0); BG FRACTION INSPIRED OXYGEN 60; BG HCO3 ACT 42.8 mmol/L (22.0-26.0); BG METHEMOGLOBIN 0.3 % (0.0-1.5); BG OXYGEN SATURATION 99.1 % (92.0-98.5); BG OXYHEMOGLOBIN 97.9 % (94.0-97.0); BG PH 7.436 (7.350-7.450); BG PO2 181.6 mmHg (75.0-100.0); BG SAMPLE SITE RIGHT RADIAL; BG TOTAL HEMOGLOBIN 11.3 g/dL (12.0-18.0); BG VENT MODE MASK - BIPAP; BG VENT RATE 16 set
[2019-06-06] MEDS: FUROSEMIDE 20MG/2ML VIAL IVP SCH ×2 (10:06→17:15)
[2019-06-06 13:01] LABS: BASOPHILS % 0.3 % (0.0-2.0); EOSINOPHILS % 0.4 % (0.0-5.0); HEMATOCRIT. 35.1 % (36.0-48.0); HEMOGLOBIN. 11.5 g/dL (12.0-16.0); LYMPHOCYTES % 12.1 % (20.0-50.0); MEAN CORPUSCULAR HEMOGLOBIN 27.8 pg (28.0-32.0); MEAN CORPUSCULAR VOLUME 84.4 fL (81.0-99.0); MONOCYTES % 13.1 % (2.0-8.0); NEUTROPHILS % 74.1 % (40.0-76.0); PLATELET 213 x1000/uL (130-400); RED BLOOD CELL COUNT 4.16 mill/uL (4.2-5.4)
[2019-06-06 13:13] LABS: CHLORIDE 96 mEq/L (98-107)
[2019-06-07] VITALS (7 sets, daily range): BP systolic 109–139; BP diastolic 43–97
[2019-06-07] MEDS: IPRATROPIUM BROMIDE (0.02%) 0.5MG/2.5ML NEB HHN SCH ×6 (00:07→20:53)
[2019-06-07] MEDS: ACETYLCYSTEINE 100MG/ML 10% VIAL 4ML INH SCH ×3 (00:07→15:50)
[2019-06-07] MEDS: DILTIAZEM HCL 125 MG in DEXT 5% WATER 100 ML IV SCH (03:10)
[2019-06-07] MEDS: FUROSEMIDE 20MG/2ML VIAL IVP SCH ×2 (04:33→16:32)
[2019-06-07] MEDS: CEFEPIME 1,000 MG in DEXTROSE 5% WATER 50 ML IV SCH ×2 (04:33→15:20)
[2019-06-07] MEDS: BLOOD SUGAR DIAGNOSTIC STRIP TEST SCH ×4 (04:45→21:48)
[2019-06-07] MEDS: INSULIN LISPRO 100 UNITS/ML SUBCUT SCH ×4 (06:24→22:28)
[2019-06-07 06:44] LABS: CHLORIDE 96 mEq/L (98-107)
[2019-06-07 06:52] LABS: BASOPHILS % 0.7 % (0.0-2.0); EOSINOPHILS % 0.6 % (0.0-5.0); HEMATOCRIT. 35.2 % (36.0-48.0); HEMOGLOBIN. 11.8 g/dL (12.0-16.0); LYMPHOCYTES % 12.4 % (20.0-50.0); MEAN CORPUSCULAR HEMOGLOBIN 28.2 pg (28.0-32.0); MEAN CORPUSCULAR VOLUME 84.2 fL (81.0-99.0); MEAN PLATELET VOLUME 8.9 fl (7.4-10.4); MONOCYTES % 12.6 % (2.0-8.0); NEUTROPHILS % 73.7 % (40.0-76.0); PLATELET 246 x1000/uL (130-400); RED BLOOD CELL COUNT 4.18 mill/uL (4.2-5.4); RED CELL DISTRIBUTION WIDTH 15.1 % (11.6-14.6)
[2019-06-07 08:14] LABS: BG BASE EXCESS 21.1 mmol/L (-2.0-2.0); BG BILEVEL POS AIRWAY PRESSURE 15/5 (16); BG DEOXYHEMOGLOBIN 6.4 % (0.0-5.0); BG FRACTION INSPIRED OXYGEN 35; BG HCO3 ACT 46.6 mmol/L (22.0-26.0); BG METHEMOGLOBIN 0.3 % (0.0-1.5); BG OXYGEN SATURATION 93.5 % (92.0-98.5); BG OXYHEMOGLOBIN 92.3 % (94.0-97.0); BG PH 7.538 (7.350-7.450); BG PO2 63.6 mmHg (75.0-100.0); BG SAMPLE SITE RIGHT BRACHIAL; BG TOTAL HEMOGLOBIN 11.6 g/dL (12.0-18.0); BG VENT MODE MASK - BIPAP
[2019-06-07] MEDS: FAMOTIDINE 20MG TABLET PO SCH ×2 (08:42→21:38)
[2019-06-07] MEDS: METOPROLOL TARTRATE 50MG TABLET PO SCH ×3 (08:42→21:40)
[2019-06-07] MEDS: ASCORBIC ACID 500 MG TABLET PO SCH ×2 (08:42→21:38)
[2019-06-07] MEDS: ASPIRIN 81MG TABLET GT SCH (08:42)
[2019-06-07] MEDS: ZINC SULFATE 220 MG ( 50 ) CAPSULE PO SCH (08:42)
[2019-06-07] MEDS: ENOXAPARIN 30MG/0.3ML SYR SUBCUT SCH (08:43)
[2019-06-07] MEDS: DILTIAZEM HCL 60MG TABLET GT SCH ×2 (13:59→21:39)
[2019-06-08] VITALS (11 sets, daily range): BP systolic 98–125; BP diastolic 70–95
[2019-06-08] MEDS: IPRATROPIUM BROMIDE (0.02%) 0.5MG/2.5ML NEB HHN SCH ×6 (00:30→21:05)
[2019-06-08] MEDS: ACETYLCYSTEINE 100MG/ML 10% VIAL 4ML INH SCH ×3 (00:30→15:30)
[2019-06-08] MEDS: CEFEPIME 1,000 MG in DEXTROSE 5% WATER 50 ML IV SCH ×2 (03:50→15:00)
[2019-06-08] MEDS: DILTIAZEM HCL 125 MG in DEXT 5% WATER 100 ML IV SCH (04:28)
[2019-06-08] MEDS: BLOOD SUGAR DIAGNOSTIC STRIP TEST SCH ×4 (06:28→21:45)
[2019-06-08] MEDS: METOPROLOL TARTRATE 50MG TABLET PO SCH ×3 (06:29→21:48)
[2019-06-08] MEDS: DILTIAZEM HCL 60MG TABLET GT SCH ×3 (06:29→21:48)
[2019-06-08] MEDS: INSULIN LISPRO 100 UNITS/ML SUBCUT SCH ×4 (08:09→22:11)
[2019-06-08] MEDS: FUROSEMIDE 20MG/2ML VIAL IVP SCH (08:09)
[2019-06-08] MEDS: ASPIRIN 81MG TABLET GT SCH (08:10)
[2019-06-08] MEDS: FAMOTIDINE 20MG TABLET PO SCH ×2 (08:10→21:42)
[2019-06-08] MEDS: ASCORBIC ACID 500 MG TABLET PO SCH ×2 (08:10→21:42)
[2019-06-08] MEDS: ZINC SULFATE 220 MG ( 50 ) CAPSULE PO SCH (08:10)
[2019-06-08] MEDS: ENOXAPARIN 30MG/0.3ML SYR SUBCUT SCH (08:10)
[2019-06-08 10:33] LABS: BG CARBOXYHEMOGLOBIN 1.3 % (0.5-1.5); BG DEOXYHEMOGLOBIN 3.9 % (0.0-5.0); BG FRACTION INSPIRED OXYGEN 32; BG HCO3 ACT 40.7 mmol/L (22.0-26.0); BG METHEMOGLOBIN 0.3 % (0.0-1.5); BG OXYHEMOGLOBIN 94.5 % (94.0-97.0); BG PCO2 55.3 mmHg (35.0-45.0); BG PH 7.485 (7.350-7.450); BG PO2 79.6 mmHg (75.0-100.0); BG SAMPLE SITE RIGHT RADIAL; BG TOTAL HEMOGLOBIN 11.8 g/dL (12.0-18.0); BG VENT MODE NASAL CANNULA
[2019-06-09] VITALS (12 sets, daily range): BP systolic 97–133; BP diastolic 72–101
[2019-06-09] MEDS: IPRATROPIUM BROMIDE (0.02%) 0.5MG/2.5ML NEB HHN SCH ×6 (00:17→20:20)
[2019-06-09] MEDS: ACETYLCYSTEINE 100MG/ML 10% VIAL 4ML INH SCH ×3 (00:18→12:11)
[2019-06-09] MEDS: CEFEPIME 1,000 MG in DEXTROSE 5% WATER 50 ML IV SCH ×2 (04:24→16:51)
[2019-06-09] MEDS: DILTIAZEM HCL 60MG TABLET GT SCH ×3 (06:00→20:18)
[2019-06-09] MEDS: METOPROLOL TARTRATE 50MG TABLET PO SCH ×3 (06:00→20:17)
[2019-06-09] MEDS: BLOOD SUGAR DIAGNOSTIC STRIP TEST SCH ×4 (06:55→21:56)
[2019-06-09] MEDS: INSULIN LISPRO 100 UNITS/ML SUBCUT SCH ×4 (08:21→22:50)
[2019-06-09] MEDS: ASPIRIN 81MG TABLET GT SCH (09:07)
[2019-06-09] MEDS: ZINC SULFATE 220 MG ( 50 ) CAPSULE PO SCH (09:07)
[2019-06-09] MEDS: ASCORBIC ACID 500 MG TABLET PO SCH ×2 (09:07→20:17)
[2019-06-09] MEDS: ENOXAPARIN 30MG/0.3ML SYR SUBCUT SCH (09:07)
[2019-06-09] MEDS: FAMOTIDINE 20MG TABLET PO SCH ×2 (09:07→20:17)
[2019-06-09] MEDS: ACETAMINOPHEN 650MG/20.3ML UDC PO PRN (09:18)
[2019-06-09 11:13] LABS: BG BASE EXCESS 10.4 mmol/L (-2.0-2.0); BG FRACTION INSPIRED OXYGEN 21; BG HCO3 ACT 35.2 mmol/L (22.0-26.0); BG METHEMOGLOBIN 0.3 % (0.0-1.5); BG OXYGEN SATURATION 87.8 % (92.0-98.5); BG OXYHEMOGLOBIN 86.7 % (94.0-97.0); BG PCO2 48.4 mmHg (35.0-45.0); BG PO2 52.3 mmHg (75.0-100.0); BG SAMPLE SITE LEFT BRACHIAL; BG TOTAL HEMOGLOBIN 10.8 g/dL (12.0-18.0); BG VENT MODE ROOM AIR
[2019-06-10] VITALS (9 sets, daily range): BP systolic 93–165; BP diastolic 55–117
[2019-06-10] MEDS: CEFEPIME 1,000 MG in DEXTROSE 5% WATER 50 ML IV SCH ×2 (03:38→15:59)
[2019-06-10] MEDS: IPRATROPIUM BROMIDE (0.02%) 0.5MG/2.5ML NEB HHN SCH ×5 (04:47→20:20)
[2019-06-10] MEDS: DILTIAZEM HCL 60MG TABLET GT SCH (06:07)
[2019-06-10] MEDS: METOPROLOL TARTRATE 50MG TABLET PO SCH ×3 (06:22→22:00)
[2019-06-10] MEDS: BLOOD SUGAR DIAGNOSTIC STRIP TEST SCH ×4 (06:37→21:00)
[2019-06-10 06:39] LABS: HEMATOCRIT. 33.6 % (36.0-48.0); MEAN CORPUSCULAR HEMOGLOBIN 27.6 pg (28.0-32.0); MEAN CORPUSCULAR VOLUME 84.3 fL (81.0-99.0); MEAN PLATELET VOLUME 9.4 fl (7.4-10.4); PLATELET 292 x1000/uL (130-400); RED BLOOD CELL COUNT 3.98 mill/uL (4.2-5.4); RED CELL DISTRIBUTION WIDTH 15.1 % (11.6-14.6)
[2019-06-10] MEDS: INSULIN LISPRO 100 UNITS/ML SUBCUT SCH ×3 (08:06→16:27)
[2019-06-10] MEDS: ENOXAPARIN 40MG/0.4ML SYR SUBCUT SCH (08:21)
[2019-06-10] MEDS: ASCORBIC ACID 500 MG TABLET PO SCH ×2 (08:22→20:55)
[2019-06-10] MEDS: FAMOTIDINE 20MG TABLET PO SCH ×2 (08:22→20:55)
[2019-06-10] MEDS: ASPIRIN 81MG TABLET GT SCH (08:22)
[2019-06-10] MEDS: ZINC SULFATE 220 MG ( 50 ) CAPSULE PO SCH (08:22)
[2019-06-10 08:23] LABS: CHLORIDE 100 mEq/L (98-107)
[2019-06-10 13:51] LABS: PLATELET ESTIMATE NORMAL
[2019-06-10] MEDS: DILTIAZEM HCL 90MG TABLET GT SCH ×2 (14:00→22:00)
[2019-06-11] VITALS (10 sets, daily range): BP systolic 95–126; BP diastolic 72–90
[2019-06-11] MEDS: IPRATROPIUM BROMIDE (0.02%) 0.5MG/2.5ML NEB HHN SCH ×6 (00:29→21:43)
[2019-06-11] MEDS: INSULIN LISPRO 100 UNITS/ML SUBCUT SCH ×5 (04:22→21:00)
[2019-06-11] MEDS: DILTIAZEM HCL 90MG TABLET GT SCH ×3 (05:25→21:50)
[2019-06-11] MEDS: METOPROLOL TARTRATE 50MG TABLET PO SCH ×3 (05:26→21:51)
[2019-06-11] MEDS: BLOOD SUGAR DIAGNOSTIC STRIP TEST SCH ×4 (05:55→21:00)
[2019-06-11 06:23] LABS: CHLORIDE 102 mEq/L (98-107)
[2019-06-11 06:29] LABS: BASOPHILS % 0.6 % (0.0-2.0); EOSINOPHILS % 0.5 % (0.0-5.0); HEMOGLOBIN. 10.6 g/dL (12.0-16.0); LYMPHOCYTES % 11.3 % (20.0-50.0); MEAN CORPUSCULAR VOLUME 84.9 fL (81.0-99.0); MEAN PLATELET VOLUME 9.9 fl (7.4-10.4); NEUTROPHILS % 76.6 % (40.0-76.0); PLATELET 315 x1000/uL (130-400); RED BLOOD CELL COUNT 3.77 mill/uL (4.2-5.4); RED CELL DISTRIBUTION WIDTH 15.2 % (11.6-14.6)
[2019-06-11] MEDS: FAMOTIDINE 20MG TABLET PO SCH ×2 (07:59→21:50)
[2019-06-11] MEDS: ASCORBIC ACID 500 MG TABLET PO SCH ×2 (07:59→21:51)
[2019-06-11] MEDS: ZINC SULFATE 220 MG ( 50 ) CAPSULE PO SCH (07:59)
[2019-06-11] MEDS: ENOXAPARIN 40MG/0.4ML SYR SUBCUT SCH (07:59)
[2019-06-11] MEDS: ASPIRIN 81MG TABLET GT SCH (07:59)
[2019-06-11 15:18] LABS: BG BASE EXCESS 8.1 mmol/L (-2.0-2.0); BG BILEVEL POS AIRWAY PRESSURE 16/25; BG CARBOXYHEMOGLOBIN 0.5 % (0.5-1.5); BG DEOXYHEMOGLOBIN 24.4 % (0.0-5.0); BG FRACTION INSPIRED OXYGEN 50; BG HCO3 ACT 32.7 mmol/L (22.0-26.0); BG METHEMOGLOBIN 0.3 % (0.0-1.5); BG OXYGEN SATURATION 75.4 % (92.0-98.5); BG OXYHEMOGLOBIN 74.8 % (94.0-97.0); BG PCO2 46.2 mmHg (35.0-45.0); BG PH 7.468 (7.350-7.450); BG PO2 38.7 mmHg (75.0-100.0); BG SAMPLE SITE RIGHT RADIAL; BG TOTAL HEMOGLOBIN 10.7 g/dL (12.0-18.0); BG VENT MODE MASK - BIPAP; BG VENT RATE 16 set
[2019-06-11 16:32] LABS: BG BASE EXCESS 6.6 mmol/L (-2.0-2.0); BG BILEVEL POS AIRWAY PRESSURE 16/5; BG CARBOXYHEMOGLOBIN 0.2 % (0.5-1.5); BG DEOXYHEMOGLOBIN 1.1 % (0.0-5.0); BG HCO3 ACT 31.6 mmol/L (22.0-26.0); BG METHEMOGLOBIN 0.3 % (0.0-1.5); BG OXYGEN SATURATION 98.9 % (92.0-98.5); BG OXYHEMOGLOBIN 98.4 % (94.0-97.0); BG PCO2 47.2 mmHg (35.0-45.0); BG PH 7.443 (7.350-7.450); BG PO2 168.3 mmHg (75.0-100.0); BG SAMPLE SITE RIGHT BRACHIAL; BG TOTAL HEMOGLOBIN 10.5 g/dL (12.0-18.0); BG VENT MODE MASK - BIPAP; BG VENT RATE 16 set
[2019-06-11] MEDS ORDERED: VANCOMYCIN 1 G PREMIX 200 ML IV NR (17:00)
[2019-06-11] MEDS: CEFEPIME 1,000 MG in DEXTROSE 5% WATER 50 ML IV SCH (17:38)
[2019-06-12] VITALS (12 sets, daily range): BP systolic 99–130; BP diastolic 53–92
[2019-06-12] MEDS: IPRATROPIUM BROMIDE (0.02%) 0.5MG/2.5ML NEB HHN SCH ×5 (00:55→15:27)
[2019-06-12] MEDS: VANCOMYCIN 500 MG PREMIX 100 ML IV SCH ×3 (01:30→18:25)
[2019-06-12] MEDS: CEFEPIME 1,000 MG in DEXTROSE 5% WATER 50 ML IV SCH ×2 (05:41→17:46)
[2019-06-12] MEDS: METOPROLOL TARTRATE 50MG TABLET PO SCH ×3 (05:41→22:17)
[2019-06-12] MEDS: DILTIAZEM HCL 90MG TABLET GT SCH ×3 (05:42→22:17)
[2019-06-12 06:04] LABS: HEMOGLOBIN. 10.8 g/dL (12.0-16.0); MEAN CORPUSCULAR HEMOGLOBIN 28.3 pg (28.0-32.0); MEAN CORPUSCULAR VOLUME 84.3 fL (81.0-99.0)
[2019-06-12 06:05] LABS: CHLORIDE 103 mEq/L (98-107)
[2019-06-12] MEDS: BLOOD SUGAR DIAGNOSTIC STRIP TEST SCH ×4 (06:40→21:00)
[2019-06-12] MEDS: INSULIN LISPRO 100 UNITS/ML SUBCUT SCH ×4 (08:40→21:29)
[2019-06-12] MEDS: ZINC SULFATE 220 MG ( 50 ) CAPSULE PO SCH (08:40)
[2019-06-12] MEDS: ASCORBIC ACID 500 MG TABLET PO SCH ×2 (08:40→21:29)
[2019-06-12] MEDS: FAMOTIDINE 20MG TABLET PO SCH ×2 (08:40→21:29)
[2019-06-12] MEDS: ENOXAPARIN 40MG/0.4ML SYR SUBCUT SCH (08:41)
[2019-06-12] MEDS: ASPIRIN 81MG TABLET GT SCH (08:43)
[2019-06-12 10:24] LABS: PLATELET ESTIMATE NORMAL
[2019-06-12 10:25] LABS: PLATELET 328 x1000/uL (130-400)
[2019-06-13] VITALS (12 sets, daily range): BP systolic 94–132; BP diastolic 55–82
[2019-06-13] MEDS: IPRATROPIUM BROMIDE (0.02%) 0.5MG/2.5ML NEB HHN SCH ×5 (00:35→22:00)
[2019-06-13] MEDS: VANCOMYCIN 500 MG PREMIX 100 ML IV SCH ×2 (01:04→08:00)
[2019-06-13] MEDS: CEFEPIME 1,000 MG in DEXTROSE 5% WATER 50 ML IV SCH ×2 (04:47→16:01)
[2019-06-13] MEDS: DILTIAZEM HCL 90MG TABLET GT SCH ×4 (06:00→21:00)
[2019-06-13] MEDS: BLOOD SUGAR DIAGNOSTIC STRIP TEST SCH ×4 (06:31→21:46)
[2019-06-13] MEDS: METOPROLOL TARTRATE 50MG TABLET PO SCH ×4 (06:43→21:03)
[2019-06-13 07:15] LABS: CHLORIDE 101 mEq/L (98-107)
[2019-06-13 07:31] LABS: HEMOGLOBIN. 10.5 g/dL (12.0-16.0); MEAN CORPUSCULAR HEMOGLOBIN 27.6 pg (28.0-32.0); MEAN CORPUSCULAR VOLUME 83.9 fL (81.0-99.0); MEAN PLATELET VOLUME 10.3 fl (7.4-10.4); PLATELET 322 x1000/uL (130-400); RED BLOOD CELL COUNT 3.82 mill/uL (4.2-5.4); RED CELL DISTRIBUTION WIDTH 15.2 % (11.6-14.6)
[2019-06-13] MEDS: ASCORBIC ACID 500 MG TABLET PO SCH ×2 (08:00→21:00)
[2019-06-13] MEDS: ENOXAPARIN 40MG/0.4ML SYR SUBCUT SCH (08:00)
[2019-06-13] MEDS: ASPIRIN 81MG TABLET GT SCH (08:00)
[2019-06-13] MEDS: FAMOTIDINE 20MG TABLET PO SCH ×2 (08:00→21:00)
[2019-06-13] MEDS: ZINC SULFATE 220 MG ( 50 ) CAPSULE PO SCH (08:00)
[2019-06-13] MEDS: INSULIN LISPRO 100 UNITS/ML SUBCUT SCH ×4 (08:10→21:00)
[2019-06-13 08:29] LABS: NUCLEATED RED BLOOD CELLS 1 /100 WBC; PLATELET ESTIMATE NORMAL
[2019-06-13] MEDS ORDERED: FUROSEMIDE 20MG/2ML VIAL IVP SCH (11:30)
[2019-06-13] MEDS: VANCOMYCIN HCL 750 MG in DEXT 5% WATER 250 ML IV SCH (21:01)
[2019-06-14] VITALS (13 sets, daily range): BP systolic 93–130; BP diastolic 66–97
[2019-06-14] MEDS: IPRATROPIUM BROMIDE (0.02%) 0.5MG/2.5ML NEB HHN SCH ×5 (01:12→16:53)
[2019-06-14] MEDS: CEFEPIME 1,000 MG in DEXTROSE 5% WATER 50 ML IV SCH ×2 (04:53→17:19)
[2019-06-14] MEDS: DILTIAZEM HCL 90MG TABLET GT SCH ×3 (04:54→22:48)
[2019-06-14] MEDS: METOPROLOL TARTRATE 50MG TABLET PO SCH ×3 (04:56→22:48)
[2019-06-14] MEDS: BLOOD SUGAR DIAGNOSTIC STRIP TEST SCH ×4 (04:57→21:42)
[2019-06-14] MEDS: INSULIN LISPRO 100 UNITS/ML SUBCUT SCH ×4 (06:07→22:51)
[2019-06-14 07:10] LABS: BASOPHILS % 0.7 % (0.0-2.0); EOSINOPHILS % 0.4 % (0.0-5.0); HEMATOCRIT. 34.5 % (36.0-48.0); HEMOGLOBIN. 11.3 g/dL (12.0-16.0); MEAN CORPUSCULAR VOLUME 82.8 fL (81.0-99.0); MONOCYTES % 12.3 % (2.0-8.0); NEUTROPHILS % 74.6 % (40.0-76.0); PLATELET 388 x1000/uL (130-400); RED BLOOD CELL COUNT 4.17 mill/uL (4.2-5.4)
[2019-06-14 07:18] LABS: CHLORIDE 98 mEq/L (98-107)
[2019-06-14] MEDS: FAMOTIDINE 20MG TABLET PO SCH ×2 (09:14→21:42)
[2019-06-14] MEDS: ASPIRIN 81MG TABLET GT SCH (09:14)
[2019-06-14] MEDS: ASCORBIC ACID 500 MG TABLET PO SCH ×2 (09:14→21:42)
[2019-06-14] MEDS: ZINC SULFATE 220 MG ( 50 ) CAPSULE PO SCH (09:14)
[2019-06-14] MEDS: VANCOMYCIN HCL 750 MG in DEXT 5% WATER 250 ML IV SCH ×2 (09:15→21:42)
[2019-06-14] MEDS: ENOXAPARIN 40MG/0.4ML SYR SUBCUT SCH (09:15)
[2019-06-15] VITALS (12 sets, daily range): BP systolic 93–138; BP diastolic 67–92
[2019-06-15] MEDS: CEFEPIME 1,000 MG in DEXTROSE 5% WATER 50 ML IV SCH ×2 (05:37→18:00)
[2019-06-15] MEDS: DILTIAZEM HCL 90MG TABLET GT SCH ×3 (05:38→22:31)
[2019-06-15] MEDS: METOPROLOL TARTRATE 50MG TABLET PO SCH ×3 (05:38→22:30)
[2019-06-15 05:40] LABS: CHLORIDE 99 mEq/L (98-107)
[2019-06-15] MEDS: BLOOD SUGAR DIAGNOSTIC STRIP TEST SCH ×4 (05:53→20:49)
[2019-06-15] MEDS: INSULIN LISPRO 100 UNITS/ML SUBCUT SCH ×4 (06:05→20:50)
[2019-06-15 06:25] LABS: BASOPHILS % 0.6 % (0.0-2.0); EOSINOPHILS % 0.6 % (0.0-5.0); HEMATOCRIT. 32.2 % (36.0-48.0); HEMOGLOBIN. 10.8 g/dL (12.0-16.0); LYMPHOCYTES % 12.9 % (20.0-50.0); MEAN CORPUSCULAR HEMOGLOBIN 28.3 pg (28.0-32.0); MEAN CORPUSCULAR VOLUME 84.3 fL (81.0-99.0); MEAN PLATELET VOLUME 10.5 fl (7.4-10.4); MONOCYTES % 14.5 % (2.0-8.0); NEUTROPHILS % 71.4 % (40.0-76.0); PLATELET 364 x1000/uL (130-400); RED BLOOD CELL COUNT 3.82 mill/uL (4.2-5.4); RED CELL DISTRIBUTION WIDTH 14.8 % (11.6-14.6)
[2019-06-15] MEDS: ASCORBIC ACID 500 MG TABLET PO SCH ×2 (08:47→20:58)
[2019-06-15] MEDS: ENOXAPARIN 40MG/0.4ML SYR SUBCUT SCH (08:47)
[2019-06-15] MEDS: ZINC SULFATE 220 MG ( 50 ) CAPSULE PO SCH (08:47)
[2019-06-15] MEDS: VANCOMYCIN HCL 750 MG in DEXT 5% WATER 250 ML IV SCH ×2 (08:47→20:59)
[2019-06-15] MEDS: FAMOTIDINE 20MG TABLET PO SCH ×2 (08:47→20:59)
[2019-06-15] MEDS: IPRATROPIUM BROMIDE (0.02%) 0.5MG/2.5ML NEB HHN SCH (21:59)
[2019-06-16] VITALS (13 sets, daily range): BP systolic 94–131; BP diastolic 67–87
[2019-06-16] MEDS: IPRATROPIUM BROMIDE (0.02%) 0.5MG/2.5ML NEB HHN SCH ×6 (01:18→20:00)
[2019-06-16] MEDS: CEFEPIME 1,000 MG in DEXTROSE 5% WATER 50 ML IV SCH (04:59)
[2019-06-16] MEDS: BLOOD SUGAR DIAGNOSTIC STRIP TEST SCH ×4 (06:16→21:01)
[2019-06-16] MEDS: INSULIN LISPRO 100 UNITS/ML SUBCUT SCH ×4 (06:56→21:07)
[2019-06-16] MEDS: DILTIAZEM HCL 90MG TABLET GT SCH ×3 (06:57→21:06)
[2019-06-16] MEDS: METOPROLOL TARTRATE 50MG TABLET PO SCH ×3 (06:57→21:05)
[2019-06-16] MEDS: VANCOMYCIN HCL 750 MG in DEXT 5% WATER 250 ML IV SCH ×2 (09:49→21:01)
[2019-06-16] MEDS: ASCORBIC ACID 500 MG TABLET PO SCH ×2 (09:49→21:01)
[2019-06-16] MEDS: ZINC SULFATE 220 MG ( 50 ) CAPSULE PO SCH (09:49)
[2019-06-16] MEDS: ENOXAPARIN 40MG/0.4ML SYR SUBCUT SCH (09:49)
[2019-06-16] MEDS: FAMOTIDINE 20MG TABLET PO SCH ×2 (09:49→21:01)
[2019-06-16] MEDS: ASPIRIN 81MG TABLET GT SCH (09:50)
[2019-06-16 16:08] LABS: CHLORIDE 99 mEq/L (98-107)
[2019-06-16 16:12] LABS: HEMATOCRIT. 32.4 % (36.0-48.0); HEMOGLOBIN. 10.8 g/dL (12.0-16.0); MEAN CORPUSCULAR HEMOGLOBIN 28.1 pg (28.0-32.0); MEAN PLATELET VOLUME 10.1 fl (7.4-10.4); PLATELET 374 x1000/uL (130-400); RED BLOOD CELL COUNT 3.85 mill/uL (4.2-5.4); RED CELL DISTRIBUTION WIDTH 14.8 % (11.6-14.6)
[2019-06-16 22:33] LABS: PLATELET ESTIMATE NORMAL
[2019-06-17] VITALS (11 sets, daily range): BP systolic 108–147; BP diastolic 56–95
[2019-06-17] MEDS: IPRATROPIUM BROMIDE (0.02%) 0.5MG/2.5ML NEB HHN SCH ×7 (00:09→21:10)
[2019-06-17] MEDS: BLOOD SUGAR DIAGNOSTIC STRIP TEST SCH ×4 (06:07→21:09)
[2019-06-17] MEDS: DILTIAZEM HCL 90MG TABLET GT SCH ×3 (06:09→21:08)
[2019-06-17] MEDS: METOPROLOL TARTRATE 50MG TABLET PO SCH ×3 (06:10→21:09)
[2019-06-17] MEDS: INSULIN LISPRO 100 UNITS/ML SUBCUT SCH ×4 (09:02→21:10)
[2019-06-17] MEDS: ZINC SULFATE 220 MG ( 50 ) CAPSULE PO SCH (09:04)
[2019-06-17] MEDS: ASCORBIC ACID 500 MG TABLET PO SCH ×2 (09:04→21:09)
[2019-06-17] MEDS: ASPIRIN 81MG TABLET GT SCH (09:05)
[2019-06-17] MEDS: ENOXAPARIN 40MG/0.4ML SYR SUBCUT SCH (09:05)
[2019-06-17 09:07] LABS: HEMATOCRIT. 32.8 % (36.0-48.0); MEAN CORPUSCULAR HEMOGLOBIN 28.4 pg (28.0-32.0); MEAN CORPUSCULAR VOLUME 85.2 fL (81.0-99.0); MEAN PLATELET VOLUME 9.6 fl (7.4-10.4); PLATELET 381 x1000/uL (130-400); RED BLOOD CELL COUNT 3.86 mill/uL (4.2-5.4); RED CELL DISTRIBUTION WIDTH 14.8 % (11.6-14.6)
[2019-06-17 09:08] LABS: CHLORIDE 98 mEq/L (98-107)
[2019-06-17 09:51] LABS: PLATELET ESTIMATE NORMAL
[2019-06-17] MEDS: FAMOTIDINE 40MG TABLET PO SCH ×2 (13:16→21:08)
[2019-06-18] VITALS (26 sets, daily range): BP systolic 97–145; BP diastolic 46–93
[2019-06-18] MEDS: IPRATROPIUM BROMIDE (0.02%) 0.5MG/2.5ML NEB HHN SCH ×3 (02:40→21:38)
[2019-06-18] MEDS: METOPROLOL TARTRATE 50MG TABLET PO SCH ×3 (05:22→21:25)
[2019-06-18] MEDS: DILTIAZEM HCL 90MG TABLET GT SCH ×3 (05:22→17:56)
[2019-06-18] MEDS: BLOOD SUGAR DIAGNOSTIC STRIP TEST SCH ×4 (06:02→20:43)
[2019-06-18] MEDS: INSULIN LISPRO 100 UNITS/ML SUBCUT SCH ×4 (06:29→20:48)
[2019-06-18 09:24] LABS: HEMATOCRIT. 36.3 % (36.0-48.0); HEMOGLOBIN. 11.6 g/dL (12.0-16.0); MEAN CORPUSCULAR HEMOGLOBIN 27.1 pg (28.0-32.0); MEAN PLATELET VOLUME 9.5 fl (7.4-10.4); PLATELET 327 x1000/uL (130-400); RED BLOOD CELL COUNT 4.27 mill/uL (4.2-5.4)
[2019-06-18] MEDS: ASCORBIC ACID 500 MG TABLET PO SCH ×2 (09:26→20:43)
[2019-06-18 09:28] LABS: CHLORIDE 98 mEq/L (98-107)
[2019-06-18] MEDS: ZINC SULFATE 220 MG ( 50 ) CAPSULE PO SCH (09:28)
[2019-06-18] MEDS: FAMOTIDINE 40MG TABLET PO SCH ×2 (09:28→20:43)
[2019-06-18] MEDS: ASPIRIN 81MG TABLET GT SCH (09:29)
[2019-06-18] MEDS: ENOXAPARIN 40MG/0.4ML SYR SUBCUT SCH (09:29)
[2019-06-18] MEDS ORDERED: DILTIAZEM HCL 90MG TABLET GT SCH (10:00)
[2019-06-18] MEDS ORDERED: DOCUSATE SODIUM SUGAR FREE 100MG/10ML UDC GT PRN (10:00)
[2019-06-18 10:38] LABS: PLATELET ESTIMATE NORMAL
[2019-06-19] VITALS (14 sets, daily range): BP systolic 89–119; BP diastolic 63–90
[2019-06-19] MEDS: IPRATROPIUM BROMIDE (0.02%) 0.5MG/2.5ML NEB HHN SCH ×7 (01:10→21:23)
[2019-06-19] MEDS: METOPROLOL TARTRATE 50MG TABLET PO SCH ×4 (06:00→22:00)
[2019-06-19] MEDS: DILTIAZEM HCL 90MG TABLET GT SCH ×4 (06:00→18:11)
[2019-06-19 06:27] LABS: CHLORIDE 98 mEq/L (98-107)
[2019-06-19] MEDS: BLOOD SUGAR DIAGNOSTIC STRIP TEST SCH ×4 (06:29→20:38)
[2019-06-19 06:30] LABS: HEMATOCRIT. 32.3 % (36.0-48.0); HEMOGLOBIN. 10.5 g/dL (12.0-16.0); MEAN CORPUSCULAR HEMOGLOBIN 27.1 pg (28.0-32.0); MEAN CORPUSCULAR VOLUME 83.1 fL (81.0-99.0); MEAN PLATELET VOLUME 9.7 fl (7.4-10.4); PLATELET 381 x1000/uL (130-400); RED BLOOD CELL COUNT 3.89 mill/uL (4.2-5.4); RED CELL DISTRIBUTION WIDTH 14.9 % (11.6-14.6)
[2019-06-19] MEDS: INSULIN LISPRO 100 UNITS/ML SUBCUT SCH ×4 (06:36→20:40)
[2019-06-19] MEDS: ZINC SULFATE 220 MG ( 50 ) CAPSULE PO SCH (09:00)
[2019-06-19] MEDS: FAMOTIDINE 40MG TABLET PO SCH ×2 (09:00→20:37)
[2019-06-19] MEDS: ASCORBIC ACID 500 MG TABLET PO SCH ×2 (09:01→20:37)
[2019-06-19] MEDS: ASPIRIN 81MG TABLET GT SCH (09:01)
[2019-06-19] MEDS: ENOXAPARIN 30MG/0.3ML SYR SUBCUT SCH (09:03)
[2019-06-19 09:32] LABS: PLATELET ESTIMATE NORMAL
[2019-06-19] MEDS: ACETAMINOPHEN 650MG/20.3ML UDC PO PRN (20:37)
[2019-06-20] VITALS (12 sets, daily range): BP systolic 92–120; BP diastolic 60–84
[2019-06-20] MEDS: IPRATROPIUM BROMIDE (0.02%) 0.5MG/2.5ML NEB HHN SCH
[2019-06-20] MEDS: ACETAMINOPHEN 650MG/20.3ML UDC PO PRN (04:10)
[2019-06-20] MEDS: DILTIAZEM HCL 90MG TABLET GT SCH ×4 (05:17→17:21)
[2019-06-20] MEDS: METOPROLOL TARTRATE 50MG TABLET PO SCH ×3 (05:19→22:29)
[2019-06-20] MEDS: BLOOD SUGAR DIAGNOSTIC STRIP TEST SCH ×4 (05:19→21:00)
[2019-06-20] MEDS: INSULIN LISPRO 100 UNITS/ML SUBCUT SCH ×4 (07:20→21:00)
[2019-06-20] MEDS: ENOXAPARIN 30MG/0.3ML SYR SUBCUT SCH (08:12)
[2019-06-20] MEDS: ASCORBIC ACID 500 MG TABLET PO SCH ×2 (08:12→22:28)
[2019-06-20] MEDS: ZINC SULFATE 220 MG ( 50 ) CAPSULE PO SCH (08:13)
[2019-06-20] MEDS: FAMOTIDINE 40MG TABLET PO SCH ×2 (08:13→22:28)
[2019-06-20] MEDS: ASPIRIN 81MG TABLET GT SCH (08:13)
[2019-06-21] VITALS (12 sets, daily range): BP systolic 95–124; BP diastolic 72–85
[2019-06-21] MEDS: DILTIAZEM HCL 90MG TABLET GT SCH ×5 (00:41→23:34)
[2019-06-21] MEDS: IPRATROPIUM BROMIDE (0.02%) 0.5MG/2.5ML NEB HHN SCH ×5 (04:00→20:03)
[2019-06-21] MEDS: BLOOD SUGAR DIAGNOSTIC STRIP TEST SCH ×4 (07:08→21:17)
[2019-06-21] MEDS: METOPROLOL TARTRATE 50MG TABLET PO SCH ×3 (07:08→22:12)
[2019-06-21] MEDS: INSULIN LISPRO 100 UNITS/ML SUBCUT SCH ×4 (07:20→21:00)
[2019-06-21] MEDS: ENOXAPARIN 30MG/0.3ML SYR SUBCUT SCH (08:42)
[2019-06-21] MEDS: FAMOTIDINE 40MG TABLET PO SCH ×2 (08:43→21:03)
[2019-06-21] MEDS: ASPIRIN 81MG TABLET GT SCH (08:43)
[2019-06-21] MEDS: ZINC SULFATE 220 MG ( 50 ) CAPSULE PO SCH (08:43)
[2019-06-21] MEDS: ASCORBIC ACID 500 MG TABLET PO SCH ×2 (08:43→21:03)
[2019-06-22] VITALS (17 sets, daily range): BP systolic 94–124; BP diastolic 46–82
[2019-06-22] MEDS: IPRATROPIUM BROMIDE (0.02%) 0.5MG/2.5ML NEB HHN SCH ×4 (01:53→20:37)
[2019-06-22] MEDS: DILTIAZEM HCL 90MG TABLET GT SCH ×3 (05:53→17:49)
[2019-06-22] MEDS: METOPROLOL TARTRATE 50MG TABLET PO SCH ×3 (05:54→21:59)
[2019-06-22] MEDS: BLOOD SUGAR DIAGNOSTIC STRIP TEST SCH ×4 (05:55→21:00)
[2019-06-22] MEDS: INSULIN LISPRO 100 UNITS/ML SUBCUT SCH ×4 (06:00→22:14)
[2019-06-22] MEDS: ACETAMINOPHEN 650MG/20.3ML UDC PO PRN (06:41)
[2019-06-22] MEDS: ASCORBIC ACID 500 MG TABLET PO SCH ×2 (08:37→21:59)
[2019-06-22] MEDS: ZINC SULFATE 220 MG ( 50 ) CAPSULE PO SCH (08:37)
[2019-06-22] MEDS: FAMOTIDINE 40MG TABLET PO SCH ×2 (08:37→21:00)
[2019-06-22] MEDS: ENOXAPARIN 30MG/0.3ML SYR SUBCUT SCH (08:38)
[2019-06-22] MEDS: ASPIRIN 81MG TABLET GT SCH (08:39)
[2019-06-23] VITALS (13 sets, daily range): BP systolic 103–134; BP diastolic 65–88
[2019-06-23] MEDS: DILTIAZEM HCL 90MG TABLET GT SCH ×4 (00:39→18:09)
[2019-06-23] MEDS: IPRATROPIUM BROMIDE (0.02%) 0.5MG/2.5ML NEB HHN SCH ×3 (02:48→20:04)
[2019-06-23] MEDS: METOPROLOL TARTRATE 50MG TABLET PO SCH ×3 (05:53→21:15)
[2019-06-23] MEDS: INSULIN LISPRO 100 UNITS/ML SUBCUT SCH ×4 (07:20→20:55)
[2019-06-23] MEDS: BLOOD SUGAR DIAGNOSTIC STRIP TEST SCH ×4 (07:25→20:55)
[2019-06-23] MEDS: ZINC SULFATE 220 MG ( 50 ) CAPSULE PO SCH (08:57)
[2019-06-23] MEDS: ENOXAPARIN 30MG/0.3ML SYR SUBCUT SCH (08:58)
[2019-06-23] MEDS: ASPIRIN 81MG TABLET GT SCH (08:58)
[2019-06-23] MEDS: ASCORBIC ACID 500 MG TABLET PO SCH ×2 (08:58→20:54)
[2019-06-23] MEDS: FAMOTIDINE 40MG TABLET PO SCH ×2 (09:00→20:55)
[2019-06-24] VITALS (11 sets, daily range): BP systolic 100–133; BP diastolic 37–83
[2019-06-24] MEDS: DILTIAZEM HCL 90MG TABLET GT SCH ×4 (00:03→18:02)
[2019-06-24] MEDS: IPRATROPIUM BROMIDE (0.02%) 0.5MG/2.5ML NEB HHN SCH ×3 (01:39→22:22)
[2019-06-24] MEDS: METOPROLOL TARTRATE 50MG TABLET PO SCH ×3 (06:09→22:28)
[2019-06-24] MEDS: INSULIN LISPRO 100 UNITS/ML SUBCUT SCH ×4 (06:10→20:49)
[2019-06-24] MEDS: BLOOD SUGAR DIAGNOSTIC STRIP TEST SCH ×4 (06:10→20:48)
[2019-06-24] MEDS: FAMOTIDINE 40MG TABLET PO SCH (09:00)
[2019-06-24] MEDS: ZINC SULFATE 220 MG ( 50 ) CAPSULE PO SCH (09:14)
[2019-06-24] MEDS: ASPIRIN 81MG TABLET GT SCH (09:14)
[2019-06-24] MEDS: ASCORBIC ACID 500 MG TABLET PO SCH ×2 (09:14→20:48)
[2019-06-24] MEDS: ENOXAPARIN 30MG/0.3ML SYR SUBCUT SCH (09:15)
[2019-06-24] MEDS: FAMOTIDINE 20MG TABLET PO SCH (22:29)
[2019-06-25] VITALS (12 sets, daily range): BP systolic 93–119; BP diastolic 51–88
[2019-06-25] MEDS: DILTIAZEM HCL 90MG TABLET GT SCH ×4 (00:54→18:00)
[2019-06-25] MEDS: IPRATROPIUM BROMIDE (0.02%) 0.5MG/2.5ML NEB HHN SCH ×4 (02:39→20:28)
[2019-06-25] MEDS: METOPROLOL TARTRATE 50MG TABLET PO SCH ×3 (06:00→22:15)
[2019-06-25 06:32] LABS: BASOPHILS % 1.3 % (0.0-2.0); EOSINOPHILS % 2.5 % (0.0-5.0); HEMATOCRIT. 30.2 % (36.0-48.0); HEMOGLOBIN. 10.2 g/dL (12.0-16.0); LYMPHOCYTES % 23.9 % (20.0-50.0); MEAN CORPUSCULAR HEMOGLOBIN 28.4 pg (28.0-32.0); MEAN CORPUSCULAR VOLUME 84.1 fL (81.0-99.0); MEAN PLATELET VOLUME 8.8 fl (7.4-10.4); MONOCYTES % 14.2 % (2.0-8.0); NEUTROPHILS % 58.1 % (40.0-76.0); PLATELET 324 x1000/uL (130-400); RED CELL DISTRIBUTION WIDTH 15.3 % (11.6-14.6)
[2019-06-25 06:44] LABS: CHLORIDE 102 mEq/L (98-107)
[2019-06-25] MEDS: BLOOD SUGAR DIAGNOSTIC STRIP TEST SCH ×4 (06:45→20:53)
[2019-06-25] MEDS: INSULIN LISPRO 100 UNITS/ML SUBCUT SCH ×4 (06:46→21:00)
[2019-06-25] MEDS: FAMOTIDINE 20MG TABLET PO SCH ×2 (09:33→20:46)
[2019-06-25] MEDS: ZINC SULFATE 220 MG ( 50 ) CAPSULE PO SCH (09:34)
[2019-06-25] MEDS: ASPIRIN 81MG TABLET GT SCH (09:34)
[2019-06-25] MEDS: ASCORBIC ACID 500 MG TABLET PO SCH ×2 (09:34→20:47)
[2019-06-25] MEDS: ENOXAPARIN 30MG/0.3ML SYR SUBCUT SCH (09:36)
[2019-06-25] MEDS: ACETAMINOPHEN 650MG/20.3ML UDC PO PRN (15:25)
[2019-06-26] VITALS (13 sets, daily range): BP systolic 89–140; BP diastolic 55–89
[2019-06-26] MEDS: IPRATROPIUM BROMIDE (0.02%) 0.5MG/2.5ML NEB HHN SCH ×4 (01:52→21:04)
[2019-06-26] MEDS: METOPROLOL TARTRATE 50MG TABLET PO SCH ×3 (06:00→21:05)
[2019-06-26] MEDS: DILTIAZEM HCL 90MG TABLET GT SCH ×4 (06:00→18:01)
[2019-06-26] MEDS: BLOOD SUGAR DIAGNOSTIC STRIP TEST SCH ×3 (06:07→16:50)
[2019-06-26] MEDS: INSULIN LISPRO 100 UNITS/ML SUBCUT SCH ×3 (07:20→17:20)
[2019-06-26] MEDS: ASPIRIN 81MG TABLET GT SCH (08:19)
[2019-06-26] MEDS: FAMOTIDINE 20MG TABLET PO SCH ×2 (08:19→21:06)
[2019-06-26] MEDS: ZINC SULFATE 220 MG ( 50 ) CAPSULE PO SCH (08:19)
[2019-06-26] MEDS: ASCORBIC ACID 500 MG TABLET PO SCH ×2 (08:20→21:06)
[2019-06-26] MEDS: ENOXAPARIN 30MG/0.3ML SYR SUBCUT SCH (10:08)
[2019-06-27] VITALS (12 sets, daily range): BP systolic 104–133; BP diastolic 61–87
[2019-06-27] MEDS: DILTIAZEM HCL 90MG TABLET GT SCH ×5 (00:31→23:52)
[2019-06-27] MEDS: IPRATROPIUM BROMIDE (0.02%) 0.5MG/2.5ML NEB HHN SCH ×4 (01:01→20:43)
[2019-06-27] MEDS: METOPROLOL TARTRATE 50MG TABLET PO SCH ×3 (05:45→21:33)
[2019-06-27] MEDS ORDERED: DEXTROSE 50% WATER 50ML SYRINGE IV PRN (08:15)
[2019-06-27] MEDS: ASCORBIC ACID 500 MG TABLET PO SCH (09:30)
[2019-06-27] MEDS: ZINC SULFATE 220 MG ( 50 ) CAPSULE PO SCH (09:30)
[2019-06-27] MEDS: FAMOTIDINE 20MG TABLET PO SCH ×2 (09:30→21:32)
[2019-06-27] MEDS: ASPIRIN 81MG TABLET GT SCH (09:30)
[2019-06-27] MEDS: ENOXAPARIN 30MG/0.3ML SYR SUBCUT SCH (09:31)
[2019-06-27] MEDS: INSULIN LISPRO 100 UNITS/ML SUBCUT SCH ×3 (12:20→21:00)
[2019-06-27] MEDS: BLOOD SUGAR DIAGNOSTIC STRIP TEST SCH ×3 (12:42→21:55)
[2019-06-28] VITALS (12 sets, daily range): BP systolic 101–134; BP diastolic 49–89
[2019-06-28] MEDS: IPRATROPIUM BROMIDE (0.02%) 0.5MG/2.5ML NEB HHN SCH ×4 (01:40→19:56)
[2019-06-28] MEDS: METOPROLOL TARTRATE 50MG TABLET PO SCH ×3 (05:18→22:19)
[2019-06-28] MEDS: DILTIAZEM HCL 90MG TABLET GT SCH ×3 (05:19→17:27)
[2019-06-28] MEDS: BLOOD SUGAR DIAGNOSTIC STRIP TEST SCH ×4 (07:20→21:00)
[2019-06-28] MEDS: ENOXAPARIN 30MG/0.3ML SYR SUBCUT SCH (08:18)
[2019-06-28] MEDS: FAMOTIDINE 20MG TABLET PO SCH ×2 (08:19→22:20)
[2019-06-28] MEDS: INSULIN LISPRO 100 UNITS/ML SUBCUT SCH ×4 (08:19→21:00)
[2019-06-28] MEDS: ASPIRIN 81MG TABLET GT SCH (08:20)
[2019-06-28 12:13] LABS: BASOPHILS % 0.9 % (0.0-2.0); EOSINOPHILS % 1.4 % (0.0-5.0); HEMOGLOBIN. 11.4 g/dL (12.0-16.0); MEAN CORPUSCULAR HEMOGLOBIN 26.6 pg (28.0-32.0); MEAN CORPUSCULAR VOLUME 81.6 fL (81.0-99.0); MEAN PLATELET VOLUME 8.4 fl (7.4-10.4); MONOCYTES % 14.8 % (2.0-8.0); NEUTROPHILS % 56.9 % (40.0-76.0); PLATELET 279 x1000/uL (130-400); RED BLOOD CELL COUNT 4.29 mill/uL (4.2-5.4); RED CELL DISTRIBUTION WIDTH 15.1 % (11.6-14.6)
[2019-06-28 12:27] LABS: CHLORIDE 101 mEq/L (98-107)
[2019-06-28 16:17] LABS: CLARITY URINE TURBID (CLEAR); COLOR URINE YELLOW (YELLOW); KETONES URINE NEGATIVE (NEGATIVE); LEUKOCYTE ESTERASE URINE 3+ (NEGATIVE); NITRITE URINE NEGATIVE (NEGATIVE); OCCULT BLOOD URINE 2+ (NEGATIVE); PROTEIN URINE 2+ (NEGATIVE); SPECIFIC GRAVITY URINE 1.014 (1.005-1.030); UROBILINOGEN URINE 0.2 E.U./dL (0.2-1.0)
[2019-06-29] VITALS (12 sets, daily range): BP systolic 105–145; BP diastolic 59–99
[2019-06-29] MEDS: DILTIAZEM HCL 90MG TABLET GT SCH ×4 (00:46→17:56)
[2019-06-29] MEDS: IPRATROPIUM BROMIDE (0.02%) 0.5MG/2.5ML NEB HHN SCH ×4 (01:16→20:22)
[2019-06-29] MEDS: METOPROLOL TARTRATE 50MG TABLET PO SCH ×3 (05:27→21:39)
[2019-06-29] MEDS: INSULIN LISPRO 100 UNITS/ML SUBCUT SCH ×4 (05:47→21:00)
[2019-06-29] MEDS: BLOOD SUGAR DIAGNOSTIC STRIP TEST SCH ×4 (05:56→21:43)
[2019-06-29 06:43] LABS: CHLORIDE 101 mEq/L (98-107)
[2019-06-29 06:59] LABS: BASOPHILS % 0.9 % (0.0-2.0); EOSINOPHILS % 1.6 % (0.0-5.0); HEMATOCRIT. 32.7 % (36.0-48.0); HEMOGLOBIN. 10.9 g/dL (12.0-16.0); LYMPHOCYTES % 26.7 % (20.0-50.0); MEAN CORPUSCULAR HEMOGLOBIN 27.3 pg (28.0-32.0); MEAN CORPUSCULAR VOLUME 81.7 fL (81.0-99.0); NEUTROPHILS % 56.8 % (40.0-76.0); PLATELET 279 x1000/uL (130-400); RED CELL DISTRIBUTION WIDTH 15.4 % (11.6-14.6)
[2019-06-29] MEDS: ASPIRIN 81MG TABLET GT SCH (09:08)
[2019-06-29] MEDS: FAMOTIDINE 20MG TABLET PO SCH ×2 (09:08→21:38)
[2019-06-29] MEDS: ENOXAPARIN 30MG/0.3ML SYR SUBCUT SCH (09:08)
[2019-06-30] VITALS (12 sets, daily range): BP systolic 102–146; BP diastolic 65–89
[2019-06-30] MEDS: DILTIAZEM HCL 90MG TABLET GT SCH ×4 (00:28→17:33)
[2019-06-30] MEDS: IPRATROPIUM BROMIDE (0.02%) 0.5MG/2.5ML NEB HHN SCH ×4 (01:57→20:59)
[2019-06-30] MEDS: BLOOD SUGAR DIAGNOSTIC STRIP TEST SCH ×4 (06:30→20:54)
[2019-06-30] MEDS: METOPROLOL TARTRATE 50MG TABLET PO SCH ×3 (06:44→21:25)
[2019-06-30] MEDS: INSULIN LISPRO 100 UNITS/ML SUBCUT SCH ×4 (07:20→20:55)
[2019-06-30] MEDS: FAMOTIDINE 20MG TABLET PO SCH ×2 (08:32→20:54)
[2019-06-30] MEDS: ASPIRIN 81MG TABLET GT SCH (08:32)
[2019-06-30] MEDS: ENOXAPARIN 30MG/0.3ML SYR SUBCUT SCH (08:33)
[2019-07-01] VITALS (14 sets, daily range): BP systolic 118–143; BP diastolic 65–91
[2019-07-01] MEDS: DILTIAZEM HCL 90MG TABLET GT SCH ×4 (00:42→18:49)
[2019-07-01] MEDS: IPRATROPIUM BROMIDE (0.02%) 0.5MG/2.5ML NEB HHN SCH ×2 (02:08→21:03)
[2019-07-01] MEDS: INSULIN LISPRO 100 UNITS/ML SUBCUT SCH ×4 (06:49→22:10)
[2019-07-01] MEDS: BLOOD SUGAR DIAGNOSTIC STRIP TEST SCH ×4 (06:49→22:09)
[2019-07-01] MEDS: METOPROLOL TARTRATE 50MG TABLET PO SCH ×3 (06:49→22:57)
[2019-07-01] MEDS: ENOXAPARIN 30MG/0.3ML SYR SUBCUT SCH (09:59)
[2019-07-01] MEDS: FAMOTIDINE 20MG TABLET PO SCH ×2 (09:59→22:09)
[2019-07-01] MEDS: ASPIRIN 81MG TABLET GT SCH (09:59)
[2019-07-02] VITALS (19 sets, daily range): BP systolic 101–136; BP diastolic 65–92
[2019-07-02] MEDS: DILTIAZEM HCL 90MG TABLET GT SCH ×4 (01:11→17:53)
[2019-07-02] MEDS: IPRATROPIUM BROMIDE (0.02%) 0.5MG/2.5ML NEB HHN SCH ×4 (01:57→20:10)
[2019-07-02] MEDS: BLOOD SUGAR DIAGNOSTIC STRIP TEST SCH ×4 (05:53→20:16)
[2019-07-02] MEDS: METOPROLOL TARTRATE 50MG TABLET PO SCH ×3 (06:02→22:49)
[2019-07-02] MEDS: INSULIN LISPRO 100 UNITS/ML SUBCUT SCH ×4 (07:20→20:17)
[2019-07-02] MEDS: FAMOTIDINE 20MG TABLET PO SCH ×2 (08:17→20:13)
[2019-07-02] MEDS: ASPIRIN 81MG TABLET GT SCH (08:17)
[2019-07-02] MEDS: ENOXAPARIN 40MG/0.4ML SYR SUBCUT SCH (08:18)
[2019-07-03] VITALS (18 sets, daily range): BP systolic 114–163; BP diastolic 50–96
[2019-07-03] MEDS: DILTIAZEM HCL 90MG TABLET GT SCH ×5 (00:38→23:59)
[2019-07-03] MEDS: IPRATROPIUM BROMIDE (0.02%) 0.5MG/2.5ML NEB HHN SCH ×5 (01:43→20:03)
[2019-07-03] MEDS: BLOOD SUGAR DIAGNOSTIC STRIP TEST SCH ×4 (06:00→21:27)
[2019-07-03] MEDS: METOPROLOL TARTRATE 50MG TABLET PO SCH ×3 (06:26→22:59)
[2019-07-03] MEDS: INSULIN LISPRO 100 UNITS/ML SUBCUT SCH ×4 (07:20→21:00)
[2019-07-03] MEDS: ASPIRIN 81MG TABLET GT SCH (07:50)
[2019-07-03] MEDS: FAMOTIDINE 20MG TABLET PO SCH ×2 (07:50→21:17)
[2019-07-03] MEDS: ENOXAPARIN 40MG/0.4ML SYR SUBCUT SCH (07:51)
[2019-07-04] VITALS (14 sets, daily range): BP systolic 107–142; BP diastolic 49–88
[2019-07-04] MEDS: IPRATROPIUM BROMIDE (0.02%) 0.5MG/2.5ML NEB HHN SCH ×4 (01:41→20:16)
[2019-07-04] MEDS: METOPROLOL TARTRATE 50MG TABLET PO SCH ×3 (06:00→21:26)
[2019-07-04] MEDS: DILTIAZEM HCL 90MG TABLET GT SCH ×4 (06:00→23:17)
[2019-07-04] MEDS: INSULIN LISPRO 100 UNITS/ML SUBCUT SCH ×4 (07:20→21:00)
[2019-07-04] MEDS: BLOOD SUGAR DIAGNOSTIC STRIP TEST SCH ×4 (07:23→21:25)
[2019-07-04] MEDS: ASPIRIN 81MG TABLET GT SCH (08:21)
[2019-07-04] MEDS: FAMOTIDINE 20MG TABLET PO SCH ×2 (08:21→20:42)
[2019-07-04] MEDS: ENOXAPARIN 40MG/0.4ML SYR SUBCUT SCH (08:29)
[2019-07-05] VITALS (12 sets, daily range): BP systolic 97–143; BP diastolic 69–92
[2019-07-05] MEDS: IPRATROPIUM BROMIDE (0.02%) 0.5MG/2.5ML NEB HHN SCH ×4 (01:01→20:55)
[2019-07-05] MEDS: DILTIAZEM HCL 90MG TABLET GT SCH ×3 (05:50→18:08)
[2019-07-05] MEDS: METOPROLOL TARTRATE 50MG TABLET PO SCH ×3 (05:50→23:36)
[2019-07-05] MEDS: BLOOD SUGAR DIAGNOSTIC STRIP TEST SCH ×4 (05:50→21:00)
[2019-07-05] MEDS: INSULIN LISPRO 100 UNITS/ML SUBCUT SCH ×4 (05:51→21:00)
[2019-07-05] MEDS: FAMOTIDINE 20MG TABLET PO SCH ×2 (08:44→23:36)
[2019-07-05] MEDS: ENOXAPARIN 40MG/0.4ML SYR SUBCUT SCH (08:44)
[2019-07-05] MEDS: ASPIRIN 81MG TABLET GT SCH (08:44)
[2019-07-06] VITALS (12 sets, daily range): BP systolic 95–124; BP diastolic 66–89
[2019-07-06] MEDS: IPRATROPIUM BROMIDE (0.02%) 0.5MG/2.5ML NEB HHN SCH ×2 (01:38→10:34)
[2019-07-06] MEDS: BLOOD SUGAR DIAGNOSTIC STRIP TEST SCH ×4 (06:50→21:20)
[2019-07-06] MEDS: INSULIN LISPRO 100 UNITS/ML SUBCUT SCH ×4 (07:20→21:00)
[2019-07-06] MEDS: FAMOTIDINE 20MG TABLET PO SCH ×2 (08:09→21:20)
[2019-07-06] MEDS: ASPIRIN 81MG TABLET GT SCH (08:09)
[2019-07-06] MEDS: ENOXAPARIN 40MG/0.4ML SYR SUBCUT SCH (08:09)
[2019-07-06] MEDS: DILTIAZEM HCL 90MG TABLET GT SCH ×4 (12:17→23:52)
[2019-07-06] MEDS: METOPROLOL TARTRATE 50MG TABLET PO SCH ×2 (14:21→21:20)
[2019-07-07] VITALS (13 sets, daily range): BP systolic 97–126; BP diastolic 62–89
[2019-07-07] MEDS: DILTIAZEM HCL 90MG TABLET GT SCH ×3 (05:50→18:22)
[2019-07-07] MEDS: INSULIN LISPRO 100 UNITS/ML SUBCUT SCH ×4 (05:53→21:00)
[2019-07-07] MEDS: BLOOD SUGAR DIAGNOSTIC STRIP TEST SCH ×4 (05:53→21:12)
[2019-07-07] MEDS: METOPROLOL TARTRATE 50MG TABLET PO SCH ×2 (05:56→14:56)
[2019-07-07] MEDS: ENOXAPARIN 40MG/0.4ML SYR SUBCUT SCH (09:00)
[2019-07-07] MEDS: FAMOTIDINE 20MG TABLET PO SCH (09:00)
[2019-07-07] MEDS: ASPIRIN 81MG TABLET GT SCH (09:00)
[2019-07-08] VITALS (9 sets, daily range): BP systolic 99–132; BP diastolic 71–91
[2019-07-08] MEDS: METOPROLOL TARTRATE 50MG TABLET PO SCH ×3 (00:14→14:55)
[2019-07-08] MEDS: FAMOTIDINE 20MG TABLET PO SCH ×3 (00:15→20:12)
[2019-07-08] MEDS: DILTIAZEM HCL 90MG TABLET GT SCH ×4 (00:15→17:44)
[2019-07-08] MEDS: BLOOD SUGAR DIAGNOSTIC STRIP TEST SCH ×4 (05:55→20:19)
[2019-07-08 06:45] LABS: BASOPHILS % 0.7 % (0.0-2.0); EOSINOPHILS % 1.7 % (0.0-5.0); HEMATOCRIT. 36.6 % (36.0-48.0); HEMOGLOBIN. 11.9 g/dL (12.0-16.0); LYMPHOCYTES % 23.5 % (20.0-50.0); MEAN CORPUSCULAR HEMOGLOBIN 26.8 pg (28.0-32.0); MEAN CORPUSCULAR VOLUME 82.3 fL (81.0-99.0); MEAN PLATELET VOLUME 9.5 fl (7.4-10.4); MONOCYTES % 13.4 % (2.0-8.0); NEUTROPHILS % 60.7 % (40.0-76.0); PLATELET 224 x1000/uL (130-400); RED BLOOD CELL COUNT 4.44 mill/uL (4.2-5.4); RED CELL DISTRIBUTION WIDTH 15.9 % (11.6-14.6)
[2019-07-08 07:00] LABS: CHLORIDE 102 mEq/L (98-107)
[2019-07-08] MEDS: INSULIN LISPRO 100 UNITS/ML SUBCUT SCH ×4 (07:20→20:11)
[2019-07-08] MEDS: ASPIRIN 81MG TABLET GT SCH (09:11)
[2019-07-08] MEDS: ENOXAPARIN 40MG/0.4ML SYR SUBCUT SCH (09:11)
[2019-07-09] VITALS (11 sets, daily range): BP systolic 93–136; BP diastolic 72–92
[2019-07-09] MEDS: DILTIAZEM HCL 90MG TABLET GT SCH ×4 (00:29→17:54)
[2019-07-09] MEDS: BLOOD SUGAR DIAGNOSTIC STRIP TEST SCH ×4 (07:04→20:51)
[2019-07-09] MEDS: INSULIN LISPRO 100 UNITS/ML SUBCUT SCH ×4 (07:20→20:51)
[2019-07-09] MEDS: ASPIRIN 81MG TABLET GT SCH (09:17)
[2019-07-09] MEDS: FAMOTIDINE 20MG TABLET PO SCH ×2 (09:17→20:53)
[2019-07-09] MEDS: ENOXAPARIN 40MG/0.4ML SYR SUBCUT SCH (09:18)
[2019-07-10] VITALS (9 sets, daily range): BP systolic 92–123; BP diastolic 63–99
[2019-07-10] MEDS: DILTIAZEM HCL 90MG TABLET GT SCH ×4 (06:00→17:59)
[2019-07-10] MEDS: INSULIN LISPRO 100 UNITS/ML SUBCUT SCH ×4 (06:22→21:00)
[2019-07-10] MEDS: BLOOD SUGAR DIAGNOSTIC STRIP TEST SCH ×4 (06:22→21:00)
[2019-07-10] MEDS: ENOXAPARIN 40MG/0.4ML SYR SUBCUT SCH (09:14)
[2019-07-10] MEDS: FAMOTIDINE 20MG TABLET PO SCH ×2 (09:14→22:19)
[2019-07-10] MEDS: ASPIRIN 81MG TABLET GT SCH (09:14)
[2019-07-11] VITALS (10 sets, daily range): BP systolic 115–140; BP diastolic 60–89
[2019-07-11] MEDS: DILTIAZEM HCL 90MG TABLET GT SCH ×5 (00:12→23:55)
[2019-07-11] MEDS: BLOOD SUGAR DIAGNOSTIC STRIP TEST SCH ×4 (06:15→21:00)
[2019-07-11] MEDS: INSULIN LISPRO 100 UNITS/ML SUBCUT SCH ×4 (06:15→21:00)
[2019-07-11] MEDS: ASPIRIN 81MG TABLET GT SCH (09:20)
[2019-07-11] MEDS: ENOXAPARIN 40MG/0.4ML SYR SUBCUT SCH (09:20)
[2019-07-11] MEDS: FAMOTIDINE 20MG TABLET PO SCH ×2 (09:20→21:15)
[2019-07-11] MEDS ORDERED: DILTIAZEM HCL 30MG TABLET GT NR (14:00)
[2019-07-12] VITALS: BP 110/72
[2019-07-12 02:00] VITALS: BP 109/71
[2019-07-12 04:00] VITALS: BP 120/79
[2019-07-12] MEDS: DILTIAZEM HCL 90MG TABLET GT SCH ×2 (06:00→11:54)
[2019-07-12] MEDS: INSULIN LISPRO 100 UNITS/ML SUBCUT SCH ×3 (06:03→12:18)
[2019-07-12] MEDS: BLOOD SUGAR DIAGNOSTIC STRIP TEST SCH ×3 (06:03→12:17)
[2019-07-12 06:06] VITALS: BP 104/48
[2019-07-12 08:00] VITALS: BP 108/71
[2019-07-12] MEDS: FAMOTIDINE 20MG TABLET PO SCH (08:47)
[2019-07-12] MEDS: ASPIRIN 81MG TABLET GT SCH (08:47)
[2019-07-12] MEDS: ENOXAPARIN 40MG/0.4ML SYR SUBCUT SCH (08:47)
[2019-07-12 12:00] VITALS: BP 111/69
== END 2019-07-12 15:36 | DRG 720 ==
LOC: ER 10:41 → 6WST 14:16 → EDBEDREQ 14:27 → EDBEDREQTM 14:27 → EDBEDREQSVC 14:27 → ENRESERV 22:43 → 3WST 06-01 23:19
PROVIDERS: ADMIT Internal Medicine; ATTEND Internal Medicine
PROC: 5A09357 Assistance with Respiratory Ventilation, Less than 24 Consecutive Hours, Continuous Positive Airway Pressure (ICD-10-PCS; principal; 2019-06-05)
PROC: 5A09357 Assistance with Respiratory Ventilation, Less than 24 Consecutive Hours, Continuous Positive Airway Pressure (ICD-10-PCS; 2019-06-07)
PROC: 5A09357 Assistance with Respiratory Ventilation, Less than 24 Consecutive Hours, Continuous Positive Airway Pressure (ICD-10-PCS; 2019-06-09)
PROC: 5A09357 Assistance with Respiratory Ventilation, Less than 24 Consecutive Hours, Continuous Positive Airway Pressure (ICD-10-PCS; 2019-06-10)
PROC: 5A09357 Assistance with Respiratory Ventilation, Less than 24 Consecutive Hours, Continuous Positive Airway Pressure (ICD-10-PCS; 2019-06-11)
PROC: 5A09357 Assistance with Respiratory Ventilation, Less than 24 Consecutive Hours, Continuous Positive Airway Pressure (ICD-10-PCS; 2019-06-15)
PROC: 5A09357 Assistance with Respiratory Ventilation, Less than 24 Consecutive Hours, Continuous Positive Airway Pressure (ICD-10-PCS; 2019-06-16)
DX: A41.51 Sepsis due to Escherichia coli [E. coli] (principal); J69.0 Pneumonitis due to inhalation of food and vomit; G92 Toxic encephalopathy; E43 Unspecified severe protein-calorie malnutrition; J96.02 Acute respiratory failure with hypercapnia; J96.01 Acute respiratory failure with hypoxia; I50.23 Acute on chronic systolic (congestive) heart failure; E83.42 Hypomagnesemia; D69.6 Thrombocytopenia, unspecified; N39.0 Urinary tract infection, site not specified; L89.156 Pressure-induced deep tissue damage of sacral region; L89.516 Pressure-induced deep tissue damage of right ankle; I27.21 Secondary pulmonary arterial hypertension; I11.0 Hypertensive heart disease with heart failure; E86.0 Dehydration; E83.52 Hypercalcemia; G35 Multiple sclerosis; Z79.899 Other long term (current) drug therapy; B96.20 Unspecified Escherichia coli [E. coli] as the cause of diseases classified elsewhere; E11.9 Type 2 diabetes mellitus without complications; Z93.1 Gastrostomy status; J45.909 Unspecified asthma, uncomplicated; I47.1 Supraventricular tachycardia; R47.02 Dysphasia; D64.9 Anemia, unspecified; E87.1 Hypo-osmolality and hyponatremia; R54 Age-related physical debility; Z20.828 Contact with and (suspected) exposure to other viral communicable diseases; R13.10 Dysphagia, unspecified; J96.21 Acute and chronic respiratory failure with hypoxia; J96.22 Acute and chronic respiratory failure with hypercapnia; I08.2 Rheumatic disorders of both aortic and tricuspid valves; Z87.440 Personal history of urinary (tract) infections; Z79.4 Long term (current) use of insulin; Z87.01 Personal history of pneumonia (recurrent); Z87.891 Personal history of nicotine dependence; Z86.718 Personal history of other venous thrombosis and embolism; Z88.0 Allergy status to penicillin; Z79.82 Long term (current) use of aspirin; Z68.21 Body mass index [BMI] 21.0-21.9, adult; Z74.01 Bed confinement status; Z88.8 Allergy status to other drugs, medicaments and biological substances; Z91.030 Bee allergy status
CPT/HCPCS: 36415; 36600; 71045; 80048; 80053; 80061; 80202; 80305; 81003; 82375; 82550; 82553; 82805; 82962; 83036; 83605; 83735; 83880; 84145; 84484; 85025; 87070; 87077; 87186; 87635; 92610; 93005; 93306; 93970; 94003; 94640; 94660; 96365; 99285; J0692; J0696; J1650; J1815; J1885; J1940; J1956; J3370; J3475; J3490; J7030; J7060; J7608; P9047